=== PATIENT | female | born 1955 | race Caucasian/White ===

== ENCOUNTER 2016-08-08 16:03 | Emergency (ER) | payer MEDICARE, OTHER ==
[~2016-08-08] VITALS: Ht 167.6 cm; Wt 60.0 kg
[~2016-08-08 16:03] MED LIST: ASPI81TA11 PO; ATOR40TA16 PO; CANA100T PO; CYCL1TAB29 PO; HYDR-3801 PO; LISI30TA4 PO; METH40TA PO; NAPR375T PO; REST15CA PO; VITA10002 PO
--- NOTE | 2016-08-08 16:17 | PD ---
HPI Chief Complaint: methadone withdrawal symptoms, chest pain Time Seen by Provider: 16:09 Travel History International Travel<30 days: No Contact w/Intl Traveler<30days: No Traveled to known affect area: No History of Present Illness HPI 61-year-old female came to the emergency room with history of nausea, vomiting, body ache and chest pain. Patient has history of chronic pain and is on methadone 20 mg 3 times a day. She was not able to get her methadone prescription filled from the pharmacy 2 days ago since her insurance would not pay for it. Her last methadone dose was 2 days ago. Patient received Zofran by the digital marketing associate. A 12-lead EKG was nonspecific. ER nurse called [facility] pharmacy Ziyad Garcia to find out the reason why the prescription was not filled and he was told by the pharmacist that her insurance which is Medicare said that they have stopped pain for ongoing high doses of methadone without a proper reason. Patient has history of hypertension and her blood pressure was slightly elevated. She was however awake and answering questions appropriately. [facility] Past Medical History Narrative Medical List of her past medical history was reviewed from the nursing note. Anemia: Yes Arthritis: No Asthma: No Blood Disorders: No Anxiety: Yes Depression: Yes Cancer: No Cardiac Catheterization: Yes Cardiovascular Problems: Yes High Cholesterol: Yes Chemotherapy: No Chest Pain: Yes COPD: Yes Cerebrovascular Accident: Yes (2014) Coronary Artery Disease: Yes Diabetes: Yes Diminished Hearing: No Endocrine: No Gastrointestinal Disorders: Yes (GI BLEED) GERD: Yes Genitourinary: Yes Headaches: Yes Hepatitis: No Hypertension: Yes Immune Disorder: No Implanted Vascular Access Dvce: Yes Kidney Stones: Yes Musculoskeletal: Yes (SCOLIOSIS,TORTICOLIS) Neurologic: Yes Psychiatric: Yes Reproductive: No Respiratory: Yes Immunizations Current: Yes Migraines: Yes Radiation Therapy: No Renal Failure: Yes Seizures: No Sleep Apnea: Yes Thyroid Disease: No PNEUMOCCOCAL Vaccine (Year): 1 Menopausal: Yes : 2 Para: 1 Miscarriage: 1 Past Surgical History Abdominal Surgery: Yes AICD: No Appendectomy: Yes Body Medical Devices: WIRE CAGE IN NECK - PLATE IN LEFT WRIST & LEFT CLAVICLE, stents Cardiac Surgery: Yes (STENTS cardiac, "stents between my kindey and heart" ) Cholecystectomy: Yes Coronary Stent: Yes (x3) Ear Surgery: No Eye Surgery: No Gynecologic Surgery: Yes (HYST) Hysterectomy: Yes Neurologic Surgery: Yes (C3 C4 ) Oral Surgery: No Pacemaker: No Tonsillectomy: Yes Other Surgery: Yes Social History Alcohol Use: No Tobacco Use: No (QUIT 24 YRS) Substance Use: No Allergies-Medications (Allergen,Severity, Reaction): Coded Allergies: Levaquin (Verified Allergy, Severe, Anaphylaxis, 06/05/16) Morphine (Verified Allergy, Severe, SEVERE VOMITING, 06/05/16) Reglan (Verified Allergy, Severe, Edema, 06/05/16) Norvasc (Verified Adverse Reaction, Severe, Swelling, 06/05/16) "left leg swelling" Comments List of her allergies reviewed from the nursing note. No Reported Meds & Prescriptions Reported Meds & Active Scripts Active Vistaril (Hydroxyzine Pamoate) 50 Mg Cap 50 Mg PO BID Clonidine (Clonidine HCl) 0.1 Mg Tab 0.1 Mg PO BID Invokana (Canagliflozin) 100 Mg Tab 100 Mg PO DAILY Take before 1st meal of day. Hydralazine (Hydralazine HCl) 100 Mg Tab 100 Mg PO BID Take with meals Lisinopril 30 Mg Tab 30 Mg PO DAILY Naproxen 375 Mg Tab 375 Mg PO BID PRN Reported Restoril (Temazepam) 15 Mg Cap 15 Mg PO HS PRN Aspirin EC (Aspirin) 81 Mg Tabdr 81 Mg PO DAILY Vitamin B-12 (Cyanocobalamin) 1,000 Mcg Tab 1,000 Mcg PO DAILY Flexeril (Cyclobenzaprine HCl) 10 Mg Tab 10 Mg PO TID Atorvastatin (Atorvastatin Calcium) 40 Mg Tab 40 Mg PO HS Methadone (Methadone HCl) 40 Mg Tab 40 Mg PO TID Narrative Medication List of her home medications reviewed from the nursing note. Review of Systems Except as stated in HPI: all other systems reviewed are Neg Physical Exam Narrative GENERAL: Awake, alert, anxious, otherwise no obvious distress, disheveled SKIN: Warm and dry. HEAD: Atraumatic. Normocephalic. EYES: Pupils equal and round. No scleral icterus. No injection or drainage. ENT: No nasal bleeding or discharge. Mucous membranes pink and moist. NECK: Trachea midline. No JVD. CARDIOVASCULAR: Regular rate and rhythm. No murmur appreciated. RESPIRATORY: No accessory muscle use. Clear to auscultation. Breath sounds equal bilaterally. GASTROINTESTINAL: Abdomen soft, non-tender, nondistended. Hepatic and splenic margins not palpable. MUSCULOSKELETAL: No obvious deformities. No clubbing. No cyanosis. No edema. NEUROLOGICAL: Awake and alert. No obvious cranial nerve deficits. Motor grossly within normal limits. Normal speech. PSYCHIATRIC: Appropriate mood and affect; insight and judgment normal. Data Data Last Documented VS Vital Signs Date Time Temp Pulse Resp B/P Pulse Ox O2 Delivery O2 Flow Rate FiO2 08/08/16 18:00 86 20 169/111 96 Room Air 08/08/16 16:32 98.6 Orders Electrocardiogram (08/08/16 16:23) Basic Metabolic Panel (Bmp) (08/08/16 16:23) Ckmb (Isoenzyme) Profile (08/08/16 16:23) Complete Blood Count With Diff (08/08/16 16:23) Magnesium (Mg) (08/08/16 16:23) Prothrombin Time / Inr (Pt) (08/08/16 16:23) Act Partial Throm Time (Ptt) (08/08/16 16:23) Troponin I (08/08/16 16:23) Chest, Single Ap (08/08/16 16:23) Ecg Monitoring (08/08/16 16:23) Bilateral Bp Monitoring (08/08/16 16:23) Iv Access Insert/Monitor (08/08/16 16:23) Oximetry (08/08/16 16:23) Oxygen Administration (08/08/16 16:23) Sodium Chloride 0.9% Flush (Ns Flush) (08/08/16 16:30) Sodium Chlorid 0.9% 500 Ml Inj (Ns 500 M (08/08/16 16:30) Clonidine (Catapres) (08/08/16 16:30) Hydroxyzine Hcl (Atarax) (08/08/16 16:30) Ondansetron Odt (Zofran Odt) (08/08/16 17:00) CKMB (08/08/16 16:40) CKMB% (08/08/16 16:40) Labs Laboratory Tests Test 08/08/16 16:40 White Blood Count 6.9 TH/MM3 Red Blood Count 4.23 MIL/MM3 Hemoglobin 11.6 GM/DL Hematocrit 35.2 % Mean Corpuscular Volume 83.2 FL Mean Corpuscular Hemoglobin 27.5 PG Mean Corpuscular Hemoglobin 33.0 % Concent Red Cell Distribution Width 16.8 % Platelet Count 240 TH/MM3 Mean Platelet Volume 8.0 FL Neutrophils (%) (Auto) 72.8 % Lymphocytes (%) (Auto) 17.6 % Monocytes (%) (Auto) 7.8 % Eosinophils (%) (Auto) 1.0 % Basophils (%) (Auto) 0.8 % Neutrophils # (Auto) 5.0 TH/MM3 Lymphocytes # (Auto) 1.2 TH/MM3 Monocytes # (Auto) 0.5 TH/MM3 Eosinophils # (Auto) 0.1 TH/MM3 Basophils # (Auto) 0.1 TH/MM3 CBC Comment DIFF FINAL Differential Comment Prothrombin Time 11.4 SEC Prothromb Time International 1.0 RATIO Ratio Activated Partial 22.1 SEC Thromboplast Time Sodium Level 136 MEQ/L Potassium Level 5.0 MEQ/L Chloride Level 103 MEQ/L Carbon Dioxide Level 23.1 MEQ/L Anion Gap 10 MEQ/L Blood Urea Nitrogen 21 MG/DL Creatinine 1.60 MG/DL Estimat Glomerular Filtration 33 ML/MIN Rate Random Glucose 143 MG/DL Calcium Level 9.3 MG/DL Magnesium Level 1.7 MG/DL Total Creatine Kinase 184 U/L Creatine Kinase MB 3.5 NG/ML Troponin I LESS THAN 0.02 NG/ML MDM Medical Decision Making Medical Screen Exam Complete: Yes Emergency Medical Condition: Yes Interpretation(s) Twelve-lead EKG was reviewed by me. Normal sinus rhythm, normal axis, nonspecific ST-T wave changes. Heart rate of 93 bpm. Differential Diagnosis ACS, opiate withdrawal, left leg abnormality Narrative Course 4:49 PM blood test results are pending. Patient is getting IV fluid bolus, clonidine and Zofran. I will also give her Atarax. 5:35 PM blood test results of back and there is some degree of renal insufficiency which seems to be chronic. And is getting IV fluid bolus. She was given IV Zofran. I'll discharge this patient home. Procedures EKG Prior to Arrival: Yes Diagnosis Primary Impression: Opiate withdrawal Additional Impression: Renal insufficiency Referrals: Primary Care Physician 2 days Additional Instructions: Follow-up with your primary care. Take medication as per the prescription direction. Med/Other Pt SpecificInfo: Prescription(s) given Scripts Hydroxyzine Pamoate (Vistaril)50 Mg Cap50 Mg PO BID #30 CAP Ref 0 Prov:Maryjane Higginbotham MD 08/08/16 Clonidine 0.1 Mg Tab0.1 Mg PO BID #60 TAB Ref 0 Prov:Maryjane Higginbotham MD 08/08/16 Disposition: 01 DISCHARGE HOME Condition: Stable Maryjane Higginbotham MD Aug 08, 2016 16:17 Maryjane Higginbotham MD Aug 08, 2016 16:17 Maryjane Higginbotham MD Aug 08, 2016 16:17
[2016-08-08] MEDS ORDERED: SODIUM CHLORIDE 0.9% FLUSH 5 ML FLUSH IVF PRN (16:30)
[2016-08-08] MEDS ORDERED: cloNIDine HCL 0.1 MG TAB PO ONE (16:30)
[2016-08-08] MEDS ORDERED: SODIUM CHLORID 0.9% 500 ML INJ 500 ML IV ONE (16:30)
[2016-08-08] MEDS ORDERED: hydrOXYzine HCL 50 MG TAB PO ONE (16:30)
[2016-08-08 16:32] VITALS: BP 179/118; PULSE 95; RESP 24; TEMP 98.6; O2SAT 98
[2016-08-08 16:40] VITALS: O2SAT 98
[2016-08-08 16:43] VITALS: BP_SYST 168; BP_SYST 179; BP_DIAS 108; BP_DIAS 118
[2016-08-08 16:51] LABS: BASOPHIL # 0.1 TH/MM3 (0-0.2); BASOPHIL % 0.8 % (0.0-2.0); EOSINOPHIL # 0.1 TH/MM3 (0-0.4); HEMATOCRIT 35.2 % (35.0-46.0); HEMO FLAGS DIFF FINAL; LYMPH % 17.6 % (9.0-44.0); LYMPHOCYTE # 1.2 TH/MM3 (1.0-4.8); MEAN CELL VOLUME 83.2 FL (80.0-100.0); MEAN CORPUSCULAR HEMOGLOBIN 27.5 PG (27.0-34.0); MONO % 7.8 % (0.0-8.0); NEUT % 72.8 % (16.0-70.0); PLATELET COUNT 240 TH/MM3 (150-450); RED BLOOD COUNT 4.23 MIL/MM3 (4.00-5.30); RED CELL DISTRIBUTION WIDTH 16.8 % (11.6-17.2); WHITE BLOOD COUNT 6.9 TH/MM3 (4.0-11.0)
[2016-08-08] MEDS ORDERED: ONDANSETRON ODT 4 MG TAB PO ONE (17:00)
[2016-08-08 17:05] LABS: APTT (PATIENT) 22.1 SEC (24.3-30.1); PROTHROMBIN TIME - PATIENT 11.4 SEC (9.8-11.6)
[2016-08-08 17:11] LABS: CREATINE KINASE 184 U/L (26-192)
--- NOTE | 2016-08-08 17:19 | RADRPT ---
EXAM DATE/TIME: 08/08/2016 17:08 [facility] COMPARISON: CHEST SINGLE AP, February 29, 2016, 9:49. INDICATIONS : Shortness of breath. Withdrawal from medication. MEDICAL HISTORY : Chronic obstructive pulmonary disease. Hypertension. Renal failure, SURGICAL HISTORY : Fusion, cervical. Hysterectomy. Clavicle, Left. ENCOUNTER: Initial ACUITY: 1 day PAIN SCORE: 0/10 LOCATION: Bilateral chest FINDINGS: There is moderate elevation of the left hemidiaphragm. Mediastinum appears widened with some thoraco lumbar scoliosis. This is stable in the interval. The lungs are otherwise clear. Heart and pulmona ry vascularity are normal. CONCLUSION: Stable chest. Yovani Orlando MD FACR on August 08, 2016 at 17:16 Board Certified Radiologist. This report was verified electronically.
[2016-08-08 17:23] LABS: CKMB 3.5 NG/ML (0.5-3.6)
[2016-08-08 17:29] LABS: ANION GAP 10 MEQ/L (5-15); BICARBONATE 23.1 MEQ/L (21.0-32.0); BLOOD UREA NITROGEN 21 MG/DL (7-18); CHLORIDE 103 MEQ/L (98-107); GLOMERULAR FILTRATION RATE 33 ML/MIN (>89); MAGNESIUM 1.7 MG/DL (1.5-2.5); SODIUM (NA) 136 MEQ/L (136-145)
[2016-08-08] MEDS ORDERED: CLON0.1T PO (17:42)
[2016-08-08] MEDS ORDERED: VIST50CA PO (17:42)
[2016-08-08 18:00] VITALS: BP 169/111; PULSE 86; RESP 20; O2SAT 96
--- NOTE | 2016-08-09 14:21 | EKG ---
Date Performed: 08/08/2016 Time Performed: 16:34:11 PTAGE: 61 years EKG: Sinus rhythm POSSIBLE LEFT ATRIAL ENLARGEMENT POSSIBLE LEFT VENTRICULAR HYPERTROPHY NONSPECIFIC T-WAVE ABNORMALIT Y Previously inverted T wave V1 and V2 is now resolved Clinical correlation is recommended ABNORMAL E CG PREVIOUS TRACING : 06/05/2016 14.30 DOCTOR: Thuan Trejo Interpretating Date/Time 08/09/2016 14:19:00
[2016-10-30] MEDS ORDERED: LABE300T PO (08:45)
[2016-10-30] MEDS ORDERED: FURO1TAB60 PO (08:45)
[2016-10-30] MEDS ORDERED: HYDR-3801 PO (08:45)
[2016-10-30] MEDS ORDERED: HYDR50TA15 PO (14:41)
== END 2016-08-08 19:39 | disposition home or self-care (01) ==
LOC: NEPC 16:03
DX: F11.23 Opioid dependence with withdrawal (principal); N28.9 Disorder of kidney and ureter, unspecified; R07.9 Chest pain, unspecified; D64.9 Anemia, unspecified; E78.00 Pure hypercholesterolemia, unspecified; E11.9 Type 2 diabetes mellitus without complications; I10 Essential (primary) hypertension; R94.31 Abnormal electrocardiogram [ECG] [EKG]
CPT/HCPCS: 71010; 80048; 82550; 82552; 83735; 84484; 85025; 85610; 85730; 93005; 99285; J7040

== ENCOUNTER 2016-09-20 18:44 | Emergency (ER) | payer MEDICARE, OTHER ==
[~2016-09-20] VITALS: Ht 167.6 cm; Wt 67.0 kg
[~2016-09-20 18:44] MED LIST changes: +CLON0.1T PO; +VIST50CA PO
[2016-09-20 18:50] VITALS: BP 186/114; PULSE 100; RESP 17; O2SAT 99
[2016-09-20] MEDS ORDERED: PRIL20CA9 PO (18:57)
[2016-09-20] MEDS ORDERED: CLON0.3T PO (18:57)
[2016-09-20] MEDS ORDERED: SODIUM CHLORIDE 0.9% FLUSH 5 ML FLUSH IVF PRN (19:30)
--- NOTE | 2016-09-20 19:30 | PD ---
HPI Chief Complaint: Hypertension Time Seen by Provider: 19:18 Travel History International Travel<30 days: No Contact w/Intl Traveler<30days: No Traveled to known affect area: No History of Present Illness HPI The patient is a 61 year old female who presents to the [facility] emergency department with a history of shortness of breath that became worse while she was at the races prior to arrival. She reports that she was walking up the steps when this occurred. She reports that she does have a history of COPD and is on oxygen by nasal cannula when necessary, usually at night. She reports that she felt diaphoretic although she had no chest pain. She reports that she has had congestive heart failure in the past. She reports that she does have a history of hypertension and forgot to take her blood pressure medication at 2 PM today. She reports that she realizes when she had these symptoms as she has had similar symptoms when she is forgot to take her blood pressure medication. The patient is on clonidine 0.3 mg by mouth 3 times a day. Approximately 40 minutes prior to arrival she did take one of her clonidine when she began to have these symptoms. She reports that she is beginning to feel improved. The patient reports that she has had an occasional cough that is been slightly worse than usual recently. She reports that she's also had some pressure in her ears. She denies having any nasal discharge or fever. The patient denies any new or changed neck pain, chest pain, abdominal pain, vomiting, diarrhea, urinary symptoms, or neurologic symptoms. [facility] Past Medical History Narrative Medical The patient's past medical history is significant for torticollis since 2002, history of congestive heart failure, COPD, chronic bronchitis, reported history of a "paralyzed" lung, history of chronic dyspnea on exertion, history of hypertension, history of GI bleed, history of acid reflux, history of anxiety and depression, history of renal insufficiency. The patient denies any prior history of DVT or PE. Anemia: Yes Arthritis: No Asthma: No Blood Disorders: No Anxiety: Yes Depression: Yes Cancer: No Cardiac Catheterization: Yes Cardiovascular Problems: Yes (CARDIAC STENTS) High Cholesterol: Yes Chemotherapy: No Chest Pain: Yes COPD: Yes Cerebrovascular Accident: Yes (2014) Coronary Artery Disease: Yes Diabetes: Yes Patient Takes Glucophage: No Diminished Hearing: No Endocrine: No Gastrointestinal Disorders: Yes (GI BLEED) GERD: Yes Genitourinary: Yes Headaches: Yes Hepatitis: No Hypertension: Yes Immune Disorder: No Implanted Vascular Access Dvce: Yes Kidney Stones: Yes Musculoskeletal: Yes (SCOLIOSIS,TORTICOLIS) Neurologic: Yes Psychiatric: Yes Reproductive: No Respiratory: Yes (COPD BRONCHITIS ) Immunizations Current: Yes Migraines: Yes Radiation Therapy: No Renal Failure: Yes Seizures: No Sleep Apnea: Yes Thyroid Disease: No PNEUMOCCOCAL Vaccine (Year): 1 Menopausal: Yes : 2 Para: 1 Miscarriage: 1 Past Surgical History Narrative Surgical The patient's past surgical history significant for C3-C4 fusion, appendectomy, hysterectomy, cholecystectomy, left shoulder surgery, left wrist ORIF. Abdominal Surgery: Yes AICD: No Appendectomy: Yes Body Medical Devices: WIRE CAGE IN NECK - PLATE IN LEFT WRIST & LEFT CLAVICLE, stents Cardiac Surgery: Yes (STENTS cardiac, "stents between my kidney and heart" ) Cholecystectomy: Yes Coronary Stent: Yes (x3) Ear Surgery: No Eye Surgery: No Gynecologic Surgery: Yes (HYST) Hysterectomy: Yes Neurologic Surgery: Yes (C3 C4 ) Oral Surgery: No Pacemaker: No Tonsillectomy: Yes Other Surgery: Yes Social History Alcohol Use: No Tobacco Use: No (QUIT 24 YRS) Substance Use: No Allergies-Medications (Allergen,Severity, Reaction): Coded Allergies: Levaquin (Verified Allergy, Severe, Anaphylaxis, 09/20/16) Morphine (Verified Allergy, Severe, SEVERE VOMITING, 09/20/16) Reglan (Verified Allergy, Severe, Edema, 09/20/16) Norvasc (Verified Adverse Reaction, Severe, Swelling, 09/20/16) "left leg swelling" Reported Meds & Prescriptions Reported Meds & Active Scripts Active Hydralazine (Hydralazine HCl) 100 Mg Tab 100 Mg PO BID Take with meals Naproxen 375 Mg Tab 375 Mg PO BID PRN Reported Prilosec (Omeprazole) 20 Mg Cap 40 Mg PO DAILY Clonidine (Clonidine HCl) 0.3 Mg Tab 0.3 Mg PO BID Restoril (Temazepam) 15 Mg Cap 15 Mg PO HS PRN Aspirin EC (Aspirin) 81 Mg Tabdr 81 Mg PO DAILY Vitamin B-12 (Cyanocobalamin) 1,000 Mcg Tab 1,000 Mcg PO DAILY Flexeril (Cyclobenzaprine HCl) 10 Mg Tab 10 Mg PO TID Atorvastatin (Atorvastatin Calcium) 40 Mg Tab 40 Mg PO HS Methadone (Methadone HCl) 40 Mg Tab 40 Mg PO TID Review of Systems Except as stated in HPI: all other systems reviewed are Neg General / Constitutional: No: Fever Eyes: No: Visual changes HENT: No: Headaches Cardiovascular: Positive: Diaphoresis, Dyspnea on exertion, No: Chest Pain or Discomfort Respiratory: Positive: Shortness of Breath Gastrointestinal: No: Nausea, Vomiting, Diarrhea, Abdominal Pain Genitourinary: No: Dysuria Musculoskeletal: No: Pain Skin: No Rash Neurologic: No: Weakness, Focal Abnormalities, Coordination Problem, Change in Mentation, Slurred Speech, Sensory Disturbance Psychiatric: No: Depression Endocrine: No: Polydipsia Hematologic/Lymphatic: No: Easy Bruising Physical Exam Narrative General: The patient is a well-developed well-nourished female in no acute distress. Head and Neck exam: Head is normocephalic atraumatic. Eyes: Pupils are equal round and reactive to light. Nose: Midline septum with pink mucous membranes Mouth: Dentition unremarkable. Moist mucus membranes. Posterior oropharynx is not erythematous. No tonsillar hypertrophy. Uvula midline. Airway patent. Neck: No palpable lymphadenopathy. No nuchal rigidity. No thyromegaly. Cardiovascular: Regular rate and rhythm without murmurs, gallops, or rubs. Lungs: Clear to auscultation bilaterally. No wheezes, rhonchi, or rales. Abdomen: Soft, without tenderness to palpation in all 4 quadrants of the abdomen. No guarding, rebound, or rigidity. Normal bowel sounds are audible. Extremities: No clubbing, cyanosis, or edema. 2+ pulses in all 4 extremities. No calf tenderness on palpation. Back: No spinous process tenderness to palpation. No costovertebral angle tenderness to palpation. Neurologic Exam: Grossly nonfocal. Skin Exam: No rash noted. Intact skin that is warm and dry. Data Data Last Documented VS Vital Signs Date Time Temp Pulse Resp B/P Pulse Ox O2 Delivery O2 Flow Rate FiO2 09/20/16 20:19 97 16 186/117 98 Nasal Cannula 2 Orders Complete Blood Count With Diff (09/20/16 19:18) Basic Metabolic Panel (Bmp) (09/20/16 19:18) B-Type Natriuretic Peptide (09/20/16 19:18) Act Partial Throm Time (Ptt) (09/20/16 19:18) Prothrombin Time / Inr (Pt) (09/20/16 19:18) Magnesium (Mg) (09/20/16 19:18) Ckmb (Isoenzyme) Profile (09/20/16 19:18) Troponin I (09/20/16 19:18) Iv Access Insert/Monitor (09/20/16 19:18) Electrocardiogram (09/20/16 19:18) Ecg Monitoring (09/20/16 19:18) Oximetry (09/20/16 19:18) Oxygen Administration (09/20/16 19:18) Chest, Single Ap (09/20/16 19:18) Sodium Chloride 0.9% Flush (Ns Flush) (09/20/16 19:30) CKMB (09/20/16 18:55) CKMB% (09/20/16 18:55) Labs Laboratory Tests Test 09/20/16 18:55 White Blood Count 9.5 TH/MM3 Red Blood Count 3.83 MIL/MM3 Hemoglobin 9.9 GM/DL Hematocrit 31.7 % Mean Corpuscular Volume 82.6 FL Mean Corpuscular Hemoglobin 25.9 PG Mean Corpuscular Hemoglobin 31.4 % Concent Red Cell Distribution Width 17.2 % Platelet Count 227 TH/MM3 Mean Platelet Volume 8.5 FL Neutrophils (%) (Auto) 73.1 % Lymphocytes (%) (Auto) 18.9 % Monocytes (%) (Auto) 4.9 % Eosinophils (%) (Auto) 2.7 % Basophils (%) (Auto) 0.4 % Neutrophils # (Auto) 6.9 TH/MM3 Lymphocytes # (Auto) 1.8 TH/MM3 Monocytes # (Auto) 0.5 TH/MM3 Eosinophils # (Auto) 0.3 TH/MM3 Basophils # (Auto) 0.0 TH/MM3 CBC Comment DIFF FINAL Differential Comment Prothrombin Time 11.0 SEC Prothromb Time International 1.0 RATIO Ratio Activated Partial 25.9 SEC Thromboplast Time Sodium Level 141 MEQ/L Potassium Level 4.9 MEQ/L Chloride Level 109 MEQ/L Carbon Dioxide Level 23.6 MEQ/L Anion Gap 8 MEQ/L Blood Urea Nitrogen 23 MG/DL Creatinine 1.57 MG/DL Estimat Glomerular Filtration 33 ML/MIN Rate Random Glucose 134 MG/DL Calcium Level 9.0 MG/DL Magnesium Level 1.9 MG/DL Total Creatine Kinase 153 U/L Creatine Kinase MB 5.0 NG/ML Troponin I 0.02 NG/ML B-Type Natriuretic Peptide 149 PG/ML MDM Medical Decision Making Medical Screen Exam Complete: Yes Emergency Medical Condition: Yes Medical Record Reviewed: Yes Interpretation(s) Laboratory Tests Test 09/20/16 18:55 Red Blood Count 3.83 MIL/MM3 (4.00-5.30) Hemoglobin 9.9 GM/DL (11.6-15.3) Hematocrit 31.7 % (35.0-46.0) Mean Corpuscular Hemoglobin 25.9 PG (27.0-34.0) Mean Corpuscular Hemoglobin 31.4 % Concent (32.0-36.0) Neutrophils (%) (Auto) 73.1 % (16.0-70.0) Chloride Level 109 MEQ/L (98-107) Blood Urea Nitrogen 23 MG/DL (7-18) Creatinine 1.57 MG/DL (0.50-1.00) Estimat Glomerular Filtration 33 ML/MIN (>89) Rate Random Glucose 134 MG/DL (74-106) Creatine Kinase MB 5.0 NG/ML (0.5-3.6) B-Type Natriuretic Peptide 149 PG/ML (0-100) Last Impressions Chest X-Ray 09/20/161917 Signed Impressions: Service Date/Time: Tuesday, September 20, 2016 19:33 - CONCLUSION: Stable chest with elevation left hemidiaphragm. Tomas Jean MD Differential Diagnosis Hypertensive urgency, versus hypertensive emergency with pulmonary edema, versus COPD exacerbation, versus anxiety disorder, versus pneumonia, versus pneumothorax, versus acute coronary syndrome Narrative Course During the course of the patients emergency department visit, the patients history, examination, and differential diagnosis were reviewed with the patient. The patient had IV access obtained and blood work sent for analysis. The patient states on a teletypesetter monitor with oximetry and blood pressure monitoring. An EKG was done on arrival. The patient's EKG shows a sinus rhythm heart rate of 97, no acute ST segment elevation or depression is noted. Left ventricular hypertrophy changes are noted. With observation, the patient's blood pressure began to improve after herself administered clonidine. The patient's ride home arrived at her bedside and reports that she will need to take the patient home as soon as possible. The patient's labs were reviewed. The patient was anxious about not being able to leave with her friend which is her only ride home, therefore the patient's blood pressure briefly went up again to 180/100. The patients laboratory studies were reviewed and remarkable for a white count of 9.5, hemoglobin 9.9, and a patient with a history of chronic anemia, this is no worse than usual, platelets 227, neutrophils 73.1, CMP is remarkable for chloride of 109, BUN is 23, creatinine 1.57 which is similar to her previous history of renal insufficiency, glucose 134, CPK 153, troponin I 0.02, BNP is 149, PT PTT unremarkable. Chest x-ray shows a stable chest with elevation of the left hemidiaphragm. As the patient reports feeling improved and has a suspected cause of her symptoms related to elevated blood pressure from not taking her usual blood pressure medication regimen, the patient will be discharged home. She is instructed to take her usual blood pressure medication regimen this evening as previously prescribed and follow-up closely with her primary care physician for reexamination this week. The patient was instructed that if she develops a recurrence of symptoms in the meantime, she should report back immediately to the emergency department for evaluation and treatment. The patient is resting comfortably and feels better, is alert and in no distress. The patients results and examination findings were discussed with the patient. The repeat examination is unremarkable and benign. The history, exam, diagnostic testing, and current condition do not suggest any significant pathology to warrant further testing, continued ED treatment, admission, or surgical evaluation at this point. The vital signs have been stable. The patient does not have uncontrollable pain, intractable vomiting, or other significant symptoms. The patient's condition is stable and appropriate for discharge. The patient will pursue further outpatient evaluation with a primary care physician or other designated or consulting physician as indicated in the discharge instructions. The patient expressed understanding and was agreeable with this plan. Diagnosis Primary Impression: Hypertensive urgency Additional Impression: Noncompliance with medication treatment due to underuse of medication Referrals: Primary Care Physician 2 days Patient Instructions: General Instructions, Hypertension (ED) Med/Other Pt SpecificInfo: No Change to Meds Disposition: 01 DISCHARGE HOME Condition: Stable Margarita Hendricks MD Sep 20, 2016 19:30
[2016-09-20 19:40] VITALS: BP 165/102; PULSE 93; RESP 18; O2SAT 97
[2016-09-20 19:42] LABS: AUTOMATED NEUTROPHIL # 6.9 TH/MM3 (1.8-7.7); BASOPHIL % 0.4 % (0.0-2.0); EOSINOPHIL # 0.3 TH/MM3 (0-0.4); EOSINOPHIL % 2.7 % (0.0-4.0); HEMATOCRIT 31.7 % (35.0-46.0); HEMO FLAGS DIFF FINAL; LYMPH % 18.9 % (9.0-44.0); LYMPHOCYTE # 1.8 TH/MM3 (1.0-4.8); MEAN CELL VOLUME 82.6 FL (80.0-100.0); MEAN CORPUSCULAR HEMOGLOBIN 25.9 PG (27.0-34.0); MEAN CORPUSCULAR HGB CONC 31.4 % (32.0-36.0); MONO % 4.9 % (0.0-8.0); NEUT % 73.1 % (16.0-70.0); PLATELET COUNT 227 TH/MM3 (150-450); RED BLOOD COUNT 3.83 MIL/MM3 (4.00-5.30); RED CELL DISTRIBUTION WIDTH 17.2 % (11.6-17.2); WHITE BLOOD COUNT 9.5 TH/MM3 (4.0-11.0)
--- NOTE | 2016-09-20 19:43 | RADRPT ---
EXAM DATE/TIME: 09/20/2016 19:33 [facility] COMPARISON: CHEST SINGLE AP, August 08, 2016, 17:08. INDICATIONS : Shortness of breath. MEDICAL HISTORY : Chronic obstructive pulmonary disease. Hypertension. Renal failure, SURGICAL HISTORY : None. ENCOUNTER: Initial ACUITY: 1 day PAIN SCORE: 0/10 LOCATION: Bilateral chest FINDINGS: A single view of the chest demonstrates elevation left hemidiaphragm with gaseous distention of the c olon. Mediastinal shift to the right is unchanged. Lungs are clear.. The cardiomediastinal contours are unremarkable. Plate and screws on the left clavicle. CONCLUSION: Stable chest with elevation left hemidiaphragm. Tomas Jean MD on September 20, 2016 at 19:40 Board Certified Radiologist. This report was verified electronically.
[2016-09-20 19:50] LABS: APTT (PATIENT) 25.9 SEC (24.3-30.1)
[2016-09-20 20:05] LABS: ANION GAP 8 MEQ/L (5-15); BICARBONATE 23.6 MEQ/L (21.0-32.0); BLOOD UREA NITROGEN 23 MG/DL (7-18); CHLORIDE 109 MEQ/L (98-107); CREATINE KINASE 153 U/L (26-192); GLOMERULAR FILTRATION RATE 33 ML/MIN (>89); MAGNESIUM 1.9 MG/DL (1.5-2.5); POTASSIUM 4.9 MEQ/L (3.5-5.1); SODIUM (NA) 141 MEQ/L (136-145)
[2016-09-20 20:19] VITALS: BP 186/117; PULSE 97; RESP 16; O2SAT 98
--- NOTE | 2016-09-21 12:41 | EKG ---
Date Performed: 09/20/2016 Time Performed: 19:00:20 PTAGE: 61 years EKG: Sinus rhythm POSSIBLE LEFT ATRIAL ENLARGEMENT LEFT VENTRICULAR HYPERTROPHY AND ST-T CHANGE ABNORMAL ECG Compared to prior tracing no significant change PREVIOUS TRACING : 08/08/2016 16.34 DOCTOR: Jay Qureshi Interpretating Date/Time 09/21/2016 12:36:39
[2016-10-30] MEDS ORDERED: HYDR-3801 PO (08:45)
[2016-10-30] MEDS ORDERED: LABE300T PO (08:45)
[2016-10-30] MEDS ORDERED: FURO1TAB60 PO (08:45)
[2016-10-30] MEDS ORDERED: HYDR50TA15 PO (14:41)
== END 2016-09-20 21:09 | disposition home or self-care (01) ==
LOC: NEPE 18:44
DX: I16.0 Hypertensive urgency (principal); J44.9 Chronic obstructive pulmonary disease, unspecified; K21.9 Gastro-esophageal reflux disease without esophagitis; I50.9 Heart failure, unspecified; E78.00 Pure hypercholesterolemia, unspecified; E11.9 Type 2 diabetes mellitus without complications; I25.10 Atherosclerotic heart disease of native coronary artery without angina pectoris; Z91.14 Patient's other noncompliance with medication regimen; Z95.5 Presence of coronary angioplasty implant and graft; Z86.73 Personal history of transient ischemic attack (TIA), and cerebral infarction without residual deficits
CPT/HCPCS: 71010; 80048; 82550; 82552; 83735; 83880; 84484; 85025; 85610; 85730; 93005

== ENCOUNTER 2016-12-15 20:59 | Inpatient (IN) | payer MEDICARE, OTHER ==
[~2016-12-15] VITALS: Ht 162.6 cm; Wt 65.0 kg
[~2016-12-15 20:59] MED LIST changes: -CANA100T PO; -CLON0.1T PO; +CLON0.3T PO; -CYCL1TAB29 PO; +FURO1TAB60 PO; -HYDR-3801 PO; +HYDR50TA15 PO; +LABE300T PO; -LISI30TA4 PO; -NAPR375T PO; +PRIL20CA9 PO; -VIST50CA PO
[2016-12-15 21:06] VITALS: BP 171/102; PULSE 92; RESP 24; O2SAT 99
[2016-12-15 21:30] VITALS: BP_SYST 171; BP_SYST 178; BP_DIAS 102; BP_DIAS 106; RESP 20; O2SAT 99
[2016-12-15] MEDS ORDERED: SODIUM CHLORIDE 0.9% FLUSH 10 ML FLUSH IVF PRN (21:30)
[2016-12-15] MEDS: NITROGLYCERIN 0.4 MG SL 25 TABS/BTL SL SCH ×3 (21:30→21:36)
[2016-12-15] MEDS ORDERED: NITROGLYCERIN 2% OINT 1 GM PACKET TOP ONE (21:30)
--- NOTE | 2016-12-15 21:30 | PD ---
HPI Chief Complaint: Cardiac Complaint Time Seen by Provider: 21:05 Travel History International Travel<30 days: No Contact w/Intl Traveler<30days: No Traveled to known affect area: No History of Present Illness HPI The patient is a 61 year old female who presents to the [facility] emergency department with a history of chest pain and shortness of breath that she reports began at approximately 7:00 this evening. She was in a movie when it began. She reports that she last took her blood pressure medication, clonidine at approximately 6:45 PM. The patient reports that she does have a history of coronary artery disease and has had 2 stents placed previously. She cannot recall when she last had a stress test. The patient additionally reports that she does have a history of COPD and is on 2 L nasal cannula O2 at night and when necessary throughout the day with activity. The patient reports that the pain is a pressure sensation. The patient was noted to be hypertensive prior to arrival. The patient refused nitroglycerin administration and she reports getting headache with it. She was given aspirin 162 mg by mouth 1, morphine 10 mg IV en route to this facility. The patient reports feeling slightly improved. The patient denies any recent fevers, worsening cough or congestion, neck pain, abdominal pain, vomiting, diarrhea, urinary symptoms, or neurologic symptoms. PFS Past Medical History Narrative Medical The patient's past medical history is significant for coronary artery disease status post 2 prior stents being placed, last cardiac catheterization of record at this facility was in 2009 which did reveal moderate stenosis of the mid left anterior descending coronary artery and patent grafts of the right coronary artery. Cardiology recommended at that time aggressive modification of cardiac risk factors. The patient has a history of hypertension with renal stents placed for renal artery stenosis, history of COPD, history of anxiety disorder, history of chronic pain on methadone, history of cerebrovascular accident that appears to be an intracranial hemorrhage history of hyperlipidemia, history of scoliosis, torticollis, acid reflux. Anemia: Yes Arthritis: No Asthma: No Blood Disorders: No Anxiety: Yes Depression: Yes Cancer: No Cardiac Catheterization: Yes Cardiovascular Problems: Yes (CARDIAC STENTS) High Cholesterol: Yes Chemotherapy: No Chest Pain: Yes COPD: Yes Cerebrovascular Accident: Yes (2014) Coronary Artery Disease: Yes Diabetes: Yes Patient Takes Glucophage: No Diminished Hearing: No Endocrine: No Gastrointestinal Disorders: Yes (GI BLEED) GERD: Yes Genitourinary: Yes Headaches: Yes Hepatitis: No Hypertension: Yes Immune Disorder: No Implanted Vascular Access Dvce: Yes Kidney Stones: Yes Musculoskeletal: Yes (SCOLIOSIS,TORTICOLIS) Neurologic: Yes Psychiatric: Yes Reproductive: No Respiratory: Yes (COPD BRONCHITIS ) Immunizations Current: Yes Migraines: Yes Radiation Therapy: No Renal Failure: Yes Seizures: No Sleep Apnea: Yes Thyroid Disease: No Tetanus Vaccination: > 5 Years Influenza Vaccination: Yes PNEUMOCCOCAL Vaccine (Year): 1 Menopausal: Yes : 2 Para: 1 Miscarriage: 1 Past Surgical History Narrative Surgical The patient's past surgical history is significant for renal artery stent placement, history of cardiac catheterization 2 prior stents placed, history of cholecystectomy, left wrist surgery, cervical spine surgery, left clavicle surgery, hysterectomy, tonsillectomy. Abdominal Surgery: Yes AICD: No Appendectomy: Yes Body Medical Devices: WIRE CAGE IN NECK - PLATE IN LEFT WRIST & LEFT CLAVICLE, stents Cardiac Surgery: Yes (STENTS cardiac, "stents between my kidney and heart" ) Cholecystectomy: Yes Coronary Stent: Yes (x3) Ear Surgery: No Eye Surgery: No Gynecologic Surgery: Yes (HYST) Hysterectomy: Yes Neurologic Surgery: Yes (C3 C4 ) Oral Surgery: No Pacemaker: No Tonsillectomy: Yes Other Surgery: Yes Social History Alcohol Use: No Tobacco Use: No (QUIT 24 YRS) Substance Use: No Allergies-Medications (Allergen,Severity, Reaction): Coded Allergies: Levaquin (Verified Allergy, Severe, Anaphylaxis, 12/15/16) Morphine (Verified Allergy, Severe, SEVERE VOMITING, 12/15/16) Reglan (Verified Allergy, Severe, Edema, 12/15/16) Norvasc (Verified Adverse Reaction, Severe, Swelling, 12/15/16) "left leg swelling" Reported Meds & Prescriptions Reported Meds & Active Scripts Active Reported Hydralazine (Hydralazine HCl) 50 Mg Tab 50 Mg PO BID Take with a meal Labetalol (Labetalol HCl) 300 Mg Tab 150 Mg PO DAILY Lasix (Furosemide) 40 Mg Tab 40 Mg PO DAILY Prilosec (Omeprazole) 20 Mg Cap 40 Mg PO DAILY Clonidine (Clonidine HCl) 0.3 Mg Tab 0.3 Mg PO TID Restoril (Temazepam) 15 Mg Cap 15 Mg PO HS PRN Aspirin EC (Aspirin) 81 Mg Tabdr 81 Mg PO DAILY Vitamin B-12 (Cyanocobalamin) 1,000 Mcg Tab 1,000 Mcg PO DAILY Atorvastatin (Atorvastatin Calcium) 40 Mg Tab 40 Mg PO HS Methadone (Methadone HCl) 40 Mg Tab 20 Mg PO TID Review of Systems Except as stated in HPI: all other systems reviewed are Neg General / Constitutional: No: Fever Eyes: No: Visual changes HENT: No: Headaches Cardiovascular: Positive: Chest Pain or Discomfort, Dyspnea on exertion Respiratory: No: Shortness of Breath Gastrointestinal: Positive: Nausea, No: Vomiting, Diarrhea, Abdominal Pain Genitourinary: No: Dysuria Musculoskeletal: No: Pain Skin: No Rash Neurologic: No: Weakness, Focal Abnormalities, Slurred Speech, Sensory Disturbance Psychiatric: Positive: Anxiety, No: Depression Endocrine: No: Polydipsia Hematologic/Lymphatic: No: Easy Bruising Physical Exam Narrative General: The patient is a well-developed well-nourished female, uncomfortable appearing on arrival, noted to have some accessory muscle use and prolonged expiratory phase of breathing. Head and Neck exam: Head is normocephalic atraumatic. Eyes: EOMI, pupils are equal round and reactive to light. Nose: Midline septum with pink mucous membranes Mouth: Dentition unremarkable. Moist mucus membranes. Posterior oropharynx is not erythematous. No tonsillar hypertrophy. Uvula midline. Airway patent. Neck: No palpable lymphadenopathy. No nuchal rigidity. No thyromegaly. Cardiovascular: Regular rate and rhythm without murmurs, gallops, or rubs. No pulse deficits to the extremities and simultaneous auscultation and palpation of her radial artery Lungs: Soft expiratory wheezes are audible in bilateral lung montoya, equal breath sounds bilaterally, no rhonchi, no crackles. No paroxysmal abdominal breathing , no tripoding, however she does have some accessory muscle use. Abdomen: Soft, without tenderness to palpation in all 4 quadrants of the abdomen. No guarding, rebound, or rigidity. Normal bowel sounds are audible. No tenderness on palpation of McBurney's point. Extremities: No clubbing, cyanosis, or edema. 2+ pulses in all 4 extremities. No calf tenderness on palpation. Back: No costovertebral angle tenderness to palpation. Neurologic Exam: Grossly nonfocal. Skin Exam: No rash noted. Intact skin that is warm and dry. Data Data Last Documented VS Vital Signs Date Time Temp Pulse Resp B/P Pulse Ox O2 Delivery O2 Flow Rate FiO2 5/23/17 22:35 85 20 177/98 98 Nasal Cannula 2 Orders Electrocardiogram (12/15/16 21:21) B-Type Natriuretic Peptide (12/15/16 21:21) Ckmb (Isoenzyme) Profile (12/15/16 21:21) Complete Blood Count With Diff (12/15/16 21:21) Comprehensive Metabolic Panel (12/15/16 21:21) Magnesium (Mg) (12/15/16 21:21) Prothrombin Time / Inr (Pt) (12/15/16 21:21) Act Partial Throm Time (Ptt) (12/15/16 21:21) Troponin I (12/15/16:21) Lipase (12/15/16 21:21) Chest, Single Ap (12/15/16 21:21) Ecg Monitoring (12/15/16 21:21) Bilateral Bp Monitoring (12/15/16:21) Iv Access Insert/Monitor (12/15/16:21) Oximetry (12/15/16:21) Oxygen Administration (12/15/16 21:21) Nitroglycerin 2% Oint (Nitroglycerin 2% (12/15/16 21:30) Sodium Chloride 0.9% Flush (Ns Flush) (12/15/16 21:30) Nitroglycerin Sl (Nitrostat Sl) (12/15/16 21:30) CKMB (12/15/16 21:25) CKMB% (12/15/16 21:25) Labs Laboratory Tests Test 12/15/16 21:25 White Blood Count 7.4 TH/MM3 Red Blood Count 3.70 MIL/MM3 Hemoglobin 9.3 GM/DL Hematocrit 28.9 % Mean Corpuscular Volume 78.2 FL Mean Corpuscular Hemoglobin 25.2 PG Mean Corpuscular Hemoglobin 32.3 % Concent Red Cell Distribution Width 19.4 % Platelet Count 215 TH/MM3 Mean Platelet Volume 8.2 FL Neutrophils (%) (Auto) 62.2 % Lymphocytes (%) (Auto) 25.7 % Monocytes (%) (Auto) 7.1 % Eosinophils (%) (Auto) 4.4 % Basophils (%) (Auto) 0.6 % Neutrophils # (Auto) 4.6 TH/MM3 Lymphocytes # (Auto) 1.9 TH/MM3 Monocytes # (Auto) 0.5 TH/MM3 Eosinophils # (Auto) 0.3 TH/MM3 Basophils # (Auto) 0.0 TH/MM3 CBC Comment DIFF FINAL Differential Comment Prothrombin Time 10.8 SEC Prothromb Time International 1.0 RATIO Ratio Activated Partial 25.4 SEC Thromboplast Time Sodium Level 141 MEQ/L Potassium Level 4.6 MEQ/L Chloride Level 111 MEQ/L Carbon Dioxide Level 24.3 MEQ/L Anion Gap 6 MEQ/L Blood Urea Nitrogen 17 MG/DL Creatinine 1.42 MG/DL Estimat Glomerular Filtration 37 ML/MIN Rate Random Glucose 115 MG/DL Calcium Level 8.5 MG/DL Magnesium Level 1.9 MG/DL Total Bilirubin 0.2 MG/DL Aspartate Amino Transf 19 U/L (AST/SGOT) Alanine Aminotransferase 27 U/L (ALT/SGPT) Alkaline Phosphatase 141 U/L Total Creatine Kinase 130 U/L Creatine Kinase MB 4.7 NG/ML Troponin I LESS THAN 0.02 NG/ML B-Type Natriuretic Peptide 501 PG/ML Total Protein 6.9 GM/DL Albumin 3.4 GM/DL Lipase 95 U/L [facility] Medical Decision Making Medical Screen Exam Complete: Yes Emergency Medical Condition: Yes Medical Record Reviewed: Yes Interpretation(s) Last Impressions Chest X-Ray 12/15/162120 Signed Impressions: Service Date/Time: Thursday, December 15, 2016 21:27 - CONCLUSION: Stable appearance with no acute cardiopulmonary disease. Charles Treviño MD Differential Diagnosis Acute coronary syndrome, versus COPD exacerbation, versus pneumothorax, versus pneumonia, versus congestive heart failure versus anxiety disorder, versus acid reflux Narrative Course During the course of the patients emergency department visit, the patients history, examination, and differential diagnosis were reviewed with the patient. The patient had IV access obtained and blood work sent for analysis. The patient was placed on a awake overnight monitor with oximetry and blood pressure monitoring. The patient had an EKG done on arrival. This was compared to a prior EKG done at this facility in August in no acute changes were noted. The patient has a sinus rhythm heart rate of [address]-T wave abnormalities, downsloping ST segments in leads 1, 2, aVF, V4, V5, V6. The patient was initially provided by ambulance services morphine 10 mg IV, aspirin 162 mg by mouth 1. The patient had refused nitroglycerin in route to this facility due to a concern about a precipitating a headache. Nitroglycerin will be administered in the emergency room at 0.4 sublingual every 5 minutes 3 when necessary chest pain, nitroglycerin 1 inch to the chest wall will be provided if the patient will consent. The patients laboratory studies were reviewed and remarkable for white count of 7.4, hemoglobin 9.3, platelets 215, eosinophils 4.4, CMP is remarkable for chloride of 111, creatinine 1.42, glucose 1:15, alkaline phosphatase 141, CPK 130, troponin I less than 0.02, lipase 95, BNP is 501, however chest x-ray shows no acute cardiopulmonary disease, PT PTT within normal limits. Given the patient's history of coronary artery disease and the fact that no recent stress test has been done, the patient will be admitted to the chest pain center for rule out serial cardiac enzyme protocol and stress testing to follow. The patients results were discussed with the patient, including the plan of care. I explained that further testing and/ or monitoring is indicated based on the patients history, examination, and/ or laboratory findings. Therefore, I recommended admission for additional evaluation. The patient expressed understanding and was agreeable with this plan. The patient was admitted to the hospital in stable condition and sent to a bed under the care of the chest pain center. Diagnosis Primary Impression: Chest pain, rule out acute myocardial infarction Admitting Information Admitting Physician Requests: Margarita Moody MD December 15, 2016 21:30
[2016-12-15 21:37] LABS: AUTOMATED NEUTROPHIL # 4.6 TH/MM3 (1.8-7.7); BASOPHIL % 0.6 % (0.0-2.0); EOSINOPHIL # 0.3 TH/MM3 (0-0.4); EOSINOPHIL % 4.4 % (0.0-4.0); HEMATOCRIT 28.9 % (35.0-46.0); HEMO FLAGS DIFF FINAL; LYMPH % 25.7 % (9.0-44.0); LYMPHOCYTE # 1.9 TH/MM3 (1.0-4.8); MEAN CELL VOLUME 78.2 FL (80.0-100.0); MEAN CORPUSCULAR HEMOGLOBIN 25.2 PG (27.0-34.0); MEAN CORPUSCULAR HGB CONC 32.3 % (32.0-36.0); MONO % 7.1 % (0.0-8.0); NEUT % 62.2 % (16.0-70.0); PLATELET COUNT 215 TH/MM3 (150-450); RED CELL DISTRIBUTION WIDTH 19.4 % (11.6-17.2); WHITE BLOOD COUNT 7.4 TH/MM3 (4.0-11.0)
[2016-12-15 21:46] LABS: APTT (PATIENT) 25.4 SEC (24.3-30.1); PROTHROMBIN TIME - PATIENT 10.8 SEC (9.8-11.6)
--- NOTE | 2016-12-15 21:50 | RADRPT ---
EXAM DATE/TIME: 12/15/2016 21:27 [facility] COMPARISON: CHEST SINGLE AP, September 20, 2016, 19:33. INDICATIONS : Short of breath, chest pain. MEDICAL HISTORY : Chronic obstructive pulmonary disease. Hypertension SURGICAL HISTORY : cardiac stents ENCOUNTER: Initial ACUITY: 1 day PAIN SCORE: 2/10 LOCATION: Bilateral chest FINDINGS: A single view of the chest demonstrates the lungs to be symmetrically aerated without evidence of mas s, infiltrate or effusion. There is moderate elevation of left hemidiaphragm again noted. Osseous st ructures are stable and intact with a screw plate fixation device along the left clavicle. The patien t is status post lower cervical fusion. The heart size appears mildly prominent with no perihilar curtis ma. CONCLUSION: Stable appearance with no acute cardiopulmonary disease. Charles Treviño MD on December 15, 2016 at 21:48 Board Certified Radiologist. This report was verified electronically.
[2016-12-15 22:02] LABS: ANION GAP 6 MEQ/L (5-15); AST (GOT) 19 U/L (15-37); BICARBONATE 24.3 MEQ/L (21.0-32.0); BLOOD UREA NITROGEN 17 MG/DL (7-18); CHLORIDE 111 MEQ/L (98-107); GLOMERULAR FILTRATION RATE 37 ML/MIN (>89); MAGNESIUM 1.9 MG/DL (1.5-2.5); POTASSIUM 4.6 MEQ/L (3.5-5.1); SODIUM (NA) 141 MEQ/L (136-145)
[2016-12-15 22:08] LABS: ALKALINE PHOSPHATASE 141 U/L (45-117); ALT (GPT) 27 U/L (10-53); CREATINE KINASE 130 U/L (26-192); TOTAL BILIRUBIN ADULT 0.2 MG/DL (0.2-1.0)
[2016-12-15 22:20] LABS: CKMB 4.7 NG/ML (0.5-3.6)
[2016-12-15 22:35] VITALS: BP 177/98; PULSE 85; RESP 20; O2SAT 98
[2016-12-15] MEDS ORDERED: SODIUM CHLORIDE 0.9% FLUSH 10 ML FLUSH IV FLUSH PRN (23:00)
[2016-12-15] MEDS ORDERED: RESP: ALBUTEROL 2.5 MG/IPRATROPIUM 0.5 MG NEB (SCH) NEB ONE (23:00)
[2016-12-15] MEDS ORDERED: ACETAMINOPHEN 500 MG CPLT PO PRN (23:00)
[2016-12-15] MEDS ORDERED: ONDANSETRON HCL 4 MG/2 ML VIAL IV PRN (23:00)
[2016-12-15] MEDS ORDERED: LABETALOL HCL 100 MG/20 ML VIAL IV PUSH ONE (23:00)
[2016-12-15] MEDS ORDERED: NITROGLYCERIN 0.4 MG SL 25 TABS/BTL SL PRN (23:00)
[2016-12-15 23:10] VITALS: O2SAT 99
[2016-12-15] MEDS: NITROGLYCERIN 2% OINT 1 GM PACKET TOP SCH (23:55)
[2016-12-16] VITALS (16 sets, daily range): BP systolic 84–170; BP diastolic 64–117; PULSE 56–85; RESP 16–22; TEMP 96.5–98; O2SAT 93–99
[2016-12-16] MEDS: ALPRAZolam 0.25 MG TAB PO PRN ×2 (00:03→13:13)
[2016-12-16 01:12] LABS: CREATINE KINASE 121 U/L (26-192)
[2016-12-16 01:24] LABS: CKMB 5.4 NG/ML (0.5-3.6)
[2016-12-16] MEDS: NITROGLYCERIN 2% OINT 1 GM PACKET TOP SCH ×4 (05:13→23:40)
[2016-12-16] MEDS ORDERED: IOHEXOL 350 MG/ML 50 ML BTL (for Cath Lab) OTHER ONE (07:42)
[2016-12-16] MEDS ORDERED: RESP: ALBUTEROL 2.5 MG/3 ML NEB (PRN) NEB (08:15)
[2016-12-16] MEDS: SODIUM CHLORIDE 0.9% FLUSH 10 ML FLUSH IV FLUSH SCH ×2 (08:45→20:44)
[2016-12-16] MEDS ORDERED: PANTOPRAZOLE SOD 40 MG DELAYED RELEASE TAB PO SCH ×2 (09:00→11:45)
--- NOTE | 2016-12-16 09:41 | HHI.HP ---
[facility] Primary Care Physician Willie Ybarra MD Chief Complaint Chest pain History of Present Illness 61-year-old female with a pertinent history of hypertension, hyperlipidemia, COPD, coronary artery disease with 2 cardiac stents presents to emergency room for further evaluation of chest pain. Onset last evening. States after walking in the parking lot and into the movie theater she became short of breath. Endorses she normally becomes short of breath quickly and developed chest pain however last evening chest pressure became severe and did not improve with rest. Chest pain described as "someone sitting on my chest." Associated symptoms included shortness of breath and diaphoresis. Denied any nausea or vomiting. No radiation of pain. Duration approximately 1 hour. Precipitating factors walking. No known relieving factors. Endorses chest pain and shortness of breath gradually eased off with oxygen. States morphine did not help with pain, she denied administration of nitroglycerin. O2/2 L nasal cannula dependent on "most days" with activity and at bedtime. Review of Systems General: No fatigue,weakness, fever, chills, recent illness, or change in appetite. States she's been in her general state of health which includes shortness of breath and chest pain after ambulating short distances, generally resolves with rest quickly. States she has had above symptoms "at least one year." HEENT: No GE, no vision changes, no nasal congestion or drainage CV: As stated above. Currently denies any chest pain or pressure. RESP: 02/2 L dependent with activity and daily at bedtime. History of COPD. No recent URI. No current SOB. Denies cough, wheeze, or hemoptysis. GI: No nausea, vomiting, bowel changes, diarrhea, constipation, pain, distention , melena, blood in the stool. : No dysuria, urgency, frequency EXT: No lower leg edema, no paraesthesias MS: No discomfort or change in ROM NEURO: No change in memory, dizziness, difficulty with balance, LOC, motor/ sensory deficits PSYCH: No anxiety, depression SKIN: No rashes, no concerning lesions Past Family Social History Allergies: Coded Allergies: Levaquin (Verified Allergy, Severe, Anaphylaxis, 12/15/16) Morphine (Verified Allergy, Severe, SEVERE VOMITING, 12/15/16) Reglan (Verified Allergy, Severe, Edema, 12/15/16) Norvasc (Verified Adverse Reaction, Severe, Swelling, 12/15/16) "left leg swelling" Past Medical History Hypertension, anemia, hyperlipidemia, COPD, O2/2 L dependent, coronary artery disease, 2 cardiac stents, 2 renal stents, chronic pain, anxiety disorder Past Surgical History Hysterectomy, cholecystectomy, left forearm/wrist surgery, cervical spine surgery Reported Medications Active Reported Hydralazine (Hydralazine HCl) 50 Mg Tab 50 Mg PO BID Take with a meal Labetalol (Labetalol HCl) 300 Mg Tab 150 Mg PO DAILY Lasix (Furosemide) 40 Mg Tab 40 Mg PO DAILY Prilosec (Omeprazole) 20 Mg Cap 40 Mg PO DAILY Clonidine (Clonidine HCl) 0.3 Mg Tab 0.3 Mg PO TID Restoril (Temazepam) 15 Mg Cap 15 Mg PO HS PRN Aspirin EC (Aspirin) 81 Mg Tabdr 81 Mg PO DAILY Vitamin B-12 (Cyanocobalamin) 1,000 Mcg Tab 1,000 Mcg PO DAILY Atorvastatin (Atorvastatin Calcium) 40 Mg Tab 40 Mg PO HS Methadone (Methadone HCl) 40 Mg Tab 20 Mg PO TID Active Ordered Medications Current Medications Medications (Trade) Dose Ordered Sig/Ann Route Start Time Stop Time Status Last Admin (Tylenol) 500 mg Q4H PRN PO 12/15/16 23:00 (Zofran Inj) 4 mg Q6H PRN IV 12/15/16 23:00 (Protonix) 40 mg DAILY PO 12/16/16 09:00 12/16/16 08:45 (Nitroglycerin 2% Oint) 1 inch Q6HR TOP 12/16/16 00:00 (Nitrostat Sl) 0.4 mg Q5M PRN SL 12/15/16 23:00 (Xanax) 0.25 mg Q8H PRN PO 12/15/16 23:00 12/16/16 00:03 Family History Noncontributory for early onset cardiovascular disease. Mother CABG 5 in her mid 60s. Brother CABG at age 68. Social History Known hypertension and hyperlipidemia. Denies any diabetes. Quit smoking 20 years ago. Prior to quitting smoking 1 pack daily. Denies any alcohol or illegal drug use. Endorses a sedentary lifestyle due to COPD. Past cardiac testing No recent cardiac testing. Patient's pattern filer is Dr. Thomas. Endorses 2 cardiac stents. Last cardiac catheterization in 2009 (Dr. Quadrat)-Conclusion 1. Coronary artery disease with moderate stenosis of the midleft anterior descending coronary artery and patent stents in the right coronary artery. 2. Well-preserved left ventricular systolic function. Physical Exam Vital Signs Vital Signs Date Time Temp Pulse Resp B/P Pulse Ox O2 Delivery O2 Flow Rate FiO2 12/16/16 07:30 97.7 64 16 139/89 98 12/16/16 05:07 56 12/16/16 04:41 98.0 62 20 142/95 95 12/16/16 00:09 98.0 77 22 139/83 95 12/16/16 00:03 66 16 147/100 98 Nasal Cannula 2 12/15/16 23:10 99 Nasal Cannula 4.00 12/15/16 22:35 85 20 177/98 98 Nasal Cannula 2 12/15/16 21:30 20 99 Nasal Cannula 2 12/15/16 21:30 99 Nasal Cannula 2 12/15/16 21:30 171/102 178/106 12/15/16 21:11 89 90 99 Nasal Cannula 3 12/15/16 21:06 92 24 171/102 99 Physical Exam GENERAL: Alert WN, WD, NAD, pleasant, female who appears older than stated age HEAD: NC, AT EYES: Sclera clear, conjunctiva without injection, pupils equal and round NECK: Supple, no masses, trachea midline CV: RRR, without murmur, rub, gallop, no JVD, S1-S2 no S3-S4. RESP: 02/2 L [address] cannula in place. Diminished lung sounds bilateral bases. Clear lungs upper lobes bilateral. No crackles, wheeze, rhonchi, symmetrical chest rise, prolonged expiratory phase, nonlabored, able to speak in full sentences. ABD: Soft, NT, ND, no masses, positive bowel tones EXT: Pulses +24, no dependent edema MS: Normal tone 4 extremities, nontender, no obvious deformities, full range of motion NEURO: CN II through CN XII grossly intact, motor strength 5/5, gait WNL PSYCH: A+O 3, pleasant affect, appropriate speech, appropriate mood and affect , insight and judgment SKIN: Normal turgor, normal texture Laboratory Laboratory Tests Test 12/15/16 12/16/16 12/16/16 21:25 00:30 03:35 White Blood Count 7.4 Red Blood Count 3.70 Hemoglobin 9.3 Hematocrit 28.9 Mean Corpuscular Volume 78.2 Mean Corpuscular Hemoglobin 25.2 Mean Corpuscular Hemoglobin 32.3 Concent Red Cell Distribution Width 19.4 Platelet Count 215 Mean Platelet Volume 8.2 Neutrophils (%) (Auto) 62.2 Lymphocytes (%) (Auto) 25.7 Monocytes (%) (Auto) 7.1 Eosinophils (%) (Auto) 4.4 Basophils (%) (Auto) 0.6 Neutrophils # (Auto) 4.6 Lymphocytes # (Auto) 1.9 Monocytes # (Auto) 0.5 Eosinophils # (Auto) 0.3 Basophils # (Auto) 0.0 CBC Comment DIFF FINAL Differential Comment Prothrombin Time 10.8 Prothromb Time International 1.0 Ratio Activated Partial 25.4 Thromboplast Time Sodium Level 141 Potassium Level 4.6 Chloride Level 111 Carbon Dioxide Level 24.3 Anion Gap 6 Blood Urea Nitrogen 17 Creatinine 1.42 Estimat Glomerular Filtration 37 Rate Random Glucose 115 Calcium Level 8.5 Magnesium Level 1.9 Total Bilirubin 0.2 Aspartate Amino Transf 19 (AST/SGOT) Alanine Aminotransferase 27 (ALT/SGPT) Alkaline Phosphatase 141 Total Creatine Kinase 130 121 94 Creatine Kinase MB 4.7 5.4 Troponin I LESS THAN 0.02 0.02 0.03 B-Type Natriuretic Peptide 501 Total Protein 6.9 Albumin 3.4 Lipase 95 Result Diagram: 12/15/16212412/15/162124 Imaging Last Impressions Chest X-Ray 12/15/162120 Signed Impressions: Service Date/Time: Thursday, December 15, 2016 21:27 - CONCLUSION: Stable appearance with no acute cardiopulmonary disease. Charles Treviño MD Course EKGs First EKG normal sinus rhythm with nonspecific ST T-wave changes Second EKG normal sinus rhythm nonspecific ST changes with T-wave inversions V2 through V6 Third EKG normal sinus rhythm T-wave inversions V2 through V6, more pronounced in leads V2-V3 compared to second EKG Assessment and Plan Assessment and Plan #1 Chest painadmitted to chest pain center. Ruled out with 3 cardiac enzymes. EKG changes noted on serial EKGs. Patient seen and evaluated by Dr. Jay Qureshi. Dr. Qureshi spoke with patient's pattern filer, Dr. Thomas, to discuss changes noted on serial EKGs. Dr. Thomas will assess patient later this afternoon. Keep patient NPO at this time until patient seen by Dr. Thomas. Continue labetalol and aspirin. #2 Hypertensioncontinue hydralazine and furosemide #3 Hyperlipidemiacontinue atorvastatin #4 GERDcontinue omeprazole #5 COPD-continue O2/2 L, albuterol every 2 when necessary Consult hospitalist for medical management. Grace Quinones December 16, 2016 09:41
[2016-12-16] MEDS: FUROSEMIDE 40 MG TAB PO SCH (11:45)
[2016-12-16] MEDS: LABETALOL HCL 300 MG TAB PO SCH (13:08)
[2016-12-16] MEDS: CYANOCOBALAMIN 1,000 MCG TAB PO SCH (13:09)
[2016-12-16] MEDS: hydrALAZINE HCL 50 MG TAB PO SCH ×2 (13:09→20:43)
[2016-12-16] MEDS: METHADONE HCL 10 MG TAB PO SCH ×2 (13:09→18:00)
[2016-12-16] MEDS: ASPIRIN 325 MG TAB PO SCH (13:09)
--- NOTE | 2016-12-16 13:41 | EKG ---
Date Performed: 12/16/2016 Time Performed: 03:23:22 PTAGE: 61 years EKG: Sinus rhythm ST DEVIATION AND MODERATE T-WAVE ABNORMALITY, CONSIDER ANTERIOR ISCHEMIA ABNORMAL ECG PREVIOUS TRACING : 12/16/2016 00.19 Since previous tracing, T wave inversion is more prominent DOCTOR: Jay Qureshi Interpretating Date/Time 12/16/2016 13:40:39
--- NOTE | 2016-12-16 13:43 | EKG ---
Date Performed: 12/16/2016 Time Performed: 00:19:43 PTAGE: 61 years EKG: Sinus rhythm MODERATE INTRAVENTRICULAR CONDUCTION DELAY ST DEVIATION AND MODERATE T-WAVE ABNORMALITY, CONSIDER AN TEROLATERAL ISCHEMIA ABNORMAL ECG PREVIOUS TRACING : 12/15/2016 21.10 Since previous tracing, T wave inversion now present in V1- V3. Consider anterior ischemia. DOCTOR: Jay Qureshi Interpretating Date/Time 12/16/2016 13:41:50
--- NOTE | 2016-12-16 13:44 | EKG ---
Date Performed: 12/15/2016 Time Performed: 21:10:56 PTAGE: 61 years EKG: Sinus rhythm NONSPECIFIC ST & T-WAVE ABNORMALITY ABNORMAL ECG PREVIOUS TRACING : 09/20/2016 19.00 Since previous tracing, no significant change noted DOCTOR: Jay Qureshi Interpretating Date/Time 12/16/2016 13:43:21
[2016-12-16] MEDS ORDERED: HEPARIN-NS/PF INJ 500 ML ONE (16:26)
[2016-12-16] MEDS ORDERED: MIDAZOLAM HCL 5 MG/5 ML VIAL ONE ×2 (16:27→16:54)
[2016-12-16] MEDS ORDERED: NALOXONE HCL 0.4 MG/ML AMP ONE (17:05)
--- NOTE | 2016-12-16 17:07 | MB ---
cc: LEON MCNEAL DATE OF CONSULTATION 12/16/2016 \ HISTORY Ms. Hawkins is a 61-year-old white female with a history of hypertension, dyslipidemia, COPD and coronary artery disease. She developed substernal chest discomfort yesterday evening while she was walking in the parking lot and later in the movie theater. She also has had increased dyspnea on exertion recently. The pain was described as substernal chest pressure lasting about one hour. She has a history of COPD and is on oxygen most of the time. PAST MEDICAL HISTORY Positive for: 1. Hypertension. 2. Dyslipidemia. 3. Anemia. 4. Chronic obstructive pulmonary disease. 5. Oxygen dependent. 6. Coronary artery disease. 7. Coronary stenting. 8. Renal stenting. 9. Chronic pain and anxiety disorder. 10. History of hysterectomy. 11. Cholecystectomy. 12. Left forearm and wrist surgery. 13. Cervical spine surgery. MEDICATIONS Include: 1. Hydralazine. 2. Labetalol. 3. Lasix. 4. Prilosec. 5. Clonidine. 6. Restoril. 7. Aspirin. 8. Vitamin B12. 9. Atorvastatin. 10. Methadone. ALLERGIES LEVAQUIN, MORPHINE, REGLAN, NORVASC. SOCIAL HISTORY The patient quit smoking 20 years ago. She does not drink alcohol. FAMILY HISTORY Positive for heart disease. REVIEW OF SYSTEMS Otherwise negative. PHYSICAL EXAMINATION VITAL SIGNS: Blood pressure 156/98, pulse is 68 and regular. HEENT: Negative. 2+ carotid upstroke. No bruits. LUNGS: Clear. HEART: Regular with no murmur, gallop or rub. ABDOMEN: Soft. No bruits. EXTREMITIES: Without edema. 1-2+ distal pulses. NEUROLOGICAL: Grossly nonfocal. EKG was reviewed and showed normal sinus rhythm, normal axis and diffuse ST-T changes. LABORATORY DATA Hemoglobin 9.3. Potassium 12.6. Creatinine 1.4. CK and troponin normal times three. BNP 501. DIAGNOSES 1. Unstable angina. 2. Coronary artery disease. 3. Hypertension. 4. Dyslipidemia. 5. Chronic obstructive pulmonary disease, on home oxygen. DISPOSITION Ms. Hawkins will undergo cardiac catheterization and coronary intervention if necessary. The patient understands the risks and benefits, and wishes to proceed. We will continue therapy for coronary artery disease including aggressive modification of her cardiac risk factors. MD KEANU Milan /3:20 PM /4:34 PM KYLER
[2016-12-16] MEDS ORDERED: FLUMAZENIL 0.5 MG/5 ML VIAL ONE (17:15)
[2016-12-16] MEDS ORDERED: FUROSEMIDE 40 MG/4 ML VIAL ONE (17:16)
[2016-12-16] MEDS ORDERED: MIDAZOLAM HCL 2 MG/2 ML VIAL ONE (17:34)
[2016-12-16] MEDS ORDERED: PROPOFOL 500 MG/50 ML INJ 50 ML ONE (17:46)
--- NOTE | 2016-12-16 17:46 | PD.CONS ---
[facility] Service Critical Care Medicine Consult Requested By Dr. Thomas Reason for Consult Respiratory failure post cardiac catheterization Primary Care Physician Willie Ybarra MD History of Present Illness 61-year-old female. Date of admission 12/16/2016. Date of consultation 12/16/2016. Past medical history includes CVA 2015 w/o residual, scoliosis, chronic pain syndrome on methadone, insomnia, COPD 2 L oxygen dependent, microcytic anemia, chronic kidney disease stage III, dyslipidemia, hypertension anxiety, coronary disease with 2 stents in the RCA and renal stents. She presented to [facility] today with history of chest pain and shortness of breath. She was walking in the parking lot into move daily she became short of breath. Please note she is on 2 L nasal cannula chronically for COPD.. This was described per previous notes as "someone sitting on my chest." Associated symptoms included shortness of breath and diaphoresis. Today, patient underwent cardiac catheterization with Dr. Thomas due to unstable angina. Left main 0%. Proximal LAD 70%. Mid LAD 100%. Circumflex 30 %. OM 100%. RCA with 2 patent stents. Distal LAD with [id number] collateral flow. The procedure, patient received 6 mg of Versed in the 100 micros of fentanyl. She was difficult to arouse and required 0.4 mg a cancer 0.5 mg of flumazenil. She is also given 40 of Lasix IV for possible CHF exacerbation. She also received 1 mg of atropine. Due to using accessory muscles to breathe and hypoxia patient was intubated by anesthesia with an 8.0 ET tube at receiving succinylcholine and etomidate. We are asked by cardiology keep the patient intubated overnight with possible extubation a.m. Patient is hemodynamically stable. Review of Systems ROS Limitations: Intubated Past Family Social History Allergies: Coded Allergies: Levaquin (Verified Allergy, Severe, Anaphylaxis, 12/15/16) Morphine (Verified Allergy, Severe, SEVERE VOMITING, 12/15/16) Reglan (Verified Allergy, Severe, Edema, 12/15/16) Norvasc (Verified Adverse Reaction, Severe, Swelling, 12/15/16) "left leg swelling" Past Medical History CVA 2014 w/o residual Insomnia Anxiety Torticollis - chronic pain syndrome with methadone Scoliosis Microcytic anemia COPD - 2 L oxygen dependent Asthma JAISON Hypertension Dyslipidemia Coronary artery disease with 2 stents in RCA Chronic kidney disease stage III Gastroesophageal reflux disease History of GI bleed Past Surgical History Hysterectomy Appendectomy Anterior cervical corpectomy with fusion C3/4 Hysterectomy Left clavicle/left wrist plating Reported Medications Hydralazine (Hydralazine HCl) 50 Mg Tab 50 Mg PO BID Take with a meal Labetalol (Labetalol HCl) 300 Mg Tab 150 Mg PO DAILY Lasix (Furosemide) 40 Mg Tab 40 Mg PO DAILY Prilosec (Omeprazole) 20 Mg Cap 40 Mg PO DAILY Clonidine (Clonidine HCl) 0.3 Mg Tab 0.3 Mg PO TID Restoril (Temazepam) 15 Mg Cap 15 Mg PO HS PRN Aspirin EC (Aspirin) 81 Mg Tabdr 81 Mg PO DAILY Vitamin B-12 (Cyanocobalamin) 1,000 Mcg Tab 1,000 Mcg PO DAILY Atorvastatin (Atorvastatin Calcium) 40 Mg Tab 40 Mg PO HS Methadone (Methadone HCl) 40 Mg Tab 20 Mg PO TID Active Ordered Medications Reviewed in EMR Family History Mother in her 80s. History of CABG/pacemaker One brother with CABG age 68 Father in good health Social History Quit tobacco 25 years ago. One pack per day 20 years. No prior documentation of alcohol abuse. Chronic methadone use Physical Exam Vital Signs Vital Signs Date Time Temp Pulse Resp B/P Pulse Ox O2 Delivery O2 Flow Rate FiO2 12/16/16 15:20 97.8 61 16 112/76 97 12/16/16 15:05 68 12/16/16 11:36 98.0 68 16 166/98 98 12/16/16 09:41 98 Nasal Cannula 2.00 12/16/16 08:20 70 12/16/16 07:30 97.7 64 16 139/89 98 12/16/16 05:07 56 12/16/16 04:41 98.0 62 20 142/95 95 12/16/16 00:09 98.0 77 22 139/83 95 12/16/16 00:03 66 16 147/100 98 Nasal Cannula 2 12/15/16 23:10 99 Nasal Cannula 4.00 12/15/16 22:35 85 20 177/98 98 Nasal Cannula 2 12/15/16 21:30 20 99 Nasal Cannula 2 12/15/16 21:30 99 Nasal Cannula 2 12/15/16 21:30 171/102 178/106 12/15/16 21:11 89 90 99 Nasal Cannula 3 12/15/16 21:06 92 24 171/102 99 Physical Exam GENERAL: 61-year-old female, critically ill currently orotracheally intubated SKIN: Warm and dry. Pressure assist device in right femoral region without bleeding HEAD: Atraumatic. Normocephalic. EYES: Pupils equal and round about 5-6 mm bilaterally and slightly reactive. No scleral icterus. No injection or drainage. ENT: No nasal bleeding or discharge. Mucous membranes pink and moist. Oral pharynx without erythema or exudates NECK: Trachea midline. No JVD. Supple CARDIOVASCULAR: Regular rate and rhythm. S1, S2. No S4. Without murmur RESPIRATORY: Prior to intubation with accessory muscle use. Currently with diminished breath sounds throughout. Positive end extremity wheezes. GASTROINTESTINAL: Abdomen soft, non-tender, nondistended. Hypoactive bowel sounds MUSCULOSKELETAL: Extremities without significant peripheral edema. No obvious deformities. NEUROLOGICAL: Currently sedated on propofol and Versed drips. Prior to intubation was moving all 4 extremities spontaneously. Briefly follow commands once reversal agents given. Laboratory Laboratory Tests Test 12/15/16 12/16/16 12/16/16 21:25 00:30 03:35 White Blood Count 7.4 Red Blood Count 3.70 Hemoglobin 9.3 Hematocrit 28.9 Mean Corpuscular Volume 78.2 Mean Corpuscular Hemoglobin 25.2 Mean Corpuscular Hemoglobin 32.3 Concent Red Cell Distribution Width 19.4 Platelet Count 215 Mean Platelet Volume 8.2 Neutrophils (%) (Auto) 62.2 Lymphocytes (%) (Auto) 25.7 Monocytes (%) (Auto) 7.1 Eosinophils (%) (Auto) 4.4 Basophils (%) (Auto) 0.6 Neutrophils # (Auto) 4.6 Lymphocytes # (Auto) 1.9 Monocytes # (Auto) 0.5 Eosinophils # (Auto) 0.3 Basophils # (Auto) 0.0 CBC Comment DIFF FINAL Differential Comment Prothrombin Time 10.8 Prothromb Time International 1.0 Ratio Activated Partial 25.4 Thromboplast Time Sodium Level 141 Potassium Level 4.6 Chloride Level 111 Carbon Dioxide Level 24.3 Anion Gap 6 Blood Urea Nitrogen 17 Creatinine 1.42 Estimat Glomerular Filtration 37 Rate Random Glucose 115 Calcium Level 8.5 Magnesium Level 1.9 Total Bilirubin 0.2 Aspartate Amino Transf 19 (AST/SGOT) Alanine Aminotransferase 27 (ALT/SGPT) Alkaline Phosphatase 141 Total Creatine Kinase 130 121 94 Creatine Kinase MB 4.7 5.4 Troponin I LESS THAN 0.02 0.02 0.03 B-Type Natriuretic Peptide 501 Total Protein 6.9 Albumin 3.4 Lipase 95 Result Diagram: 12/15/16212412/15/162124 Imaging Last Impressions Chest X-Ray 12/15/162120 Signed Impressions: Service Date/Time: Thursday, December 15, 2016 21:27 - CONCLUSION: Stable appearance with no acute cardiopulmonary disease. Charles Treviño MD Assessment and Plan Assessment and Plan Neuro/Psych: Hx CVA 2014 without residual Torticollis Chronic pain syndrome - methadone Insomnia Propofol/Versed drips for sedation/analgesia while intubated Goal of RASS -2 Daily sedation vacation Continue methadone 20 mg 3 times a day Holding Restoril 15 milligrams by mouth at night for insomnia CV: Coronary disease status post stent 2 RCA Hypertension Dyslipidemia Unstable angina Cardiac catheterization note - ejection fraction 45%. Left main 0%. Proximal LAD 70%. Mid to distal LAD 100%. Circumflex 30%. OM 100% Currently on aspirin 81 mg daily. On atorvastatin 40 mg daily at bedtime for dyslipidemia Home medications for blood pressure include labetalol 150 daily, clonidine 0.3 mg 3 times a day hydralazine 50 mg twice a day. Single dose Lasix 40 mg IV daily/home by mouth at home Resp: Acute on chronic respiratory failure COPD - 2 L chronic dependence [facility] Ventilator bundle Due nebs every 6 hours with albuterol every 2 hours when necessary breakthrough Spontaneous breathing trials daily Follow-up chest x-ray post intubation ABG at 1900 hrs. Adjust ventilator accordingly GI: History of GI bleed Gastroesophageal reflux disease Patient is currently nothing by mouth OG tube to liws Protonix for GI prophylaxis Karen-Colace twice a day for bowel regimen : De Luna will be placed for accurate I's and O's in a critically ill patient Endo: Hyperglycermia CI Sliding-scale insulin with Accu-Cheks every 6 hours to maintain euglycemia is low regimen Renal: Chronic kidney disease stage III Renal stent x 2 Currently on normal saline at 84 cc an hour Accurate I's and O's Monitor urine output Heme: Microcytic anemia Daily CBC. Monitor trends No signs of active bleeding. No indication for transfusion of blood proximal at this time ID: Monitor for infection MSK: Scoliosis History of C3/C4 anterior cervical corpectomy with fusion PT evaluate and treat FEN: Replace electrolytes as clinically indicated per ICU electrolyte protocol Access - Utilize peripheral IV. Central line if indicated Prophylaxis - GI - Protonix - DVT - SCD/pharmacological prophylaxis when okay with cardiology. Status post sheath removal Critical Care: The total critical care time was 45 minutes. Time to perform other separately billable procedures was not included in the critical care time. Code Status Full code Discussed Condition With Dr. Lane Patient has no family members available or friends available. Care plan discussed and all questions answered. Ricardo Hernandez MD December 16, 2016 17:46
[2016-12-16] MEDS ORDERED: METHADONE HCL 10 MG TAB PO SCH (18:00)
[2016-12-16] MEDS ORDERED: PROPOFOL 1000 MG/100 ML INJ 100 ML IV SCH (18:00)
[2016-12-16] MEDS ORDERED: MIDAZOLAM 100 MG/ML INJ 100 ML IV SCH (18:15)
[2016-12-16] MEDS: SODIUM CHLOR 0.9% 1000 ML INJ 1,000 ML IV SCH (18:18)
[2016-12-16] MEDS ORDERED: MAGNESIUM HYDROXIDE SUSP 30 ML CUP PO PRN (18:30)
[2016-12-16] MEDS ORDERED: SODIUM CHLORIDE 0.9% FLUSH 10 ML FLUSH IV FLUSH PRN (18:30)
[2016-12-16] MEDS ORDERED: CHLORHEXIDINE GLUCONATE 2 % 1 PACK (2 CLOTHS) TOP PRN (18:30)
[2016-12-16] MEDS ORDERED: BISACODYL 10 MG SUPP RECTAL PRN (18:30)
[2016-12-16] MEDS ORDERED: ACETAMINOPHEN 325 MG TAB PO PRN (18:30)
[2016-12-16] MEDS ORDERED: RESP: ALBUTEROL 2.5 MG/3 ML NEB (PRN) INH (18:30)
[2016-12-16] MEDS ORDERED: MISCELLANEOUS NURSING INFORMATION XX SCH (18:30)
[2016-12-16] MEDS ORDERED: SENNOSIDES 8.6 MG TAB PO PRN (18:30)
[2016-12-16] MEDS ORDERED: LACTULOSE SYRUP 20 GM/30 ML CUP PO PRN (18:30)
[2016-12-16 18:42] LABS: BLOOD GAS BASE EXCESS -5.2 mmol/L (-2-2); BLOOD GAS CARBOXYHEMOGLOBIN 1.5 % (0-4); BLOOD GAS HCO3 20 mmol/L (22-26); BLOOD GAS METHEMOGLOBIN 1.1 % (0-2); BLOOD GAS O2 HGB SATURATION 96 % (90-100); BLOOD GAS OXYGEN CONTENT 12.7 Vol % (12.0-20.0); BLOOD GAS PCO2 38 mmHg (38-42); BLOOD GAS PO2 110 mmHg (61-120); BLOOD GAS TOTAL HGB 9.3 G/DL (12.0-16.0); CRITICAL VALUE NO; OXYGEN DEVICE VENTILATOR; TEMP CORR TO 98.6
[2016-12-16 18:43] LABS: DRAW SITE RT RADIAL; FIO2 60 %; NUMBER OF ARTERIAL PUNCTURES 1; STAT NO; VENT SETTINGS PRVC/AC/16/
--- NOTE | 2016-12-16 18:53 | RADRPT ---
EXAM DATE/TIME: 12/16/2016 18:28 [place] COMPARISON: CHEST SINGLE AP, December 15, 2016, 21:27. INDICATIONS : ET tube placement. MEDICAL HISTORY : Chronic obstructive pulmonary disease. Hypertension. SURGICAL HISTORY : Cardiac stents. ENCOUNTER: Initial ACUITY: 1 day PAIN SCORE: Non-responsive. LOCATION: chest FINDINGS: Endotracheal tube tip terminates 2.3 cm above the merrill. Plate and screw fixation of the left clavic le identified. Cardiomegaly. Atelectatic changes at the right lung base. [facility] CONCLUSION: Endotracheal tube as above. Diogo Palmer MD on December 16, 2016 at 18:51 Board Certified Radiologist. This report was verified electronically.
[2016-12-16] MEDS: CHLORHEXIDINE 0.12% (ORAL KIT) 15 ML CUP MT SCH (20:00)
[2016-12-16] MEDS: DOCUSATE SODIUM 50 MG/SENNA 8.6 MG TAB PO SCH (20:43)
[2016-12-16] MEDS ORDERED: ATORVASTATIN 40 MG TAB PO SCH (21:00)
[2016-12-16] MEDS ORDERED: SODIUM CHLORIDE 0.9% FLUSH 10 ML FLUSH IV FLUSH SCH (21:00)
[2016-12-16] MEDS: methylPREDNISolone SOD SUCC 40 MG/1 ML VIAL IV PUSH SCH (21:05)
[2016-12-16] MEDS: RESP: ALBUTEROL 2.5 MG/IPRATROPIUM 0.5 MG NEB (SCH) INH (23:39)
[2016-12-17] VITALS (11 sets, daily range): BP systolic 81–125; BP diastolic 55–84; PULSE 78–97; RESP 16–20; TEMP 97.5–99.4; O2SAT 92–99
[2016-12-17] MEDS: RESP: ALBUTEROL 2.5 MG/IPRATROPIUM 0.5 MG NEB (SCH) INH ×6 (00:22→21:30)
[2016-12-17] MEDS: CHLORHEXIDINE GLUCONATE 2 % 1 PACK (2 CLOTHS) TOP SCH ×2 (00:34→22:02)
[2016-12-17] MEDS: methylPREDNISolone SOD SUCC 40 MG/1 ML VIAL IV PUSH SCH ×3 (05:10→21:35)
[2016-12-17] MEDS: NITROGLYCERIN 2% OINT 1 GM PACKET TOP SCH ×4 (05:10→23:23)
[2016-12-17] MEDS: SODIUM CHLOR 0.9% 1000 ML INJ 1,000 ML IV SCH ×2 (05:10→18:01)
[2016-12-17 05:40] LABS: AUTOMATED NEUTROPHIL # 10.8 TH/MM3 (1.8-7.7); BASOPHIL % 0.1 % (0.0-2.0); EOSINOPHIL % 0.1 % (0.0-4.0); HEMATOCRIT 34.5 % (35.0-46.0); LYMPH % 11.2 % (9.0-44.0); LYMPHOCYTE # 1.4 TH/MM3 (1.0-4.8); MEAN CELL VOLUME 77.7 FL (80.0-100.0); MEAN CORPUSCULAR HEMOGLOBIN 24.5 PG (27.0-34.0); MEAN CORPUSCULAR HGB CONC 31.5 % (32.0-36.0); NEUT % 86.6 % (16.0-70.0); PLATELET COUNT 227 TH/MM3 (150-450); RED BLOOD COUNT 4.44 MIL/MM3 (4.00-5.30); RED CELL DISTRIBUTION WIDTH 18.9 % (11.6-17.2); WHITE BLOOD COUNT 12.5 TH/MM3 (4.0-11.0)
[2016-12-17 05:43] LABS: HEMO FLAGS AUTO DIFF
[2016-12-17 05:52] LABS: ALKALINE PHOSPHATASE 149 U/L (45-117); ALT (GPT) 40 U/L (10-53); ANION GAP 16 MEQ/L (5-15); AST (GOT) 35 U/L (15-37); BICARBONATE 19.8 MEQ/L (21.0-32.0); BLOOD UREA NITROGEN 19 MG/DL (7-18); CHLORIDE 103 MEQ/L (98-107); GLOMERULAR FILTRATION RATE 34 ML/MIN (>89); MAGNESIUM 1.7 MG/DL (1.5-2.5); POTASSIUM 4.1 MEQ/L (3.5-5.1); SODIUM (NA) 139 MEQ/L (136-145); TOTAL BILIRUBIN ADULT 0.4 MG/DL (0.2-1.0)
--- NOTE | 2016-12-17 06:29 | HHI.CCPN ---
Subjective Remarks/Hospital Course 61-year-old female. Date of admission 12/16/2016. Date of consultation 12/16/2016. Past medical history includes CVA 2015 w/o residual, scoliosis, chronic pain syndrome on methadone, insomnia, COPD 2 L oxygen dependent, microcytic anemia, chronic kidney disease stage III, dyslipidemia, hypertension anxiety, coronary disease with 2 stents in the RCA and renal stents. She presented to [facility] today with history of chest pain and shortness of breath. She was walking in the parking lot into move daily she became short of breath. Please note she is on 2 L nasal cannula chronically for COPD.. This was described per previous notes as "someone sitting on my chest." Associated symptoms included shortness of breath and diaphoresis. Today, patient underwent cardiac catheterization with Dr. Thomas due to unstable angina. Left main 0%. Proximal LAD 70%. Mid LAD 100%. Circumflex 30 %. OM 100%. RCA with 2 patent stents. Distal LAD with [id number] collateral flow. The procedure, patient received 6 mg of Versed in the 100 micros of fentanyl. She was difficult to arouse and required 0.4 mg a cancer 0.5 mg of flumazenil. She is also given 40 of Lasix IV for possible CHF exacerbation. She also received 1 mg of atropine. Due to using accessory muscles to breathe and hypoxia patient was intubated by anesthesia with an 8.0 ET tube at receiving succinylcholine and etomidate. We are asked by cardiology keep the patient intubated overnight with possible extubation a.m. Patient is hemodynamically stable. Subjective 12/17: Currently on propofol and Versed for sedation. Becomes quite agitated with propofol less than 25 mcg/kg/m. FiO2 down to 45%. Relative spontaneous breathing trial today and extubate as soon as possible due to underlying chronic respiratory failure Objective Vital Signs Date Time Temp Pulse Resp B/P Pulse Ox O2 Delivery O2 Flow Rate FiO2 12/17/16 03:07 97 45 12/17/16 03:00 92 12/17/16 03:00 97.5 16 111/80 12/16/16 09:41 Nasal Cannula 2.00 Result Diagram: 12/17/16 0441 12/17/16 0441 Imaging Last Impressions Chest X-Ray 12/16/16 0000 Signed Impressions: Service Date/Time: Friday, December 16, 2016 18:28 - CONCLUSION: Endotracheal tube as above. Diogo Palmer MD Objective Remarks GENERAL: 61-year-old female, critically ill currently orotracheally intubated SKIN: Warm and dry. Pressure assist device in right femoral region without bleeding HEAD: Atraumatic. Normocephalic. EYES: Pupils equal and round about 3-4 mm bilaterally and slightly reactive. No scleral icterus. No injection or drainage. ENT: No nasal bleeding or discharge. Mucous membranes pink and moist. Oral pharynx without erythema or exudates NECK: Trachea midline. No JVD. Supple CARDIOVASCULAR: Regular rate and rhythm. S1, S2. No S4. Without murmur RESPIRATORY: Prior to intubation with accessory muscle use. Currently with diminished breath sounds throughout. Positive end extremity wheezes. GASTROINTESTINAL: Abdomen soft, non-tender, nondistended. Hypoactive bowel sounds MUSCULOSKELETAL: Extremities without significant peripheral edema. No obvious deformities. NEUROLOGICAL: Currently adequately sedated on propofol and Versed drips and RASS -2. Moves all 4 extremity spontaneously. Follows commands. A/P Assessment and Plan Neuro/Psych: Hx CVA 2014 without residual Torticollis Chronic pain syndrome - methadone Insomnia Propofol at 30 mcg/kg/m/Versed drips at 4 mg an hour for sedation/analgesia while intubated Goal of RASS -2 Daily sedation vacation Continue methadone 20 mg 3 times a day Holding Restoril 15 milligrams by mouth at night for insomnia CV: Coronary disease status post stent 2 RCA Hypertension Dyslipidemia Unstable angina Cardiac catheterization note - ejection fraction 45%. Left main 0%. Proximal LAD 70%. Mid to distal LAD 100%. Circumflex 30%. OM 100% Currently on aspirin 81 mg daily. On atorvastatin 40 mg daily at bedtime for dyslipidemia Home medications for blood pressure include labetalol 150 daily, clonidine 0.3 mg 3 times a day hydralazine 50 mg twice a day. Single dose Lasix 40 mg IV daily/home by mouth at home Resp: Acute on chronic respiratory failure COPD - 2 L chronic dependence JAISON? [facility] /07/30/44 Ventilator bundle Due nebs every 6 hours with albuterol every 2 hours when necessary breakthrough Spontaneous breathing trials daily Follow-up a.m. chest x-ray GI: History of GI bleed Gastroesophageal reflux disease Patient is currently nothing by mouth. Start tube feedings if unable to extubate today OG tube to liws Protonix for GI prophylaxis Karen-Colace twice a day for bowel regimen : De Luna will be placed for accurate I's and O's in a critically ill patient Endo: Hyperglycermia CI Sliding-scale insulin with Accu-Cheks every 6 hours to maintain euglycemia is low regimen Renal: Chronic kidney disease stage III Renal stent x 2 Currently on normal saline at 84 cc an hour Accurate I's and O's Monitor urine output Heme: Microcytic anemia Daily CBC. Monitor trends No signs of active bleeding. No indication for transfusion of blood proximal at this time ID: Monitor for infection MSK: Scoliosis History of C3/C4 anterior cervical corpectomy with fusion PT evaluate and treat FEN: Replace electrolytes as clinically indicated per ICU electrolyte protocol Access - Utilize peripheral IV. Central line if indicated Prophylaxis - GI - Protonix - DVT - SCD/pharmacological prophylaxis when okay with cardiology. Status post sheath removal Critical Care: The total care time was 35 minutes. Time to perform other separately billable procedures was not included in the critical care time. Ricardo Hernandez MD December 17, 2016 06:29
[2016-12-17 07:46] LABS: SCAN/DIFF AUTO DIFF CONFIRMED
[2016-12-17 07:47] LABS: ACANTHOCYTES OCC (NORMAL); OVALOCYTES 1+ (NORMAL)
[2016-12-17] MEDS: hydrALAZINE HCL 50 MG TAB PO SCH ×2 (09:00→21:16)
[2016-12-17] MEDS: DOCUSATE SODIUM 50 MG/SENNA 8.6 MG TAB PO SCH ×2 (09:00→21:00)
[2016-12-17] MEDS: METHADONE HCL 10 MG TAB PO SCH ×3 (09:00→18:01)
[2016-12-17] MEDS: ASPIRIN 325 MG TAB PO SCH (09:00)
[2016-12-17] MEDS: CYANOCOBALAMIN 1,000 MCG TAB PO SCH (09:00)
[2016-12-17] MEDS: SODIUM CHLORIDE 0.9% FLUSH 10 ML FLUSH IV FLUSH SCH ×2 (09:00→21:00)
[2016-12-17] MEDS: FUROSEMIDE 40 MG TAB PO SCH (09:00)
[2016-12-17] MEDS ORDERED: DEXMEDETOMIDINE HCL 200 MCG/2 ML VIAL ONE (09:33)
[2016-12-17] MEDS: CHLORHEXIDINE 0.12% (ORAL KIT) 15 ML CUP MT SCH ×2 (09:49→20:00)
[2016-12-17] MEDS: ARTIFICIAL TEARS OPTH SOLN 15 ML BTL EACH EYE SCH ×3 (09:49→18:00)
[2016-12-17] MEDS: PANTOPRAZOLE SODIUM 40 MG VIAL IV SCH (09:50)
[2016-12-17] MEDS: LABETALOL HCL 300 MG TAB PO SCH (09:51)
[2016-12-17] MEDS: DEXMEDETOMIDINE INJ 200 MCG in SODIUM CHLORIDE 0.9% INJ 50 ML IV SCH ×2 (09:52→12:54)
--- NOTE | 2016-12-17 11:45 | MA ---
cc: LEON MCNEAL DATE 12/16/2016 INDICATIONS Unstable angina, coronary artery disease. PROCEDURE PERFORMED 1. Retrograde left heart catheterization with left ventriculography and selective coronary angiography. 2. Moderate sedation. ACCESS SITE Right femoral artery EQUIPMENT USED 5 Cypriot pigtail catheter, 5 Cypriot JL4 and AR modified coronary artery catheters. MEDICATIONS Versed IV, Fentanyl IV, Narcan IV, Romazicon IV, Lasix IV, Atropine IV. IV CONTRAST Omnipaque 70 cc COMPLICATIONS None PROCEDURE After the patient was prepped and draped in the usual sterile manner, the right femoral artery was accessed using the Seldinger technique. Cardiac catheterization was performed. At the end of the procedure, the patient developed severe respiratory distress and hypoxemia. Respiratory was called and subsequently sedation was reversed. The patient continued to have respiratory distress and eventually was intubated by anesthesia and transferred to the Intensive Care Unit. METHOD OF HEMOSTASIS Manual compression RESULTS HEMODYNAMICS Heart rate 90 beats per minute Left ventricular end-diastolic pressure 23 mmHg Left ventricle 135/20 Aorta 135/93/116 LEFT VENTRICULOGRAPHY Ejection fraction 45%. Wall motion: anterior hypokinesis. No mitral regurgitation. CORONARY ANGIOGRAPHY Left main coronary artery patent. Left anterior descending coronary artery has 70% diffuse stenosis in the proximal portion. It is totally occluded in the mid portion. LAD fills by right to left collaterals. The left circumflex artery has 30% stenosis in the proximal portion. OM-1 is totally occluded. The right coronary artery is patent. PLV has 60% stenosis in the mid portion. PDA is patent. DIAGNOSIS 1. Coronary artery disease with total occlusion of the left anterior descending artery and obtuse marginal artery. 2. Mild left ventricular dysfunction consistent with ischemic cardiomyopathy. 3. Respiratory failure DISPOSITION Ms. Hawkins will be admitted to the ICU under the care of crane ladle person Dr. Hernandez. I recommend to continue conservative management of her coronary artery disease including modification of her cardiac risk factors and therapy for angina. MD TEN Milan/TOR /5:41 PM /11:24 AM KYLER
[2016-12-17] MEDS ORDERED: GLUCAGON 1 MG/ML VIAL OTHER PRN (12:30)
[2016-12-17] MEDS ORDERED: DEXTROSE 50% IN WATER 50 ML VIAL(D50) IV PRN (12:30)
--- NOTE | 2016-12-17 15:38 | CATHPROC ---
[facility] HIS Report Study Information Study Number Admission Scheduled Start Study Start 1001-17 12/15/2016 12/16/2016 Dec 16 2016 4:29PM Study Type [facility] Service Left Heart Cath Cardiac Catheterization Referring Institution Admit Source Facility Department 1 Emergency department [facility] Physician and Clinical Staff Initial Josh Lizarraga Interior Design Project Manager Shanna Ernandez,RN Recorder Kate Ronquillo,RT(R) Scrub Partha EmersonRT(R) TECH2 Procedures Performed Procedure Location (Site) Vessel Name Angiogram LV LV Ventricle Coronary Angiograms LCA Left Coronary Coronary Angiograms RCA Right Coronary L Heart Cath Wire insertion Fem Art (right) Femoral Art Equipment Time Lens Molder Description Size Mfg Part Number Used/Scraped TRANSDUCER, TRUWAVE 16:51 [employer] * [id number] Used W/STOCKCOCK [id number] *[id number] *[id number] *[id number] 16:51 [employer] PACK, CCL CUSTOM * Used *[id number] 16:51 [employer] PACER PEN, SKIN DUAL W/ RULER * [id number] Used [id number] 16:51 [employer]-bites WIRE, 3MMJ .035 180CM 180CM Used *[id number] PROBE COVER, STERILE 16:51 [employer] * [id number] Used ULTRASOUND W/ GEL [id number] 16:51 NAMIC MANIFOLD, 4 PORT * Used *[id number] 16:51 NAMIC TUBING, HIGH PRESSURE 48" 48" Used *[id number] 16:51 NYCOMED OMNIPAQUE, 350 MG, 150ML 150ML [id number] Used [id number] 16:51 MARIN [employer] BLANKET,WARM AIR CCL * Used *[id number] 16:51 TERUMO MEDICAL SHEATH, FR5 TERUMO (10CM) FR 5 [id number] Used History: Current Medications Medication Dosage/Unit Route Frequency Last Date/Time Taken Statins (any) ASA CLONIDINE History: Allergies Allergy Reaction Levaquin Anaphylaxis Morphine SEVERE VOMITING Norvasc Swelling Reglan Edema History: Risk Factors Family History of Hypertension Dyslipidemia Previous CT Previous Heart Failure Premature CAD Yes Yes Yes No No Prior Valve Prior PCI Prior PCIDate Prior CABG Surgery No Yes 07/26/2009 No Cerebrovascular Peripheral Artery Chronic Lung On Dialysis Diabetes Disease Disease Disease No Yes No Yes No History: Symptoms/Diagnosis Selection Items SOB History: CV Disease Selection Items Known CAD History: Stress Tests Stress or Imaging Studies Performed No History: Other Disease Selection Items CAD COPD HTN History: Other Current Smoker Method Quit Packs a Day Years Used Pack Years No Cigarettes 24 Years Ago 1 15 15 Labs Hgb (g/dl) Hct (%) WBC (l/cumm) Platelets (thousands) 12.00-18.00 37.00-55.00 4.80-10.80 140.00-450.00 9.3 28.9 7.4 215 Glucose (mg/dl) BUN (mg/dl) Creatinine (mg/dl) BUN:Creatinine (1:x) 60.00-110.00 8.00-20.00 0.10-9.00 10.00-20.00 115 17 1.4 12.1 Na (meq/l) K (meq/l) 138.00-146.00 3.80-5.10 141 4.6 INR (PTT:PT) 0.50-2.00 1 Troponin I (ng/ml) CPK (u/l) CPK-MB (ng/ML) 0.40-2.30 37.00-289.00 0.00-7.00 0.03 94 5.4 Medication Medication Total Dose (Bolus/Oral) Medication Total Dosage/Unit 1% XYLOCAINE 20 mL ATROPINE 1 mg FENTANYL 100 mcg LASIX 40 mg NARCAN 0.4 mg ROMAZICON IV 0.9 mg VERSED 6 mg Medications (Bolus/Oral) Medication Time Given Dosage/Unit Administered By Reason VERSED 12/16/2016 4:43:50 PM 2 mg Brandie Ernandezfer 2 mg VERSED given in lab by Shanna Ernandez RN in Left Antecubital via Peripheral IV. FENTANYL 12/16/2016 4:44:03 PM 50 mcg Oma, Shanna 50 mcg FENTANYL given in lab by Shanna Ernandez, RAUL via Peripheral IV. VERSED 12/16/2016 4:47:47 PM 2 mg Soraya Ernandeznifer 2 mg VERSED given in lab by Shanna Ernandez, RN via Peripheral IV. 1% XYLOCAINE 12/16/2016 4:48:34 PM 20 mL Josh Thomas 20 mL 1% XYLOCAINE given in lab by Josh Thomas in Right Groin via Subcutaneous. FENTANYL 12/16/2016 4:48:59 PM 50 mcg Shanna Ernandez 50 mcg FENTANYL given in lab by Shanna Ernandez RN via Peripheral IV. VERSED 12/16/2016 4:56:07 PM 2 mg Shanna Ernandez 2 mg VERSED given by Shanna Ernandez RN via Peripheral IV. NARCAN 12/16/2016 5:06:46 PM 0.4 mg Shanna Ernandez 0.4 mg NARCAN given by Shanna Ernandez RN via Peripheral IV. ROMAZICON IV 12/16/2016 5:16:21 PM 0.5 mg Shanna Ernandez 0.5 mg ROMAZICON IV given by Shanna Ernandez RN via Peripheral IV. LASIX 12/16/2016 5:17:48 PM 40 mg Shanna Ernandez 40 mg LASIX given by Shanna Ernandez RN via Peripheral IV. ATROPINE 12/16/2016 5:18:02 PM 1 mg Shanna Ernandez 1 mg ATROPINE given by Shanna Ernandez RN via Peripheral IV. ROMAZICON IV 12/16/2016 5:22:49 PM 0.4 mg Shanna Ernandez 0.4 mg ROMAZICON IV given by Shanna Ernandez RN via Peripheral IV. Medication (Drip) Medication Time Given Dosage/Unit Concentration/Unit Diluent (ml) Solution IV Solutions 12/16/2016 4:38:35 PM 0 mL (IV) NaCl .9 Patient arrived on IV Solutions in Left Antecubital via Peripheral IV. Pump/Drip Flow = 20 ml/hr usin g NaCl .9. Initial Case Assessment Cardiovascular HR Rhythm NIBP Chest Pain 61 REG 133/93 0 Edema Present Skin color Skin None Normal Warm Circulatory - Right Pulses Dorsalis Pedis Femoral 2 2 Scale (0,1,2,3,4,d) Circulatory - Left Pulses Dorsalis Pedis Femoral 2 2 Scale (0,1,2,3,4,d) Circulatory - Lower Extremities Color Lower Right Color Lower Left Normal Normal Neurological State Oriented to time-place- Alert Moves all extremities person Respiration - General Respiration Rate SpO2 (%) O2 (lpm) (B/min) 15 97 2 Final Case Assessment Cardiovascular HR Rhythm NIBP Chest Pain 98 REG 161/114 0 Edema Present Skin color Skin None Normal Warm Circulatory - Right Pulses Dorsalis Pedis Femoral 2 2 Scale (0,1,2,3,4,d) Circulatory - Left Pulses Dorsalis Pedis Femoral 2 2 Scale (0,1,2,3,4,d) Circulatory - Lower Extremities Color Lower Right Color Lower Left Normal Normal Neurological State Oriented to time-place- Alert Moves all extremities person Respiration - General Respiration Rate SpO2 (%) O2 (lpm) (B/min) 15 100 2 Chronological Log Time Study Chronological Log 16:20:33 Patient arrived via Bed. 16:20:40 Patient Name, D.O.B, / Armband Verified By R.N. 16:21:48 Pre-op and post- op instructions given; patient acknowledges understanding of instructions. 16:22:53 Verbal Stimulation=2 Physical Stimulation=2 Airway=2 Respiration=2 TOTAL=8. (0=absent, 1=li mited, 2=present) Vitals capture started with the following parameters, Patient=Adult, Interval=5 min, Initial Pr avxrcw=973 mmHg, 16:29:29 Deflation Rate=5 mmHg 16:29:44 Consent signed by the physician and the patient and verified by the [facility] staff. 16:30:31 HR=61 bpm, PIXO=393/91 mmhg, SpO2=99.0 %, Resp=11 B/min, Pain=0, Pablo=10, Aguilar=2 16:30:56 Reference ECG taken 16:31:02 Patient has been NPO for More than 6Hrs. 16:31:06 Skin Breakdown-NONE 16:35:01 HR=61 bpm, EVKW=229/93 mmhg, SpO2=99.0 %, Resp=12 B/min, Pain=0, Pablo=10, Aguilar=2 16:37:59 Patient Warmer Placed on the Table. 16:38:04 A # 20 IV was noted in the Antecubital (left). Grade = 0 16:38:35 Patient arrived on IV Solutions in Left Antecubital via Peripheral IV. Pump/Drip Flow = 20 ml/hr using NaCl .9. 16:39:03 History and physical on the chart or being dictated. Assessment: Initial Case, HR=61 BPM, Rhythm=REG, VSPS=789/93 mmhg, Chest Pain=0, Edema=None, Color=Normal, Skin = Warm Right Pulses: Epifanio Ped=2, Femoral=2 Left Pulses: Epifanio Ped=2, Femoral=2 16:39:04 Lower Right Extremities: Color=Normal Lower Left Extremities: Color=Normal Neurological: State=Alert, Ox3, PURDY Respiration: Resp=15 B/min, SpO2=97 %, O2=2 lpm 16:40:00 HR=60 bpm, LYZH=062/89 mmhg, SpO2=99.0 %, Resp=10 B/min, Pain=0, Pablo=10, Aguilar=2 16:40:53 Bilateral groins prepped with 2% chlorhexidine, and with a 3 min. waiting time. 16:41:02 MD paged 16:43:48 MD arrived. 16:43:50 2 mg VERSED given in lab by Shanna Ernandez, RAUL in Left Antecubital via Peripheral IV. 16:44:03 50 mcg FENTANYL given in lab by Shanna Ernandez RN via Peripheral IV. 16:45:03 HR=64 bpm, HTZC=700/80 mmhg, SpO2=95.0 %, Resp=15 B/min, Pain=0, Pablo=10, Aguilar=2 16:47:47 2 mg VERSED given in lab by Shanna Ernandez, RAUL via Peripheral IV. Time Out. Correct patient, correct procedure,correct physician, ,power injector loaded or not l oaded with contrast with 16:48:25 surgical team present. Time Out Concurred by MD, individual staff and LODE MINER in procedure 16:48:26 Case Start 16:48:27 Verbal Stimulation=2 Physical Stimulation=2 Airway=2 Respiration=2 TOTAL=8. (0=absent, 1=li mited, 2=present) 16:48:34 20 mL 1% XYLOCAINE given in lab by Josh Thomas in Right Groin via Subcutaneous. 16:48:59 50 mcg FENTANYL given in lab by Shanna Ernandez, RAUL via Peripheral IV. 16:50:00 HR=69 bpm, WPNQ=147/100 mmhg, SpO2=98.0 %, Resp=13 B/min, Pain=0, Pablo=10, Aguilar=2 16:50:33 Access site was Right Femoral Artery. WITH ULTRASOUND DEVICE 16:50:48 A wire was inserted via Fem Art (right). 16:50:56 A SHEATH, FR5 TERUMO (10CM) FR 5 was advanced into the Fem Art (right) using the Percutaneo us technique. A PIGTAIL ANG. INFINITI CATHETER FR 5 was advanced over a wire. OMNIPAQUE, 350 MG, 150ML 150ML was used 16:51:34 for injections. 16:52:57 Pressure channel 1 zeroed. Recorded Pressure: LV, HR=68, Condition=Condition 1 16:54:35 (Left Ventricle) LV 127/47/47 16:55:02 The LV was injected at 10 cc/sec for a total of 30. OMNIPAQUE, 350 MG, 150ML 150ML used. 16:55:07 HR=70 bpm, CKFG=292/80 mmhg, Resp=14 B/min, Pain=0, Pablo=10, Aguilar=2 16:56:07 2 mg VERSED given by Shanna Ernandez RN via Peripheral IV. Recorded Pressure: LV, Ao, HR=70, Condition=Condition 1 16:56:30 (Left Ventricle) LV 136/25/41, (Aorta) Ao 140/93/116 16:56:58 Catheter was removed A JL 4.0 INFINITI CATHETER FR 5 was advanced over a wire. OMNIPAQUE, 350 MG, 150ML 150ML was us ed for 16:57:14 injections. 16:59:50 The LCA was injected and visualized at various angles. OMNIPAQUE, 350 MG, 150ML 150ML used . 16:59:56 HR=73 bpm, CGPL=370/91 mmhg, SpO2=84.0 %, Resp=10 B/min, Pain=0, Pablo=10, Aguilar=2 17:02:18 Catheter was removed A AR MOD INFINITI CATHETER FR 5 was advanced over a wire. OMNIPAQUE, 350 MG, 150ML 150ML was us ed for 17:02:20 injections. 17:03:08 The RCA was injected and visualized at various angles. OMNIPAQUE, 350 MG, 150ML 150ML used . 17:03:46 Catheter was removed 17:05:28 HR=77 bpm, AJQK=712/114 mmhg, SpO2=92.0 %, Resp=10 B/min, Pain=0, Pablo=10, Aguilar=2 17:06:46 0.4 mg NARCAN given by Shanna Ernandez, RAUL via Peripheral IV. 17:07:35 Sheath removed; pressure applied to access site. 17:07:42 Catheter(s) removed without difficulty Assessment: Final Case, HR=98 BPM, Rhythm=REG, ADCR=999/114 mmhg, Chest Pain=0, Edema=None, Color=Normal, Skin = Warm Right Pulses: Epifanio Ped=2, Femoral=2 Left Pulses: Epifanio Ped=2, Femoral=2 17:07:45 Lower Right Extremities: Color=Normal Lower Left Extremities: Color=Normal Neurological: State=Alert, Ox3, PURDY Respiration: Resp=15 B/min, QwP9=418 %, O2=2 lpm 17:08:31 Case End 17:08:34 Sterile dressing applied to site 17:08:39 Cine recording checked. 17:08:40 Bedside Report will be given. 17:09:39 Contrast Scanned 17:09:47 Verbal Stimulation=2 Physical Stimulation=2 Airway=2 Respiration=2 TOTAL=8. (0=absent, 1=li mited, 2=present) 17:09:57 A Left Heart Cath was performed. 17:10:03 Clinical correlaton risk stratification. 17:10:52 HR=79 bpm, ODMU=850/148 mmhg, SpO2=87.0 %, Resp=31 B/min, Pain=0, Pablo=10, Aguilar=2 17:14:22 NIBP STAT measurement started. 17:15:10 HR=81 bpm, ZGQF=026/120 mmhg, SpO2=88.0 %, Resp=25 B/min, Pain=0, Pablo=10, Aguilar=2 17:16:21 0.5 mg ROMAZICON IV given by Shanna Ernandez, RN via Peripheral IV. 17:17:48 40 mg LASIX given by Shanna Ernandez, RN via Peripheral IV. 17:18:02 1 mg ATROPINE given by Shanna Ernandez, RN via Peripheral IV. 17:18:20 NIBP STAT measurement started. 17:19:03 HR=51 bpm, DKPP=303/73 mmhg, SpO2=79.0 %, Resp=27 B/min, Pain=0, Pablo=10, Aguilar=2 17:20:35 UR=525 bpm, SYNO=414/97 mmhg, SpO2=93.0 %, Resp=30 B/min, Pain=0, Pablo=10, Augilar=2 17:21:36 PT SATS DROPPED 17:22:25 AMBU BAG PLACED ON PATIENT 17:22:49 0.4 mg ROMAZICON IV given by Shanna Ernandez, RN via Peripheral IV. 17:23:16 RESPIRTORY CALLED STAT 17:24:06 ANESTHESIA CALLED STAT 17:25:40 RESPIRATORY ARRIVED 17:25:51 VM=510 bpm, UACI=045/125 mmhg, AbF1=233.0 %, Resp=31 B/min, Pain=0, Pablo=10, Aguilar=2 17:27:56 ANESTHESIA ARRIVED- DR SANON, ROCHELLE RICE,DR SHARMA 17:30:56 OI=152 bpm, MSEB=095/128 mmhg, Resp=27 B/min, Pain=0, Pablo=10, Aguilar=2 17:31:24 NON REBREATHER MASK PLACED ON PT 17:32:23 PT INTUBATED 17:34:13 SAFEGUARD PLACED ON PATIENTS RIGHT GROIN BY Red EMERSON 17:35:16 ZP=668 bpm, VBTA=650/113 mmhg, SpI9=653.0 %, Resp=32 B/min, Pain=0, Pablo=5, Aguilar=2 17:40:13 HR=91 bpm, FYNK=437/106 mmhg, LhM2=021.0 %, Resp=20 B/min, Pablo=5 17:46:07 Vitals capture stopped. End Study - Contrast Media Used In Study Contrast Total Opened (mL) Total Used (mL) Total Wasted (mL) Omnipaque 70 70 0 End Study - Maximum Contrast Load Max Contrast Load (mL) 250.0 End Study - Radiation Exposure Fluoro Time (minutes) 2.0 End Study - Sheaths Sheaths Pulled By Sheath Hold Time (min) Partha Emerson 20 End Study - Patient Disposition Complications Transferred To Interventional Outcome No Regular Bed No attempt made
--- NOTE | 2016-12-17 15:39 | MH ---
cc: JIN ESTRADA DATE OF ADMISSION: 12/15/2016 CHIEF COMPLAINT Medical consultation. HISTORY OF PRESENT ILLNESS Jeanna Hawkins is a 61-year-old female who I see my office. She has been in denial and noncompliant with her diabetes and congestive heart failure. She sees Dr. Thomas on the outside. She was admitted initially to the chest pain center and subsequently had some EKG changes. She is admitted for acute coronary syndrome. She was then seen by Dr. Thomas and underwent cardiac catheterization. She was then moved to critical care. She has subsequently been extubated today. She is lethargic but arouses and has no new complaints. PAST MEDICAL HISTORY 1. Congestive heart failure. 2. Diabetes. 3. Cerebrovascular accident. 4. Chronic pain syndrome on methadone. 5. Hypertension 6. Hyperlipidemia 7. Unstable angina. 8. Respiratory failure. 9. Chronic obstructive pulmonary disease. 10. Gastrointestinal bleed. 11. Chronic kidney disease, stage 3. SOCIAL HISTORY: She quit smoking many years ago. No illicit drug usage or alcohol usage. ALLERGIES LEVAQUIN MORPHINE NORVASC REGLAN MEDICATIONS 1. Hydralazine. 2. Labetalol. 3. Lasix. 4. Prilosec. 5. Clonidine 6. Restoril 7. Aspirin 8. B12 9. Atorvastatin 10. Methadone PAST SURGICAL HISTORY 1. Coronary stenting. 2. Renal stenting. 3. Hysterectomy 4. Cholecystectomy. 5. Cervical spine surgery. 6. Left upper extremity surgery. 7. Cardiac catheterization on 12/16/2016 FAMILY HISTORY Noncontributory. LABORATORY DATA WBCs 12.5, hemoglobin 10.9, creatinine 1.55. Alk phos 149, otherwise liver function tests normal. IMAGING STUDIES Chest x-ray yesterday shows ET tube and O N PHYSICAL EXAMINATION VITAL SIGNS: Temperature 99.4, pulse 81, respirations 17, blood pressure 81/55, pulse 92 on 4 liters for a pulse ox is 92 and 4 liters. GENERAL: She is an alert female looking much older than her stated age. She is status post extubation that hour ago so she is somewhat lethargic in a poor historian to vomit. The patient was seen with the nurse. Nurse to she has been up and alert. HEAD, EYES, EARS, NOSE, AND THROAT: Oropharynx is clear. Carotids are clear. No JVD. CHEST: Clear. No wheezes from crest crackles or coughing. Dash rate and rhythm. No murmurs, rubs, clicks or gallops. ABDOMEN: Soft, nontender. No rebound or guarding. is clear. De Luna is draining clear urine. EXTREMITIES: No edema. NEUROLOGIC: No focal deficits. Strength is 3/5 in all of her extremities ASSESSMENT: Acute coronary syndrome Unstable angina Hypertension Hyperlipidemia. History of cerebrovascular accident. Chronic pain syndrome. Insomnia. History of gastrointestinal bleed. Gastroesophageal reflux disease. Hyperglycemia. Chronic kidney disease, stage 3. Microcytic anemia Scoliosis. Cervical fusion. PLAN: Continue Intensive care unit care for now and monitor status post extubation. Methadone 20 mg t.i.d. Holding Restoril Protonix for GI prophylaxis Karen-Colace A De Luna for now and will hopefully remove this soon. Sliding scale insulin Accurate intake and output. IV saline gently. Check a.m. CBC and BMP Peripheral IV. Sequential compression devices Clear liquid diet and we will advance as tolerated. Xanax p.r.n. Chest x-ray in the morning. Physical therapy. Speech therapy. The patient's full code. DISPOSITION Appears the patient may need halfway placement. Thank you for calling me to see my outpatient. We will continue to see her daily. Jin Estrada MD RP/donna /1:33 PM /2:23 PM
[2016-12-17] MEDS: INSULIN NovoLIN REGULAR SUPPLEMENTAL SCALE SQ SCH ×2 (16:00→21:00)
--- NOTE | 2016-12-17 17:18 | PD.CARD.PN ---
Subjective Subjective Remarks Extubated, no CP or SOB Objective Medications Current Medications Medications (Trade) Dose Ordered Sig/Ann Route Start Time Stop Time Status Last Admin (NS Flush) 2 ml UNSCH PRN IV FLUSH 12/15/16 23:00 (NS Flush) 2 ml BID IV FLUSH 12/16/16 09:00 12/16/16 20:44 (Tylenol) 500 mg Q4H PRN PO 12/15/16 23:00 (Nitroglycerin 2% Oint) 1 inch Q6HR TOP 12/16/16 00:00 12/17/16 12:25 (Nitrostat Sl) 0.4 mg Q5M PRN SL 12/15/16 23:00 (Xanax) 0.25 mg Q8H PRN PO 12/15/16 23:00 12/16/16 13:13 (Lipitor) 40 mg HS PO 12/16/16 21:00 12/16/16 20:44 (Vitamin B12) 1,000 mcg DAILY PO 12/16/16 11:45 12/17/16 09:00 (Lasix) 40 mg DAILY PO 12/16/16 11:45 12/17/16 09:00 (Apresoline) 50 mg BID PO 12/16/16 11:45 12/17/16 09:00 (Trandate) 150 mg DAILY PO 12/16/16 11:45 12/17/16 09:51 (Aspirin) 325 mg DAILY PO 12/16/16 12:00 12/17/16 09:00 (Dolophine) 20 mg TID PO 12/16/16 13:00 12/17/16 13:11 Chlorhexidine Gluconate 15 ml 15 ml BID@08,20 MT 12/16/16 20:00 12/17/16 09:49 Propofol 100 ml @ 0 mls/hr TITRATE IV 12/16/16 18:00 12/17/16 05:10 Midazolam HCl 100 ml @ 0 mls/hr TITRATE IV 12/16/16 18:15 12/16/16 20:47 (NS 1000 ml Inj) 1,000 ml @ 84 mls/hr [id number] IV 12/16/16 18:18 12/17/16 05:10 (Tylenol) 650 mg Q6H PRN PO 12/16/16 18:30 (Protonix Inj) 40 mg DAILY IV 12/17/16 09:00 12/17/16 09:50 (Tears Naturale Opth Soln) 1 drop TID EACH EYE 12/17/16 09:00 12/17/16 13:00 (Zofran Inj) 4 mg Q6H PRN IV 12/16/16 18:30 Miscellaneous Information 1 Q361D XX 12/16/16 18:30 (Chlorhexidine 2% Cloth) 3 pack Taper DAILY@04 TOP 12/17/16 04:00 12/13/17 03:59 12/17/16 00:34 (Chlorhexidine 2% Cloth) 3 pack UNSCH PRN TOP 12/16/16 18:30 (Karen-Colace) 1 tab BID PO 12/16/16 21:00 12/17/16 09:00 (Milk Of Magnesia Liq) 30 ml Q12H PRN PO 12/16/16 18:30 (Senokot) 17.2 mg Q12H PRN PO 12/16/16 18:30 (Dulcolax Supp) 10 mg DAILY PRN RECTAL 12/16/16 18:30 (Lactulose Liq) 30 ml DAILY PRN PO 12/16/16 18:30 Methylprednisolone Sodium Succinate 40 mg 40 mg Q8HR IV PUSH 12/16/16 22:00 12/17/16 14:04 (Precedex Inj/NS Inj) 52 ml @ 0 mls/hr TITRATE IV 12/17/16 10:00 12/17/16 12:54 (D50w (Vial) Inj) 50 ml UNSCH PRN IV 12/17/16 12:30 (Glucagon Inj) 1 mg UNSCH PRN OTHER 12/17/16 12:30 Vital Signs / I&O Vital Signs Date Time Temp Pulse Resp B/P Pulse Ox O2 Delivery O2 Flow Rate FiO2 12/17/16 15:00 98.7 80 16 107/67 94 12/17/16 15:00 80 12/17/16 12:00 92 Nasal Cannula 4 12/17/16 11:41 93 45 12/17/16 11:00 45 12/17/16 11:00 99.4 81 17 81/55 92 12/17/16 11:00 81 12/17/16 07:35 94 45 12/17/16 07:30 97 12/17/16 07:30 45 12/17/16 07:30 99.1 97 18 118/79 95 12/17/16 03:07 97 45 12/17/16 03:00 92 12/17/16 03:00 97.5 92 16 111/80 99 12/17/16 03:00 45 12/17/16 00:04 98 45 12/16/16 23:00 45 12/16/16 23:00 97.3 77 16 170/110 98 12/16/16 23:00 77 12/16/16 20:35 99 45 12/16/16 19:00 70 12/16/16 19:00 96.5 70 16 84/64 97 12/16/16 18:45 76 12/16/16 18:15 99 60 12/16/16 18:00 60 12/16/16 18:00 97.3 85 16 170/117 93 I/O 12/16/16 12/16/16 12/16/16 12/17/16 12/17/16 12/17/16 07:00 15:00 23:00 07:00 15:00 23:00 Intake Total 1143 ml Output Total 2860 ml Balance -1717 ml Intake Oral 0 ml IV Total 1043 ml Tube Irrigant 100 ml Output Urine Total 2860 ml Stool Total 0 ml # Voids 1 2 Physical Exam GENERAL: In NAD SKIN: Warm and dry. HEAD: Normocephalic. EYES: No scleral icterus. No injection or drainage. NECK: Supple, trachea midline. No JVD or lymphadenopathy. CARDIOVASCULAR: Regular rate and rhythm without murmurs, gallops, or rubs. RESPIRATORY: Breath sounds equal bilaterally. No accessory muscle use. GASTROINTESTINAL: Abdomen soft, non-tender, nondistended. MUSCULOSKELETAL: No cyanosis, or edema. Laboratory Laboratory Tests Test 12/16/16 12/17/16 18:30 04:41 Blood Gas Puncture Site RT RADIAL Blood Gas Patient Temperature 98.6 Blood Gas HCO3 20 mmol/L Blood Gas Base Excess -5.2 mmol/L Blood Gas Oxygen Saturation 96 % Arterial Blood pH 7.33 Arterial Blood Partial 38 mmHg Pressure CO2 Arterial Blood Partial 110 mmHg Pressure O2 Arterial Blood Oxygen Content 12.7 Vol % Arterial Blood 1.5 % Carboxyhemoglobin Arterial Blood Methemoglobin 1.1 % Blood Gas Hemoglobin 9.3 G/DL Oxygen Delivery Device VENTILATOR Blood Gas Ventilator Setting PRVC/AC/16/ Blood Gas Inspired Oxygen 60 % White Blood Count 12.5 TH/MM3 Red Blood Count 4.44 MIL/MM3 Hemoglobin 10.9 GM/DL Hematocrit 34.5 % Mean Corpuscular Volume 77.7 FL Mean Corpuscular Hemoglobin 24.5 PG Mean Corpuscular Hemoglobin 31.5 % Concent Red Cell Distribution Width 18.9 % Platelet Count 227 TH/MM3 Mean Platelet Volume 9.1 FL Neutrophils (%) (Auto) 86.6 % Lymphocytes (%) (Auto) 11.2 % Monocytes (%) (Auto) 2.0 % Eosinophils (%) (Auto) 0.1 % Basophils (%) (Auto) 0.1 % Neutrophils # (Auto) 10.8 TH/MM3 Lymphocytes # (Auto) 1.4 TH/MM3 Monocytes # (Auto) 0.3 TH/MM3 Eosinophils # (Auto) 0.0 TH/MM3 Basophils # (Auto) 0.0 TH/MM3 CBC Comment AUTO DIFF Differential Comment AUTO DIFF CONFIRMED Ovalocytes 1+ Acanthocytes OCC Sodium Level 139 MEQ/L Potassium Level 4.1 MEQ/L Chloride Level 103 MEQ/L Carbon Dioxide Level 19.8 MEQ/L Anion Gap 16 MEQ/L Blood Urea Nitrogen 19 MG/DL Creatinine 1.55 MG/DL Estimat Glomerular Filtration 34 ML/MIN Rate Random Glucose 191 MG/DL Calcium Level 9.3 MG/DL Phosphorus Level 2.5 MG/DL Magnesium Level 1.7 MG/DL Total Bilirubin 0.4 MG/DL Aspartate Amino Transf 35 U/L (AST/SGOT) Alanine Aminotransferase 40 U/L (ALT/SGPT) Alkaline Phosphatase 149 U/L Total Protein 7.3 GM/DL Albumin 3.7 GM/DL Imaging Last Impressions Chest X-Ray 12/16/16 0000 Signed Impressions: Service Date/Time: Friday, December 16, 2016 18:28 - CONCLUSION: Endotracheal tube as above. Diogo Palmer MD Assessment and Plan Problem List: (1) Coronary artery disease (2) H/O heart artery stent (3) Hypertension (4) Renal insufficiency (5) Respiratory failure Assessment and Plan Extubated, BP improved. No angina or CHF. Cath w total LAD occlusion with distal vessel filling by collaterals and mild LV systolic dysfunction. Continue medical management with tx for angina and aggressive risk factor modification. Increase activity as tolerated. Josh Thomas MD December 17, 2016 17:18
[2016-12-17] MEDS: ATORVASTATIN 40 MG TAB PO SCH (21:16)
[2016-12-17] MEDS: ALPRAZolam 0.25 MG TAB PO PRN (23:23)
[2016-12-18] VITALS (12 sets, daily range): BP systolic 123–178; BP diastolic 85–115; PULSE 76–88; RESP 18–24; TEMP 97.9–98.7; O2SAT 95–98
[2016-12-18] MEDS: RESP: ALBUTEROL 2.5 MG/IPRATROPIUM 0.5 MG NEB (SCH) INH ×6 (00:02→19:51)
[2016-12-18] MEDS: SODIUM CHLOR 0.9% 1000 ML INJ 1,000 ML IV SCH ×2 (05:12→16:26)
[2016-12-18] MEDS: NITROGLYCERIN 2% OINT 1 GM PACKET TOP SCH ×4 (05:12→23:50)
[2016-12-18] MEDS: methylPREDNISolone SOD SUCC 40 MG/1 ML VIAL IV PUSH SCH (05:12)
[2016-12-18 05:56] LABS: BASOPHIL % 0.2 % (0.0-2.0); HEMO FLAGS DIFF FINAL; LYMPH % 5.1 % (9.0-44.0); LYMPHOCYTE # 0.5 TH/MM3 (1.0-4.8); MEAN CELL VOLUME 77.8 FL (80.0-100.0); MEAN CORPUSCULAR HEMOGLOBIN 24.9 PG (27.0-34.0); MEAN CORPUSCULAR HGB CONC 31.9 % (32.0-36.0); MONO % 1.9 % (0.0-8.0); NEUT % 92.8 % (16.0-70.0); PLATELET COUNT 190 TH/MM3 (150-450); RED CELL DISTRIBUTION WIDTH 20.4 % (11.6-17.2); WHITE BLOOD COUNT 10.8 TH/MM3 (4.0-11.0)
[2016-12-18 06:29] LABS: ALKALINE PHOSPHATASE 123 U/L (45-117); ALT (GPT) 28 U/L (10-53); ANION GAP 11 MEQ/L (5-15); AST (GOT) 17 U/L (15-37); BICARBONATE 24.5 MEQ/L (21.0-32.0); BLOOD UREA NITROGEN 34 MG/DL (7-18); CHLORIDE 105 MEQ/L (98-107); GLOMERULAR FILTRATION RATE 25 ML/MIN (>89); MAGNESIUM 1.6 MG/DL (1.5-2.5); SODIUM (NA) 140 MEQ/L (136-145); TOTAL BILIRUBIN ADULT 0.3 MG/DL (0.2-1.0)
[2016-12-18] MEDS: INSULIN NovoLIN REGULAR SUPPLEMENTAL SCALE SQ SCH ×4 (06:32→21:00)
--- NOTE | 2016-12-18 06:53 | RADRPT ---
EXAM DATE/TIME: 12/18/2016 05:13 [place] COMPARISON: CHEST SINGLE AP, December 16, 2016, 18:28. INDICATIONS : [employer]ute for respiratory disease. MEDICAL HISTORY : Chronic obstructive pulmonary disease. Hypertension. SURGICAL HISTORY : Cardiac stents. ENCOUNTER: Subsequent ACUITY: 4 - 6 days PAIN SCORE: Non-responsive. LOCATION: chest FINDINGS: A single view of the chest demonstrates the lungs to be symmetrically aerated without evidence of mas s, infiltrate or effusion. Left hemidiaphragm remains markedly elevated. The endotracheal tube has be en removed. The cardiomediastinal contours are unremarkable. Osseous structures are intact. Left cl avicle fixation plate is unchanged CONCLUSION: Removal of the endotracheal tube with good preservation of lung volumes. Left hemidiaphragm remains m arkedly elevated. For the most part the lungs are clear. Jonathon Mejia MD on December 18, 2016 at 6:51 Board Certified Radiologist. This report was verified electronically.
[2016-12-18] MEDS: ASPIRIN 325 MG TAB PO SCH (07:50)
[2016-12-18] MEDS: hydrALAZINE HCL 50 MG TAB PO SCH ×2 (07:50→21:23)
[2016-12-18] MEDS: CYANOCOBALAMIN 1,000 MCG TAB PO SCH (07:50)
[2016-12-18] MEDS: DOCUSATE SODIUM 50 MG/SENNA 8.6 MG TAB PO SCH ×2 (07:51→21:23)
[2016-12-18] MEDS: FUROSEMIDE 40 MG TAB PO SCH (07:51)
[2016-12-18] MEDS: CHLORHEXIDINE 0.12% (ORAL KIT) 15 ML CUP MT SCH ×2 (07:52→16:33)
[2016-12-18] MEDS: PANTOPRAZOLE SODIUM 40 MG VIAL IV SCH (07:52)
[2016-12-18] MEDS: METHADONE HCL 10 MG TAB PO SCH ×3 (07:52→16:32)
[2016-12-18] MEDS: SODIUM CHLORIDE 0.9% FLUSH 10 ML FLUSH IV FLUSH SCH ×2 (07:53→21:24)
[2016-12-18] MEDS: ARTIFICIAL TEARS OPTH SOLN 15 ML BTL EACH EYE SCH ×3 (07:53→16:27)
[2016-12-18] MEDS: LABETALOL HCL 300 MG TAB PO SCH (07:54)
[2016-12-18] MEDS: ALPRAZolam 0.25 MG TAB PO PRN (09:23)
[2016-12-18] MEDS: ONDANSETRON HCL 4 MG/2 ML VIAL IV PRN ×2 (09:23→16:44)
--- NOTE | 2016-12-18 09:29 | HHI.CCPN ---
Subjective Remarks/Hospital Course 61-year-old female. Date of admission 12/16/2016. Date of consultation 12/16/2016. Past medical history includes CVA 2015 w/o residual, scoliosis, chronic pain syndrome on methadone, insomnia, COPD 2 L oxygen dependent, microcytic anemia, chronic kidney disease stage III, dyslipidemia, hypertension anxiety, coronary disease with 2 stents in the RCA and renal stents. She presented to [facility] today with history of chest pain and shortness of breath. She was walking in the parking lot into move daily she became short of breath. Please note she is on 2 L nasal cannula chronically for COPD.. This was described per previous notes as "someone sitting on my chest." Associated symptoms included shortness of breath and diaphoresis. Today, patient underwent cardiac catheterization with Dr. Thomas due to unstable angina. Left main 0%. Proximal LAD 70%. Mid LAD 100%. Circumflex 30 %. OM 100%. RCA with 2 patent stents. Distal LAD with [id number] collateral flow. The procedure, patient received 6 mg of Versed in the 100 micros of fentanyl. She was difficult to arouse and required 0.4 mg a cancer 0.5 mg of flumazenil. She is also given 40 of Lasix IV for possible CHF exacerbation. She also received 1 mg of atropine. Due to using accessory muscles to breathe and hypoxia patient was intubated by anesthesia with an 8.0 ET tube at receiving succinylcholine and etomidate. We are asked by cardiology keep the patient intubated overnight with possible extubation a.m. Patient is hemodynamically stable. 12/17: Currently on propofol and Versed for sedation. Becomes quite agitated with propofol less than 25 mcg/kg/m. FiO2 down to 45%. Relative spontaneous breathing trial today and extubate as soon as possible due to underlying chronic respiratory failure Subjective 12/18: Currently on nasal cannula 3 L. Extubated yesterday without . Requesting Restoril for sleep. Denies chest pain currently. Complaining of heartburn overnight. Requesting Prilosec. She is currently in Protonix. Objective Vital Signs Date Time Temp Pulse Resp B/P Pulse Ox O2 Delivery O2 Flow Rate FiO2 12/18/16 07:11 97 Nasal Cannula 4.00 12/18/16 07:00 97.9 85 20 174/110 12/17/16 11:41 45 Intake and Output 12/17/16 12/17/16 12/18/16 08:00 16:00 00:00 Intake Total 1143 ml 2125 ml Output Total 2860 ml 1025 ml Balance -1717 ml 1100 ml Result Diagram: 12/18/1618 12/18/16 0518 Imaging Last Impressions Chest X-Ray 12/18/16 0600 Signed Impressions: Service Date/Time: Sunday, December 18, 2016 05:13 - CONCLUSION: Removal of the endotracheal tube with good preservation of lung volumes. Left hemidiaphragm remains markedly elevated. For the most part the lungs are clear. Jonathon Mejia MD Objective Remarks GENERAL: 61-year-old female, currently on nasal cannula in no acute distress SKIN: Warm and dry. Pressure assist device in right femoral region removed without hematoma HEAD: Atraumatic. Normocephalic. EYES: Pupils equal and round about 3-4 mm bilaterally and slightly reactive. No scleral icterus. No injection or drainage. ENT: No nasal bleeding or discharge. Mucous membranes pink and moist. Oral pharynx without erythema or exudates NECK: Trachea midline. No JVD. Supple CARDIOVASCULAR: Regular rate and rhythm. S1, S2. No S4. Without murmur RESPIRATORY: Currently with diminished breath sounds throughout. Positive end expiratory wheezes. GASTROINTESTINAL: Abdomen soft, non-tender, nondistended. Hypoactive bowel sounds MUSCULOSKELETAL: Extremities without significant peripheral edema. No obvious deformities. NEUROLOGICAL: Cranial nerves II through XII grossly intact. Strength is equal and symmetric. Normal sensation. A/P Assessment and Plan Neuro/Psych: Hx CVA 2014 without residual Torticollis Chronic pain syndrome - methadone Insomnia Acetaminophen for fever Continue methadone 20 mg 3 times a day Resuming Restoril 15 milligrams by mouth at night for insomnia CV: Coronary disease status post stent 2 RCA Hypertension Dyslipidemia Unstable angina Cardiac catheterization note - ejection fraction 45%. Left main 0%. Proximal LAD 70%. Mid to distal LAD 100%. Circumflex 30%. OM 100% Currently on aspirin 325 mg daily. On 81 mg daily at home On atorvastatin 40 mg daily at bedtime for dyslipidemia currently on atorvastatin 80 mg daily Home medications for blood pressure include labetalol 150 daily, hydralazine 50 mg twice a day have been resumed clonidine 0.3 mg 3 times a day at home adjusted to 0.1 mg twice a day Holding Lasix in light of acute kidney injury. On 40 mg daily at home Resp: Acute on chronic respiratory failure COPD - 2 L chronic dependence JAISON? Nasal cannula to maintain saturations greater than equal to 92% Incentive spirometry while awake Duonebs every 6 hours with albuterol every 2 hours when necessary breakthrough GI: History of GI bleed Gastroesophageal reflux disease Heart healthy diet Protonix for GI prophylaxis Karen-Colace twice a day for bowel regimen : De Luna will be placed for accurate I's and O's in a critically ill patient Endo: Hyperglycermia likely steroid-induced Sliding-scale insulin with Accu-Cheks every AC/at bedtime to maintain euglycemia is low regimen Renal: Chronic kidney disease stage III Renal stent x 2 Currently on normal saline at 84 cc an hour Accurate I's and O's Monitor urine output Creatinine slightly increased 1.8. Recheck in a.m. Avoid nephrotoxic drugs. Holding Lasix Heme: Microcytic anemia Daily CBC. Monitor trends No signs of active bleeding. No indication for transfusion of blood proximal at this time ID: Monitor for infection MSK: Scoliosis History of C3/C4 anterior cervical corpectomy with fusion PT evaluate and treat FEN: Replace electrolytes as clinically indicated per ICU electrolyte protocol Access - Utilize peripheral IV. Central line if indicated Prophylaxis - GI - Protonix - DVT - SCD/pharmacological prophylaxis when okay with cardiology. Status post sheath removal Critical Care: The total care time was 30 minutes. Time to perform other separately billable procedures was not included in the critical care time. Patient is stable from a critical care medicine standpoint. We'll assign care to Ricardo Sumner MD December 18, 2016 09:29
[2016-12-18] MEDS: cloNIDine HCL 0.1 MG TAB PO SCH ×2 (10:49→10:56)
[2016-12-18] MEDS: MAGNESIUM SULFATE 1 GM PREMIX 100 ML IV SCH ×2 (10:50→10:56)
--- NOTE | 2016-12-18 11:04 | HHI.FPPN ---
Subjective Remarks c/o severe torticollis c/o GE reqs norco seen in iCU d/w RN's Pt has been up OOB some Objective Vitals Vital Signs Date Time Temp Pulse Resp B/P Pulse Ox O2 Delivery O2 Flow Rate FiO2 12/18/16 07:11 97 Nasal Cannula 4.00 12/18/16 07:00 97.9 85 20 174/110 95 12/18/16 07:00 85 12/18/16 04:30 16 12/18/16 03:00 85 12/18/16 03:00 98.3 85 20 157/115 95 12/17/16 23:00 79 12/17/16 23:00 98.3 79 20 125/84 96 12/17/16 19:01 18 12/17/16 19:00 98.5 78 18 97/68 96 12/17/16 19:00 78 12/17/16 15:00 98.7 80 16 107/67 94 12/17/16 15:00 80 12/17/16 12:00 92 Nasal Cannula 4 12/17/16 11:41 93 45 I/O 12/17/16 12/17/16 12/17/16 12/18/16 12/18/16 12/18/16 07:00 15:00 23:00 07:00 15:00 23:00 Intake Total 1143 ml 2125 ml 1296 ml Output Total 2860 ml 1025 ml 850 ml Balance -1717 ml 1100 ml 446 ml Intake Oral 0 ml 820 ml 400 ml IV Total 1043 ml 1245 ml 896 ml Tube Irrigant 100 ml 60 ml Output Urine Total 2860 ml 775 ml 850 ml Stool Total 0 ml 0 ml Gastric Drainage Total 250 ml # Bowel Movements 1 Result Diagram: 12/18/16 0518 12/18/16 0518 Imaging Last 72 hours Impressions Chest X-Ray 12/18/16 0600 Signed Impressions: Service Date/Time: Sunday, December 18, 2016 05:13 - CONCLUSION: Removal of the endotracheal tube with good preservation of lung volumes. Left hemidiaphragm remains markedly elevated. For the most part the lungs are clear. Jonathon Mejia MD Chest X-Ray 12/16/16 0000 Signed Impressions: Service Date/Time: Friday, December 16, 2016 18:28 - CONCLUSION: Endotracheal tube as above. Diogo Palmer MD Chest X-Ray 12/15/162120 Signed Impressions: Service Date/Time: Thursday, December 15, 2016 21:27 - CONCLUSION: Stable appearance with no acute cardiopulmonary disease. Charles Treviño MD Objective Remarks GENERAL: SKIN: Warm and dry. HEAD: Atraumatic. Normocephalic. EYES: Pupils equal and round. No scleral icterus. No injection or drainage. ENT: No nasal bleeding or discharge. Mucous membranes pink and moist. NECK: Trachea midline. No JVD. CARDIOVASCULAR: Regular rate and rhythm. RESPIRATORY: No accessory muscle use. Clear to auscultation. Breath sounds equal bilaterally. GASTROINTESTINAL: Abdomen soft, non-tender, nondistended. Hepatic and splenic margins not palpable. MUSCULOSKELETAL: Extremities without clubbing, cyanosis, or edema. +torticollis NEUROLOGICAL: Awake and alert. No obvious cranial nerve deficits. Motor grossly within normal limits. 3 out of 5 muscle strength in the arms and legs. Normal speech. PSYCHIATRIC: Appropriate mood and affect; insight and judgment normal. Medications and IVs Current Medications Medications (Trade) Dose Ordered Sig/Ann Route Start Time Stop Time Status Last Admin (NS Flush) 2 ml UNSCH PRN IV FLUSH 12/15/16 23:00 (NS Flush) 2 ml BID IV FLUSH 12/16/16 09:00 12/18/16 07:53 (Tylenol) 500 mg Q4H PRN PO 12/15/16 23:00 12/18/16 09:23 (Nitroglycerin 2% Oint) 1 inch Q6HR TOP 12/16/16 00:00 12/18/16 05:12 (Nitrostat Sl) 0.4 mg Q5M PRN SL 12/15/16 23:00 (Xanax) 0.25 mg Q8H PRN PO 12/15/16 23:00 12/18/16 09:23 (Vitamin B12) 1,000 mcg DAILY PO 12/16/16 11:45 12/18/16 07:50 (Apresoline) 50 mg BID PO 12/16/16 11:45 12/18/16 07:50 (Trandate) 150 mg DAILY PO 12/16/16 11:45 12/18/16 07:54 (Aspirin) 325 mg DAILY PO 12/16/16 12:00 12/18/16 07:50 (Dolophine) 20 mg TID PO 12/16/16 13:00 12/18/16 07:52 Chlorhexidine Gluconate 15 ml 15 ml BID@08,20 MT 12/16/16 20:00 12/17/16 09:49 (NS 1000 ml Inj) 1,000 ml @ 84 mls/hr [id number] IV 12/16/16 18:18 12/19/16 06:00 12/18/16 05:12 (Tears Naturale Opth Soln) 1 drop TID EACH EYE 12/17/16 09:00 12/18/16 07:53 (Zofran Inj) 4 mg Q6H PRN IV 12/16/16 18:30 12/18/16 09:23 Miscellaneous Information 1 Q361D XX 12/16/16 18:30 (Chlorhexidine 2% Cloth) 3 pack Taper DAILY@04 TOP 12/17/16 04:00 12/13/17 03:59 12/17/16 22:02 (Chlorhexidine 2% Cloth) 3 pack UNSCH PRN TOP 12/16/16 18:30 (Karen-Colace) 1 tab BID PO 12/16/16 21:00 12/18/16 07:51 (Milk Of Magnesia Liq) 30 ml Q12H PRN PO 12/16/16 18:30 (Senokot) 17.2 mg Q12H PRN PO 12/16/16 18:30 (Dulcolax Supp) 10 mg DAILY PRN RECTAL 12/16/16 18:30 (Lactulose Liq) 30 ml DAILY PRN PO 12/16/16 18:30 (D50w (Vial) Inj) 50 ml UNSCH PRN IV 12/17/16 12:30 (Glucagon Inj) 1 mg UNSCH PRN OTHER 12/17/16 12:30 (Lipitor) 80 mg HS PO 12/17/16 21:00 12/17/16 21:16 (Restoril) 15 mg HS PRN PO 12/18/16 09:15 Prednisone 20 mg 20 mg DAILY PO 12/19/16 09:00 (Magnesium Sulfate 1 Gm Premix) 100 ml @ 100 mls/hr Q1H IV 12/18/16 10:00 12/18/16 11:59 12/18/16 10:56 (Protonix) 40 mg DAILY PO 12/19/16 09:00 (Catapres) 0.1 mg Q12HR PO 12/18/16 10:00 12/18/16 10:56 A/P Assessment and Plan ASSESSMENT: Acute coronary syndrome Unstable angina Hypertension Hyperlipidemia. History of cerebrovascular accident. Chronic pain syndrome. Insomnia. History of gastrointestinal bleed. Gastroesophageal reflux disease. Hyperglycemia. Chronic kidney disease, stage 3. Microcytic anemia Scoliosis. Cervical fusion. PLAN: Methadone 20 mg t.i.d. Holding Restoril Protonix for GI prophylaxis Karen-Colace De Luna for now and will hopefully remove this soon. Sliding scale insulin Accurate intake and output. IV saline gently. Check a.m. CBC and BMP Peripheral IV AND NS IVF Sequential compression devices Clear liquid diet and we will advance as tolerated. Xanax p.r.n. Chest x-ray REVD Physical therapy. Speech therapy. full code. TRANSFER OUT OF ICU ADD NORCO FOR NTG GE, TORTICOLLIS, CHRONIC PAIN AM LABS PT OT SEE ORDERS PLEASE I WILL ASSUME CARE ON WEDNESDAY Problem List: (1) Pulmonary embolism Status: Acute (2) CVA (cerebral vascular accident) Status: Acute (3) Drug-induced mood disorder Status: Acute (4) History of pneumonia Status: Acute (5) Migraine Status: Acute (6) Acute kidney injury Status: Acute (7) Neck pain Status: Acute (8) Chronic kidney disease (CKD) Status: Acute (9) Hyperglycemia Status: Acute (10) Dehydration Status: Acute (11) Rib fracture Status: Acute (12) Acute kidney injury superimposed on chronic kidney disease Status: Acute (13) Opiate withdrawal Status: Acute (14) Hypertensive urgency Status: Acute (15) Noncompliance with medication treatment due to underuse of medication Status: Acute (16) Spasmodic torticollis Status: Acute (17) Chest pain, rule out acute myocardial infarction Status: Acute (18) Coronary artery disease Status: Acute (19) Respiratory failure Status: Acute (20) Hypertension Status: Acute (21) H/O heart artery stent Status: Acute (22) S/P cholecystectomy Status: Acute Willie Ybarra MD December 18, 2016 11:04
[2016-12-18] MEDS ORDERED: cloNIDine HCL 0.2 MG TAB PO ONE ×2 (11:38→16:45)
[2016-12-18] MEDS ORDERED: LABETALOL HCL 100 MG/20 ML VIAL ONE (12:38)
[2016-12-18] MEDS ORDERED: LABETALOL HCL 100 MG/20 ML VIAL IV PUSH ONE ×2 (12:45→14:00)
--- NOTE | 2016-12-18 13:21 | PD.CARD.PN ---
Subjective Subjective Remarks No CP, mild SOB, c/o GE related to NTG Objective Medications Current Medications Medications (Trade) Dose Ordered Sig/Ann Route Start Time Stop Time Status Last Admin (NS Flush) 2 ml UNSCH PRN IV FLUSH 12/15/16 23:00 (NS Flush) 2 ml BID IV FLUSH 12/16/16 09:00 12/18/16 07:53 (Tylenol) 500 mg Q4H PRN PO 12/15/16 23:00 12/18/16 09:23 (Nitroglycerin 2% Oint) 1 inch Q6HR TOP 12/16/16 00:00 12/18/16 05:12 (Nitrostat Sl) 0.4 mg Q5M PRN SL 12/15/16 23:00 (Xanax) 0.25 mg Q8H PRN PO 12/15/16 23:00 12/18/16 09:23 (Vitamin B12) 1,000 mcg DAILY PO 12/16/16 11:45 12/18/16 07:50 (Apresoline) 50 mg BID PO 12/16/16 11:45 12/18/16 07:50 (Aspirin) 325 mg DAILY PO 12/16/16 12:00 12/18/16 07:50 (Dolophine) 20 mg TID PO 12/16/16 13:00 12/18/16 12:04 Chlorhexidine Gluconate 15 ml 15 ml BID@08,20 MT 12/16/16 20:00 12/17/16 09:49 (NS 1000 ml Inj) 1,000 ml @ 84 mls/hr [id number] IV 12/16/16 18:18 12/19/16 06:00 12/18/16 05:12 (Tears Naturale Opth Soln) 1 drop TID EACH EYE 12/17/16 09:00 12/18/16 07:53 (Zofran Inj) 4 mg Q6H PRN IV 12/16/16 18:30 12/18/16 09:23 Miscellaneous Information 1 Q361D XX 12/16/16 18:30 (Chlorhexidine 2% Cloth) 3 pack Taper DAILY@04 TOP 12/17/16 04:00 12/13/17 03:59 12/17/16 22:02 (Chlorhexidine 2% Cloth) 3 pack UNSCH PRN TOP 12/16/16 18:30 (Karen-Colace) 1 tab BID PO 12/16/16 21:00 12/18/16 07:51 (Milk Of Magnesia Liq) 30 ml Q12H PRN PO 12/16/16 18:30 (Senokot) 17.2 mg Q12H PRN PO 12/16/16 18:30 (Dulcolax Supp) 10 mg DAILY PRN RECTAL 12/16/16 18:30 (Lactulose Liq) 30 ml DAILY PRN PO 12/16/16 18:30 (D50w (Vial) Inj) 50 ml UNSCH PRN IV 12/17/16 12:30 (Glucagon Inj) 1 mg UNSCH PRN OTHER 12/17/16 12:30 (Lipitor) 80 mg HS PO 12/17/16 21:00 12/17/16 21:16 (Restoril) 15 mg HS PRN PO 12/18/16 09:15 (Deltasone) 20 mg DAILY PO 12/19/16 09:00 (Protonix) 40 mg DAILY PO 12/19/16 09:00 (Catapres) 0.3 mg Q8H PO 12/18/16 16:00 (Lopressor) 25 mg Q12HR PO 12/18/16 21:00 Vital Signs / I&O Vital Signs Date Time Temp Pulse Resp B/P Pulse Ox O2 Delivery O2 Flow Rate FiO2 12/18/16 11:00 88 12/18/16 11:00 98.7 88 24 178/115 97 12/18/16 07:11 97 Nasal Cannula 4.00 12/18/16 07:00 97.9 85 20 174/110 95 12/18/16 07:00 85 12/18/16 04:30 16 12/18/16 03:00 85 12/18/16 03:00 98.3 85 20 157/115 95 12/17/16 23:00 79 12/17/16 23:00 98.3 79 20 125/84 96 12/17/16 19:01 18 12/17/16 19:00 98.5 78 18 97/68 96 12/17/16 19:00 78 12/17/16 15:00 98.7 80 16 107/67 94 12/17/16 15:00 80 I/O 12/17/16 12/17/16 12/17/16 12/18/16 12/18/16 12/18/16 07:00 15:00 23:00 07:00 15:00 23:00 Intake Total 1143 ml 2125 ml 1296 ml Output Total 2860 ml 1025 ml 850 ml Balance -1717 ml 1100 ml 446 ml Intake Oral 0 ml 820 ml 400 ml IV Total 1043 ml 1245 ml 896 ml Tube Irrigant 100 ml 60 ml Output Urine Total 2860 ml 775 ml 850 ml Stool Total 0 ml 0 ml Gastric Drainage Total 250 ml # Bowel Movements 1 Physical Exam GENERAL: In NAD SKIN: Warm and dry. HEAD: Normocephalic. EYES: No scleral icterus. No injection or drainage. NECK: Supple, trachea midline. No JVD or lymphadenopathy. CARDIOVASCULAR: Regular rate and rhythm without murmurs, gallops, or rubs. RESPIRATORY: Breath sounds equal bilaterally. No accessory muscle use. GASTROINTESTINAL: Abdomen soft, non-tender, nondistended. MUSCULOSKELETAL: No cyanosis, or edema. Laboratory Laboratory Tests Test 12/18/16 05:18 White Blood Count 10.8 TH/MM3 Red Blood Count 3.60 MIL/MM3 Hemoglobin 8.9 GM/DL Hematocrit 28.0 % Mean Corpuscular Volume 77.8 FL Mean Corpuscular Hemoglobin 24.9 PG Mean Corpuscular Hemoglobin 31.9 % Concent Red Cell Distribution Width 20.4 % Platelet Count 190 TH/MM3 Mean Platelet Volume 8.6 FL Neutrophils (%) (Auto) 92.8 % Lymphocytes (%) (Auto) 5.1 % Monocytes (%) (Auto) 1.9 % Eosinophils (%) (Auto) 0.0 % Basophils (%) (Auto) 0.2 % Neutrophils # (Auto) 10.0 TH/MM3 Lymphocytes # (Auto) 0.5 TH/MM3 Monocytes # (Auto) 0.2 TH/MM3 Eosinophils # (Auto) 0.0 TH/MM3 Basophils # (Auto) 0.0 TH/MM3 CBC Comment DIFF FINAL Differential Comment Sodium Level 140 MEQ/L Potassium Level 4.0 MEQ/L Chloride Level 105 MEQ/L Carbon Dioxide Level 24.5 MEQ/L Anion Gap 11 MEQ/L Blood Urea Nitrogen 34 MG/DL Creatinine 1.98 MG/DL Estimat Glomerular Filtration 25 ML/MIN Rate Random Glucose 303 MG/DL Calcium Level 8.5 MG/DL Phosphorus Level 3.0 MG/DL Magnesium Level 1.6 MG/DL Total Bilirubin 0.3 MG/DL Aspartate Amino Transf 17 U/L (AST/SGOT) Alanine Aminotransferase 28 U/L (ALT/SGPT) Alkaline Phosphatase 123 U/L Total Protein 6.4 GM/DL Albumin 3.2 GM/DL Imaging Last Impressions Chest X-Ray 12/18/16 0600 Signed Impressions: Service Date/Time: Sunday, December 18, 2016 05:13 - CONCLUSION: Removal of the endotracheal tube with good preservation of lung volumes. Left hemidiaphragm remains markedly elevated. For the most part the lungs are clear. Jonathon Mejia MD Assessment and Plan Problem List: (1) Coronary artery disease (2) H/O heart artery stent (3) Hypertension (4) Renal insufficiency (5) Respiratory failure Assessment and Plan Still hypertensive, titrate BP control. Ge GE w NTG, start metoprolol and titrate. No angina or CHF. Cath w total LAD occlusion with distal vessel filling by collaterals and mild LV systolic dysfunction. Continue medical management with tx for angina and aggressive risk factor modification. Increase activity as tolerated. Josh Thomas MD December 18, 2016 13:21
[2016-12-18] MEDS ORDERED: ALPRAZolam 0.5 MG TAB PO ONE (14:00)
[2016-12-18] MEDS ORDERED: hydrALAZINE HCL 20 MG/ML VIAL IV PUSH ONE (14:15)
[2016-12-18] MEDS ORDERED: hydrALAZINE HCL 50 MG TAB PO ONE (14:15)
[2016-12-18] MEDS: cloNIDine HCL 0.3 MG TAB PO SCH ×2 (16:00→23:53)
[2016-12-18] MEDS: ACETAMINOPHEN/HYDROcodone 325 MG/5 MG TAB PO PRN (16:45)
[2016-12-18] MEDS: CALCIUM CARBONATE 500 MG CHEWABLE TAB CHEW PRN ×3 (19:39→23:56)
[2016-12-18] MEDS: TEMAZEPAM 15 MG CAP PO PRN (21:23)
[2016-12-18] MEDS: METOPROLOL TARTRATE 25 MG TAB PO SCH (21:23)
[2016-12-18] MEDS: ATORVASTATIN 40 MG TAB PO SCH (21:23)
[2016-12-18] MEDS: CHLORHEXIDINE GLUCONATE 2 % 1 PACK (2 CLOTHS) TOP SCH (23:50)
[2016-12-19] VITALS (29 sets, daily range): BP systolic 96–147; BP diastolic 46–97; PULSE 60–84; RESP 18; TEMP 97.5–98.3; O2SAT 94–98
[2016-12-19] MEDS: CALCIUM CARBONATE 500 MG CHEWABLE TAB CHEW PRN ×4 (01:43→21:15)
[2016-12-19] MEDS: RESP: ALBUTEROL 2.5 MG/IPRATROPIUM 0.5 MG NEB (SCH) INH ×6 (04:00→18:58)
[2016-12-19 05:57] LABS: HEMATOCRIT 28.3 % (35.0-46.0); MEAN CELL VOLUME 79.3 FL (80.0-100.0); MEAN CORPUSCULAR HEMOGLOBIN 24.8 PG (27.0-34.0); MEAN CORPUSCULAR HGB CONC 31.3 % (32.0-36.0); PLATELET COUNT 203 TH/MM3 (150-450); RED BLOOD COUNT 3.57 MIL/MM3 (4.00-5.30); RED CELL DISTRIBUTION WIDTH 19.9 % (11.6-17.2); REVIEW FLAG FINAL; WHITE BLOOD COUNT 11.5 TH/MM3 (4.0-11.0)
[2016-12-19] MEDS: NITROGLYCERIN 2% OINT 1 GM PACKET TOP SCH ×3 (06:00→17:34)
[2016-12-19] MEDS: hydrALAZINE HCL 50 MG TAB PO SCH ×3 (06:11→22:00)
[2016-12-19] MEDS: SODIUM CHLOR 0.9% 1000 ML INJ 1,000 ML IV SCH (06:12)
[2016-12-19] MEDS: INSULIN NovoLIN REGULAR SUPPLEMENTAL SCALE SQ SCH ×4 (06:23→21:35)
[2016-12-19 06:33] LABS: BICARBONATE 29.2 MEQ/L (21.0-32.0); POTASSIUM 3.7 MEQ/L (3.5-5.1)
[2016-12-19] MEDS: CHLORHEXIDINE 0.12% (ORAL KIT) 15 ML CUP MT SCH ×2 (08:00→20:00)
[2016-12-19] MEDS: cloNIDine HCL 0.3 MG TAB PO SCH (08:00)
[2016-12-19] MEDS: METHADONE HCL 10 MG TAB PO SCH ×4 (08:42→18:00)
[2016-12-19] MEDS: predniSONE 20 MG TAB PO SCH (08:42)
[2016-12-19] MEDS: PANTOPRAZOLE SOD 40 MG DELAYED RELEASE TAB PO SCH (08:43)
[2016-12-19] MEDS: ASPIRIN 325 MG TAB PO SCH (08:43)
[2016-12-19] MEDS: SODIUM CHLORIDE 0.9% FLUSH 10 ML FLUSH IV FLUSH SCH ×2 (08:43→21:07)
[2016-12-19] MEDS: CYANOCOBALAMIN 1,000 MCG TAB PO SCH (08:44)
[2016-12-19] MEDS: METOPROLOL TARTRATE 25 MG TAB PO SCH ×3 (08:45→21:08)
[2016-12-19] MEDS: ARTIFICIAL TEARS OPTH SOLN 15 ML BTL EACH EYE SCH ×3 (08:45→17:34)
[2016-12-19] MEDS: DOCUSATE SODIUM 50 MG/SENNA 8.6 MG TAB PO SCH ×2 (08:45→21:06)
--- NOTE | 2016-12-19 13:29 | HHI.PR ---
Subjective Remarks f/u for chest pain and chronic pain. patient has no complaints. She denied any CP, SOB, palpitations, lightheadedness /dizziness. patient very anxious to go home. d/w nurse SBP in 70s but asymptomatic. Objective Vitals Vital Signs Date Time Temp Pulse Resp B/P Pulse Ox O2 Delivery O2 Flow Rate FiO2 12/19/16 13:09 69 12/19/16 12:39 66 12/19/16 11:44 66 12/19/16 11:00 97.8 62 18 96/46 98 12/19/16 11:00 97 Nasal Cannula 3.00 12/19/16 10:00 65 12/19/16 09:38 96 Nasal Cannula 4.00 12/19/16 09:00 66 12/19/16 08:00 66 12/19/16 07:15 83 12/19/16 07:00 97.6 78 18 113/64 97 12/19/16 07:00 97 Nasal Cannula 3.00 12/19/16 06:00 77 12/19/16 05:00 73 12/19/16 04:00 97 Nasal Cannula 3.00 12/19/16 04:00 78 12/19/16 03:20 98.3 76 18 129/89 97 12/19/16 03:20 97 Nasal Cannula 3.00 12/19/16 03:00 76 12/19/16 02:00 76 12/19/16 01:00 79 12/19/16 00:00 79 12/18/16 23:45 97.9 76 18 154/99 97 12/18/16 23:45 97 Nasal Cannula 3.00 12/18/16 23:00 82 12/18/16 22:00 88 12/18/16 21:00 80 12/18/16 20:00 78 12/18/16 19:15 97 Nasal Cannula 3.00 12/18/16 19:10 98 Nasal Cannula 4.00 12/18/16 19:10 98.1 85 18 147/99 98 12/18/16 19:00 83 12/18/16 15:00 80 12/18/16 15:00 98.7 88 19 123/85 97 I/O 12/18/16 12/18/16 12/18/16 12/19/16 12/19/16 12/19/16 07:00 15:00 23:00 07:00 15:00 23:00 Intake Total 1296 ml 2088 ml 1136 ml Output Total 850 ml 1550 ml 650 ml Balance 446 ml 538 ml 486 ml Intake Oral 400 ml 850 ml 240 ml IV Total 896 ml 1238 ml 896 ml Output Urine Total 850 ml 1550 ml 650 ml # Bowel Movements 1 0 0 Result Diagram: 12/19/1652412/19/16524 Objective Remarks GENERAL: in NAD CARDIOVASCULAR: Regular rate and rhythm without murmurs, gallops, or rubs. RESPIRATORY: Breath sounds equal bilaterally. No accessory muscle use. GASTROINTESTINAL: Abdomen soft, non-tender, nondistended. Medications and IVs Current Medications Nitroglycerin (Nitroglycerin 2% Oint) 1 inch ONCE ONCE TOP ; Start 12/15/16 at 21:30; Stop 12/15/16 at 21:31; Status DC Sodium Chloride (NS Flush) 2 ml UNSCH PRN IVF FLUSH AFTER USING IV ACCESS; Start 12/15/16 at 21:30; Stop 12/17/16 at 12:25; Status DC Nitroglycerin (Nitrostat Sl) 0.4 mg Q5M SL ; Start 12/15/16 at 21:30; Stop 12/15 at 21:41; Status DC Albuterol/ Ipratropium (Duoneb Neb) 1 ampule ONCE ONCE NEB Last administered on 12/15/16 23:18; Start 12/15/16 at 23:00; Stop 12/15/16 at 23:01; Status DC Labetalol HCl (Trandate Inj) 5 mg ONCE ONCE IV PUSH Last administered on 00:02; Start 12/15/16 at 23:00; Stop 12/15/16 at 23:01; Status DC Sodium Chloride (NS Flush) 2 ml UNSCH PRN IV FLUSH FLUSH AFTER USING IV ACCESS ; Start 12/15/16 at 23:00 Sodium Chloride (NS Flush) 2 ml BID IV FLUSH Last administered on 12/19/16 08: 43; Start 12/16/16 at 09:00 Acetaminophen (Tylenol) 500 mg Q4H PRN PO HEADACHE Last administered on 09:23; Start 12/15/16 at 23:00 Ondansetron HCl (Zofran Inj) 4 mg Q6H PRN IV NAUSEA; Start 12/15/16 at 23:00; Stop 12/16/16 at 19:07; Status DC Pantoprazole Sodium (Protonix) 40 mg DAILY PO Last administered on 12/16/16 08 :45; Start 12/16/16 at 09:00; Stop 12/16/16 at 19:08; Status DC Nitroglycerin (Nitroglycerin 2% Oint) 1 inch Q6HR TOP Last administered on 12/18 05:12; Start 12/16/16 at 00:00 Nitroglycerin (Nitrostat Sl) 0.4 mg Q5M PRN SL CHEST PAIN; Start 12/15/16 at 23 :00 Alprazolam (Xanax) 0.25 mg Q8H PRN PO ANXIETY Last administered on 12/18/16 09 :23; Start 12/15/16 at 23:00 Albuterol Sulfate (Albuterol Neb) 2.5 mg Q2HR NEB PRN NEB SOB/WHEEZING; Start 12/16/16 at 08:15; Stop 12/16/16 at 19:03; Status DC Atorvastatin Calcium (Lipitor) 40 mg HS PO Last administered on 12/16/16 20:44 ; Start 12/16/16 at 21:00; Stop 12/17/16 at 17:23; Status DC Cyanocobalamin (Vitamin B12) 1,000 mcg DAILY PO Last administered on 12/19/16 08:44; Start 12/16/16 at 11:45 Furosemide (Lasix) 40 mg DAILY PO Last administered on 12/18/16 07:51; Start 12/16/16 at 11:45; Stop 12/18/16 at 09:18; Status DC Hydralazine HCl (Apresoline) 50 mg BID PO Last administered on 12/18/16 07:50 ; Start 12/16/16 at 11:45; Stop 12/18/16 at 14:03; Status DC Labetalol HCl (Trandate) 150 mg DAILY PO Last administered on 12/18/16 07:54; Start 12/16/16 at 11:45; Stop 12/18/16 at 12:45; Status DC Pantoprazole Sodium (Protonix) 40 mg DAILY PO Last administered on 12/16/16 13 :09; Start 12/16/16 at 11:45; Stop 12/16/16 at 19:08; Status DC Aspirin (Aspirin) 325 mg DAILY PO Last administered on 12/19/16 08:43; Start 12/16/16 at 12:00 Methadone HCl 20 mg 20 mg TID PO Last administered on 12/19/16 08:42; Start at 13:00 Heparin Sodium/ Sodium Chloride (Heparin-NS/Pf Inj) 500 ml @ As Directed STK- MED ONCE .ROUTE Last administered on 12/16/16 16:26; Start 12/16/16 at 16:26; Stop 12/16/16 at 16:27; Status DC Fentanyl Citrate (fentaNYL INJ) 100 mcg STK-MED ONCE .ROUTE Last administered on 12/16/16 16:44; Start 12/16/16 at 16:26; Stop 12/16/16 at 16:27; Status DC Midazolam HCl (Versed Inj) 5 mg STK-MED ONCE .ROUTE Last administered on 16:43; Start 12/16/16 at 16:27; Stop 12/16/16 at 16:28; Status DC Fentanyl Citrate (fentaNYL INJ) 100 mcg STK-MED ONCE .ROUTE ; Start 12/16/16 at 16:54; Stop 12/16/16 at 16:55; Status DC Midazolam HCl (Versed Inj) 5 mg STK-MED ONCE .ROUTE Last administered on 16:56; Start 12/16/16 at 16:54; Stop 12/16/16 at 16:55; Status DC Naloxone HCl (Narcan Inj) 0.4 mg STK-MED ONCE .ROUTE Last administered on 17:06; Start 12/16/16 at 17:05; Stop 12/16/16 at 17:06; Status DC Flumazenil (Romazicon Inj) 0.5 mg STK-MED ONCE .ROUTE Last administered on 12/16 17:16; Start 12/16/16 at 17:15; Stop 12/16/16 at 17:16; Status DC Furosemide (Lasix Inj) 40 mg STK-MED ONCE .ROUTE Last administered on 17:17; Start 12/16/16 at 17:16; Stop 12/16/16 at 17:17; Status DC Midazolam HCl 2 mg 2 mg STK-MED ONCE .ROUTE Last administered on 12/16/16 17: 44; Start 12/16/16 at 17:34; Stop 12/16/16 at 17:35; Status DC Propofol (Diprivan 500 Mg/ 50 ml Inj) 50 ml @ As Directed STK-MED ONCE .ROUTE ; Start 12/16/16 at 17:46; Stop 12/16/16 at 17:47; Status DC Chlorhexidine Gluconate 15 ml 15 ml BID@08,20 MT Last administered on 09:49; Start 12/16/16 at 20:00 Propofol (Diprivan 1000 Mg/100ml Inj) 100 ml @ 0 mls/hr TITRATE IV Last administered on 12/17/16 05:10; Start 12/16/16 at 18:00; Stop 12/18/16 at 09:18 ; Status DC Methadone HCl 20 mg 20 mg TID PO ; Start 12/16/16 at 18:00; Stop 12/16/16 at 18: 59; Status DC Midazolam HCl 100 ml @ 0 mls/hr TITRATE IV Last administered on 12/16/16 20:47 ; Start 12/16/16 at 18:15; Stop 12/18/16 at 09:18; Status DC Sodium Chloride (NS 1000 ml Inj) 1,000 ml @ 84 mls/hr [id number] IV Last administered on 12/19/16 06:12; Start 12/16/16 at 18:18; Stop 12/19/16 at 06:00 ; Status DC Sodium Chloride (NS Flush) 2 ml UNSCH PRN IV FLUSH FLUSH AFTER USING IV ACCESS ; Start 12/16/16 at 18:30; Stop 12/16/16 at 19:03; Status DC Sodium Chloride (NS Flush) 2 ml BID IV FLUSH ; Start 12/16/16 at 21:00; Stop at 21:00; Status DC Acetaminophen (Tylenol) 650 mg Q6H PRN PO PAIN 1-10 AND/OR FEVER >101F Last administered on 12/18/16 03:30; Start 12/16/16 at 18:30; Stop 12/18/16 at 09:21 ; Status DC Pantoprazole Sodium (Protonix Inj) 40 mg DAILY IV Last administered on 07:52; Start 12/17/16 at 09:00; Stop 12/18/16 at 09:22; Status DC Artificial Tears (Tears Naturale Opth Soln) 1 drop TID EACH EYE Last administered on 12/18/16 07:53; Start 12/17/16 at 09:00 Ondansetron HCl (Zofran Inj) 4 mg Q6H PRN IV NAUSEA OR VOMITING Last administered on 12/18/16 16:44; Start 12/16/16 at 18:30 Albuterol/ Ipratropium (Duoneb Neb) 1 ampule Q4HR NEB INH Last administered on 12/19/16 12:28; Start 12/16/16 at 20:00 Albuterol Sulfate (Albuterol Neb) 2.5 mg Q2HR NEB PRN INH SOB/WHEEZING; Start 12/16/16 at 18:30 Miscellaneous Information 1 [id number] XX ; Start 12/16/16 at 18:30 Chlorhexidine Gluconate (Chlorhexidine 2% Cloth) 3 pack Taper DAILY@04 TOP Last administered on 12/17/16 22:02; Start 12/17/16 at 04:00; Stop 12/13/17 at 03:59 Chlorhexidine Gluconate (Chlorhexidine 2% Cloth) 3 pack UNSCH PRN TOP HYGIENIC CARE; Start 12/16/16 at 18:30 Senna/Docusate Sodium (Karen-Colace) 1 tab BID PO Last administered on 21:23; Start 12/16/16 at 21:00 Magnesium Hydroxide (Milk Of Magnesia Liq) 30 ml Q12H PRN PO MILD - MODERATE CONSTIPATION; Start 12/16/16 at 18:30 Sennosides (Senokot) 17.2 mg Q12H PRN PO MODERATE - SEVERE CONSTIPATION; Start 12/16/16 at 18:30 Bisacodyl (Dulcolax Supp) 10 mg DAILY PRN RECTAL SEVERE CONSITIPATION; Start at 18:30 Lactulose (Lactulose Liq) 30 ml DAILY PRN PO SEVERE CONSITIPATION; Start at 18:30 Methylprednisolone Sodium Succinate (SoluMEDROL INJ) 40 mg Q8HR IV PUSH Last administered on 12/18/16 05:12; Start 12/16/16 at 22:00; Stop 12/18/16 at 09:21 ; Status DC Iohexol 50 ml 50 ml STK-MED ONCE OTHER ; Start 12/16/16 at 07:42; Stop 12/17/16 at 07:42; Status DC Dexmedetomidine HCl/Sodium Chloride (Precedex Inj/NS Inj) 52 ml @ 0 mls/hr TITRATE IV Last administered on 12/17/16 12:54; Start 12/17/16 at 10:00; Stop 12/18/16 at 09:19; Status DC Dexmedetomidine HCl (Precedex Inj) 200 mcg STK-MED ONCE .ROUTE ; Start 12/17/16 at 09:33; Stop 12/17/16 at 09:34; Status DC Dextrose (D50w (Vial) Inj) 50 ml UNSCH PRN IV HYPOGLYCEMIA-SEE COMMENTS; Start 12/17/16 at 12:30 Glucagon (Glucagon Inj) 1 mg UNSCH PRN OTHER HYPOGLYCEMIA-SEE COMMENTS; Start 12/17/16 at 12:30 Insulin Human Regular (NovoLIN R SUPPLEMENTAL SCALE) 1 ACHS SLIDING SCALE SQ Last administered on 12/19/16 11:18; Start 12/17/16 at 16:00 Atorvastatin Calcium (Lipitor) 80 mg HS PO Last administered on 12/18/16 21:23 ; Start 12/17/16 at 21:00 Temazepam (Restoril) 15 mg HS PRN PO INSOMNIA Last administered on 12/18/16 21 :23; Start 12/18/16 at 09:15 Prednisone 20 mg 20 mg DAILY PO Last administered on 12/19/16 08:42; Start at 09:00 Magnesium Sulfate/ Dextrose (Magnesium Sulfate 1 Gm Premix) 100 ml @ 100 mls/ hr Q1H IV Last administered on 12/18/16 10:56; Start 12/18/16 at 10:00; Stop 12/18/16 at 11:59; Status DC Pantoprazole Sodium (Protonix) 40 mg DAILY PO Last administered on 12/19/16 08 :43; Start 12/19/16 at 09:00 Clonidine (Catapres) 0.1 mg Q12HR PO Last administered on 12/18/16 10:56; Start 12/18/16 at 10:00; Stop 12/18/16 at 11:32; Status DC Clonidine (Catapres) 0.3 mg Q8H PO Last administered on 12/18/16 23:53; Start 12/18/16 at 16:00 Clonidine (Catapres) 0.2 mg ONCE ONCE PO Last administered on 12/18/16 12:03 ; Start 12/18/16 at 11:38; Stop 12/18/16 at 11:39; Status DC Labetalol HCl (Trandate Inj) 100 mg STK-MED ONCE .ROUTE Last administered on 12:45; Start 12/18/16 at 12:38; Stop 12/18/16 at 12:39; Status DC Metoprolol Tartrate (Lopressor) 25 mg Q12HR PO Last administered on 12/18/16 21:23; Start 12/18/16 at 21:00 Labetalol HCl (Trandate Inj) 20 mg ONCE ONCE IV PUSH ; Start 12/18/16 at 12:45 ; Stop 12/18/16 at 12:46; Status DC Alprazolam (Xanax) 0.5 mg ONCE ONCE PO Last administered on 12/18/16 14:25; Start 12/18/16 at 14:00; Stop 12/18/16 at 14:06; Status DC Labetalol HCl (Trandate Inj) 20 mg ONCE ONCE IV PUSH Last administered on 12/18 14:27; Start 12/18/16 at 14:00; Stop 12/18/16 at 14:06; Status DC Hydralazine HCl (Apresoline) 50 mg Q8HR PO Last administered on 12/19/16 06:11 ; Start 12/18/16 at 22:00 Hydralazine HCl (Apresoline) 50 mg ONCE ONCE PO ; Start 12/18/16 at 14:15; Stop 12/18/16 at 14:16; Status DC Hydralazine HCl (Apresoline Inj) 20 mg ONCE ONCE IV PUSH Last administered on 12/18/16 14:25; Start 12/18/16 at 14:15; Stop 12/18/16 at 14:16; Status DC Acetaminophen/ Hydrocodone Bitart ([place] 5-325 Mg) 1 tab Q4H PRN PO PAIN SCALE 6 TO 10 Last administered on 12/18/16 16:45; Start 12/18/16 at 16:45 Clonidine (Catapres) 0.2 mg NOW ONCE PO ; Start 12/18/16 at 16:45; Stop at 16:46; Status Cancel Calcium Carbonate (Tums Chew) 500 mg Q2H PRN CHEW INDIGESTION Last administered on 12/19/16 08:51; Start 12/18/16 at 19:15 A/P Assessment and Plan Acute coronary syndrome -Status post cardiac catheterization on 12/17/16 showing total occlusion of the left anterior descending artery and obtuse marginal artery and Mild left ventricular dysfunction consistent with ischemic cardiomyopathy. -Per power nut runner operator continue medical management. Patient is on a statin, aspirin and metoprolol. Hypotension -Most likely secondary to antihypertensive medication. There are no signs of infection and clinically patient is doing well. Will hold medication but need to discontinue clonidine. -We'll also need to hold methadone if her blood pressure continues to be low. -We'll continue to monitor closely. Dealt with patient's nurse. Hypertension -Now hypotensive please see treatment as above. Hyperlipidemia/History of cerebrovascular accident/Chronic kidney disease, stage 3. -Home medication resumed. -Avoid nephrotoxins. Chronic pain syndrome. -Due to low blood pressure will need to hold methadone. -That with patient regards to this. Discharge Planning If blood pressure improves and no signs of infection, patient can be discharged tomorrow. Beulah Acosta MD December 19, 2016 13:29 Chest x-ray REVD Physical therapy. Speech therapy. full code. Beulah Acosta MD December 19, 2016 13:29
[2016-12-19] MEDS: ALPRAZolam 0.25 MG TAB PO PRN (17:41)
[2016-12-19] MEDS: ATORVASTATIN 40 MG TAB PO SCH (21:07)
[2016-12-19] MEDS: TEMAZEPAM 15 MG CAP PO PRN (21:15)
[2016-12-20] VITALS (13 sets, daily range): BP systolic 125–137; BP diastolic 80–88; PULSE 60–97; RESP 18; TEMP 98; O2SAT 95–96
[2016-12-20] MEDS: ACETAMINOPHEN/HYDROcodone 325 MG/5 MG TAB PO PRN ×2 (02:06→08:35)
[2016-12-20] MEDS: RESP: ALBUTEROL 2.5 MG/IPRATROPIUM 0.5 MG NEB (SCH) INH ×3 (02:55→07:14)
[2016-12-20] MEDS: CHLORHEXIDINE GLUCONATE 2 % 1 PACK (2 CLOTHS) TOP SCH (04:00)
[2016-12-20 04:24] LABS: HEMATOCRIT 25.7 % (35.0-46.0); MEAN CELL VOLUME 79.3 FL (80.0-100.0); MEAN CORPUSCULAR HEMOGLOBIN 25.5 PG (27.0-34.0); MEAN CORPUSCULAR HGB CONC 32.1 % (32.0-36.0); PLATELET COUNT 175 TH/MM3 (150-450); RED BLOOD COUNT 3.24 MIL/MM3 (4.00-5.30); RED CELL DISTRIBUTION WIDTH 19.9 % (11.6-17.2); REVIEW FLAG FINAL; WHITE BLOOD COUNT 8.2 TH/MM3 (4.0-11.0)
[2016-12-20 05:02] LABS: BICARBONATE 26.3 MEQ/L (21.0-32.0); POTASSIUM 4.6 MEQ/L (3.5-5.1)
[2016-12-20] MEDS: CALCIUM CARBONATE 500 MG CHEWABLE TAB CHEW PRN (05:40)
[2016-12-20] MEDS: NITROGLYCERIN 2% OINT 1 GM PACKET TOP SCH ×2 (05:40)
[2016-12-20] MEDS: hydrALAZINE HCL 50 MG TAB PO SCH (05:40)
[2016-12-20] MEDS: INSULIN NovoLIN REGULAR SUPPLEMENTAL SCALE SQ SCH (06:49)
[2016-12-20] MEDS: CHLORHEXIDINE 0.12% (ORAL KIT) 15 ML CUP MT SCH (08:00)
[2016-12-20] MEDS: DOCUSATE SODIUM 50 MG/SENNA 8.6 MG TAB PO SCH (08:33)
[2016-12-20] MEDS: SODIUM CHLORIDE 0.9% FLUSH 10 ML FLUSH IV FLUSH SCH (08:33)
[2016-12-20] MEDS: predniSONE 20 MG TAB PO SCH (08:33)
[2016-12-20] MEDS: METOPROLOL TARTRATE 25 MG TAB PO SCH (08:33)
[2016-12-20] MEDS: PANTOPRAZOLE SOD 40 MG DELAYED RELEASE TAB PO SCH (08:33)
[2016-12-20] MEDS: CYANOCOBALAMIN 1,000 MCG TAB PO SCH (08:33)
[2016-12-20] MEDS: ASPIRIN 325 MG TAB PO SCH (08:33)
[2016-12-20] MEDS: METHADONE HCL 10 MG TAB PO SCH (08:34)
[2016-12-20] MEDS: ARTIFICIAL TEARS OPTH SOLN 15 ML BTL EACH EYE SCH (08:37)
[2016-12-20] MEDS ORDERED: ATOR40TA16 PO (10:43)
[2016-12-20] MEDS ORDERED: HYDR-3800 PO (10:43)
[2016-12-20] MEDS ORDERED: ASPI325T PO (10:43)
[2016-12-20] MEDS ORDERED: METO25TA3 PO (10:43)
--- NOTE | 2016-12-20 10:46 | HHI.DS ---
Discharge Summary Admission Date December 17, 2016 at 09:48 Discharge Date: December 20, 2016 Admitting Diagnosis cp ro mi (1) Chest pain, rule out acute myocardial infarction ICD Code: R07.9 Diagnosis: Principal (2) Hypertensive urgency ICD Code: I16.0 Diagnosis: Principal (3) Acute kidney injury superimposed on chronic kidney disease ICD Code: N17.9 Diagnosis: Principal (4) Noncompliance with medication treatment due to underuse of medication ICD Code: Z91.14 Diagnosis: Principal Procedures See hospital course Brief History - From Admission 61-year-old female. Date of admission 12/16/2016. Date of consultation 12/16/2016. Past medical history includes CVA 2014 w/o residual, scoliosis, chronic pain syndrome on methadone, insomnia, COPD 2 L oxygen dependent, microcytic anemia, chronic kidney disease stage III, dyslipidemia, hypertension anxiety, coronary disease with 2 stents in the RCA and renal stents. She presented to [facility] today with history of chest pain and shortness of breath. She was walking in the parking lot into move daily she became short of breath. Please note she is on 2 L nasal cannula chronically for COPD.. This was described per previous notes as "someone sitting on my chest." Associated symptoms included shortness of breath and diaphoresis. See history of present illness for further information. CBC/BMP: 12/20/16 0356 12/20/16 0356 Significant Findings Laboratory Tests Test 12/18/16 12/19/16 12/20/16 05:18 05:25 03:56 Red Blood Count 3.60 MIL/MM3 3.57 MIL/MM3 3.24 MIL/MM3 (4.00-5.30) (4.00-5.30) (4.00-5.30) Hemoglobin 8.9 GM/DL 8.9 GM/DL 8.3 GM/DL (11.6-15.3) (11.6-15.3) (11.6-15.3) Hematocrit 28.0 % 28.3 % 25.7 % (35.0-46.0) (35.0-46.0) (35.0-46.0) Mean Corpuscular Volume 77.8 FL 79.3 FL 79.3 FL (80.0-100.0) (80.0-100.0) (80.0-100.0) Mean Corpuscular Hemoglobin 24.9 PG 24.8 PG 25.5 PG (27.0-34.0) (27.0-34.0) (27.0-34.0) Mean Corpuscular Hemoglobin 31.9 % 31.3 % Concent (32.0-36.0) (32.0-36.0) Red Cell Distribution Width 20.4 % 19.9 % 19.9 % (11.6-17.2) (11.6-17.2) (11.6-17.2) Neutrophils (%) (Auto) 92.8 % (16.0-70.0) Lymphocytes (%) (Auto) 5.1 % (9.0-44.0) Neutrophils # (Auto) 10.0 TH/MM3 (1.8-7.7) Lymphocytes # (Auto) 0.5 TH/MM3 (1.0-4.8) Blood Urea Nitrogen 34 MG/DL (7-18) 36 MG/DL (7-18) 32 MG/DL (7-18) Creatinine 1.98 MG/DL 1.82 MG/DL 1.60 MG/DL (0.50-1.00) (0.50-1.00) (0.50-1.00) Estimat Glomerular Filtration 25 ML/MIN (>89) 28 ML/MIN (>89) 33 ML/MIN (>89) Rate Random Glucose 303 MG/DL 152 MG/DL 141 MG/DL (74-106) (74-106) (74-106) Alkaline Phosphatase 123 U/L (45-117) Albumin 3.2 GM/DL (3.4-5.0) White Blood Count 11.5 TH/MM3 (4.0-11.0) Chloride Level 108 MEQ/L 109 MEQ/L (98-107) (98-107) Calcium Level 8.4 MG/DL (8.5-10.1) Imaging Last Impressions Chest X-Ray 12/18/16 0600 Signed Impressions: Service Date/Time: Sunday, December 18, 2016 05:13 - CONCLUSION: Removal of the endotracheal tube with good preservation of lung volumes. Left hemidiaphragm remains markedly elevated. For the most part the lungs are clear. Jonathon Mejia MD PE at Discharge GENERAL: in NAD CARDIOVASCULAR: Regular rate and rhythm without murmurs, gallops, or rubs. RESPIRATORY: Breath sounds equal bilaterally. No accessory muscle use. GASTROINTESTINAL: Abdomen soft, non-tender, nondistended. Pt update on day of discharge Follow-up for chest pain and hypotension Since changes her medication were made her blood pressure is within normal limits. She is tolerating her current regimen. Patient denies any chest pain, palpitation, shortness of breathing, lightheadedness or dizziness. Patient is very anxious to go home. Per nurse no issues. Hospital Course Acute coronary syndrome -Status post cardiac catheterization on 12/17/16 showing total occlusion of the left anterior descending artery and obtuse marginal artery and Mild left ventricular dysfunction consistent with ischemic cardiomyopathy. -Per tombstone erector continue medical management. Patient is on a statin, aspirin and metoprolol. Hypotension develop on 12/19/16 -Most likely secondary to antihypertensive medication. There are no signs of infection and clinically patient is doing well. Will hold medication but need to discontinue clonidine. -Patient did well with discontinuation of clonidine and her blood pressures with within normal limits. Hypertension -Initially patient was treated for hypertensive urgency in which she was given multiple medication. But then on 12/19/16 she became hypotensive. Medication was adjusted in which now she was normotensive on the day of discharge. Hyperlipidemia/History of cerebrovascular accident/Chronic kidney disease, stage 3. -Home medication resumed. -Avoid nephrotoxins. Chronic pain syndrome. -Her methadone was restarted once her blood pressure improved. She did have episode which came hypotensive where a dose of methadone had be held. Otherwise afterwards her blood pressure tolerated the methadone. Pt Condition on Discharge: Good Discharge Disposition: Discharge Home Discharge Time: <= 30 minutes Discharge Instructions DIET: Follow Instructions for: Heart Healthy Diet Speech Therapy-Diet Recommends: Soft Activities you can perform: Regular-No Restrictions Follow up Referrals: PCP Follow-up - 1 Week New Medications: Aspirin (Aspirin) 325 Mg Tab 325 MG PO DAILY cad #30 Ref 0 TAB Atorvastatin (Atorvastatin) 40 Mg Tab 80 MG PO HS cad #30 Ref 0 TAB Hydralazine HCl (Hydralazine HCl) 50 Mg Tablet 50 MG PO Q8HR hypertension #90 Ref 0 TAB Metoprolol Tartrate (Metoprolol Tartrate) 25 Mg Tab 25 MG PO Q12HR CAD #60 Ref 0 TAB Continued Medications: Cyanocobalamin (Vitamin B-12) 1,000 Mcg Tab 1000 MCG PO DAILY Nutritional Supplement #1 Ref 0 BOTTLE Methadone (Methadone) 40 Mg Tab 20 MG PO TID Ref 0 TAB Omeprazole (Prilosec) 20 Mg Cap 40 MG PO DAILY #30 Ref 0 CAP Temazepam (Restoril) 15 Mg Cap 15 MG PO HS PRN INSOMNIA #30 Ref 0 CAP Discontinued Medications: Aspirin DR (Aspirin EC) 81 Mg Tabdr 81 MG PO DAILY Ref 0 TAB Atorvastatin (Atorvastatin) 40 Mg Tab 40 MG PO HS Cholesterol Management #30 Ref 0 TAB Clonidine (Clonidine) 0.3 Mg Tab 0.3 MG PO TID Blood Pressure Management #0 Ref 0 TAB Furosemide (Lasix) 40 Mg Tab 40 MG PO DAILY #30 Ref 0 TAB Hydralazine (Hydralazine) 50 Mg Tab 50 MG PO BID Take with a meal Blood Pressure Management Ref 0 TAB Labetalol (Labetalol) 300 Mg Tab 150 MG PO DAILY Blood Pressure Management Ref 0 TAB Beulah Acosta MD December 20, 2016 10:46
--- NOTE | 2016-12-20 10:46 | HHI.DCPOC ---
Discharge Care Plan Diagnosis: (1) Acute kidney injury superimposed on chronic kidney disease (2) Chest pain, rule out acute myocardial infarction (3) Hypertensive urgency Goals to Promote Your Health * To prevent worsening of your condition and complications * To maintain your health at the optimal level Directions to Meet Your Goals Take your medications as prescribed Follow your dietary instruction Follow activity as directed Keep your appointments as scheduled Take your immunizations and boosters as scheduled If your symptoms worsen call your PCP, if no PCP go to Urgent Care Center or Emergency Room Smoking is Dangerous to Your Health. Avoid second hand smoke Call the 24-hour hour crisis hotline for domestic abuse at Beulah Acosta MD December 20, 2016 10:46
== END 2016-12-20 11:43 | disposition home or self-care (01) | DRG 286 ==
LOC: NEPE 20:59 → NEDA 23:00 → NEPGCP 12-16 00:03 → HCIS 12-16 16:30 → HCVR 12-16 17:53 → OBSVTOIN 12-17 09:48 → HCIN 12-18 18:50
PROVIDERS: ADMIT Family Medicine; ATTEND Family Medicine
PROC: B2151ZZ Fluoroscopy of Left Heart using Low Osmolar Contrast (ICD-10-PCS; 2016-12-16)
PROC: B2111ZZ Fluoroscopy of Multiple Coronary Arteries using Low Osmolar Contrast (ICD-10-PCS; 2016-12-16)
PROC: 5A1935Z Respiratory Ventilation, Less than 24 Consecutive Hours (ICD-10-PCS; 2016-12-16)
PROC: 4A023N7 Measurement of Cardiac Sampling and Pressure, Left Heart, Percutaneous Approach (ICD-10-PCS; principal; 2016-12-16 16:00)
DX: I25.110 Atherosclerotic heart disease of native coronary artery with unstable angina pectoris (principal); J95.822 Acute and chronic postprocedural respiratory failure; I50.23 Acute on chronic systolic (congestive) heart failure; N17.9 Acute kidney failure, unspecified; N18.3 Chronic kidney disease, stage 3 (moderate); I13.0 Hypertensive heart and chronic kidney disease with heart failure and stage 1 through stage 4 chronic kidney disease, or unspecified chronic kidney disease; E11.22 Type 2 diabetes mellitus with diabetic chronic kidney disease; I25.82 Chronic total occlusion of coronary artery; E11.65 Type 2 diabetes mellitus with hyperglycemia; J44.9 Chronic obstructive pulmonary disease, unspecified; I25.5 Ischemic cardiomyopathy; E78.5 Hyperlipidemia, unspecified; D50.9 Iron deficiency anemia, unspecified; I70.1 Atherosclerosis of renal artery; K21.9 Gastro-esophageal reflux disease without esophagitis; M41.9 Scoliosis, unspecified; I95.2 Hypotension due to drugs; I16.0 Hypertensive urgency; G89.4 Chronic pain syndrome; G47.00 Insomnia, unspecified; G47.33 Obstructive sleep apnea (adult) (pediatric); F32.9 Major depressive disorder, single episode, unspecified; F41.9 Anxiety disorder, unspecified; T38.0X5A Adverse effect of glucocorticoids and synthetic analogues, initial encounter; T46.5X5A Adverse effect of other antihypertensive drugs, initial encounter; Y92.239 Unspecified place in hospital as the place of occurrence of the external cause; Z82.49 Family history of ischemic heart disease and other diseases of the circulatory system; Z86.73 Personal history of transient ischemic attack (TIA), and cerebral infarction without residual deficits; Z87.891 Personal history of nicotine dependence; Z88.1 Allergy status to other antibiotic agents; Z88.5 Allergy status to narcotic agent; Z91.14 Patient's other noncompliance with medication regimen; Z91.19 Patient's noncompliance with other medical treatment and regimen; Z95.5 Presence of coronary angioplasty implant and graft; Z99.81 Dependence on supplemental oxygen
CPT/HCPCS: 36600; 71010; 76937; 80048; 80053; 82550; 82552; 82805; 82948; 83690; 83735; 83880; 84100; 84484; 85025; 85027; 85610; 85730; 93005; 93458; 94002; 94003; 94150; 94640; 94664; 96374; C1769; C1893; C9113; G0378; G8996-GN; G8997-GN; G8998-GN; J0360; J1644; J1940; J2250; J2310; J2405; J2920; J3010; J3475; J7030; J7512; Q9967

== ENCOUNTER 2016-12-23 15:42 | Inpatient (IN) | payer MEDICARE, OTHER ==
[~2016-12-23] VITALS: Ht 165.1 cm; Wt 61.5 kg
[2016-12-23] VITALS (11 sets, daily range): BP systolic 151–234; BP diastolic 93–131; PULSE 75–101; RESP 16–22; TEMP 98.6; O2SAT 97–99
[~2016-12-23 15:42] MED LIST changes: +ASPI325T PO; -ASPI81TA11 PO; -CLON0.3T PO; -FURO1TAB60 PO; +HYDR-3800 PO; -HYDR50TA15 PO; -LABE300T PO; +METO25TA3 PO
[2016-12-23] MEDS ORDERED: SODIUM CHLORIDE 0.9% FLUSH 10 ML FLUSH IVF PRN (16:00)
[2016-12-23 16:41] LABS: AUTOMATED NEUTROPHIL # 6.4 TH/MM3 (1.8-7.7); BASOPHIL % 0.4 % (0.0-2.0); EOSINOPHIL # 0.3 TH/MM3 (0-0.4); EOSINOPHIL % 3.2 % (0.0-4.0); HEMATOCRIT 27.3 % (35.0-46.0); LYMPH % 17.6 % (9.0-44.0); LYMPHOCYTE # 1.6 TH/MM3 (1.0-4.8); MEAN CELL VOLUME 77.5 FL (80.0-100.0); MEAN CORPUSCULAR HEMOGLOBIN 25.5 PG (27.0-34.0); MEAN CORPUSCULAR HGB CONC 32.9 % (32.0-36.0); MONO % 6.5 % (0.0-8.0); NEUT % 72.3 % (16.0-70.0); PLATELET COUNT 206 TH/MM3 (150-450); RED BLOOD COUNT 3.52 MIL/MM3 (4.00-5.30); RED CELL DISTRIBUTION WIDTH 19.2 % (11.6-17.2); WHITE BLOOD COUNT 8.8 TH/MM3 (4.0-11.0)
[2016-12-23 16:47] LABS: APTT (PATIENT) 24.3 SEC (24.3-30.1); PROTHROMBIN TIME - PATIENT 10.7 SEC (9.8-11.6)
[2016-12-23 16:52] LABS: HEMO FLAGS AUTO DIFF
--- NOTE | 2016-12-23 17:01 | RADRPT ---
EXAM DATE/TIME: 12/23/2016 16:10 [facility] COMPARISON: CHEST SINGLE AP, December 18, 2016, 5:13. INDICATIONS : Chest pain. MEDICAL HISTORY : Chronic obstructive pulmonary disease. Hypertension SURGICAL HISTORY : Cardiac stents. Left clavicle. ENCOUNTER: Initial ACUITY: 1 day PAIN SCORE: 4/10 LOCATION: Bilateral chest FINDINGS: There is mild elevation of the left hemidiaphragm. Minimal consolidative changes are seen in the rig ht base. The heart is enlarged. Pulmonary vascularity is normal. Multiple healing rib fractures are seen on the right. There is a plate over the left clavicle. CONCLUSION: 1. Abnormal chest as described above. Multiple healing rib fractures seen on the right. 2. There is marked elevation of the left hemidiaphragm. Yovani Orlando MD FACR on December 23, 2016 at 16:50 Board Certified Radiologist. This report was verified electronically.
[2016-12-23 17:12] LABS: ALT (GPT) 27 U/L (10-53); ANION GAP 7 MEQ/L (5-15); AST (GOT) 14 U/L (15-37); BICARBONATE 26.9 MEQ/L (21.0-32.0); BLOOD UREA NITROGEN 16 MG/DL (7-18); CHLORIDE 104 MEQ/L (98-107); GLOMERULAR FILTRATION RATE 53 ML/MIN (>89); MAGNESIUM 1.8 MG/DL (1.5-2.5); SODIUM (NA) 138 MEQ/L (136-145)
[2016-12-23] MEDS ORDERED: ACETAMINOPHEN 325 MG TAB PO ONE (17:15)
[2016-12-23 17:49] LABS: OVALOCYTES 1+ (NORMAL); PLATELET ESTIMATE SMEAR NORMAL (NORMAL); PLATELET MORPHOLOGY NORMAL (NORMAL); SCAN/DIFF AUTO DIFF CONFIRMED
[2016-12-23 17:54] LABS: ALKALINE PHOSPHATASE 116 U/L (45-117); TOTAL BILIRUBIN ADULT 0.2 MG/DL (0.2-1.0)
[2016-12-23 17:55] LABS: CREATINE KINASE 76 U/L (26-192)
--- NOTE | 2016-12-23 19:11 | PD ---
HPI Chief Complaint: Chest Pain Time Seen by Provider: 15:52 Travel History International Travel<30 days: No Contact w/Intl Traveler<30days: No Traveled to known affect area: No History of Present Illness HPI Patient is a 61-year-old female with history of coronary disease, hypertension, hyperlipidemia, diabetes, presents to emergency room with complaint of chest pain. Patient reports that she's been having persistent chest pain to her left chest, reports that pain feels similar to when she has had her previous episodes of chest pain. Reports that she recently had a cardiac catheter and has had multiple cardiac stents in the past. Patient reports that her waitstaff captain is Dr. Thomas. Patient was given aspirin 164 mg as well as 3 sublingual nitros by EMS prior to arrival to the emergency room, patient reports a little relief with her symptoms. PFSH Past Medical History Anemia: Yes Arthritis: No Asthma: No Blood Disorders: No Anxiety: Yes Depression: Yes Heart Rhythm Problems: No Cancer: No Cardiac Catheterization: Yes Cardiovascular Problems: Yes (CARDIAC STENTS) High Cholesterol: Yes Chemotherapy: No Chest Pain: Yes Congestive Heart Failure: No COPD: Yes Cerebrovascular Accident: Yes (2014) Coronary Artery Disease: Yes Diabetes: Yes Diminished Hearing: No Endocrine: No Gastrointestinal Disorders: Yes (GI BLEED) GERD: Yes Genitourinary: Yes Headaches: Yes Hepatitis: No Hypertension: Yes Immune Disorder: No Implanted Vascular Access Dvce: Yes Kidney Stones: Yes Musculoskeletal: Yes (SCOLIOSIS,TORTICOLIS) Neurologic: Yes Psychiatric: Yes Reproductive: No Respiratory: Yes (COPD BRONCHITIS ) Immunizations Current: Yes Migraines: Yes Pneumonia: Yes Radiation Therapy: No Renal Failure: Yes Seizures: No Sleep Apnea: Yes Thyroid Disease: No PNEUMOCCOCAL Vaccine (Year): 1 ?: Not Menopausal: Yes : 2 Para: 1 Miscarriage: 1 Past Surgical History Abdominal Surgery: Yes AICD: No Appendectomy: Yes Body Medical Devices: WIRE CAGE IN NECK - PLATE IN LEFT WRIST & LEFT CLAVICLE, stents Cardiac Surgery: Yes (STENTS cardiac, "stents between my kidney and heart" ) Cholecystectomy: Yes Coronary Artery Bypass Graft: No Coronary Stent: Yes (x3) Ear Surgery: No Eye Surgery: No Gynecologic Surgery: Yes (HYST) Hysterectomy: Yes Neurologic Surgery: Yes (C3 C4 ) Oral Surgery: No Pacemaker: No Tonsillectomy: Yes Other Surgery: Yes Social History Alcohol Use: No Tobacco Use: No Substance Use: No Allergies-Medications (Allergen,Severity, Reaction): Coded Allergies: Levaquin (Verified Allergy, Severe, Anaphylaxis, 12/15/16) Morphine (Verified Allergy, Severe, SEVERE VOMITING, 12/15/16) Reglan (Verified Allergy, Severe, Edema, 12/15/16) Norvasc (Verified Adverse Reaction, Severe, Swelling, 12/15/16) "left leg swelling" Reported Meds & Prescriptions Reported Meds & Active Scripts Active Metoprolol Tartrate 25 Mg Tab 25 Mg PO Q12HR Hydralazine HCl 50 Mg Tablet 50 Mg PO Q8HR Atorvastatin (Atorvastatin Calcium) 40 Mg Tab 80 Mg PO HS Aspirin 325 Mg Tab 325 Mg PO DAILY Reported Prilosec (Omeprazole) 20 Mg Cap 40 Mg PO DAILY Restoril (Temazepam) 15 Mg Cap 15 Mg PO HS PRN Vitamin B-12 (Cyanocobalamin) 1,000 Mcg Tab 1,000 Mcg PO DAILY Methadone (Methadone HCl) 40 Mg Tab 20 Mg PO TID Review of Systems General / Constitutional: No: Fever Eyes: No: Visual changes HENT: No: Headaches Cardiovascular: Positive: Chest Pain or Discomfort Respiratory: Positive: Shortness of Breath Gastrointestinal: No: Abdominal Pain Genitourinary: No: Dysuria Musculoskeletal: No: Pain Skin: No Rash Neurologic: No: Weakness Psychiatric: No: Depression Endocrine: No: Polydipsia Hematologic/Lymphatic: No: Easy Bruising Physical Exam Narrative GENERAL: Mild distress SKIN: Focused skin assessment warm/dry. HEAD: Atraumatic. Normocephalic. EYES: Pupils equal and round. No scleral icterus. No injection or drainage. ENT: No nasal bleeding or discharge. Mucous membranes pink and moist. NECK: Trachea midline. No JVD. CARDIOVASCULAR: Regular rate and rhythm. No murmur appreciated. RESPIRATORY: No accessory muscle use. Clear to auscultation. Breath sounds equal bilaterally. GASTROINTESTINAL: Abdomen soft, non-tender, nondistended. Hepatic and splenic margins not palpable. MUSCULOSKELETAL: No obvious deformities. No clubbing. No cyanosis. No edema. NEUROLOGICAL: Awake and alert. No obvious cranial nerve deficits. Motor grossly within normal limits. Normal speech. PSYCHIATRIC: Appropriate mood and affect; insight and judgment normal. Data Data Last Documented VS Vital Signs Date Time Temp Pulse Resp B/P Pulse Ox O2 Delivery O2 Flow Rate FiO2 12/23/16 19:13 90 16 212/116 97 Room Air 12/23/16 17:06 2 12/23/16 15:52 98.6 Orders B-Type Natriuretic Peptide (12/23/16 15:57) Ckmb (Isoenzyme) Profile (12/23/16 15:57) Complete Blood Count With Diff (12/23/16 15:57) Comprehensive Metabolic Panel (12/23/16 15:57) Magnesium (Mg) (12/23/16 15:57) Prothrombin Time / Inr (Pt) (12/23/16 15:57) Act Partial Throm Time (Ptt) (12/23/16 15:57) Troponin I (12/23/16 15:57) Lipase (12/23/16 15:57) Chest, Single Ap (12/23/16 15:57) Ecg Monitoring (12/23/16 15:57) Iv Access Insert/Monitor (12/23/16 15:57) Oximetry (12/23/16 15:57) Sodium Chloride 0.9% Flush (Ns Flush) (12/23/16 16:00) Acetaminophen (Tylenol) (12/23/16 17:15) Electrocardiogram (12/23/16 15:53) Nitroglycerin-Dextrose Inj (Nitroglyceri (12/23/16 19:15) Admit Order (Ed Use Only) (12/23/16 19:30) Labs Laboratory Tests Test 12/23/16 16:15 White Blood Count 8.8 TH/MM3 Red Blood Count 3.52 MIL/MM3 Hemoglobin 9.0 GM/DL Hematocrit 27.3 % Mean Corpuscular Volume 77.5 FL Mean Corpuscular Hemoglobin 25.5 PG Mean Corpuscular Hemoglobin 32.9 % Concent Red Cell Distribution Width 19.2 % Platelet Count 206 TH/MM3 Mean Platelet Volume 8.3 FL Neutrophils (%) (Auto) 72.3 % Lymphocytes (%) (Auto) 17.6 % Monocytes (%) (Auto) 6.5 % Eosinophils (%) (Auto) 3.2 % Basophils (%) (Auto) 0.4 % Neutrophils # (Auto) 6.4 TH/MM3 Lymphocytes # (Auto) 1.6 TH/MM3 Monocytes # (Auto) 0.6 TH/MM3 Eosinophils # (Auto) 0.3 TH/MM3 Basophils # (Auto) 0.0 TH/MM3 CBC Comment AUTO DIFF Differential Comment AUTO DIFF CONFIRMED Platelet Estimate NORMAL Platelet Morphology Comment NORMAL Ovalocytes 1+ Prothrombin Time 10.7 SEC Prothromb Time International 1.0 RATIO Ratio Activated Partial 24.3 SEC Thromboplast Time Sodium Level 138 MEQ/L Potassium Level 4.0 MEQ/L Chloride Level 104 MEQ/L Carbon Dioxide Level 26.9 MEQ/L Anion Gap 7 MEQ/L Blood Urea Nitrogen 16 MG/DL Creatinine 1.05 MG/DL Estimat Glomerular Filtration 53 ML/MIN Rate Random Glucose 126 MG/DL Calcium Level 9.1 MG/DL Magnesium Level 1.8 MG/DL Total Bilirubin 0.2 MG/DL Aspartate Amino Transf 14 U/L (AST/SGOT) Alanine Aminotransferase 27 U/L (ALT/SGPT) Alkaline Phosphatase 116 U/L Total Creatine Kinase 76 U/L Troponin I 0.02 NG/ML B-Type Natriuretic Peptide 790 PG/ML Total Protein 6.5 GM/DL Albumin 3.3 GM/DL Lipase 99 U/L [facility] Medical Decision Making Medical Screen Exam Complete: Yes Emergency Medical Condition: Yes Interpretation(s) ekg at 1814: NSR at 75bpm, qt/qtc: 329/358, nonspecific st and t wave changes Vital Signs Date Time Temp Pulse Resp B/P Pulse Ox O2 Delivery O2 Flow Rate FiO2 12/23/16 17:06 79 18 186/111 98 Nasal Cannula 2 12/23/16 15:57 99 Nasal Cannula 4 12/23/16 15:52 98.6 22 209/110 99 Differential Diagnosis ACS, arrhythmia, electrode abnormality Narrative Course 61-year-old female with history of coronary disease, presents to emergency with complaints of chest pain. On arrival to emergency room, patient was placed on a threat monitoring analyst. EKG was obtained, patient with no acute ST or T-wave changes. Labs including x-ray chest and cardiac enzymes ordered. Patients prior records were reviewed. Patient did have a cardiac catheterization on December 16, 2016, patient was found to have a left anterior descending coronary artery which is a 70% diffuse stenosis in the proximal portion. It is totally included in the midportion. Left distal fills right to left collaterals. The left circumflex artery has 30 % stenosis in the proximal portion. On one is totally clear. As per Dr. Thomas's notes, no stents were placed and it was decided that conservative medical management be initiated. Patient continues to be hypertensive with severe chest pain, a nitroglycerin drip was started. Patient was admitted to medicine service Critical Care Narrative Aggregate critical care time was 30 minutes. Time to perform other separately billable procedures was not included in the critical care time. My time did not include minutes spent treating any other patients simultaneously or on activities that did not directly contribute to the patient's treatment. The services I provided to this patient were to treat and/or prevent clinically significant deterioration that could result in: , decompensation, deterioration I provided critical care services requiring my management, as noted below: Chart data review, documentation time, medication orders and management, vital sign assessments/reviewing monitor data, ordering and reviewing lab tests, ordering and interpreting/reviewing x-rays and diagnostic studies, care of the patient and discussion of the patient with the admitting physicians. Physician Communication Physician Communication case reviewed with dr. alejandra who accepts pt to service Diagnosis Primary Impression: Unstable angina Admitting Information Admitting Physician Requests: Admit Shanna Hoyt DO December 23, 2016 19:11
[2016-12-23] MEDS ORDERED: NITROGLYCERIN-DEXTROSE INJ 250 ML IV SCH (19:15)
[2016-12-23] MEDS ORDERED: cloNIDine HCL 0.1 MG TAB PO PRN (20:00)
[2016-12-23] MEDS ORDERED: ENALAPRILAT 2.5 MG/2 ML VIAL IV PUSH PRN (20:00)
[2016-12-23] MEDS ORDERED: OMEPRAZOLE 40 MG PO SCH (20:00)
[2016-12-23] MEDS ORDERED: GLUCAGON 1 MG/ML VIAL OTHER PRN (20:15)
[2016-12-23] MEDS ORDERED: NALOXONE HCL 0.4 MG/ML AMP IV PRN (20:15)
[2016-12-23] MEDS ORDERED: SENNOSIDES 8.6 MG TAB PO PRN (20:15)
[2016-12-23] MEDS ORDERED: ONDANSETRON HCL 4 MG/2 ML VIAL IVP PRN (20:15)
[2016-12-23] MEDS ORDERED: LACTULOSE SYRUP 20 GM/30 ML CUP PO PRN (20:15)
[2016-12-23] MEDS ORDERED: DEXTROSE 50% IN WATER 50 ML VIAL(D50) IV PRN (20:15)
[2016-12-23] MEDS ORDERED: BISACODYL 10 MG SUPP RECTAL PRN (20:15)
[2016-12-23] MEDS ORDERED: SODIUM CHLORIDE 0.9% FLUSH 10 ML FLUSH IV FLUSH PRN (20:15)
[2016-12-23] MEDS ORDERED: ACETAMINOPHEN 325 MG TAB PO PRN (20:15)
[2016-12-23] MEDS ORDERED: MAGNESIUM HYDROXIDE SUSP 30 ML CUP PO PRN (20:15)
[2016-12-23] MEDS: METOPROLOL SUCCINATE 50 MG EXTENDED RELEASE TAB PO SCH (20:20)
[2016-12-23] MEDS: FUROSEMIDE 40 MG/4 ML VIAL IV PUSH SCH (20:21)
[2016-12-23] MEDS: ACETAMINOPHEN/HYDROcodone 325 MG/5 MG TAB PO PRN (20:21)
[2016-12-23] MEDS: LORazepam 0.5 MG TAB PO PRN (20:40)
[2016-12-23] MEDS: INSULIN ASPART SUPPLEMENTAL SCALE SQ SCH (21:00)
[2016-12-23] MEDS: DOCUSATE SODIUM 50 MG/SENNA 8.6 MG TAB PO SCH (21:00)
[2016-12-23] MEDS: ATORVASTATIN 80 MG TAB PO SCH (21:00)
[2016-12-23] MEDS: HEPARIN SODIUM - SQ 10,000 UNITS/ML VIAL SQ SCH (22:41)
[2016-12-24] VITALS (27 sets, daily range): BP systolic 104–190; BP diastolic 70–121; PULSE 50–92; RESP 16–18; TEMP 97.6–98.6; O2SAT 92–97
[2016-12-24] MEDS: ACETAMINOPHEN/HYDROcodone 325 MG/5 MG TAB PO PRN ×3 (00:11→22:23)
[2016-12-24] MEDS: TEMAZEPAM 15 MG CAP PO PRN ×2 (00:11→22:23)
[2016-12-24] MEDS: hydrALAZINE HCL 50 MG TAB PO SCH ×4 (00:11→20:57)
[2016-12-24] MEDS: SODIUM CHLORIDE 0.9% FLUSH 10 ML FLUSH IV FLUSH SCH ×3 (00:12→20:57)
[2016-12-24 07:05] LABS: BICARBONATE 33.2 MEQ/L (21.0-32.0); POTASSIUM 3.5 MEQ/L (3.5-5.1)
[2016-12-24] MEDS: INSULIN ASPART SUPPLEMENTAL SCALE SQ SCH ×4 (07:42→22:02)
--- NOTE | 2016-12-24 07:45 | EKG ---
Date Performed: 12/23/2016 Time Performed: 18:14:06 PTAGE: 61 years EKG: Sinus rhythm MODERATE INTRAVENTRICULAR CONDUCTION DELAY NONSPECIFIC ST & T-WAVE ABNORMALITY BORDERLINE ECG PREVIOUS TRACING : 12/23/2016 15.53 Compared to prior tracing no significant change DOCTOR: Андрей Mendoza Interpretating Date/Time 12/24/2016 07:44:32
--- NOTE | 2016-12-24 08:22 | CATHPROC ---
[employer] HIS Report Study Information Study Number Admission Scheduled Start Study Start 1001-17 12/15/2016 12/16/2016 Dec 16 2016 4:29PM Study Type [facility] Service Left Heart Cath Cardiac Catheterization Referring Institution Admit Source Facility Department 1 Emergency department [facility] - Speech Pathologist Assistant Physician and Clinical Staff Initial Josh Lizarraga Security Monitor Shanna Ernandez,RN Recorder Kate Ronquillo,RT(R) Scrub Partha EmersonRT(R) TECH2 Procedures Performed Procedure Location (Site) Vessel Name Angiogram LV LV Ventricle Coronary Angiograms LCA Left Coronary Coronary Angiograms RCA Right Coronary L Heart Cath Wire insertion Fem Art (right) Femoral Art Equipment Time Pole Setter Description Size Mfg Part Number Used/Scraped TRANSDUCER, ALEISHASAY MediaBRITTA [id number] 16:51 20x200 * Used W/STOCKCOCK *[id number] [id number] *[id number] [id number] *[id number] [id number] *[id number] 16:51 MEDLINE INDUSTRIES PACK, CCL CUSTOM * Used *[id number] 16:51 [employer]med Mobile PACER PEN, SKIN DUAL W/ RULER * Used *[id number] 16:51 Zapnip WIRE, 3MMJ .035 180CM 180CM Used *[id number] PROBE COVER, STERILE [id number] 16:51 Health Elements MEDICAL * Used ULTRASOUND W/ GEL *[id number] 16:51 NAMIC MANIFOLD, 4 PORT * Used *[id number] 16:51 NAMIC TUBING, HIGH PRESSURE 48" 48" Used *[id number] 16:51 NYCOMED OMNIPAQUE, 350 MG, 150ML 150ML [id number] Used [id number] 16:51 MARIN MEDICAL BLANKET,WARM AIR CCL * Used *[id number] 16:51 TERUMO MEDICAL SHEATH, FR5 TERUMO (10CM) FR 5 [id number] Used History: Current Medications Medication Dosage/Unit Route Frequency Last Date/Time Taken Statins (any) ASA CLONIDINE History: Allergies Allergy Reaction Levaquin Anaphylaxis Morphine SEVERE VOMITING Norvasc Swelling Reglan Edema History: Risk Factors Family History of Hypertension Dyslipidemia Previous WI Previous Heart Failure Premature CAD Yes Yes Yes No No Prior Valve Prior PCI Prior PCIDate Prior CABG Surgery No Yes 07/26/2009 No Cerebrovascular Peripheral Artery Chronic Lung On Dialysis Diabetes Disease Disease Disease No Yes No Yes No History: Symptoms/Diagnosis Selection Items SOB History: CV Disease Selection Items Known CAD History: Stress Tests Stress or Imaging Studies Performed No History: Other Disease Selection Items CAD COPD HTN History: Other Current Smoker Method Quit Packs a Day Years Used Pack Years No Cigarettes 24 Years Ago 1 15 15 Labs Hgb (g/dl) Hct (%) WBC (l/cumm) Platelets (thousands) 12.00-18.00 37.00-55.00 4.80-10.80 140.00-450.00 9.3 28.9 7.4 215 Glucose (mg/dl) BUN (mg/dl) Creatinine (mg/dl) BUN:Creatinine (1:x) 60.00-110.00 8.00-20.00 0.10-9.00 10.00-20.00 115 17 1.4 12.1 Na (meq/l) K (meq/l) 138.00-146.00 3.80-5.10 141 4.6 INR (PTT:PT) 0.50-2.00 1 Troponin I (ng/ml) CPK (u/l) CPK-MB (ng/ML) 0.40-2.30 37.00-289.00 0.00-7.00 0.03 94 5.4 Medication Medication Total Dose (Bolus/Oral) Medication Total Dosage/Unit 1% XYLOCAINE 20 mL ATROPINE 1 mg FENTANYL 100 mcg LASIX 40 mg NARCAN 0.4 mg ROMAZICON IV 0.9 mg VERSED 6 mg Medications (Bolus/Oral) Medication Time Given Dosage/Unit Administered By Reason VERSED 12/16/2016 4:43:50 PM 2 mg Soraya Ernandeznifer 2 mg VERSED given in lab by Shanna Ernandez, RN in Left Antecubital via Peripheral IV. FENTANYL 12/16/2016 4:44:03 PM 50 mcg Oma, Shanna 50 mcg FENTANYL given in lab by Shanna Ernandez, RAUL via Peripheral IV. VERSED 12/16/2016 4:47:47 PM 2 mg Adamy, Shanna 2 mg VERSED given in lab by Shanna Ernandez, RN via Peripheral IV. 1% XYLOCAINE 12/16/2016 4:48:34 PM 20 mL Josh Thomas 20 mL 1% XYLOCAINE given in lab by Josh Thomas in Right Groin via Subcutaneous. FENTANYL 12/16/2016 4:48:59 PM 50 mcg Shanna Ernandez 50 mcg FENTANYL given in lab by Shanna Ernandez RN via Peripheral IV. VERSED 12/16/2016 4:56:07 PM 2 mg Brandie Ernandezfer 2 mg VERSED given by Shanna Ernandez RN via Peripheral IV. NARCAN 12/16/2016 5:06:46 PM 0.4 mg Brandie Ernandezfer 0.4 mg NARCAN given by Shanna Ernandez RN via Peripheral IV. ROMAZICON IV 12/16/2016 5:16:21 PM 0.5 mg Brandie Ernandezfer 0.5 mg ROMAZICON IV given by Shanna Ernandez RN via Peripheral IV. LASIX 12/16/2016 5:17:48 PM 40 mg Shanna Ernandez 40 mg LASIX given by Shanna Ernandez RN via Peripheral IV. ATROPINE 12/16/2016 5:18:02 PM 1 mg Shanna Ernandez 1 mg ATROPINE given by Shanna Ernandez RN via Peripheral IV. ROMAZICON IV 12/16/2016 5:22:49 PM 0.4 mg Shanna Ernandez 0.4 mg ROMAZICON IV given by Shanna Ernandez RN via Peripheral IV. Medication (Drip) Medication Time Given Dosage/Unit Concentration/Unit Diluent (ml) Solution IV Solutions 12/16/2016 4:38:35 PM 0 mL (IV) NaCl .9 Patient arrived on IV Solutions in Left Antecubital via Peripheral IV. Pump/Drip Flow = 20 ml/hr usin g NaCl .9. Initial Case Assessment Cardiovascular HR Rhythm NIBP Chest Pain 61 REG 133/93 0 Edema Present Skin color Skin None Normal Warm Circulatory - Right Pulses Dorsalis Pedis Femoral 2 2 Scale (0,1,2,3,4,d) Circulatory - Left Pulses Dorsalis Pedis Femoral 2 2 Scale (0,1,2,3,4,d) Circulatory - Lower Extremities Color Lower Right Color Lower Left Normal Normal Neurological State Oriented to time-place- Alert Moves all extremities person Respiration - General Respiration Rate SpO2 (%) O2 (lpm) (B/min) 15 97 2 Final Case Assessment Cardiovascular HR Rhythm NIBP Chest Pain 98 REG 161/114 0 Edema Present Skin color Skin None Normal Warm Circulatory - Right Pulses Dorsalis Pedis Femoral 2 2 Scale (0,1,2,3,4,d) Circulatory - Left Pulses Dorsalis Pedis Femoral 2 2 Scale (0,1,2,3,4,d) Circulatory - Lower Extremities Color Lower Right Color Lower Left Normal Normal Neurological State Oriented to time-place- Alert Moves all extremities person Respiration - General Respiration Rate SpO2 (%) O2 (lpm) (B/min) 15 100 2 Chronological Log Time Study Chronological Log 16:20:33 Patient arrived via Bed. 16:20:40 Patient Name, D.O.B, / Armband Verified By R.N. 16:21:48 Pre-op and post- op instructions given; patient acknowledges understanding of instructions. 16:22:53 Verbal Stimulation=2 Physical Stimulation=2 Airway=2 Respiration=2 TOTAL=8. (0=absent, 1=li mited, 2=present) Vitals capture started with the following parameters, Patient=Adult, Interval=5 min, Initial Pr gmulge=366 mmHg, 16:29:29 Deflation Rate=5 mmHg 16:29:44 Consent signed by the physician and the patient and verified by the Speech Pathologist Assistant staff. 16:30:31 HR=61 bpm, BIXA=562/91 mmhg, SpO2=99.0 %, Resp=11 B/min, Pain=0, Pablo=10, Aguilar=2 16:30:56 Reference ECG taken 16:31:02 Patient has been NPO for More than 6Hrs. 16:31:06 Skin Breakdown-NONE 16:35:01 HR=61 bpm, IQVI=101/93 mmhg, SpO2=99.0 %, Resp=12 B/min, Pain=0, Pablo=10, Aguilar=2 16:37:59 Patient Warmer Placed on the Table. 16:38:04 A # 20 IV was noted in the Antecubital (left). Grade = 0 16:38:35 Patient arrived on IV Solutions in Left Antecubital via Peripheral IV. Pump/Drip Flow = 20 ml/hr using NaCl .9. 16:39:03 History and physical on the chart or being dictated. Assessment: Initial Case, HR=61 BPM, Rhythm=REG, WNPP=249/93 mmhg, Chest Pain=0, Edema=None, Color=Normal, Skin = Warm Right Pulses: Epifanio Ped=2, Femoral=2 Left Pulses: Epifanio Ped=2, Femoral=2 16:39:04 Lower Right Extremities: Color=Normal Lower Left Extremities: Color=Normal Neurological: State=Alert, Ox3, PURDY Respiration: Resp=15 B/min, SpO2=97 %, O2=2 lpm 16:40:00 HR=60 bpm, QFMQ=045/89 mmhg, SpO2=99.0 %, Resp=10 B/min, Pain=0, Pablo=10, Aguilar=2 16:40:53 Bilateral groins prepped with 2% chlorhexidine, and with a 3 min. waiting time. 16:41:02 MD paged 16:43:48 MD arrived. 16:43:50 2 mg VERSED given in lab by Shanna Ernandez, RAUL in Left Antecubital via Peripheral IV. 16:44:03 50 mcg FENTANYL given in lab by Shanna Ernandez, RAUL via Peripheral IV. 16:45:03 HR=64 bpm, DDGW=721/80 mmhg, SpO2=95.0 %, Resp=15 B/min, Pain=0, Pablo=10, Aguilar=2 16:47:47 2 mg VERSED given in lab by Shanna Ernandez, RAUL via Peripheral IV. Time Out. Correct patient, correct procedure,correct physician, ,power injector loaded or not l oaded with contrast with 16:48:25 surgical team present. Time Out Concurred by MD, individual staff and TOP DYEING MACHINE LOADER in procedure 16:48:26 Case Start 16:48:27 Verbal Stimulation=2 Physical Stimulation=2 Airway=2 Respiration=2 TOTAL=8. (0=absent, 1=li mited, 2=present) 16:48:34 20 mL 1% XYLOCAINE given in lab by Josh Thomas in Right Groin via Subcutaneous. 16:48:59 50 mcg FENTANYL given in lab by Shanna Ernandez, RAUL via Peripheral IV. 16:50:00 HR=69 bpm, MGXP=929/100 mmhg, SpO2=98.0 %, Resp=13 B/min, Pain=0, Pablo=10, Aguilar=2 16:50:33 Access site was Right Femoral Artery. WITH ULTRASOUND DEVICE 16:50:48 A wire was inserted via Fem Art (right). 16:50:56 A SHEATH, FR5 TERUMO (10CM) FR 5 was advanced into the Fem Art (right) using the Percutaneo us technique. A PIGTAIL ANG. INFINITI CATHETER FR 5 was advanced over a wire. OMNIPAQUE, 350 MG, 150ML 150ML was used 16:51:34 for injections. 16:52:57 Pressure channel 1 zeroed. Recorded Pressure: LV, HR=68, Condition=Condition 1 16:54:35 (Left Ventricle) LV 127/47/47 16:55:02 The LV was injected at 10 cc/sec for a total of 30. OMNIPAQUE, 350 MG, 150ML 150ML used. 16:55:07 HR=70 bpm, XWDE=608/80 mmhg, Resp=14 B/min, Pain=0, Pablo=10, Aguilar=2 16:56:07 2 mg VERSED given by Shanna Ernandez RN via Peripheral IV. Recorded Pressure: LV, Ao, HR=70, Condition=Condition 1 16:56:30 (Left Ventricle) LV 136/25/41, (Aorta) Ao 140/93/116 16:56:58 Catheter was removed A JL 4.0 INFINITI CATHETER FR 5 was advanced over a wire. OMNIPAQUE, 350 MG, 150ML 150ML was us ed for 16:57:14 injections. 16:59:50 The LCA was injected and visualized at various angles. OMNIPAQUE, 350 MG, 150ML 150ML used . 16:59:56 HR=73 bpm, EGGK=652/91 mmhg, SpO2=84.0 %, Resp=10 B/min, Pain=0, Pablo=10, Aguilar=2 17:02:18 Catheter was removed A AR MOD INFINITI CATHETER FR 5 was advanced over a wire. OMNIPAQUE, 350 MG, 150ML 150ML was us ed for 17:02:20 injections. 17:03:08 The RCA was injected and visualized at various angles. OMNIPAQUE, 350 MG, 150ML 150ML used . 17:03:46 Catheter was removed 17:05:28 HR=77 bpm, WEQQ=599/114 mmhg, SpO2=92.0 %, Resp=10 B/min, Pain=0, Pablo=10, Aguilar=2 17:06:46 0.4 mg NARCAN given by Shanna Ernandez, RAUL via Peripheral IV. 17:07:35 Sheath removed; pressure applied to access site. 17:07:42 Catheter(s) removed without difficulty Assessment: Final Case, HR=98 BPM, Rhythm=REG, ZNNS=461/114 mmhg, Chest Pain=0, Edema=None, Color=Normal, Skin = Warm Right Pulses: Epifanio Ped=2, Femoral=2 Left Pulses: Epifanio Ped=2, Femoral=2 17:07:45 Lower Right Extremities: Color=Normal Lower Left Extremities: Color=Normal Neurological: State=Alert, Ox3, PURDY Respiration: Resp=15 B/min, NkH2=500 %, O2=2 lpm 17:08:31 Case End 17:08:34 Sterile dressing applied to site 17:08:39 Cine recording checked. 17:08:40 Bedside Report will be given. 17:09:39 Contrast Scanned 17:09:47 Verbal Stimulation=2 Physical Stimulation=2 Airway=2 Respiration=2 TOTAL=8. (0=absent, 1=li mited, 2=present) 17:09:57 A Left Heart Cath was performed. 17:10:03 Clinical correlaton risk stratification. 17:10:52 HR=79 bpm, RVPD=661/148 mmhg, SpO2=87.0 %, Resp=31 B/min, Pain=0, Pablo=10, Aguilar=2 17:14:22 NIBP STAT measurement started. 17:15:10 HR=81 bpm, JQOK=907/120 mmhg, SpO2=88.0 %, Resp=25 B/min, Pain=0, Pablo=10, Aguilar=2 17:16:21 0.5 mg ROMAZICON IV given by Shanna Ernandez, RN via Peripheral IV. 17:17:48 40 mg LASIX given by Shanna Ernandez, RAUL via Peripheral IV. 17:18:02 1 mg ATROPINE given by Shanna Ernandez, RAUL via Peripheral IV. 17:18:20 NIBP STAT measurement started. 17:19:03 HR=51 bpm, RGOZ=356/73 mmhg, SpO2=79.0 %, Resp=27 B/min, Pain=0, Pablo=10, Aguilar=2 17:20:35 YO=811 bpm, CKJK=333/97 mmhg, SpO2=93.0 %, Resp=30 B/min, Pain=0, Pablo=10, Aguilar=2 17:21:36 PT SATS DROPPED 17:22:25 AMBU BAG PLACED ON PATIENT 17:22:49 0.4 mg ROMAZICON IV given by Shanna Ernandez, RN via Peripheral IV. 17:23:16 RESPIRTORY CALLED STAT 17:24:06 ANESTHESIA CALLED STAT 17:25:40 RESPIRATORY ARRIVED 17:25:51 OY=972 bpm, TIED=908/125 mmhg, ZvJ3=190.0 %, Resp=31 B/min, Pain=0, Pablo=10, Aguilar=2 17:27:56 ANESTHESIA ARRIVED- DR SANON, ROCHELLE RICE,DR SHARMA 17:30:56 NQ=922 bpm, HXRE=857/128 mmhg, Resp=27 B/min, Pain=0, Pablo=10, Aguilar=2 17:31:24 NON REBREATHER MASK PLACED ON PT 17:32:23 PT INTUBATED 17:34:13 SAFEGUARD PLACED ON PATIENTS RIGHT GROIN BY Red EMERSON 17:35:16 JF=359 bpm, JQBT=493/113 mmhg, CiG0=349.0 %, Resp=32 B/min, Pain=0, Pablo=5, Aguilar=2 17:40:13 HR=91 bpm, FCDS=586/106 mmhg, VlP9=459.0 %, Resp=20 B/min, Pablo=5 17:46:07 Vitals capture stopped. End Study - Contrast Media Used In Study Contrast Total Opened (mL) Total Used (mL) Total Wasted (mL) Omnipaque 70 70 0 End Study - Maximum Contrast Load Max Contrast Load (mL) 250.0 End Study - Radiation Exposure Fluoro Time (minutes) 2.0 End Study - Sheaths Sheaths Pulled By Sheath Hold Time (min) Partha Emerson 20 End Study - Patient Disposition Complications Transferred To Interventional Outcome No Regular Bed No attempt made
[2016-12-24] MEDS: METHADONE HCL 10 MG TAB PO SCH ×3 (08:55→17:54)
[2016-12-24] MEDS: HEPARIN SODIUM - SQ 10,000 UNITS/ML VIAL SQ SCH ×2 (08:55→20:57)
[2016-12-24] MEDS: PANTOPRAZOLE SOD 40 MG DELAYED RELEASE TAB PO SCH (08:55)
[2016-12-24] MEDS: LORazepam 0.5 MG TAB PO PRN ×2 (08:55→17:54)
[2016-12-24] MEDS: DOCUSATE SODIUM 50 MG/SENNA 8.6 MG TAB PO SCH ×2 (08:55→20:56)
[2016-12-24] MEDS: ASPIRIN 325 MG TAB PO SCH (08:55)
[2016-12-24] MEDS: FUROSEMIDE 40 MG/4 ML VIAL IV PUSH SCH (08:56)
[2016-12-24] MEDS: METOPROLOL SUCCINATE 50 MG EXTENDED RELEASE TAB PO SCH (08:56)
--- NOTE | 2016-12-24 11:35 | EKG ---
Date Performed: 12/23/2016 Time Performed: 15:53:09 PTAGE: 61 years EKG: Sinus rhythm POSSIBLE LEFT ATRIAL ENLARGEMENT NONSPECIFIC ST & T-WAVE ABNORMALITY BORDERLINE ECG PREVIOUS TRACING : 12/16/2016 03.23 Compared to the previous tracing, previous anterolateral ch anges have changed DOCTOR: Андрей Mendoza Interpretating Date/Time 12/24/2016 11:33:14
--- NOTE | 2016-12-24 14:20 | HHI.HP ---
History of Present Illness Primary Care Physician Willie Ybarra MD Admission Diagnosis Unstable Angina Diagnoses: Past Family Social History Allergies: Coded Allergies: Levaquin (Verified Allergy, Severe, Anaphylaxis, 12/15/16) Morphine (Verified Allergy, Severe, SEVERE VOMITING, 12/15/16) Reglan (Verified Allergy, Severe, Edema, 12/15/16) Norvasc (Verified Adverse Reaction, Severe, Swelling, 12/15/16) "left leg swelling" Physical Exam Vital Signs Vital Signs Date Time Temp Pulse Resp B/P Pulse Ox O2 Delivery O2 Flow Rate FiO2 12/24/16 13:00 50 12/24/16 12:00 52 12/24/16 11:45 98.6 62 17 104/70 93 12/24/16 11:00 63 12/24/16 10:05 95 Nasal Cannula 1.00 12/24/16 10:00 70 12/24/16 09:00 68 12/24/16 08:28 97.6 65 17 149/90 95 12/24/16 08:00 68 12/24/16 06:00 62 12/24/16 05:00 68 12/24/16 04:41 98.4 82 16 137/99 93 12/24/16 04:00 72 12/24/16 03:00 74 12/24/16 02:00 72 12/24/16 01:00 80 12/24/16 00:00 92 12/24/16 00:00 98.0 80 16 190/121 92 12/23/16 23:00 90 157/99 12/23/16 22:30 78 16 158/93 12/23/16 22:29 16 12/23/16 22:00 75 16 151/93 97 Nasal Cannula 2 12/23/16 21:30 78 16 180/106 12/23/16 21:18 99 Nasal Cannula 2.00 12/23/16 21:00 88 16 182/109 98 Nasal Cannula 2 12/23/16 20:30 91 16 234/123 99 Nasal Cannula 2 12/23/16 20:00 101 16 225/131 98 Nasal Cannula 2 12/23/16 19:13 90 16 212/116 97 Room Air 12/23/16 17:06 79 18 186/111 98 Nasal Cannula 2 12/23/16 15:57 99 Nasal Cannula 4 12/23/16 15:52 98.6 22 209/110 99 Physical Exam GENERAL: This is a well-nourished, well-developed patient, in no apparent distress. SKIN: No rashes, ecchymoses or lesions. Cool and dry. HEAD: Atraumatic. Normocephalic. No temporal or scalp tenderness. EYES: Pupils equal round and reactive. Extraocular motions intact. No scleral icterus. No injection or drainage. ENT: Nose without bleeding, purulent drainage or septal hematoma. Throat without erythema, tonsillar hypertrophy or exudate. Uvula midline. Airway patent. NECK: Trachea midline. No JVD or lymphadenopathy. Supple, nontender, no meningeal signs. CARDIOVASCULAR: Regular rate and rhythm without murmurs, gallops, or rubs. RESPIRATORY: Clear to auscultation. Breath sounds equal bilaterally. No wheezes , rales, or rhonchi. GASTROINTESTINAL: Abdomen soft, non-tender, nondistended. No hepato-splenomegaly , or palpable masses. No guarding. MUSCULOSKELETAL: Extremities without clubbing, cyanosis, or edema. No joint tenderness, effusion, or edema noted. No calf tenderness. Negative Homans sign bilaterally. NEUROLOGICAL: Awake and alert. Cranial nerves II through XII intact. Motor and sensory grossly within normal limits. Five out of 5 muscle strength in all muscle groups. Normal speech. Laboratory Laboratory Tests Test 12/23/16 12/24/16 16:15 06:00 White Blood Count 8.8 Red Blood Count 3.52 Hemoglobin 9.0 Hematocrit 27.3 Mean Corpuscular Volume 77.5 Mean Corpuscular Hemoglobin 25.5 Mean Corpuscular Hemoglobin 32.9 Concent Red Cell Distribution Width 19.2 Platelet Count 206 Mean Platelet Volume 8.3 Neutrophils (%) (Auto) 72.3 Lymphocytes (%) (Auto) 17.6 Monocytes (%) (Auto) 6.5 Eosinophils (%) (Auto) 3.2 Basophils (%) (Auto) 0.4 Neutrophils # (Auto) 6.4 Lymphocytes # (Auto) 1.6 Monocytes # (Auto) 0.6 Eosinophils # (Auto) 0.3 Basophils # (Auto) 0.0 CBC Comment AUTO DIFF Differential Comment AUTO DIFF CONFIRMED Platelet Estimate NORMAL Platelet Morphology Comment NORMAL Ovalocytes 1+ Prothrombin Time 10.7 Prothromb Time International 1.0 Ratio Activated Partial 24.3 Thromboplast Time Sodium Level 138 141 Potassium Level 4.0 3.5 Chloride Level 104 102 Carbon Dioxide Level 26.9 33.2 Anion Gap 7 6 Blood Urea Nitrogen 16 16 Creatinine 1.05 1.30 Estimat Glomerular Filtration 53 41 Rate Random Glucose 126 178 Calcium Level 9.1 8.8 Magnesium Level 1.8 Total Bilirubin 0.2 Aspartate Amino Transf 14 (AST/SGOT) Alanine Aminotransferase 27 (ALT/SGPT) Alkaline Phosphatase 116 Total Creatine Kinase 76 Troponin I 0.02 0.05 B-Type Natriuretic Peptide 790 Total Protein 6.5 Albumin 3.3 Lipase 99 Result Diagram: 12/23/16 1615 12/24/16 0600 Assessment and Plan Assessment and Plan INPATIENT ADMIT FOR THE DX AND PLAN MENTIONED IN MY NOTE. EXPECT 2 MORE D INPT STAY, PT WOULD REBOUND TO THE ER OR PASS FROM CVA/HTN IF DC HOME TODAY AND W/O FURTHER INPT CARE. Willie Ybarra MD Dec 24, 2016 14:20
--- NOTE | 2016-12-24 15:04 | MH ---
cc: WILLIE ESTRADA MD DATE OF ADMISSION: 12/24/2016 CHIEF COMPLAINT: Urgent hypertension and chest pain. HISTORY OF PRESENT ILLNESS: Jeanna Hawkins is a 61-year-old female who I see my office. She was recently discharged from [facility] after being admitted with chest pain. She was seen by Dr. Thomas. She underwent cardiac catheterization on December 17. She was discharged to be here on December 20. She had two stents in the right coronary and renal stents. She was subsequently discharged home on metoprolol and hydralazine and taken off of her clonidine, Lasix and labetalol. She got home and states she had been very nervous about being there. She developed panic attacks and checked her blood pressure and it was 240. She called my office and stated she was having chest pain and I instructed her to go to the emergency room. She was brought in here to the emergency room and started on a nitroglycerin drip. She is still having severe chest pain and blood pressures remain emergent. She developed a headache from the nitroglycerin. I was thus called for admission. PAST MEDICAL HISTORY: 1. Congestive heart failure. 2. Diabetes. 3. CVAs. 4. Chronic pain syndrome on methadone. 5. Hypertension. 6. Hyperlipidemia. 7. Unstable angina. 8. Respiratory failure. 9. COPD. 10. GI bleed. 11. Chronic kidney disease stage III. SOCIAL HISTORY: No alcohol, tobacco or illicit drug usage. ALLERGIES: 1. LEVAQUIN. 2. MORPHINE. 3. NORVASC. 4. REGLAN. MEDICATIONS: 1. Hydralazine. 2. Methadone. 3. Atorvastatin. 4. Lopressor twice a day. 5. Prilosec. PAST SURGICAL HISTORY: 1. Coronary stenting. 2. Renal stent. 3. Hysterectomy. 4. Cholecystectomy. 5. Cervical spine surgery. 6. Left upper extremity surgery. 7. Cardiac catheterization on 12/16/2016. FAMILY HISTORY: Noncontributory. IMAGING STUDIES: Chest x-ray shows multiple healed rib fractures on the right, elevation of the left hemidiaphragm. LABORATORY DATA: Creatinine 1.05, now 1.3. Glucose 126, now 178. INR is 1.0. Hemoglobin 9.0, WBCs normal, platelets are 206,000. PHYSICAL EXAMINATION: VITAL SIGNS: Pulse is 62, respirations 18, blood pressure 104/70, 02 is 93% on 2 liters, temperature 98.6. GENERAL: In general, she is an alert female in no apparent distress. She is lying flat. She becomes very nervous when speaking with her. HEAD, EYES, EARS, NOSE, THROAT: Oropharynx is clear. NECK: Carotids are clear. CHEST: Clear. No wheezes, rales, crackles or coughing. CARDIOVASCULAR: Regular rate and rhythm. No murmurs, rubs, clicks or gallops. ABDOMEN: Abdomen soft and nontender. EXTREMITIES: No edema. SKIN: Skin is clear. MUSCULOSKELETAL: She has pain over her costochondral junctions bilaterally. ASSESSMENT: 1. Unstable angina. 2. Coronary artery disease status post stent on 12/16/16. 3. Emergent hypertension. 4. Panic disorder. 5. Anemia. 6. GI bleed history. 7. Chronic pain syndrome. 8. Hyperlipidemia. 9. CVA. 10. Chronic kidney disease stage III. 11. Gastroesophageal reflux disease (GERD). 12. Insomnia. 13. Scoliosis. 14. Cervical fusion. PLAN: 1. Will wean the nitroglycerin drip to off. 2. Aspirin 325 daily. 3. Lipitor 80 at bedtime. 4. Clonidine PRN systolic greater than 180. 5. Vasotec PRN for urgent hypertension. 6. Lasix 40 IV daily. 7. Heparin 5000 q. 12 hours for DVT prophylaxis. 8. Ativan PRN for severe anxiety and the patient will need to stay on this as an outpatient. 9. NovoLog sliding scale insulin. 10. Methadone 20 three times a day. 11. Change her Lopressor to Toprol XL 50 milligrams daily. 12. Protonix 40 daily. 13. Restoril at bedtime for insomnia. 14. Stool occult blood x2. 15. Telemetry. 16. Physical therapy. 17. Dr. Thomas consult. 18. 02 by nasal cannula. 19. Urine drug screen. 20. Observation admission and will possibly be able to discharge her tomorrow. 21. Consult diabetic education. Willie Estrada MD RP/JAZLYN /1:24 PM /2:53 PM
[2016-12-24] MEDS: ATORVASTATIN 80 MG TAB PO SCH (20:56)
[2016-12-25] VITALS (20 sets, daily range): BP systolic 86–139; BP diastolic 58–89; PULSE 60–82; RESP 16–18; TEMP 97.8–98.2; O2SAT 93–97
[2016-12-25] MEDS: LORazepam 0.5 MG TAB PO PRN ×2 (04:34→17:04)
[2016-12-25 05:06] LABS: AMPHETAMINE, URINE NEG (NEG); BARBITURATES, URINE NEG (NEG); COCAINE, URINE NEG (NEG)
[2016-12-25] MEDS: hydrALAZINE HCL 50 MG TAB PO SCH ×3 (06:00→18:31)
[2016-12-25] MEDS: INSULIN ASPART SUPPLEMENTAL SCALE SQ SCH ×2 (06:04→13:42)
[2016-12-25] MEDS: METOPROLOL SUCCINATE 50 MG EXTENDED RELEASE TAB PO SCH (09:00)
[2016-12-25] MEDS: FUROSEMIDE 40 MG/4 ML VIAL IV PUSH SCH (09:00)
[2016-12-25] MEDS: PANTOPRAZOLE SOD 40 MG DELAYED RELEASE TAB PO SCH (09:00)
[2016-12-25] MEDS: DOCUSATE SODIUM 50 MG/SENNA 8.6 MG TAB PO SCH (09:00)
[2016-12-25] MEDS: ASPIRIN 325 MG TAB PO SCH (09:00)
[2016-12-25] MEDS: SODIUM CHLORIDE 0.9% FLUSH 10 ML FLUSH IV FLUSH SCH (09:00)
--- NOTE | 2016-12-25 10:43 | HHI.FPPN ---
Subjective Remarks C/O CP C/O WEAKNESS NERVOUS D/W RN Objective Vitals Vital Signs Date Time Temp Pulse Resp B/P Pulse Ox O2 Delivery O2 Flow Rate FiO2 12/25/16 09:34 93 Nasal Cannula 1.00 12/25/16 06:00 68 12/25/16 05:00 67 12/25/16 04:00 74 12/25/16 04:00 98.2 76 18 139/89 97 12/25/16 03:00 97 2.00 12/25/16 03:00 64 12/25/16 02:00 66 12/25/16 01:00 68 12/25/16 00:00 60 12/25/16 00:00 98.0 63 16 108/75 95 12/24/16 23:34 16 12/24/16 23:00 62 12/24/16 23:00 95 Nasal Cannula 2.00 12/24/16 22:00 64 12/24/16 21:00 70 12/24/16 20:00 98.5 74 18 136/89 97 12/24/16 20:00 70 12/24/16 19:13 18 12/24/16 19:00 68 12/24/16 18:00 72 12/24/16 17:30 93 Nasal Cannula 1.00 12/24/16 17:00 68 12/24/16 16:00 62 12/24/16 16:00 98.6 68 18 123/74 94 12/24/16 15:00 63 12/24/16 13:00 50 12/24/16 12:00 52 12/24/16 11:45 98.6 62 17 104/70 93 12/24/16 11:00 63 I/O 12/24/16 12/24/16 12/24/16 12/25/16 12/25/16 12/25/16 07:00 15:00 23:00 07:00 15:00 23:00 Intake Total 420 ml 480 ml Output Total 650 ml 650 ml Balance -230 ml -170 ml Intake Oral 420 ml 480 ml Output Urine Total 650 ml 650 ml Stool Total 0 ml Result Diagram: 12/23/16 1615 12/24/16 0600 Objective Remarks GENERAL: SKIN: Warm and dry. HEAD: Atraumatic. Normocephalic. EYES: Pupils equal and round. No scleral icterus. No injection or drainage. ENT: No nasal bleeding or discharge. Mucous membranes pink and moist. NECK: Trachea midline. No JVD. CARDIOVASCULAR: Regular rate and rhythm. RESPIRATORY: No accessory muscle use. Clear to auscultation. Breath sounds equal bilaterally. GASTROINTESTINAL: Abdomen soft, non-tender, nondistended. Hepatic and splenic margins not palpable. MUSCULOSKELETAL: Extremities without clubbing, cyanosis, or edema. No obvious deformities. NEUROLOGICAL: Awake and alert. No obvious cranial nerve deficits. Motor grossly within normal limits. 3 out of 5 muscle strength in the arms and legs. Normal speech. PSYCHIATRIC: Appropriate mood and affect; insight and judgment normal. Medications and IVs Current Medications Medications (Trade) Dose Ordered Sig/Ann Route Start Time Stop Time Status Last Admin (Nitroglycerin-Dextrose Inj) 250 ml @ 0 mls/hr TITRATE IV 12/23/16 19:15 12/23/16 19:43 (Aspirin) 325 mg DAILY PO 12/24/16 09:00 12/24/16 08:55 (Lipitor) 80 mg HS PO 12/23/16 21:00 12/24/16 20:56 (Dolophine) 20 mg TID PO 12/24/16 09:00 12/24/16 17:54 (Restoril) 15 mg HS PRN PO 12/23/16 20:00 12/24/16 22:23 (Toprol Xl) 50 mg DAILY PO 12/23/16 20:00 12/24/16 08:56 (Apresoline) 50 mg Q8HR PO 12/23/16 22:00 12/25/16 06:00 ([place] 5-325 Mg) 1 tab Q4H PRN PO 12/23/16 20:00 12/24/16 22:23 (Ativan) 0.5 mg Q8H PRN PO 12/23/16 20:00 12/25/16 04:34 (Catapres) 0.1 mg Q6H PRN PO 12/23/16 20:00 12/23/16 20:40 (Vasotec Inj) 2.5 mg Q6H PRN IV PUSH 12/23/16 20:00 (Lasix Inj) 40 mg DAILY IV PUSH 12/23/16 20:00 12/24/16 08:56 (Heparin Inj) 5,000 units Q12HR SQ 12/23/16 21:00 12/24/16 20:57 (Protonix) 40 mg DAILY PO 12/24/16 09:00 12/24/16 08:55 (NS Flush) 2 ml UNSCH PRN IV FLUSH 12/23/16 20:15 (NS Flush) 2 ml BID IV FLUSH 12/23/16 21:00 12/24/16 20:57 (Tylenol) 650 mg Q4H PRN PO 12/23/16 20:15 (Zofran Inj) 4 mg Q6H PRN IVP 12/23/16 20:15 12/23/16 20:32 (Narcan Inj) 0.4 mg UNSCH PRN IV 12/23/16 20:15 (Karen-Colace) 1 tab BID PO 12/23/16 21:00 12/24/16 20:56 (Milk Of Magnesia Liq) 30 ml Q12H PRN PO 12/23/16 20:15 (Senokot) 17.2 mg Q12H PRN PO 12/23/16 20:15 (Dulcolax Supp) 10 mg DAILY PRN RECTAL 12/23/16 20:15 (Lactulose Liq) 30 ml DAILY PRN PO 12/23/16 20:15 (D50w (Vial) Inj) 50 ml UNSCH PRN IV 12/23/16 20:15 (Glucagon Inj) 1 mg UNSCH PRN OTHER 12/23/16 20:15 A/P Assessment and Plan 1. Unstable angina. 2. Coronary artery disease status post stent on 12/16/16. 3. Emergent hypertension. 4. Panic disorder. 5. Anemia. 6. GI bleed history. 7. Chronic pain syndrome. 8. Hyperlipidemia. 9. CVA. 10. Chronic kidney disease stage III. 11. Gastroesophageal reflux disease (GERD). 12. Insomnia. 13. Scoliosis. 14. Cervical fusion. PLAN: 1. Will wean the nitroglycerin drip to off. 2. Aspirin 325 daily. 3. Lipitor 80 at bedtime. 4. Clonidine PRN systolic greater than 180. 5. Vasotec PRN for urgent hypertension. 6. Lasix 40 IV daily. 7. Heparin 5000 q. 12 hours for DVT prophylaxis. 8. Ativan PRN for severe anxiety and the patient will need to stay on this as an outpatient. 9. NovoLog sliding scale insulin. 10. Methadone 20 three times a day. 11. Change her Lopressor to Toprol XL 50 milligrams daily. 12. Protonix 40 daily. 13. Restoril at bedtime for insomnia. 14. Stool occult blood x2. 15. Telemetry. 16. Physical therapy. 18. 02 by nasal cannula 19. Observation admission and will possibly be able to discharge her tomorrow if cardiology clears her. Dr dominguez reports he is not seeing her, so reconsulted Cardiology communications executive. 20. Consult diabetic education. 21. check am labs. Willie Ybarra MD Dec 25, 2016 10:43
[2016-12-25] MEDS: METHADONE HCL 10 MG TAB PO SCH ×2 (13:44→18:10)
[2016-12-25] MEDS ORDERED: CLON.1 PO (17:07)
--- NOTE | 2016-12-25 17:09 | HHI.DCPOC ---
Discharge Care Plan Diagnosis: (1) Coronary artery disease (2) Renal insufficiency (3) Hypertension Goals to Promote Your Health * To prevent worsening of your condition and complications * To maintain your health at the optimal level Directions to Meet Your Goals Take your medications as prescribed Follow your dietary instruction Follow activity as directed Keep your appointments as scheduled Take your immunizations and boosters as scheduled If your symptoms worsen call your PCP, if no PCP go to Urgent Care Center or Emergency Room Smoking is Dangerous to Your Health. Avoid second hand smoke Call the 24-hour hour crisis hotline for domestic abuse at Willie Ybarra MD Dec 25, 2016 17:09
--- NOTE | 2016-12-25 17:11 | HHI.DS ---
Discharge Summary Admission Date Dec 24, 2016 at 14:19 Discharge Date: Dec 25, 2016 Admitting Diagnosis Unstable Angina (1) CVA (cerebral vascular accident) (2) Acute kidney injury (3) Hypertensive urgency (4) Chest pain, rule out acute myocardial infarction CBC/BMP: 12/23/16 1615 12/24/16 0600 Significant Findings Laboratory Tests Test 12/23/16 12/24/16 16:15 06:00 Red Blood Count 3.52 MIL/MM3 (4.00-5.30) Hemoglobin 9.0 GM/DL (11.6-15.3) Hematocrit 27.3 % (35.0-46.0) Mean Corpuscular Volume 77.5 FL (80.0-100.0) Mean Corpuscular Hemoglobin 25.5 PG (27.0-34.0) Red Cell Distribution Width 19.2 % (11.6-17.2) Neutrophils (%) (Auto) 72.3 % (16.0-70.0) Ovalocytes 1+ (NORMAL) Creatinine 1.05 MG/DL 1.30 MG/DL (0.50-1.00) (0.50-1.00) Estimat Glomerular Filtration 53 ML/MIN (>89) 41 ML/MIN (>89) Rate Random Glucose 126 MG/DL 178 MG/DL (74-106) (74-106) Aspartate Amino Transf 14 U/L (15-37) (AST/SGOT) B-Type Natriuretic Peptide 790 PG/ML (0-100) Albumin 3.3 GM/DL (3.4-5.0) Carbon Dioxide Level 33.2 MEQ/L (21.0-32.0) PE at Discharge GENERAL: SKIN: Warm and dry. HEAD: Atraumatic. Normocephalic. EYES: Pupils equal and round. No scleral icterus. No injection or drainage. ENT: No nasal bleeding or discharge. Mucous membranes pink and moist. NECK: Trachea midline. No JVD. CARDIOVASCULAR: Regular rate and rhythm. RESPIRATORY: No accessory muscle use. Clear to auscultation. Breath sounds equal bilaterally. GASTROINTESTINAL: Abdomen soft, non-tender, nondistended. Hepatic and splenic margins not palpable. MUSCULOSKELETAL: Extremities without clubbing, cyanosis, or edema. No obvious deformities. NEUROLOGICAL: Awake and alert. No obvious cranial nerve deficits. Motor grossly within normal limits. Five out of 5 muscle strength in the arms and legs. Normal speech. PSYCHIATRIC: Appropriate mood and affect; insight and judgment normal. Hospital Course 1. Unstable angina. 2. Coronary artery disease status post stent on 12/16/16. 3. Emergent hypertension. 4. Panic disorder. 5. Anemia. 6. GI bleed history. 7. Chronic pain syndrome. 8. Hyperlipidemia. 9. CVA. 10. Chronic kidney disease stage III. 11. Gastroesophageal reflux disease (GERD). 12. Insomnia. 13. Scoliosis. 14. Cervical fusion. PLAN: 1. Will wean the nitroglycerin drip to off. 2. Aspirin 325 daily. 3. Lipitor 80 at bedtime. 4. Clonidine PRN systolic greater than 180. 5. Vasotec PRN for urgent hypertension. 6. Lasix 40 IV daily. 7. Heparin 5000 q. 12 hours for DVT prophylaxis. 8. Ativan PRN for severe anxiety and the patient will need to stay on this as an outpatient. 9. NovoLog sliding scale insulin. 10. Methadone 20 three times a day. 11. Change her Lopressor to Toprol XL 50 milligrams daily. 12. Protonix 40 daily. 13. Restoril at bedtime for insomnia. 14. Stool occult blood x2. 15. Telemetry. 16. Physical therapy. 18. 02 by nasal cannula 19. Observation admission and will possibly be able to discharge her tomorrow if cardiology clears her. Dr dominguez reports he is not seeing her, so reconsulted Cardiology banking management consulting manager. 20. Consult diabetic education. 21. called by RN, pt seen by Dr london and jalen baptiste dc. pt reqs to ar. no c needed. see orders. Discharge Disposition: Discharge Home Discharge Instructions DIET: Follow Instructions for: Heart Healthy Diet Activities you can perform: Regular-No Restrictions Follow up Referrals: Cardiology - 2-[address] london PCP Follow-up - 2-[address] alejandra New Medications: Clonidine (Catapres) 0.1 Mg Tab 0.1 MG PO Q6H PRN SBP>180, DBP>95 #90 Ref 10 TAB Continued Medications: Aspirin (Aspirin) 325 Mg Tab 325 MG PO DAILY cad #30 Ref 0 TAB Atorvastatin (Atorvastatin) 40 Mg Tab 80 MG PO HS cad #30 Ref 0 TAB Cyanocobalamin (Vitamin B-12) 1,000 Mcg Tab 1000 MCG PO DAILY Nutritional Supplement #1 Ref 0 BOTTLE Hydralazine HCl (Hydralazine HCl) 50 Mg Tablet 50 MG PO Q8HR hypertension #90 Ref 0 TAB Methadone (Methadone) 40 Mg Tab 20 MG PO TID Ref 0 TAB Metoprolol Tartrate (Metoprolol Tartrate) 25 Mg Tab 25 MG PO Q12HR CAD #60 Ref 0 TAB Omeprazole (Prilosec) 20 Mg Cap 40 MG PO DAILY #30 Ref 0 CAP Temazepam (Restoril) 15 Mg Cap 15 MG PO HS PRN INSOMNIA #30 Ref 0 CAP Willie Alejandra MD Dec 25, 2016 17:11
--- NOTE | 2016-12-25 17:43 | MB ---
cc: АНДРЕЙ OTOOLE DO DATE OF CONSULTATION 12/25/16 REASON FOR CONSULTATION Hypertensive urgency with chest pain. HISTORY OF PRESENT ILLNESS Jeanna Hawkins is a pleasant 61-year-old female who presented to [facility] on December 23, 2016 due to chest pain and elevated blood pressure. She was previously here December 15 through and, at that time, had chest pain and an abnormal EKG so she was taken to the industrial laborer by Dr. Thomas. During the catheterization, she was found to have total occlusion of her LAD with collateralization with a plan for medical management and risk factor modification. She ended up being intubated due to shortness of breath and post extubation she was watched and then discharged. Medications were changed somewhat at that time and she started noticing at home that her blood pressure was excessively high, above 200 systolically. She got nervous about it and then noticed her blood pressure was even higher. She started having panic attacks and started having chest pain. Because of this, she called Dr. Ybarra' office and he instructed her to come into the emergency room. On arrival to the emergency room, she was found to have a blood pressure as high as 234/123. After placing the patient on some antianxiety medications as well as changing some antihypertensives, her blood pressure is now stabilized mostly in the 120s-130s systolically. In seeing her today, she states that she is feeling better with no chest pain or shortness of breath. PAST MEDICAL HISTORY 1. Coronary artery disease 2. Congestive heart failure. 3. Diabetes. 4. History of CVAs 5. Chronic pain syndrome on methadone 6. Hypertension 7. Hyperlipidemia 8. Respiratory failure. 9. COPD 10. GI bleed. 11. Chronic kidney disease stage III. PAST SURGICAL HISTORY 1. Cardiac catheterization (December 16, 2016) left main patent. LAD 70% diffuse stenosis in the proximal portion with a mid occlusion. Distal LAD fills with [id number] collaterals. Left circumflex 30% stenosis proximal portion. OM1 is totally occluded. RCA is patent with collateralization to the LAD. Posterolateral branch has a 60% in the mid portion. PDA is patent. For medical management and risk factor modification. 2. History of renal stent. 3. Hysterectomy 4. Cholecystectomy. 5. Cervical spine surgery. 6. Left upper extremity surgery. ALLERGIES LEVAQUIN MORPHINE NORVASC REGLAN MEDICATIONS 1. Restoril 15 mg every night as needed 2. Metoprolol tartrate 25 mg every 12 hours. 3. Hydralazine 50 mg every 8 hours. 4. Lipitor 80 mg every night 5. Aspirin 325 mg daily 6. Methadone 20 mg three times a day. 7. Omeprazole 40 mg daily 8. Vitamin B12 1000 mcg daily. SOCIAL HISTORY Denies tobacco, alcohol or drug abuse. FAMILY HISTORY Denies premature coronary artery disease or sudden cardiac within the family. REVIEW OF SYSTEMS 14-systems were reviewed including osteopathic. Pertinent positives and negatives above otherwise negative. PHYSICAL EXAMINATION VITAL SIGNS: Temperature 97.8, heart rate 70, blood pressure 118/87, respirations 16, pulse ox 97% on 1 liter nasal cannula. GENERAL: The patient appears well in no acute distress, alert awake and oriented x3. HEENT: Extraocular muscles intact. Mucous membranes moist. NECK: Supple. No JVD at 45 degrees. No carotid bruits heard bilaterally. Carotid upstroke is brisk in nature. HEART: Regular rate and rhythm. Positive first and second heart sounds with no murmurs, gallops or rubs. PMI is nondisplaced. LUNGS: Clear to auscultation bilaterally. No wheezes, rales or rhonchi. ABDOMEN: Soft, nontender, nondistended. No organomegaly noted. EXTREMITIES: No clubbing, cyanosis or edema. Femoral and distal pulses are intact bilaterally. NEUROLOGIC: No focal deficits. SKIN: Warm, dry and intact. OSTEOPATHIC: No kyphoscoliosis, lordosis or paraspinal tender points. LABORATORY FINDINGS Hemoglobin 9.0, hematocrit 27.3, platelets 206. Potassium 3.5, BUN 16, creatinine 1.3, troponin negative x2. CARDIOLOGY STUDIES Electrocardiogram (December 23, 2016 at 18:14) sinus rhythm, moderate interventricular conduction delay, nonspecific ST-T wave changes. Compared to previous EKG from December 16, 2016 at 03:23, T-wave inversions anteriorly are no longer noted. IMPRESSION 1. Hypertensive urgency. 2. Accelerated hypertension with a blood pressure of 234/123 on arrival. 3. Chest pain due to accelerated hypertension/hypertensive urgency. 4. Coronary artery disease as above. 5. Anxiety/panic attacks. 6. Hyperlipidemia 7. History of CVA. 8. Chronic kidney disease. IMPRESSION 1. Ms. Hawkins appears to have chest pain due to her extensive hypertension. Since controlling her blood pressures, she has been feeling better. 2. We will continue her on antihypertensive medications and agree with possible antianxiety medicines, as I think this is part of the proponent which further elicits her hypertension and chest pain. 3. She does have coronary artery disease with an occlusion of her LAD with collateralization and this may potentiate further chest pain with extensive hypertension. 4. We will continue with medical management of her coronary artery disease and aggressive risk factor modification. 5. From a cardiovascular standpoint, she is stable for discharge as her blood pressure has been relatively stable. Thank you for allowing me to see Jeanna Hawkins. If there are any questions, please do not hesitate to call. Андрей Otoole DO VGP/SA /3:43 PM /5:28 PM
== END 2016-12-25 19:00 | disposition home or self-care (01) | DRG 305 ==
LOC: NEPE 15:42 → OBSVTOIN 19:31 → NEDA 19:31 → UNDOADMOB 19:32 → INTOOBSV 19:32 → NEDA 19:32 → HCIS 23:23 → NEDA 23:23 → INTOOBSV 12-24 14:19 → OBSVTOIN 12-24 14:19 → UNDODISOB 12-25 19:00
PROVIDERS: ADMIT Family Medicine; ATTEND Family Medicine
DX: I16.0 Hypertensive urgency (principal); E11.22 Type 2 diabetes mellitus with diabetic chronic kidney disease; I50.9 Heart failure, unspecified; I25.110 Atherosclerotic heart disease of native coronary artery with unstable angina pectoris; I12.9 Hypertensive chronic kidney disease with stage 1 through stage 4 chronic kidney disease, or unspecified chronic kidney disease; N18.3 Chronic kidney disease, stage 3 (moderate); Z95.5 Presence of coronary angioplasty implant and graft; F41.0 Panic disorder [episodic paroxysmal anxiety]; D64.9 Anemia, unspecified; G89.4 Chronic pain syndrome; E78.5 Hyperlipidemia, unspecified; K21.9 Gastro-esophageal reflux disease without esophagitis; G47.00 Insomnia, unspecified; M41.9 Scoliosis, unspecified; Z79.82 Long term (current) use of aspirin; Z79.891 Long term (current) use of opiate analgesic; Z86.73 Personal history of transient ischemic attack (TIA), and cerebral infarction without residual deficits; Z98.1 Arthrodesis status
CPT/HCPCS: 71010; 80048; 80053; 80307; 82550; 82948; 83690; 83735; 83880; 84484; 85025; 85610; 85730; 93005; 99291; G8987-GP; G8988-GP; J1644; J1815; J1940; J2405

== ENCOUNTER 2017-05-29 20:49 | Emergency (ER) | payer MEDICARE, OTHER ==
[~2017-05-29] VITALS: Ht 167.6 cm; Wt 65.0 kg
[~2017-05-29 20:49] MED LIST changes: +ASPI-183 PO; -ASPI325T PO; +CLON.1 PO
[2017-05-29 20:56] VITALS: BP 190/110; PULSE 50; RESP 18; O2SAT 91
--- NOTE | 2017-05-29 21:13 | PD ---
HPI Chief Complaint: Hypertension Time Seen by Provider: 21:05 (Flora Cruz) Time Seen by Provider: 21:05 (Iesha Henriquez DO) Travel History International Travel<30 days: No Contact w/Intl Traveler<30days: No Traveled to known affect area: No (Flora Cruz) History of Present Illness HPI Patient is a 61-year-old female presenting to the emergency department for evaluation of chest pain and hypertension. Patient states that her neighbors called 911 to aggravate her. EMS reports that neighbors called 911 because patient was acting abnormally in her front yard. Patient denies this. She does report having an episode of chest pain that was pressure-like and midsternal around 2 PM this afternoon, the pain was minimal, 3 out of 10. She checked her blood pressure at that time and it was elevated with a systolic over 200. She took a dose of clonidine at that time. She currently denies any chest pain, shortness of breath, abdominal pain, headache. She does report taking methadone for her chronic pain, she did not take this today because she was out of her home. Patient reports left shoulder pain secondary to a fall a few days ago. There was no head injury or loss of consciousness, she states her son's dog tripped her. (Flora Cruz) PFSH Past Medical History Anemia: Yes Arthritis: No Asthma: No Blood Disorders: No Anxiety: Yes Depression: Yes Heart Rhythm Problems: No Cancer: No Cardiac Catheterization: Yes Cardiovascular Problems: Yes (CARDIAC STENTS) High Cholesterol: Yes Chemotherapy: No Chest Pain: Yes Congestive Heart Failure: No COPD: Yes Cerebrovascular Accident: Yes (2014) Coronary Artery Disease: Yes Diabetes: Yes Patient Takes Glucophage: No Diminished Hearing: No Endocrine: No Gastrointestinal Disorders: Yes (GI BLEED) GERD: Yes Genitourinary: Yes Headaches: Yes Hepatitis: No Hypertension: Yes Immune Disorder: No Implanted Vascular Access Dvce: Yes Kidney Stones: Yes Musculoskeletal: Yes (SCOLIOSIS,TORTICOLIS) Neurologic: Yes Reproductive: No Immunizations Current: Yes Migraines: Yes Pneumonia: Yes Radiation Therapy: No Renal Failure: Yes Seizures: No Sleep Apnea: Yes Thyroid Disease: No PNEUMOCCOCAL Vaccine (Year): 1 Menopausal: Yes : 2 Para: 1 Miscarriage: 1 (Flora Cruz) Past Surgical History Abdominal Surgery: Yes AICD: No Appendectomy: Yes Body Medical Devices: WIRE CAGE IN NECK - PLATE IN LEFT WRIST & LEFT CLAVICLE, stents Cardiac Surgery: Yes (STENTS cardiac, renal stents) Cholecystectomy: Yes Coronary Artery Bypass Graft: No Coronary Stent: Yes (x4) Ear Surgery: No Eye Surgery: No Hysterectomy: Yes Neurologic Surgery: Yes (C3 C4 ) Oral Surgery: No Pacemaker: No Tonsillectomy: Yes Other Surgery: Yes (Flora Cruz) Family History Family Myocardial Infarction: Yes (Flora Cruz) Social History Alcohol Use: No Tobacco Use: No (former smoker) Substance Use: No (Flora Cruz) Allergies-Medications (Allergen,Severity, Reaction): Coded Allergies: levofloxacin (Unverified Allergy, Severe, Anaphylaxis, 05/29/17) metoclopramide (Unverified Allergy, Severe, Edema, 05/29/17) amlodipine (Unverified Adverse Reaction, Severe, Swelling, 05/29/17) "left leg swelling" Reported Meds & Prescriptions Reported Meds & Active Scripts Active Lortab (Hydrocodone-Acetaminophen) 5-325 Mg Tab 1 Tab PO Q6H PRN Bactrim DS (Sulfamethoxazole-Trimethoprim) 800-160 Mg Tab 1 Tab PO BID Catapres (Clonidine) 0.1 Mg Tab 0.1 Mg PO Q6H PRN Metoprolol Tartrate 25 Mg Tab 25 Mg PO Q12HR Hydralazine HCl 50 Mg Tablet 50 Mg PO Q8HR Atorvastatin (Atorvastatin Calcium) 40 Mg Tab 80 Mg PO HS Aspirin 325 Mg Tab 325 Mg PO DAILY Reported Prilosec (Omeprazole) 20 Mg Cap 40 Mg PO DAILY Restoril (Temazepam) 15 Mg Cap 15 Mg PO HS PRN Vitamin B-12 (Cyanocobalamin) 1,000 Mcg Tab 1,000 Mcg PO DAILY Methadone (Methadone HCl) 40 Mg Tab 20 Mg PO TID (Iesha Henriquez DO) Review of Systems Except as stated in HPI: all other systems reviewed are Neg Cardiovascular: Positive: Chest Pain or Discomfort, No: Palpitations, Tachycardia, Dyspnea on exertion Respiratory: No: Shortness of Breath Gastrointestinal: No: Nausea, Vomiting, Abdominal Pain Musculoskeletal: Positive: Pain (left shoulder) Neurologic: No: Weakness, Dizziness (Flora Cruz) Physical Exam Narrative GENERAL: Well-developed, well-nourished, alert elderly female. Resting comfortably in no acute distress. SKIN: Warm and dry. HEAD: Atraumatic. Normocephalic. EYES: Pupils equal and round. No scleral icterus. No injection or drainage. ENT: No nasal bleeding or discharge. Mucous membranes pink and moist. NECK: Trachea midline. No JVD. CARDIOVASCULAR: Bradycardic RESPIRATORY: No accessory muscle use. Diminished in bases bilaterally. GASTROINTESTINAL: Abdomen soft, non-tender, nondistended. Hepatic and splenic margins not palpable. MUSCULOSKELETAL: Extremities without clubbing, cyanosis, or edema. No obvious deformities. NEUROLOGICAL: Awake and alert. No obvious cranial nerve deficits. Motor grossly within normal limits. Five out of 5 muscle strength in the arms and legs. Normal speech. PSYCHIATRIC: Appropriate mood and affect; insight and judgment normal. (Flora Cruz) Data Data Last Documented VS Vital Signs Date Time Temp Pulse Resp B/P (MAP) Pulse Ox O2 Delivery O2 Flow Rate FiO2 05/30/17 05:44 05/30/17 03:52 97.9 05/30/17 01:31 58 16 95 Nasal Cannula 2.00 (Iesha Henriquez DO) Orders Orders Electrocardiogram (05/29/17 21:05) Ckmb (Isoenzyme) Profile (05/29/17 21:05) Complete Blood Count With Diff (05/29/17 21:05) Comprehensive Metabolic Panel (05/29/17 21:05) Magnesium (Mg) (05/29/17 21:05) Prothrombin Time / Inr (Pt) (05/29/17 21:05) Act Partial Throm Time (Ptt) (05/29/17 21:05) Troponin I (05/29/17 21:05) Chest, Single Ap (05/29/17 21:05) Ecg Monitoring (05/29/17 21:05) Iv Access Insert/Monitor (05/29/17 21:05) Oximetry (05/29/17 21:05) Oxygen Administration (05/29/17 21:05) Sodium Chloride 0.9% Flush (Ns Flush) (05/29/17 21:15) Shoulder, Limited(2vws) (05/29/17 ) Hydralazine Inj (Apresoline Inj) (05/29/17 21:15) Ct Brain W/O Iv Contrast(Rout) (05/29/17 ) Ct Cerv Spine W/O Contrast (05/29/17 ) Ct Thorax/ Chest W Iv Contrast (05/29/17 ) Morphine Inj (Morphine Inj) (05/29/17 22:15) Ondansetron Inj (Zofran Inj) (05/29/17 22:15) Urinalysis - C+S If Indicated (05/29/17 22:28) Urine Culture (05/29/17 21:55) Iodixanol 320 Inj (Rad Ct) (Visipaque 32 (05/30/17 00:16) Aspirin (Aspirin) (05/30/17 01:00) Femur (Ap & Lat/2vws) (05/30/17 ) Lidocaine 5% Patch.12 Hr (Lidoderm 5% Pa (05/30/17 02:00) Ceftriaxone Inj (Rocephin Inj) (05/30/17 02:45) Splint Or Brace Apply/Monitor (05/30/17 04:52) Ed Discharge Order (05/30/17 05:12) Sling Cradle Arm (05/30/17 ) (Iesha Henriquez DO) Labs Laboratory Tests Test 05/29/17 21:50 05/29/17 21:55 White Blood Count 11.8 TH/MM3 Red Blood Count 4.78 MIL/MM3 Hemoglobin 12.2 GM/DL Hematocrit 38.4 % Mean Corpuscular Volume 80.3 FL Mean Corpuscular Hemoglobin 25.6 PG Mean Corpuscular Hemoglobin Concent 31.9 % Red Cell Distribution Width 18.3 % Platelet Count 248 TH/MM3 Mean Platelet Volume 8.5 FL Neutrophils (%) (Auto) 67.8 % Lymphocytes (%) (Auto) 21.6 % Monocytes (%) (Auto) 6.0 % Eosinophils (%) (Auto) 3.8 % Basophils (%) (Auto) 0.8 % Neutrophils # (Auto) 8.0 TH/MM3 Lymphocytes # (Auto) 2.6 TH/MM3 Monocytes # (Auto) 0.7 TH/MM3 Eosinophils # (Auto) 0.4 TH/MM3 Basophils # (Auto) 0.1 TH/MM3 CBC Comment DIFF FINAL Differential Comment Prothrombin Time 11.5 SEC Prothromb Time International Ratio 1.0 RATIO Activated Partial Thromboplast Time 27.3 SEC Blood Urea Nitrogen 14 MG/DL Creatinine 1.61 MG/DL Random Glucose 222 MG/DL Total Protein 7.3 GM/DL Albumin 3.4 GM/DL Calcium Level 9.4 MG/DL Magnesium Level 1.8 MG/DL Alkaline Phosphatase 144 U/L Aspartate Amino Transf (AST/SGOT) 16 U/L Alanine Aminotransferase (ALT/SGPT) 25 U/L Total Bilirubin 0.4 MG/DL Sodium Level 136 MEQ/L Potassium Level 3.6 MEQ/L Chloride Level 100 MEQ/L Carbon Dioxide Level 23.8 MEQ/L Anion Gap 12 MEQ/L Estimat Glomerular Filtration Rate 32 ML/MIN Total Creatine Kinase 81 U/L Troponin I LESS THAN 0.02 NG/ML Urine Color YELLOW Urine Turbidity HAZY Urine pH 6.0 Urine Specific [place] 1.016 Urine Protein 100 mg/dL Urine Glucose (UA) 150 mg/dL Urine Ketones NEG mg/dL Urine Occult Blood SMALL Urine Nitrite NEG Urine Bilirubin NEG Urine Urobilinogen LESS THAN 2.0 MG/DL Urine Leukocyte Esterase LARGE Urine RBC 10 /hpf Urine WBC /hpf Urine WBC Clumps MANY Urine Mucus FEW /lpf Microscopic Urinalysis Comment CULTURE INDICATED (Iesha Henriquez DO) [facility] Medical Decision Making Medical Screen Exam Complete: Yes Emergency Medical Condition: Yes Interpretation(s) Vital Signs Date Time Temp Pulse Resp B/P (MAP) Pulse Ox O2 Delivery O2 Flow Rate FiO2 05/29/17 21:04 16 92 Room Air 05/29/17 20:56 50 18 190/110 (136) 91 Differential Diagnosis ACS versus hypertensive urgency versus hypertension versus AMI versus other Narrative Course Patient is a 60-year-old female that presented to the emergency evaluation of hypertension. On arrival she complained of left shoulder pain secondary to mechanical fall several days ago. She states her son's dog tripped her. Patient was hypertensive on arrival and complained of a brief episode of chest pain earlier this afternoon, labs and imaging ordered and pending. X-ray of the chest which was read by the radiologist shows no acute disease X-ray of the left shoulder shows inferior scapular fracture and several left- sided rib fractures anteriorly. Mechanism of injury seems disproportionate to injuries incurred for that reason a CT of the brain, cervical spine as well as chest has been ordered. CBC with a white count of 11.8 Coag's reviewed and are unremarkable Care of patient will be transferred to my attending physician at the end of my shift. She will determine patient's disposition. (Flora Cruz) Scripts Hydrocodone-Acetaminophen (Lortab) 5-325 Mg Tab 1 TAB PO Q6H Y for PAIN, #10 TAB 0 Refills Prov: Iesha Henriquez DO 05/30/17 Sulfamethoxazole-Trimethoprim (Bactrim DS) 800-160 Mg Tab 1 TAB PO BID for Infection, #14 TAB 0 Refills Prov: Iesha Henriquez DO 05/30/17 Flora Cruz May 29, 2017 21:13 Iesha Henriquez DO May 31, 2017 17:58
[2017-05-29 21:15] VITALS: O2SAT 91
[2017-05-29] MEDS ORDERED: hydrALAZINE HCL 20 MG/ML VIAL IV PUSH ONE (21:15)
[2017-05-29] MEDS ORDERED: SODIUM CHLORIDE 0.9% FLUSH 10 ML FLUSH IVF PRN (21:15)
--- NOTE | 2017-05-29 21:49 | RADRPT ---
EXAM DATE/TIME: 05/29/2017 21:20 [facility] COMPARISON: No previous studies available for comparison. INDICATIONS : Chest pain. MEDICAL HISTORY : Chronic obstructive pulmonary disease. Hypertension SURGICAL HISTORY : Left clavicle surgery. ENCOUNTER: Initial ACUITY: 1 day PAIN SCORE: 6/10 LOCATION: Bilateral chest FINDINGS: Cardiomegaly. Patient rotation to the right. Lungs are clear. Plate and screw fixation of the left cl avicle. CONCLUSION: No acute disease. Diogo Palmer MD on May 29, 2017 at 21:47 Board Certified Radiologist. This report was verified electronically.
--- NOTE | 2017-05-29 21:50 | RADRPT ---
EXAM DATE/TIME: 05/29/2017 21:23 [facility] COMPARISON: No previous studies available for comparison. INDICATIONS : Left shoulder joint pain. Fell tonight. MEDICAL HISTORY : None. SURGICAL HISTORY : left clavicle surgery. ENCOUNTER: Initial ACUITY: 1 day PAIN SCORE: 8/10 LOCATION: Left shoulder joint pain. FINDINGS: Plate and screw fixation of left clavicle. There are multiple left-sided rib fractures noted anterior ly. left rib fractures. Mildly displaced fracture of the scapula inferiorly. CONCLUSION: Left inferior scapular fracture and several left-sided rib fractures. Diogo Palmer MD on May 29, 2017 at 21:47 Board Certified Radiologist. This report was verified electronically.
[2017-05-29 22:00] VITALS: BP 191/103; PULSE 49; RESP 16; O2SAT 94
[2017-05-29] MEDS ORDERED: ONDANSETRON HCL 4 MG/2 ML VIAL IV PUSH ONE (22:15)
[2017-05-29] MEDS ORDERED: MORPHINE SULFATE 4 MG/ML INJ IV PUSH ONE (22:15)
[2017-05-29 22:30] LABS: BASOPHIL # 0.1 TH/MM3 (0-0.2); BASOPHIL % 0.8 % (0.0-2.0); EOSINOPHIL # 0.4 TH/MM3 (0-0.4); EOSINOPHIL % 3.8 % (0.0-4.0); HEMATOCRIT 38.4 % (35.0-46.0); HEMO FLAGS DIFF FINAL; LYMPH % 21.6 % (9.0-44.0); LYMPHOCYTE # 2.6 TH/MM3 (1.0-4.8); MEAN CELL VOLUME 80.3 FL (80.0-100.0); MEAN CORPUSCULAR HEMOGLOBIN 25.6 PG (27.0-34.0); MEAN CORPUSCULAR HGB CONC 31.9 % (32.0-36.0); NEUT % 67.8 % (16.0-70.0); PLATELET COUNT 248 TH/MM3 (150-450); RED BLOOD COUNT 4.78 MIL/MM3 (4.00-5.30); RED CELL DISTRIBUTION WIDTH 18.3 % (11.6-17.2); WHITE BLOOD COUNT 11.8 TH/MM3 (4.0-11.0)
[2017-05-29 22:48] VITALS: BP 114/76; PULSE 58; RESP 16; O2SAT 96
[2017-05-29 22:52] LABS: APTT (PATIENT) 27.3 SEC (24.3-30.1); PROTHROMBIN TIME - PATIENT 11.5 SEC (9.8-11.6)
[2017-05-29 22:56] LABS: ANION GAP 12 MEQ/L (5-15); AST (GOT) 16 U/L (15-37); BICARBONATE 23.8 MEQ/L (21.0-32.0); BLOOD UREA NITROGEN 14 MG/DL (7-18); CHLORIDE 100 MEQ/L (98-107); GLOMERULAR FILTRATION RATE 32 ML/MIN (>89); MAGNESIUM 1.8 MG/DL (1.5-2.5); POTASSIUM 3.6 MEQ/L (3.5-5.1); SODIUM (NA) 136 MEQ/L (136-145)
[2017-05-29 22:57] LABS: ALT (GPT) 25 U/L (10-53)
[2017-05-29 23:01] LABS: ALKALINE PHOSPHATASE 144 U/L (45-117); TOTAL BILIRUBIN ADULT 0.4 MG/DL (0.2-1.0)
[2017-05-29 23:02] LABS: BLOOD, URINE SMALL (NEG); COMMENT (UR) CULTURE INDICATED; CULTURE IF INDICATED CULTURE INDICATED; GLUCOSE,URINE 150 mg/dL (NEG); KETONE, URINE NEG (NEG); MUCUS URINE FEW /lpf (OCC); NITRITE,URINE NEG (NEG); URINE COLOR YELLOW (YELLW/STRAW)
[2017-05-29 23:02] LABS: CREATINE KINASE 81 U/L (26-192)
--- NOTE | 2017-05-30 | RADRPT ---
EXAM DATE/TIME: 05/29/2017 23:18 [facility] COMPARISON: CT BRAIN W/O CONTRAST, February 25, 2016, 4:05. INDICATIONS : Trauma, fall 2 weeks ago. Confusion today. RADIATION DOSE: 56.35 CTDIvol (mGy) MEDICAL HISTORY : Cardiovascular disease. Hypertension. Diabetes mellitus type 2.Renal failure. CVA. SURGICAL HISTORY : Appendectomy. Cholecystectomy.Hysterectomy.Cervical fusion. ENCOUNTER: Initial ACUITY: 2 weeks PAIN SCALE: 0/10 LOCATION: cranial TECHNIQUE: Multiple contiguous axial images were obtained of the head. Using automated exposure control and adj ustment of the mA and/or kV according to patient size, radiation dose was kept as low as reasonably a chievable to obtain optimal diagnostic quality images. DICOM format image data is available electro nically for review and comparison. FINDINGS: CEREBRUM: The ventricles are normal for age. No evidence of midline shift, mass lesion, hemorrhage or acute in farction. No extra-axial fluid collections are seen. Periventricular white matter hypodensity likely representing chronic small vessel ischemic change, somewhat prominent for age. POSTERIOR FOSSA: The cerebellum and brainstem are intact. The 4th ventricle is midline. The cerebellopontine angle i s unremarkable. EXTRACRANIAL: The visualized portion of the orbits is intact. SKULL: The calvaria is intact. No evidence of skull fracture. CONCLUSION: 1. No acute intracranial findings. 2. Periventricular white matter hypodensity likely representing a chronic small vessel ischemic hunt es somewhat prominent for age. Sourav Mondragon MD on May 29, 2017 at 23:57 Board Certified Radiologist. This report was verified electronically.
--- NOTE | 2017-05-30 00:05 | RADRPT ---
EXAM DATE/TIME: 05/29/2017 23:20 [facility] COMPARISON: No previous studies available for comparison. INDICATIONS : Trauma, fall 2 weeks ago. RADIATION DOSE: 39.70 CTDIvol (mGy) MEDICAL HISTORY : Cardiovascular disease. Hypertension. Diabetes mellitus type 2.Renal failure. CVA. SURGICAL HISTORY : Hysterectomy. Appendectomy.Cholecystectomy.Cervical fusion. Left clavicle repair. ENCOUNTER: Initial ACUITY: 2 weeks PAIN SCALE: 2/10 LOCATION: neck TECHNIQUE: Volumetric scanning of the cervical spine was performed. Multiplanar reconstructions in the sagittal, coronal and oblique axial planes were performed. Using automated exposure control and adjustment o f the mA and/or kV according to patient size, radiation dose was kept as low as reasonably achievable to obtain optimal diagnostic quality images. DICOM format image data is available electronically f or review and comparison. FINDINGS: VERTEBRAE: Anterior fusion hardware at C3-4. Hardware intact. There is evidence of bone bridging between the C3 and C4 vertebral bodies. There is also bone bridging across the C3-4 facet joints. Bone bridging acro ss the left C2-3 facet joint also noted. No evidence of fracture. ALIGNMENT: Within normal limits. C2-C3: No evidence of focal disc protrusion. Central canal normal diameter. Neural foraminal diameters withi n normal limits. C3-C4: Severe left-sided facet arthrosis. Mild left neural foraminal narrowing. Central canal diameter withi n normal limits. Postsurgical level. Bone bridging between the vertebral bodies. C4-C5: Severe left-sided facet arthrosis. No evidence of focal disc protrusion. Central canal normal diamete r. Neural foraminal diameters within normal limits. C5-C6: Severe left-sided facet arthrosis. Mild left neural foraminal narrowing. Central canal diameter withi n normal limits. C6-C7: No evidence of focal disc protrusion. Central canal normal diameter. Neural foraminal diameters withi n normal limits. C7-T1: No evidence of focal disc protrusion. Central canal normal diameter. Neural foraminal diameters withi n normal limits. CONCLUSION: No evidence of fracture. Post surgical finding C3-4. Multilevel degenerative findings. Central canal diameter within normal limits at all levels. Sourav Mondragon MD on May 29, 2017 at 23:59 Board Certified Radiologist. This report was verified electronically.
[2017-05-30] MEDS ORDERED: IODIXANOL 320 MG/ML 10 ML VIAL (for Rad CT) IVCONTRAST ONE (00:16)
--- NOTE | 2017-05-30 00:54 | RADRPT ---
EXAM DATE/TIME: 05/30/2017 00:01 [facility] COMPARISON: CHEST SINGLE AP, December 15, 2016, 21:27. CHEST SINGLE AP, May 29, 2017, 21:20. INDICATIONS : Trauma, fall 2 weeks ago. IV CONTRAST: 49 cc Visipaque (iodixanol) IV RADIATION DOSE: 5.1 CTDIvol (mGy) MEDICAL HISTORY : Cardiovascular disease. Hypertension. Diabetes mellitus type 2.Renal failure. CVA. SURGICAL HISTORY : Fusion, cervical. Appendectomy.Cholecystectomy.Hysterectomy. Clavicle repair. ENCOUNTER: Initial ACUITY: 2 weeks PAIN SCALE: 3/10 LOCATION: chest TECHNIQUE: Volumetric scanning of the chest was performed. Using automated exposure control and adjustment of t he mA and/or kV according to patient size, radiation dose was kept as low as reasonably achievable to obtain optimal diagnostic quality images. DICOM format image data is available electronically for review and comparison. Follow-up recommendations for detected pulmonary nodules are based at a minimum on nodule size and pa tient risk factors according to Fleischner Society Guidelines. FINDINGS: LUNGS: There is evidence of chronic volume loss on the right with surgical clips or calcifications in the ri ght hilum. Atelectasis or scarring is seen in the perihilar regions on the right. Mild atelectasis al so noted in the left lower lobe. Lungs are otherwise clear. PLEURA: There is no pleural thickening or pleural effusion. MEDIASTINUM: Coronary artery calcifications. The heart and great vessels demonstrate no acute abnormality. There is no mediastinal or hilar lymphadenopathy. AXILLAE: Within normal limits. No lymphadenopathy. SKELETAL: Within normal limits for patient age. MISCELLANEOUS: Calcified granulomas in the spleen. Elevated left hemidiaphragm. CONCLUSION: 1. Apparent postsurgical findings in the right lung. Review of prior chest radiographs show that the configuration of the right lung is chronic. 2. Patchy atelectasis/scarring in the lungs bilaterally. No other acute findings. 3. Coronary artery calcifications. 4. Old granulomatous disease. Sourav Mondragon MD on May 30, 2017 at 0:47 Board Certified Radiologist. This report was verified electronically.
[2017-05-30] MEDS ORDERED: ASPIRIN 325 MG TAB PO ONE (01:00)
[2017-05-30 01:31] VITALS: BP 161/86; PULSE 58; RESP 16; O2SAT 95
--- NOTE | 2017-05-30 01:38 | RADRPT ---
EXAM DATE/TIME: 05/30/2017 01:59 [facility] COMPARISON: No previous studies available for comparison. INDICATIONS : Pt fell 2 weeks ago MEDICAL HISTORY : Diabetes mellitus type II. Myocardial infarction. Hypercholesterolemia. HTN, CVA, COPD, CAD, Brenda l failure SURGICAL HISTORY : Appendectomy. Cholecystectomy. Hysterectomy. Cardiac Cath ENCOUNTER: Initial ACUITY: 2 weeks PAIN SCORE: 7/10 LOCATION: Left Femur FINDINGS: 4 views of the left femur. Bone alignment within normal limits. No evidence of fracture. Hip joint a lignment and knee joint alignment within normal limits. Exostosis noted at the lateral aspect of the left iliac wing. CONCLUSION: No evidence of fracture. Sourav Mondragon MD on May 30, 2017 at 1:35 Board Certified Radiologist. This report was verified electronically.
--- NOTE | 2017-05-30 01:44 | PD ---
Physical Exam Narrative I, Dr. Henriquez, have reviewed the advance practice practitioner's documentation and am in agreement, met with the patient face to face, made the diagnosis, and the medical decision making was done by me. *My assessment and Findings: Left rib fracture vs. contusion 61yo F with HTN here c/o left rib pain s/p slip and fall during laundry today. Said she fell on her left ribs and it hurts. Said she also fell 12 days ago after her son's dog stepped on her flip flops. Said she always have chest pain but this is more left rib pain today. Denies any sob. Pt also noticed left femur bruising and pain after the fall today. Denies any numbness or weakness. Labs reviewed, WBC 11.8. Troponin negative. Creatinine elevated but at baseline. Glucose elevated at 222. UA showed large leukocyte with many WBC, given ceftriaxone for UTI. CXR showed no acute disease. Xray left shoulder showed left inferior scapula fracture and several left sided rib fractures. Given the significance of this finding, will obtain CT scan to further evaluate for any intrathoracic injuries. CT cspine negative for fracture. CT chest showed patchy atelectasis/scarring lungs bilaterally. No acute findings. CT brain negative. Pt given morphine and lidocaine patch for pain. Pt was initially given hydralazine for elevated blood pressure which has improved. Xray left femur showed no evidence of fracture. Pt only has small bruising there, able to flex and extend left hip without pain. Pt has been reevaluated at bedside and states pain has improved and wants to go home. Arm sling placed for comfort. Pt is to follow up with orthopedic for scapula fracture. Return precautions given. Data Data Last Documented VS Vital Signs Date Time Temp Pulse Resp B/P (MAP) Pulse Ox O2 Delivery O2 Flow Rate FiO2 05/30/17 05:44 05/30/17 03:52 97.9 05/30/17 01:31 58 16 95 Nasal Cannula 2.00 Orders Orders Electrocardiogram (05/29/17 21:05) Ckmb (Isoenzyme) Profile (05/29/17 21:05) Complete Blood Count With Diff (05/29/17 21:05) Comprehensive Metabolic Panel (05/29/17 21:05) Magnesium (Mg) (05/29/17 21:05) Prothrombin Time / Inr (Pt) (05/29/17 21:05) Act Partial Throm Time (Ptt) (05/29/17 21:05) Troponin I (05/29/17 21:05) Chest, Single Ap (05/29/17 21:05) Ecg Monitoring (05/29/17 21:05) Iv Access Insert/Monitor (05/29/17 21:05) Oximetry (05/29/17 21:05) Oxygen Administration (05/29/17 21:05) Sodium Chloride 0.9% Flush (Ns Flush) (05/29/17 21:15) Shoulder, Limited(2vws) (05/29/17 ) Hydralazine Inj (Apresoline Inj) (05/29/17 21:15) Ct Brain W/O Iv Contrast(Rout) (05/29/17 ) Ct Cerv Spine W/O Contrast (05/29/17 ) Ct Thorax/ Chest W Iv Contrast (05/29/17 ) Morphine Inj (Morphine Inj) (05/29/17 22:15) Ondansetron Inj (Zofran Inj) (05/29/17 22:15) Urinalysis - C+S If Indicated (05/29/17 22:28) Urine Culture (05/29/17 21:55) Iodixanol 320 Inj (Rad Ct) (Visipaque 32 (05/30/17 00:16) Aspirin (Aspirin) (05/30/17 01:00) Femur (Ap & Lat/2vws) (05/30/17 ) Lidocaine 5% Patch.12 Hr (Lidoderm 5% Pa (05/30/17 02:00) Ceftriaxone Inj (Rocephin Inj) (05/30/17 02:45) Splint Or Brace Apply/Monitor (05/30/17 04:52) Ed Discharge Order (05/30/17 05:12) Sling Cradle Arm (05/30/17 ) Labs Laboratory Tests Test 05/29/17 21:50 05/29/17 21:55 White Blood Count 11.8 TH/MM3 Red Blood Count 4.78 MIL/MM3 Hemoglobin 12.2 GM/DL Hematocrit 38.4 % Mean Corpuscular Volume 80.3 FL Mean Corpuscular Hemoglobin 25.6 PG Mean Corpuscular Hemoglobin Concent 31.9 % Red Cell Distribution Width 18.3 % Platelet Count 248 TH/MM3 Mean Platelet Volume 8.5 FL Neutrophils (%) (Auto) 67.8 % Lymphocytes (%) (Auto) 21.6 % Monocytes (%) (Auto) 6.0 % Eosinophils (%) (Auto) 3.8 % Basophils (%) (Auto) 0.8 % Neutrophils # (Auto) 8.0 TH/MM3 Lymphocytes # (Auto) 2.6 TH/MM3 Monocytes # (Auto) 0.7 TH/MM3 Eosinophils # (Auto) 0.4 TH/MM3 Basophils # (Auto) 0.1 TH/MM3 CBC Comment DIFF FINAL Differential Comment Prothrombin Time 11.5 SEC Prothromb Time International Ratio 1.0 RATIO Activated Partial Thromboplast Time 27.3 SEC Blood Urea Nitrogen 14 MG/DL Creatinine 1.61 MG/DL Random Glucose 222 MG/DL Total Protein 7.3 GM/DL Albumin 3.4 GM/DL Calcium Level 9.4 MG/DL Magnesium Level 1.8 MG/DL Alkaline Phosphatase 144 U/L Aspartate Amino Transf (AST/SGOT) 16 U/L Alanine Aminotransferase (ALT/SGPT) 25 U/L Total Bilirubin 0.4 MG/DL Sodium Level 136 MEQ/L Potassium Level 3.6 MEQ/L Chloride Level 100 MEQ/L Carbon Dioxide Level 23.8 MEQ/L Anion Gap 12 MEQ/L Estimat Glomerular Filtration Rate 32 ML/MIN Total Creatine Kinase 81 U/L Troponin I LESS THAN 0.02 NG/ML Urine Color YELLOW Urine Turbidity HAZY Urine pH 6.0 Urine Specific [place] 1.016 Urine Protein 100 mg/dL Urine Glucose (UA) 150 mg/dL Urine Ketones NEG mg/dL Urine Occult Blood SMALL Urine Nitrite NEG Urine Bilirubin NEG Urine Urobilinogen LESS THAN 2.0 MG/DL Urine Leukocyte Esterase LARGE Urine RBC 10 /hpf Urine WBC /hpf Urine WBC Clumps MANY Urine Mucus FEW /lpf Microscopic Urinalysis Comment CULTURE INDICATED MDM Supervised Visit with ERNESTO: Yes Diagnosis Primary Impression: Left rib fracture Qualified Codes: S22.42XA - Multiple fractures of ribs, left side, initial encounter for closed fracture Additional Impression: UTI (urinary tract infection) Qualified Codes: N39.0 - Urinary tract infection, site not specified; R31.9 - Hematuria, unspecified Referrals: Jose Combs MD call for appointment Left scapula fracture Patient Instructions: General Instructions Departure Forms: Tests/Procedures Additional Instruction: Please follow up with orthopedic regarding scapula fracture. Return to the ED if symptoms worsen. Med/Other Pt SpecificInfo: Prescription(s) given Scripts Hydrocodone-Acetaminophen (Lortab) 5-325 Mg Tab 1 TAB PO Q6H Y for PAIN, #10 TAB 0 Refills Prov: Iesha Henriquez DO 05/30/17 Sulfamethoxazole-Trimethoprim (Bactrim DS) 800-160 Mg Tab 1 TAB PO BID for Infection, #14 TAB 0 Refills Prov: Iesha Henriquez DO 05/30/17 Disposition: 01 DISCHARGE HOME Condition: Stable Iesha Henriquez DO May 30, 2017 01:44
[2017-05-30] MEDS ORDERED: LIDOCAINE HCL 5% PATCH T-DERMAL ONE (02:00)
[2017-05-30] MEDS ORDERED: cefTRIAXone INJ 1,000 MG in SODIUM CHLORIDE 0.9% INJ 100 ML IV ONE (02:45)
[2017-05-30 03:52] VITALS: TEMP 97.9
[2017-05-30] MEDS ORDERED: HYDR-3533 PO (05:11)
[2017-05-30] MEDS ORDERED: BACT800T5 PO (05:11)
--- NOTE | 2017-05-30 12:08 | EKG ---
Date Performed: 05/29/2017 Time Performed: 21:10:38 PTAGE: 61 years EKG: SINUS BRADYCARDIA LEFT VENTRICULAR HYPERTROPHY AND ST-T CHANGE Consider anterolateral ische john ABNORMAL ECG PREVIOUS TRACING : 12/23/2016 18.14 DOCTOR: Sebastián Parrish Interpretating Date/Time 05/30/2017 12:06:56
== END 2017-05-30 05:57 | disposition home or self-care (01) ==
LOC: NEPE 20:49
DX: S22.42XA Multiple fractures of ribs, left side, initial encounter for closed fracture (principal); N39.0 Urinary tract infection, site not specified; S42.102A Fracture of unspecified part of scapula, left shoulder, initial encounter for closed fracture; J44.9 Chronic obstructive pulmonary disease, unspecified; E11.9 Type 2 diabetes mellitus without complications; B96.20 Unspecified Escherichia coli [E. coli] as the cause of diseases classified elsewhere; R82.90 Unspecified abnormal findings in urine; R94.31 Abnormal electrocardiogram [ECG] [EKG]; W01.0XXA Fall on same level from slipping, tripping and stumbling without subsequent striking against object, initial encounter; Y93.E2 Activity, laundry; Y92.009 Unspecified place in unspecified non-institutional (private) residence as the place of occurrence of the external cause
CPT/HCPCS: 70450; 71010; 71260; 72125; 73030; 73552; 80053; 81001; 82550; 83735; 84484; 85025; 85610; 85730; 87077; 87086; 87186; 93005; 96365; 96375; 99285; J0360; J0696; J2270; J2405; Q9967

== ENCOUNTER 2017-08-27 15:11 | Inpatient (IN) | payer MEDICARE, OTHER ==
[~2017-08-27] VITALS: Ht 167.6 cm; Wt 61.0 kg
[2017-08-27] VITALS (7 sets, daily range): BP systolic 118–164; BP diastolic 72–91; PULSE 53–64; RESP 16–20; TEMP 97.8–99.1; O2SAT 95–98
[~2017-08-27 15:11] MED LIST changes: +BACT800T5 PO; +HYDR-3533 PO
[2017-08-27] MEDS ORDERED: PRIL20TA2 (15:28)
[2017-08-27] MEDS ORDERED: SODIUM CHLORID 0.9% 500 ML INJ 500 ML IV ONE (15:30)
[2017-08-27] MEDS ORDERED: SODIUM CHLORIDE 0.9% FLUSH 10 ML FLUSH IVF PRN (15:30)
[2017-08-27 15:45] LABS: AUTOMATED NEUTROPHIL # 6.7 TH/MM3 (1.8-7.7); BASOPHIL # 0.1 TH/MM3 (0-0.2); BASOPHIL % 0.7 % (0.0-2.0); EOSINOPHIL # 0.1 TH/MM3 (0-0.4); EOSINOPHIL % 0.6 % (0.0-4.0); HEMATOCRIT 36.9 % (35.0-46.0); HEMOGLOBIN 12.1 GM/DL (11.6-15.3); LYMPH % 22.8 % (9.0-44.0); LYMPHOCYTE # 2.1 TH/MM3 (1.0-4.8); MEAN CELL VOLUME 82.7 FL (80.0-100.0); MEAN CORPUSCULAR HEMOGLOBIN 27.1 PG (27.0-34.0); MEAN CORPUSCULAR HGB CONC 32.8 % (32.0-36.0); MEAN PLATELET VOLUME 8.2 FL (7.0-11.0); MONO % 4.3 % (0.0-8.0); MONOCYTE # 0.4 TH/MM3 (0-0.9); NEUT % 71.6 % (16.0-70.0); PLATELET COUNT 236 TH/MM3 (150-450); RED BLOOD COUNT 4.47 MIL/MM3 (4.00-5.30); RED CELL DISTRIBUTION WIDTH 18.9 % (11.6-17.2); WHITE BLOOD COUNT 9.3 TH/MM3 (4.0-11.0)
--- NOTE | 2017-08-27 15:46 | PD ---
HPI Chief Complaint: Fall Time Seen by Provider: 15:21 Travel History International Travel<30 days: No Contact w/Intl Traveler<30days: No Traveled to known affect area: No History of Present Illness HPI 62-year-old woman who presents to the emergency department complaining of left ankle pain and left knee pain after a fall. She she has been sick for the past couple days of nausea vomiting chills and a little bit of cough. She thought she had the flu. She was walking to her house where there is apparently a hole in the floor that she tripped on and fell onto her left side. She had severe pain in her left ankle left knee and could not walk so she called the ambulance. On arrival the ambulance found her to have some vomiting, the left ankle pain, did an EKG that showed some nonspecific ST depressions and she was called as a cardiac alert. Patient does endorse some chest pain. She otherwise has been feeling well before this nausea vomiting episode started a couple days ago. She has a history of chronic pain, takes chronic opiates. History Past Medical History Narrative Medical Chronic neck problems COPD, bronchitis CAD, history of stents Tetanus Vaccination: > 5 Years Influenza Vaccination: Yes PNEUMOCCOCAL Vaccine (Year): 1 Menopausal: Yes : 2 Para: 1 Social History Alcohol Use: No Tobacco Use: No (former smoker QUIT 20 YEARS AGO) Allergies-Medications (Allergen,Severity, Reaction): Coded Allergies: levofloxacin (Verified Allergy, Severe, Anaphylaxis, 08/27/17) amlodipine (Verified Adverse Reaction, Severe, Swelling, 08/27/17) "left leg swelling" metoclopramide (Verified Adverse Reaction, Severe, Edema, 08/27/17) Reported Meds & Prescriptions Reported Meds & Active Scripts Active Catapres (Clonidine) 0.1 Mg Tab 0.1 Mg PO Q6H PRN Metoprolol Tartrate 25 Mg Tab 25 Mg PO Q12HR Hydralazine HCl 50 Mg Tablet 50 Mg PO Q8HR Atorvastatin (Atorvastatin Calcium) 40 Mg Tab 80 Mg PO HS Aspirin 325 Mg Tab 325 Mg PO DAILY Reported Prilosec (Omeprazole Magnesium) 20 Mg Tab 40 Mg DAILY Restoril (Temazepam) 15 Mg Cap 15 Mg PO HS PRN Vitamin B-12 (Cyanocobalamin) 1,000 Mcg Tab 1,000 Mcg PO DAILY Methadone (Methadone HCl) 40 Mg Tab 20 Mg PO TID Review of Systems Except as stated in HPI: all other systems reviewed are Neg Physical Exam Narrative GENERAL: 62-year-old woman, no acute distress. SKIN: Focused skin assessment warm/dry. HEAD: Atraumatic. Normocephalic. EYES: Pupils equal and round. No scleral icterus. No injection or drainage. ENT: No nasal bleeding or discharge. Mucous membranes pink and moist. NECK: Trachea midline. No JVD. CARDIOVASCULAR: Regular rate and rhythm. No murmur appreciated. RESPIRATORY: No accessory muscle use. Clear to auscultation. Breath sounds equal bilaterally. GASTROINTESTINAL: Abdomen soft, non-tender, nondistended. Hepatic and splenic margins not palpable. MUSCULOSKELETAL: No obvious deformities. No clubbing. No cyanosis. No edema. NEUROLOGICAL: Awake and alert. No obvious cranial nerve deficits. Motor grossly within normal limits. Normal speech. PSYCHIATRIC: Appropriate mood and affect; insight and judgment normal. Data Data Last Documented VS Vital Signs Date Time Temp Pulse Resp B/P (MAP) Pulse Ox O2 Delivery O2 Flow Rate FiO2 08/27/17 15:22 95 Room Air 08/27/17 15:22 18 08/27/17 15:16 56 08/27/17 15:16 97.9 164/88 (113) Orders Orders Electrocardiogram (08/27/17 15:21) Complete Blood Count With Diff (08/27/17 15:21) Comprehensive Metabolic Panel (08/27/17 15:21) Troponin I (08/27/17 15:21) Chest, Single Ap (08/27/17 15:21) Ecg Monitoring (08/27/17 15:21) Iv Access Insert/Monitor (08/27/17 15:21) Oximetry (08/27/17 15:21) Oxygen Administration (08/27/17 15:21) Sodium Chloride 0.9% Flush (Ns Flush) (08/27/17 15:30) Sodium Chlorid 0.9% 500 Ml Inj (Ns 500 M (08/27/17 15:30) Ankle, Complete ([id number]) (08/27/17 ) Knee, Complete (4vws) (08/27/17 ) Oxycodone-Acetamin 5-325 Mg (Percocet (08/27/17 16:30) Consult Orthopedic (08/27/17 ) Admit Order (Ed Use Only) (08/27/17 ) Vital Signs (Adult) Q4H (08/27/17 16:27) Diet Heart Healthy (08/27/17 Dinner) Activity Bed Rest (08/27/17 16:27) Notify Dr: Other (08/27/17 16:27) Labs Laboratory Tests Test 08/27/17 15:30 White Blood Count 9.3 TH/MM3 Red Blood Count 4.47 MIL/MM3 Hemoglobin 12.1 GM/DL Hematocrit 36.9 % Mean Corpuscular Volume 82.7 FL Mean Corpuscular Hemoglobin 27.1 PG Mean Corpuscular Hemoglobin Concent 32.8 % Red Cell Distribution Width 18.9 % Platelet Count 236 TH/MM3 Mean Platelet Volume 8.2 FL Neutrophils (%) (Auto) 71.6 % Lymphocytes (%) (Auto) 22.8 % Monocytes (%) (Auto) 4.3 % Eosinophils (%) (Auto) 0.6 % Basophils (%) (Auto) 0.7 % Neutrophils # (Auto) 6.7 TH/MM3 Lymphocytes # (Auto) 2.1 TH/MM3 Monocytes # (Auto) 0.4 TH/MM3 Eosinophils # (Auto) 0.1 TH/MM3 Basophils # (Auto) 0.1 TH/MM3 CBC Comment DIFF FINAL Differential Comment Blood Urea Nitrogen 19 MG/DL Creatinine 1.85 MG/DL Random Glucose 215 MG/DL Total Protein 6.9 GM/DL Albumin 3.2 GM/DL Calcium Level 9.0 MG/DL Alkaline Phosphatase 96 U/L Aspartate Amino Transf (AST/SGOT) 33 U/L Alanine Aminotransferase (ALT/SGPT) 18 U/L Total Bilirubin 1.3 MG/DL Sodium Level 133 MEQ/L Potassium Level 4.9 MEQ/L Chloride Level 101 MEQ/L Carbon Dioxide Level 22.7 MEQ/L Anion Gap 9 MEQ/L Estimat Glomerular Filtration Rate 27 ML/MIN Troponin I LESS THAN 0.02 NG/ML MDM Medical Decision Making Medical Screen Exam Complete: Yes Emergency Medical Condition: Yes Interpretation(s) My review of EKG: Sinus bradycardia at a rate of 54, normal axis, no definite evidence of acute ischemia. QT interval told a long of 504. LABS: CBC unremarkable. CMP remarkable for mildly elevated BUN and creatinine. Glucose 215. Troponin negative. Chest x-ray negative. Ankle x-ray: Nondisplaced distal fibular fracture. Knee x-ray: Osteopenia. Differential Diagnosis Ankle fracture, ankle sprain, knee injury, head injury, chest pain, ACS, arrhythmia, other Narrative Course Medical decision making 62-year-old woman, ill for the past couple days with nausea vomiting and flulike symptoms, now with a trip and fall and left ankle pain. Some concern for chest pain. Seems very unlikely to be ACS. Nausea vomiting and flulike symptoms seem to be infectious in etiology. EKG shows no definite evidence of acute ischemia. Will check labs, troponin, x-rays of the ankle and the knee, suspect sprain. Reassess. FINAL: Distal fibular fracture, nondisplaced, nonsurgical. May benefit from orthotic boot, PT eval, and evaluation. She lives alone, and may not be a candidate for direct discharge. Plan admission for observation. Physician Communication Physician Communication Spoke with Dr. dowd, will admit. Jonathon Huffman MD Aug 27, 2017 15:46
--- NOTE | 2017-08-27 16:06 | RADRPT ---
EXAM DATE/TIME: 08/27/2017 15:34 [facility] COMPARISON: No previous studies available for comparison. INDICATIONS : Fell today. MEDICAL HISTORY : None. SURGICAL HISTORY : None. ENCOUNTER: Initial ACUITY: 1 day PAIN SCORE: 10/10 LOCATION: Left ankle FINDINGS: 3 views of the left ankle reveal an acute fracture involving the distal fibular metaphysis. This is o bliquely oriented relative to the long axis of the bone. No angulation or distraction. The distal tib ia is intact. No significant soft tissue swelling. CONCLUSION: Nondisplaced distal fibular fracture. Noah Rae Jr., MD on August 27, 2017 at 16:01 Board Certified Radiologist. This report was verified electronically.
[2017-08-27 16:07] LABS: ALKALINE PHOSPHATASE 96 U/L (45-117); TOTAL BILIRUBIN ADULT 1.3 MG/DL (0.2-1.0); TOTAL PROTEIN 6.9 GM/DL (6.4-8.2); TROPONIN I LESS THAN 0.02 NG/ML (0.02-0.05)
--- NOTE | 2017-08-27 16:09 | RADRPT ---
EXAM DATE/TIME: 08/27/2017 15:39 [facility] COMPARISON: No previous studies available for comparison. INDICATIONS : Fell today. MEDICAL HISTORY : None. SURGICAL HISTORY : None. ENCOUNTER: Initial ACUITY: 1 day PAIN SCORE: 10/10 LOCATION: Left knee FINDINGS: Four view examination of the left knee demonstrates no evidence of fracture or dislocation. Bony min eralization is reduced. The articular surfaces are intact. The suprapatellar soft tissues have a no rmal configuration. CONCLUSION: 1. Osteopenia. 2. No acute abnormality. Noah Rae Jr., MD on August 27, 2017 at 16:03 Board Certified Radiologist. This report was verified electronically.
--- NOTE | 2017-08-27 16:11 | RADRPT ---
EXAM DATE/TIME: 08/27/2017 15:47 [facility] COMPARISON: CHEST SINGLE AP, May 29, 2017, 21:20. INDICATIONS : Fell today. MEDICAL HISTORY : None. SURGICAL HISTORY : Coronary artery stent. clavicle surgery ENCOUNTER: Initial ACUITY: 1 day PAIN SCORE: 6/10 LOCATION: Bilateral chest FINDINGS: A single portable frontal view the chest shows chronic elevation of the left hemidiaphragm. Lungs are clear without infiltrate, effusion, or pneumothorax. Heart is normal in size. Orthopedic plate is se en involving the left clavicle. A degenerative mildly scoliotic spine. CONCLUSION: No acute cardiopulmonary disease. Noah Rae Jr., MD on August 27, 2017 at 16:07 Board Certified Radiologist. This report was verified electronically.
[2017-08-27 16:17] LABS: ALBUMIN 3.2 GM/DL (3.4-5.0); ALT (GPT) 18 U/L (10-53); AST (GOT) 33 U/L (15-37); BICARBONATE 22.7 MEQ/L (21.0-32.0); BLOOD UREA NITROGEN 19 MG/DL (7-18); CHLORIDE 101 MEQ/L (98-107); CREATININE 1.85 MG/DL (0.50-1.00); GLOMERULAR FILTRATION RATE 27 ML/MIN (>89); GLUCOSE,RANDOM 215 MG/DL (74-106); SODIUM (NA) 133 MEQ/L (136-145)
[2017-08-27] MEDS ORDERED: oxyCODONE/ACETAMINOPHEN 5 MG/325 MG TAB PO ONE (16:30)
--- NOTE | 2017-08-27 16:59 | HHI.HP ---
[facility] Service [facility] Primary Care Physician Willie Ybarra MD Admission Diagnosis Left fibular fracture Diagnoses: (1) Left fibular fracture (2) Diabetes mellitus, type II (3) Atypical chest pain (4) Acute renal failure superimposed on stage 3 chronic kidney disease Chief Complaint: Left ankle pain Travel History International Travel<30 Days: No Contact w/Intl Traveler <30 Da: No Traveled to Known Affected Are: No History of Present Illness 62-year-old female with a history of COPD on chronic dependent oxygen at night, chronic pain syndrome, hypertension, diabetes type 2 was brought to the ED for evaluation of an acute onset of left ankle pain rated 10 in intensity following a mechanical fall which happened at 6:30 AM this morning. Patient states, early this morning as she was walking back into a room she apparently stepped on a hole inside of her bedroom and her carpet gave away as a result of which patient tripped on and fell onto her left side. She immediately complained of left severe ankle pain as well as left knee pain. Patient states she was unable to stand up and walk. Using her cane, she was able to drag her phone and call EMS. She also complained of chest pain and had one episode of emesis. Patient states she has been sick over the past few days and felt she was dealing with the flu. Otherwise she has no other issues Review of Systems Except as stated in HPI: all other systems reviewed are Neg Past Family Social History Past Medical History Hypertension Diabetes type 2 but not currently on any medication Chronic pain syndrome. Hyperlipidemia. CVA. Chronic kidney disease stage III. Gastroesophageal reflux disease (GERD). Cervical fusion. Past Surgical History Coronary stenting Renal stents Hysterectomy Appendectomy Cholecystectomy Cervical spine surgery Left upper extremity surgery Reported Medications Catapres (Clonidine) 0.1 Mg Tab 0.1 Mg PO Q6H PRN Metoprolol Tartrate 25 Mg Tab 25 Mg PO Q12HR Hydralazine HCl 50 Mg Tablet 50 Mg PO Q8HR Atorvastatin (Atorvastatin Calcium) 40 Mg Tab 80 Mg PO HS Aspirin 325 Mg Tab 325 Mg PO DAILY Reported Prilosec (Omeprazole Magnesium) 20 Mg Tab 40 Mg DAILY Restoril (Temazepam) 15 Mg Cap 15 Mg PO HS PRN Vitamin B-12 (Cyanocobalamin) 1,000 Mcg Tab 1,000 Mcg PO DAILY Methadone (Methadone HCl) 40 Mg Tab 20 Mg PO TID Allergies: Coded Allergies: levofloxacin (Verified Allergy, Severe, Anaphylaxis, 08/27/17) amlodipine (Verified Adverse Reaction, Severe, Swelling, 08/27/17) "left leg swelling" metoclopramide (Verified Adverse Reaction, Severe, Edema, 08/27/17) Family History Mother from complication of myocardial infarction, CAD Social History She denies tobacco, alcohol or illicit drug intake Physical Exam Vital Signs Vital Signs Date Time Temp Pulse Resp B/P (MAP) Pulse Ox O2 Delivery O2 Flow Rate FiO2 08/27/17 16:33 97.9 60 18 152/86 (108) 95 Room Air 08/27/17 15:22 95 Room Air 08/27/17 15:22 18 95 Room Air 08/27/17 15:16 56 18 95 Room Air 08/27/17 15:16 97.9 58 17 164/88 (113) 95 Physical Exam GENERAL: This is a well-nourished, well-developed patient, in no apparent distress. SKIN: No rashes, ecchymoses or lesions. Cool and dry. HEAD: Atraumatic. Normocephalic. No temporal or scalp tenderness. EYES: Pupils equal round and reactive. Extraocular motions intact. No scleral icterus. No injection or drainage. ENT: Nose without bleeding, purulent drainage or septal hematoma. Throat without erythema, tonsillar hypertrophy or exudate. Uvula midline. Airway patent. NECK: Trachea midline. No JVD or lymphadenopathy. Supple, nontender, no meningeal signs. CARDIOVASCULAR: Regular rate and rhythm without murmurs, gallops, or rubs. RESPIRATORY: Clear to auscultation. Breath sounds equal bilaterally. No wheezes , rales, or rhonchi. GASTROINTESTINAL: Abdomen soft, non-tender, nondistended. No hepato-splenomegaly , or palpable masses. No guarding. MUSCULOSKELETAL: Extremities without clubbing, cyanosis, or edema. Left ankle TTP with decrease ROM-neurovascular intact NEUROLOGICAL: Awake and alert. Cranial nerves II through XII intact. Motor and sensory grossly within normal limits. Five out of 5 muscle strength in all muscle groups. Normal speech. Laboratory Laboratory Tests Test 08/27/17 15:30 White Blood Count 9.3 Red Blood Count 4.47 Hemoglobin 12.1 Hematocrit 36.9 Mean Corpuscular Volume 82.7 Mean Corpuscular Hemoglobin 27.1 Mean Corpuscular Hemoglobin Concent 32.8 Red Cell Distribution Width 18.9 Platelet Count 236 Mean Platelet Volume 8.2 Neutrophils (%) (Auto) 71.6 Lymphocytes (%) (Auto) 22.8 Monocytes (%) (Auto) 4.3 Eosinophils (%) (Auto) 0.6 Basophils (%) (Auto) 0.7 Neutrophils # (Auto) 6.7 Lymphocytes # (Auto) 2.1 Monocytes # (Auto) 0.4 Eosinophils # (Auto) 0.1 Basophils # (Auto) 0.1 CBC Comment DIFF FINAL Differential Comment Blood Urea Nitrogen 19 Creatinine 1.85 Random Glucose 215 Total Protein 6.9 Albumin 3.2 Calcium Level 9.0 Alkaline Phosphatase 96 Aspartate Amino Transf (AST/SGOT) 33 Alanine Aminotransferase (ALT/SGPT) 18 Total Bilirubin 1.3 Sodium Level 133 Potassium Level 4.9 Chloride Level 101 Carbon Dioxide Level 22.7 Anion Gap 9 Estimat Glomerular Filtration Rate 27 Troponin I LESS THAN 0.02 Result Diagram: 08/27/17 1530 08/27/17 1530 Imaging Last Impressions Chest X-Ray 08/27/17 1521 Signed Impressions: Service Date/Time: Sunday, August 27, 2017 15:47 - CONCLUSION: No acute cardiopulmonary disease. Noah Rae Jr., MD Knee X-Ray 08/27/17 0000 Signed Impressions: Service Date/Time: Sunday, August 27, 2017 15:39 - CONCLUSION: 1. Osteopenia. 2. No acute abnormality. Noah Rae Jr., MD Ankle X-Ray 08/27/17 0000 Signed Impressions: Service Date/Time: Sunday, August 27, 2017 15:34 - CONCLUSION: Nondisplaced distal fibular fracture. Noah Rae Jr., MD Septic Shock Reassessment Septic shock perfusion: reassessment completed Caprini VTE Risk Assessment Caprini VTE Risk Assessment: No/Low Risk (score <= 1) Caprini Risk Assessment Model Point Value = 1 Point Value = 2 Point Value = 3 Point Value = 5 Age 41-60 Minor surgery BMI > 25 kg/m2 Swollen legs Varicose veins or History of unexplained or recurrent spontaneous Oral contraceptives or hormone replacement Sepsis (< 1 month) Serious lung disease, including pneumonia (< 1 month) Abnormal pulmonary function Acute myocardial infarction Congestive heart failure (< 1 month) History of inflammatory bowel disease Medical patient at bed rest Age 61-74 Arthroscopic surgery Major open surgery (> 45 min) Laparoscopic surgery (> 45 min) Malignancy Confined to bed (> 72 hours) Immobilizing plaster cast Central venous access Age >= 75 History of VTE Family history of VTE Factor V Leiden Prothrombin [id number] Lupus anticoagulant Anticardiolipin antibodies Elevated serum homocysteine Heparin-induced thrombocytopenia Other congenital or acquired thrombophilia Stroke (< 1 month) Elective arthroplasty Hip, pelvis, or leg fracture Acute spinal cord injury (< 1 month) Prophylaxis Regimen Total Risk Factor Score Risk Level Prophylaxis Regimen 0-1 Low Early ambulation 2 Moderate Order ONE of the following: *Sequential Compression Device (SCD) *Heparin 5000 units SQ BID 3-4 Higher Order ONE of the following medications: *Heparin 5000 units SQ TID *Enoxaparin/Lovenox 40 mg SQ daily (WT < 150 kg, CrCl > 30 mL/min) *Enoxaparin/Lovenox 30 mg SQ daily (WT < 150 kg, CrCl > 10-29 mL/min) *Enoxaparin/Lovenox 30 mg SQ BID (WT < 150 kg, CrCl > 30 mL/min) AND/OR *Sequential Compression Device (SCD) 5 or more Highest Order ONE of the following medications: *Heparin 5000 units SQ TID (Preferred with Epidurals) *Enoxaparin/Lovenox 40 mg SQ daily (WT < 150 kg, CrCl > 30 mL/min) *Enoxaparin/Lovenox 30 mg SQ daily (WT < 150 kg, CrCl > 10-29 mL/min) *Enoxaparin/Lovenox 30 mg SQ BID (WT < 150 kg, CrCl > 30 mL/min) AND *Sequential Compression Device (SCD) Assessment and Plan Problem List: (1) Left fibular fracture ICD Code: S82.402A - Unspecified fracture of shaft of left fibula, initial encounter for closed fracture Assessment and Plan 62-year-old female with Left distal fibula fracture ankle x-ray noted and reviewed by me with finding of Distal fibular fracture , nondisplaced Although this appeared to be nonsurgical, however will consult orthopedic surgery for evaluation for possible follow-up outpatient Patient may benefit from orthotic boot PT consult to treat and eval History of diabetes type 2 Labile blood glucose and patient not currently on any treatment Start insulin sliding scale and check hemoglobin A1c Atypical chest pain Secondary to chest contusion status post from mechanical fall However, initial cardiac enzyme and EKG is unremarkable Chest x-ray noted and review by me without any cardio pulmonary disease Acute superimposed on chronic stage III-IV kidney disease Gentle IV fluid hydration Monitor BUN and creatinine and avoid all nephrotoxic drugs History of COPD on chronic dependent oxygen at night No exacerbation DuoNeb when necessary Chronic pain syndrome Resume methadone Other chronic medical conditions occluding hypertension, hyperlipidemia Resume outpatient medications DVT prophylaxis: Bilateral SCDs Code Status Full code Discussed Condition With Patient, ED physician Tomas Carnes MD Aug 27, 2017 16:59
[2017-08-27] MEDS ORDERED: ACETAMINOPHEN 325 MG TAB PO PRN ×2 (17:00)
[2017-08-27] MEDS ORDERED: cloNIDine HCL 0.1 MG TAB PO PRN (17:00)
[2017-08-27] MEDS ORDERED: RESP: ALBUTEROL 2.5 MG/IPRATROPIUM 0.5 MG NEB (PRN) NEB (17:00)
[2017-08-27] MEDS ORDERED: NALOXONE HCL 0.4 MG/ML AMP IV PUSH PRN (17:00)
[2017-08-27] MEDS ORDERED: DEXTROSE 50% IN WATER 50 ML VIAL(D50) IV PUSH PRN (17:00)
[2017-08-27] MEDS ORDERED: SODIUM CHLORIDE 0.9% FLUSH 10 ML FLUSH IV FLUSH PRN (17:00)
[2017-08-27] MEDS ORDERED: GLUCAGON 1 MG/ML VIAL OTHER PRN (17:00)
[2017-08-27] MEDS: INSULIN ASPART SUPPLEMENTAL SCALE SQ SCH ×2 (17:00→21:00)
[2017-08-27] MEDS ORDERED: ACETAMINOPHEN/HYDROcodone 325 MG/5 MG TAB PO PRN (17:00)
[2017-08-27] MEDS: SODIUM CHLOR 0.9% 1000 ML INJ 1,000 ML IV SCH (17:17)
[2017-08-27] MEDS: ONDANSETRON HCL 4 MG/2 ML VIAL IVP PRN ×2 (17:52→22:27)
[2017-08-27] MEDS ORDERED: METHADONE HCL 10 MG TAB PO SCH (18:00)
[2017-08-27] MEDS ORDERED: PANTOPRAZOLE SODIUM 40 MG VIAL IV PUSH ONE (20:00)
[2017-08-27] MEDS ORDERED: MORPHINE SULFATE 2 MG/ML INJ IV PUSH ONE (20:00)
[2017-08-27] MEDS ORDERED: WALKER WHEELS/F1 MIS (20:16)
[2017-08-27] MEDS: SODIUM CHLORIDE 0.9% FLUSH 10 ML FLUSH IV FLUSH SCH (20:50)
[2017-08-27] MEDS ORDERED: TEMAZEPAM 7.5 MG CAP PO ONE (22:15)
[2017-08-27] MEDS: hydrALAZINE HCL 50 MG TAB PO SCH (23:47)
[2017-08-27] MEDS: ATORVASTATIN 80 MG TAB PO SCH (23:47)
[2017-08-27] MEDS: METOPROLOL TARTRATE 25 MG TAB PO SCH (23:47)
[2017-08-28] VITALS (12 sets, daily range): BP systolic 157–256; BP diastolic 96–144; PULSE 67–106; RESP 13–20; TEMP 97.2–99.3; O2SAT 94–98
[2017-08-28] MEDS: ACETAMINOPHEN/HYDROcodone 325 MG/7.5 MG TAB PO PRN ×4 (01:03→22:15)
[2017-08-28] MEDS ORDERED: PROMETHAZINE INJ 25 MG/ML VIAL IM ONE (02:30)
[2017-08-28] MEDS ORDERED: MORPHINE SULFATE 2 MG/ML INJ IV PUSH ONE (04:00)
[2017-08-28] MEDS: ONDANSETRON HCL 4 MG/2 ML VIAL IVP PRN (04:09)
[2017-08-28] MEDS ORDERED: HYDROmorphone HCL PF 2 MG/ML VIAL IV PUSH ONE ×2 (04:15→05:45)
[2017-08-28] MEDS: PANTOPRAZOLE SODIUM 40 MG VIAL IV PUSH SCH (05:05)
--- NOTE | 2017-08-28 06:17 | RADRPT ---
EXAM DATE/TIME: 08/28/2017 05:59 [facility] COMPARISON: ANKLE LEFT COMPLETE ([id number]), August 27, 2017, 15:34. INDICATIONS : Left ankle pain post fall yesterday MEDICAL HISTORY : None. SURGICAL HISTORY : None. ENCOUNTER: Subsequent ACUITY: 2 days PAIN SCORE: 8/10 LOCATION: Left Ankle FINDINGS: Slightly displaced fracture through the distal fibula again seen with overlying soft tissue swelling. Cast in place. Bone density normal. CONCLUSION: Distal fibular fracture again seen. Diogo Palmer MD on August 28, 2017 at 6:14 Board Certified Radiologist. This report was verified electronically.
[2017-08-28] MEDS: PROCHLORPERAZINE INJ 10 MG/2 ML VIAL IV PUSH ONE ×2 (06:42→06:47)
[2017-08-28] MEDS: hydrALAZINE HCL 50 MG TAB PO SCH ×2 (06:49→13:08)
[2017-08-28] MEDS ORDERED: LORazepam 2 MG/ML VIAL IV PUSH ONE (07:00)
[2017-08-28 07:31] LABS: ALBUMIN 3.9 GM/DL (3.4-5.0); ALKALINE PHOSPHATASE 112 U/L (45-117); ALT (GPT) 23 U/L (10-53); AST (GOT) 28 U/L (15-37); BLOOD UREA NITROGEN 19 MG/DL (7-18); CALCIUM 9.3 MG/DL (8.5-10.1); CHLORIDE 106 MEQ/L (98-107); CHOLESTEROL 284 MG/DL (120-200); CHOLESTEROL/ HDL RATIO 6.38 RATIO; CREATININE 1.75 MG/DL (0.50-1.00); GLOMERULAR FILTRATION RATE 29 ML/MIN (>89); GLUCOSE,RANDOM 172 MG/DL (74-106); HDL CHOLESTEROL 44.5 MG/DL (40.0-60.0); SODIUM (NA) 138 MEQ/L (136-145); TOTAL BILIRUBIN ADULT 0.6 MG/DL (0.2-1.0); TOTAL PROTEIN 7.4 GM/DL (6.4-8.2); TRIGLYCERIDES 479 MG/DL (42-150)
[2017-08-28] MEDS: METHADONE HCL 10 MG TAB PO SCH ×3 (07:52→17:44)
[2017-08-28] MEDS: SODIUM CHLOR 0.9% 1000 ML INJ 1,000 ML IV SCH (07:55)
[2017-08-28] MEDS ORDERED: cloNIDine HCL 0.1 MG TAB PO ONE (08:30)
[2017-08-28] MEDS: SODIUM CHLORIDE 0.9% FLUSH 10 ML FLUSH IV FLUSH SCH ×2 (09:00→22:02)
--- NOTE | 2017-08-28 09:16 | HHI.PR ---
Subjective Remarks Follow-up visit left ankle fracture, chronic pain, chronic use of methadone, uncontrolled hypertension. Patient seen and examined today lying in bed. States she is in agonizing pain 10 over 10, all over generalized aggravated by movement and relieved by current pain medication. Patient states she's been on methadone for 11 years and has missed a dose yesterday. Discussed with patient elevated BP and possibly effects from rebound trough from methadone. Patient also complains of left shoulder and arm spasm. Complaints of nausea no vomiting. States feeling feverish, no chills. No diarrhea. Complaints of chest pain secondary to fall tenderness to palpate. Objective Vitals Vital Signs Date Time Temp Pulse Resp B/P (MAP) Pulse Ox O2 Delivery O2 Flow Rate FiO2 08/28/17 07:44 80 222/126 (158) 08/28/17 05:29 92 17 240/138 (172) 95 08/28/17 03:54 240/130 (166) 08/28/17 03:48 99.0 98 17 256/144 (181) 94 246/128 (167) 08/28/17 02:15 99.3 81 17 192/112 (138) 96 203/116 (145) 08/28/17 00:58 67 20 175/96 (122) 98 08/27/17 23:24 99.1 60 16 138/85 (102) 98 08/27/17 19:53 98.4 64 20 134/91 (105) 08/27/17 17:56 98.9 53 18 118/72 (87) 95 08/27/17 17:22 97.8 67 17 152/86 (108) 95 08/27/17 17:19 16 08/27/17 16:33 97.9 60 18 152/86 (108) 95 Room Air 08/27/17 15:22 95 Room Air 08/27/17 15:22 18 95 Room Air 08/27/17 15:16 56 18 95 Room Air 08/27/17 15:16 97.9 58 17 164/88 (113) 95 I/O 08/27/17 08/27/17 08/27/17 08/28/17 08/28/17 08/28/17 07:00 15:00 23:00 07:00 15:00 23:00 Intake Total 500 ml Balance 500 ml Intake IV Total 500 ml # Voids 1 Result Diagram: 08/27/17 1530 08/28/17 0614 Imaging Last Impressions Ankle X-Ray 08/28/17 0000 Signed Impressions: Service Date/Time: Monday, August 28, 2017 05:59 - CONCLUSION: Distal fibular fracture again seen. Diogo Palmer MD Chest X-Ray 08/27/17 1521 Signed Impressions: Service Date/Time: Sunday, August 27, 2017 15:47 - CONCLUSION: No acute cardiopulmonary disease. Noah Rae Jr., MD Knee X-Ray 08/27/17 0000 Signed Impressions: Service Date/Time: Sunday, August 27, 2017 15:39 - CONCLUSION: 1. Osteopenia. 2. No acute abnormality. Noah Rae Jr., MD Objective Remarks GENERAL: This is a well-nourished, well-developed patient, in no apparent distress. SKIN: Warm and dry HEENT: Normocephalic. Pupils equal round and reactive. Nose without bleeding. Airway patent. NECK: Trachea midline. No JVD. Supple. CARDIOVASCULAR: Tachycardia without murmurs, gallops, or rubs. RESPIRATORY: Clear to auscultation. Breath sounds equal bilaterally. No wheezes , rales, or rhonchi. GASTROINTESTINAL: Abdomen soft, non-tender, nondistended. Bowel Sounds normoactive x4. MUSCULOSKELETAL: Extremities without clubbing, cyanosis, or edema. Left lower extremity splint cast in place. NEUROLOGICAL: Awake and alert. Oriented to time, place, person. No focal neuro deficit. Moves all extremities. Normal speech. A/P Problem List: (1) Left fibular fracture ICD Code: S82.402A - Unspecified fracture of shaft of left fibula, initial encounter for closed fracture (2) Diabetes mellitus, type II ICD Code: E11.9 - Type 2 diabetes mellitus without complications (3) Atypical chest pain ICD Code: R07.89 - Other chest pain (4) Acute renal failure superimposed on stage 3 chronic kidney disease ICD Code: N17.9 - Acute kidney failure, unspecified; N18.3 - Chronic kidney disease, stage 3 (moderate) Assessment and Plan 62-year-old female with Left distal fibula fracture - ankle x-ray noted and reviewed by me with finding of Distal fibular fracture, nondisplaced - Although this appeared to be nonsurgical, however will consult orthopedic surgery for evaluation for possible follow-up outpatient - Left lower extremity with Ortho splint and placed. We discussed the patient, recommends follow-up in one week - PT consult to treat and eval - Will Need Rehab placement History of diabetes type 2 - Labile blood glucose and patient not currently on any treatment - Start insulin sliding scale and check hemoglobin A1c Atypical chest pain - Secondary to chest contusion status post from mechanical fall - Initial cardiac enzyme and EKG is unremarkable - Chest x-ray noted and review by me without any cardio pulmonary disease Acute superimposed on chronic stage III-IV kidney disease - Gentle IV fluid hydration, decrease to 30ML /hr due to HTN - Monitor BUN and creatinine and avoid all nephrotoxic drugs History of COPD on chronic dependent oxygen at night - No exacerbation - DuoNeb when necessary Chronic pain syndrome - Resume methadone - Patient has missed methadone dose yesterday possible rebound effect. - Complaints of spasm, baclofen 1. HTN uncontrolled- Urgency - Patient missed methadone and reports she has been o methadone x11 yeras, possible rebound and withdrawal effect - Clonidine dose now, clonidine PRN - Continue home medications metoprolol - Hydralazine 50mg Q8hrs - Monitor BP trend will transfer to inpatient. Continued monitoring. Decrease IVF DVT prophylaxis: Bilateral SCDs Discussed with patient, nursing, Dr. Acosta Discharge Planning Transfer to inpatient Problem Qualifiers (1) Left fibular fracture: Qualified Codes: S82.65XA - Nondisplaced fracture of lateral malleolus of left fibula, initial encounter for closed fracture Paxton Galicia Aug 28, 2017 09:16
[2017-08-28] MEDS ORDERED: BACLOFEN 10 MG TAB PO ONE (09:45)
--- NOTE | 2017-08-28 09:48 | PD.ORT.PN ---
Subjective Subjective Remarks c/o nausea and pain at ankle no new numbness of lower leg splint applied, no change in symptoms Objective Vitals Vital Signs Date Time Temp Pulse Resp B/P (MAP) Pulse Ox O2 Delivery O2 Flow Rate FiO2 08/28/17 09:32 106 212/116 (148) 08/28/17 07:44 80 222/126 (158) 08/28/17 05:29 92 17 240/138 (172) 95 08/28/17 03:54 240/130 (166) 08/28/17 03:48 99.0 98 17 256/144 (181) 94 246/128 (167) 08/28/17 02:15 99.3 81 17 192/112 (138) 96 203/116 (145) 08/28/17 00:58 67 20 175/96 (122) 98 08/27/17 23:24 99.1 60 16 138/85 (102) 98 08/27/17 19:53 98.4 64 20 134/91 (105) 08/27/17 17:56 98.9 53 18 118/72 (87) 95 08/27/17 17:22 97.8 67 17 152/86 (108) 95 08/27/17 17:19 16 08/27/17 16:33 97.9 60 18 152/86 (108) 95 Room Air 08/27/17 15:22 95 Room Air 08/27/17 15:22 18 95 Room Air 08/27/17 15:16 56 18 95 Room Air 08/27/17 15:16 97.9 58 17 164/88 (113) 95 I/O 08/27/17 08/27/17 08/27/17 08/28/17 08/28/17 08/28/17 07:00 15:00 23:00 07:00 15:00 23:00 Intake Total 500 ml Balance 500 ml Intake IV Total 500 ml # Voids 1 Result Diagram: 08/27/17 1530 08/28/17 0614 Imaging Last 24 hours Impressions Ankle X-Ray 08/28/17 0000 Signed Impressions: Service Date/Time: Monday, August 28, 2017 05:59 - CONCLUSION: Distal fibular fracture again seen. Diogo Palmer MD Chest X-Ray 08/27/17 1521 Signed Impressions: Service Date/Time: Sunday, August 27, 2017 15:47 - CONCLUSION: No acute cardiopulmonary disease. Noah Rae Jr., MD I reviewed the post splint x-rays, no further displacement Objective Remarks A&O 3 anxious LLE splint applied, clean with no drainage BCR *5 moves toes in splint calf NT Assessment & Plan Assessment and Plan L ankle lat mal fx, min displaced Cont splint Ice, elevation cont PT efforts to mobilize (apparently she is not very mobile) I reviewed post-splint x-rays -> stable position NWB LLE may require SNF due to immobility and no family at home F/u Dr. Combs in one week Jose Combs MD Aug 28, 2017 09:48
[2017-08-28] MEDS: INSULIN ASPART SUPPLEMENTAL SCALE SQ SCH ×4 (09:55→21:00)
[2017-08-28] MEDS: METOPROLOL TARTRATE 25 MG TAB PO SCH ×2 (09:55→22:00)
[2017-08-28 12:35] LABS: HEMOGLOBIN A1C 8.4 % (4.3-6.0)
--- NOTE | 2017-08-28 13:40 | EKG ---
Date Performed: 08/27/2017 Time Performed: 15:17:02 PTAGE: 62 years EKG: SINUS BRADYCARDIA POSSIBLE LEFT ATRIAL ENLARGEMENT MODERATE ST DEPRESSION PROLONGED QT INTE RVAL When compared to previous tracing, QRS voltage is less Prominant. The ST-T changes are slightly improved. The QT interval is more prolonged. ABNORMAL ECG PREVIOUS TRACING : 05/29/2017 21.10.38 DOCTOR: Willie Carlson Interpretating Date/Time 08/28/2017 13:39:49
--- NOTE | 2017-08-28 13:42 | EKG ---
Date Performed: 08/27/2017 Time Performed: 19:58:45 PTAGE: 62 years EKG: SINUS BRADYCARDIA POSSIBLE LEFT ATRIAL ENLARGEMENT NONSPECIFIC ST & T-WAVE ABNORMALITY. Whe n compared to previous tracing, QT interval slightly shorter, Otherwise no significant change. BORDER LINE ECG PREVIOUS TRACING : 08/27/2017 15.17.02 DOCTOR: Willie Carlson Interpretating Date/Time 08/28/2017 13:41:43
[2017-08-28] MEDS: cloNIDine HCL 0.1 MG TAB PO PRN ×2 (14:41→23:48)
[2017-08-28] MEDS: ATORVASTATIN 80 MG TAB PO SCH (22:01)
[2017-08-28] MEDS: hydrALAZINE HCL 25 MG TAB PO SCH (22:03)
[2017-08-29] VITALS (8 sets, daily range): BP systolic 123–210; BP diastolic 80–125; PULSE 61–82; RESP 16–18; TEMP 96.8–98.5; O2SAT 93–97
[2017-08-29] MEDS: PANTOPRAZOLE SODIUM 40 MG VIAL IV PUSH SCH (05:00)
[2017-08-29 05:58] LABS: HEMATOCRIT 33.6 % (35.0-46.0); HEMOGLOBIN 11.3 GM/DL (11.6-15.3); MEAN CELL VOLUME 82.6 FL (80.0-100.0); MEAN CORPUSCULAR HEMOGLOBIN 27.7 PG (27.0-34.0); MEAN CORPUSCULAR HGB CONC 33.5 % (32.0-36.0); MEAN PLATELET VOLUME 8.1 FL (7.0-11.0); PLATELET COUNT 163 TH/MM3 (150-450); RED BLOOD COUNT 4.06 MIL/MM3 (4.00-5.30); RED CELL DISTRIBUTION WIDTH 19.1 % (11.6-17.2); WHITE BLOOD COUNT 8.8 TH/MM3 (4.0-11.0)
[2017-08-29] MEDS: hydrALAZINE HCL 25 MG TAB PO SCH ×3 (06:00→21:35)
[2017-08-29 06:18] LABS: BICARBONATE 23.3 MEQ/L (21.0-32.0); CALCIUM 8.5 MG/DL (8.5-10.1); CREATININE 1.42 MG/DL (0.50-1.00)
[2017-08-29] MEDS: cloNIDine HCL 0.1 MG TAB PO PRN (08:30)
[2017-08-29] MEDS: METOPROLOL TARTRATE 25 MG TAB PO SCH ×2 (08:30→20:28)
[2017-08-29] MEDS: METHADONE HCL 10 MG TAB PO SCH ×3 (08:32→17:51)
[2017-08-29] MEDS: SODIUM CHLORIDE 0.9% FLUSH 10 ML FLUSH IV FLUSH SCH ×2 (09:00→20:28)
[2017-08-29] MEDS: INSULIN ASPART SUPPLEMENTAL SCALE SQ SCH ×4 (09:35→20:29)
--- NOTE | 2017-08-29 12:14 | EKG ---
Date Performed: 08/28/2017 Time Performed: 17:34:31 PTAGE: 62 years EKG: Sinus rhythm POSSIBLE LEFT ATRIAL ENLARGEMENT NONSPECIFIC ST & T-WAVE ABNORMALITY BORDERLINE ECG Since PREVIOUS TRACING , no significant change noted PREVIOUS TRACIN08/27/2017 19.58 DOCTOR: Willie Carlson Interpretating Date/Time 08/29/2017 12:13:15
[2017-08-29] MEDS ORDERED: cloNIDine HCL 0.1 MG TAB PO SCH (12:30)
--- NOTE | 2017-08-29 13:06 | HHI.PR ---
Subjective Remarks Patient laying in bed Awake alert No event overnight Blood pressure mistakenly was taken with a and suitable cough so the reading was high at discussed with the nurse and we corrected that Objective Vitals Vital Signs Date Time Temp Pulse Resp B/P (MAP) Pulse Ox O2 Delivery O2 Flow Rate FiO2 08/29/17 12:57 98.2 62 16 147/89 (108) 95 08/29/17 08:00 98.5 82 18 210/125 (153) 95 08/29/17 04:05 96.8 68 18 153/86 (108) 93 08/29/17 01:30 123/80 (94) 158/90 (112) 08/29/17 00:00 98.3 79 18 181/118 (139) 97 08/28/17 19:45 97.2 80 17 157/105 (122) 96 Manual Cuff/Auscultation Automatic Cuff 08/28/17 17:45 186/112 (136) 08/28/17 14:30 97.8 88 20 210/112 (144) 97 08/28/17 13:09 93 207/121 (149) I/O 08/28/17 08/28/17 08/28/17 08/29/17 08/29/17 08/29/17 07:00 15:00 23:00 07:00 15:00 23:00 Intake Total 240 ml 120 ml Balance 240 ml 120 ml Intake Oral 240 ml 120 ml # Voids 1 3 1 # Bowel Movements 0 0 Result Diagram: 08/29/17 0506 08/29/17 0506 Objective Remarks GENERAL: This is a well-nourished, well-developed patient, in no apparent distress. SKIN: No rashes, warm and dry HEAD: Atraumatic. Normocephalic. EYES: Pupils equal round and reactive. Extraocular motions intact. No scleral icterus. ENT: Nose without bleeding, or drainage, Airway patent. NECK: Trachea midline. Supple CARDIOVASCULAR: Regular rate and rhythm without murmurs, gallops, or rubs. RESPIRATORY: Fair air entry bilaterally. No wheezes, rales, or rhonchi. GASTROINTESTINAL: Abdomen soft, non-tender, nondistended. Positive bowel sounds MUSCULOSKELETAL: Extremities without clubbing, cyanosis, or edema. Pedal pulses appreciated, patient not able to wiggle her left toes NEUROLOGICAL: Awake and alert. Moves all extremity. Normal speech.no focal neurological deficit A/P Problem List: (1) Left fibular fracture ICD Code: S82.402A - Unspecified fracture of shaft of left fibula, initial encounter for closed fracture (2) Diabetes mellitus, type II ICD Code: E11.9 - Type 2 diabetes mellitus without complications (3) Atypical chest pain ICD Code: R07.89 - Other chest pain (4) Acute renal failure superimposed on stage 3 chronic kidney disease ICD Code: N17.9 - Acute kidney failure, unspecified; N18.3 - Chronic kidney disease, stage 3 (moderate) Assessment and Plan 08/29: Monitor blood pressure, creatinine improved from 1.85-1.42 I will add clonidine to further optimize blood pressure, monitor BP reading 62-year-old female with Left distal fibula fracture - ankle x-ray noted and reviewed by me with finding of Distal fibular fracture, nondisplaced - Although this appeared to be nonsurgical, however will consult orthopedic surgery for evaluation for possible follow-up outpatient - Left lower extremity with Ortho splint and placed. We discussed the patient, recommends follow-up in one week - PT consult to treat and eval - Will Need Rehab placement History of diabetes type 2 - Labile blood glucose and patient not currently on any treatment - Start insulin sliding scale and check hemoglobin A1c Atypical chest pain - Secondary to chest contusion status post from mechanical fall - Initial cardiac enzyme and EKG is unremarkable - Chest x-ray noted and review by me without any cardio pulmonary disease Acute superimposed on chronic stage III-IV kidney disease - Gentle IV fluid hydration, decrease to 30ML /hr due to HTN - Monitor BUN and creatinine and avoid all nephrotoxic drugs History of COPD on chronic dependent oxygen at night - No exacerbation - DuoNeb when necessary Chronic pain syndrome - Resume methadone - Patient has missed methadone dose yesterday possible rebound effect. - Complaints of spasm, baclofen 1. HTN uncontrolled- Urgency - Patient missed methadone and reports she has been o methadone x11 yeras, possible rebound and withdrawal effect - Clonidine dose now, clonidine PRN - Continue home medications metoprolol - Hydralazine 50mg Q8hrs - Monitor BP trend will transfer to inpatient. Continued monitoring. Decrease IVF DVT prophylaxis: Bilateral SCDs Problem Qualifiers (1) Left fibular fracture: Qualified Codes: S82.65XA - Nondisplaced fracture of lateral malleolus of left fibula, initial encounter for closed fracture Niall Carreon MD Aug 29, 2017 13:06
[2017-08-29] MEDS: ACETAMINOPHEN/HYDROcodone 325 MG/7.5 MG TAB PO PRN ×2 (13:33→20:37)
[2017-08-29] MEDS: ATORVASTATIN 80 MG TAB PO SCH (20:28)
[2017-08-29] MEDS: cloNIDine HCL 0.1 MG TAB PO SCH (20:28)
[2017-08-29] MEDS ORDERED: TEMAZEPAM 7.5 MG CAP PO ONE (21:00)
[2017-08-30] VITALS (9 sets, daily range): BP systolic 114–198; BP diastolic 74–111; PULSE 57–82; RESP 18–20; TEMP 96.7–99.7; O2SAT 91–98
[2017-08-30] MEDS: hydrALAZINE HCL 25 MG TAB PO SCH ×3 (05:26→21:39)
[2017-08-30] MEDS: PANTOPRAZOLE SODIUM 40 MG VIAL IV PUSH SCH (05:26)
[2017-08-30] MEDS: ACETAMINOPHEN/HYDROcodone 325 MG/7.5 MG TAB PO PRN ×4 (05:28→20:46)
[2017-08-30] MEDS: INSULIN ASPART SUPPLEMENTAL SCALE SQ SCH ×4 (08:00→20:53)
[2017-08-30] MEDS: cloNIDine HCL 0.1 MG TAB PO SCH ×2 (08:13→20:45)
[2017-08-30] MEDS: MAGNESIUM HYDROXIDE SUSP 30 ML CUP PO PRN ×2 (08:14→20:45)
[2017-08-30] MEDS: METOPROLOL TARTRATE 25 MG TAB PO SCH ×2 (08:14→20:46)
[2017-08-30] MEDS: METHADONE HCL 10 MG TAB PO SCH ×3 (08:14→18:07)
[2017-08-30] MEDS: SODIUM CHLORIDE 0.9% FLUSH 10 ML FLUSH IV FLUSH SCH ×2 (08:15→20:45)
--- NOTE | 2017-08-30 08:18 | HHI.FPPN ---
Subjective Remarks pt c/o weakness and pain d/w rn's Objective Vitals Vital Signs Date Time Temp Pulse Resp B/P (MAP) Pulse Ox O2 Delivery O2 Flow Rate FiO2 08/30/17 07:45 97.9 72 18 144/76 (98) 98 08/30/17 04:40 97.3 57 18 149/90 (109) 98 08/30/17 00:35 96.8 58 18 131/81 (98) 98 08/29/17 20:40 98.2 71 18 139/91 (107) 93 08/29/17 16:00 98.0 65 16 161/98 (119) 95 08/29/17 12:57 98.2 62 16 147/89 (108) 95 08/29/17 12:00 98.2 61 16 147/89 (108) 94 I/O 08/29/17 08/29/17 08/29/17 08/30/17 08/30/17 08/30/17 07:00 15:00 23:00 07:00 15:00 23:00 Intake Total 120 ml 840 ml 360 ml Balance 120 ml 840 ml 360 ml Intake Oral 120 ml 840 ml 360 ml # Voids 1 6 1 # Bowel Movements 0 0 0 Result Diagram: 08/29/17 0506 08/29/17 0506 Objective Remarks GENERAL: SKIN: Warm and dry. HEAD: Atraumatic. Normocephalic. EYES: Pupils equal and round. No scleral icterus. No injection or drainage. ENT: No nasal bleeding or discharge. Mucous membranes pink and moist. NECK: Trachea midline. No JVD. CARDIOVASCULAR: Regular rate and rhythm. RESPIRATORY: No accessory muscle use. Clear to auscultation. Breath sounds equal bilaterally. GASTROINTESTINAL: Abdomen soft, non-tender, nondistended. Hepatic and splenic margins not palpable. MUSCULOSKELETAL: Extremities without clubbing, cyanosis, or edema. No obvious deformities. NEUROLOGICAL: Awake and alert. No obvious cranial nerve deficits. Motor grossly within normal limits. Five out of 5 muscle strength in the arms and legs. Normal speech. LE WRAPPED PSYCHIATRIC: Appropriate mood and affect; insight and judgment normal. Medications and IVs Current Medications Medications (Trade) Dose Ordered Sig/Ann Route Start Time Stop Time Status Last Admin (NS Flush) 2 ml UNSCH PRN IV FLUSH 08/27/17 17:00 (NS Flush) 2 ml BID IV FLUSH 08/27/17 21:00 08/30/17 08:15 (Tylenol) 650 mg Q4H PRN PO 08/27/17 17:00 (Zofran Inj) 4 mg Q6H PRN IVP 08/27/17 17:00 08/28/17 04:09 (Tylenol) 650 mg Q6H PRN PO 08/27/17 17:00 ([place] 5-325 Mg) 1 tab Q4H PRN PO 08/27/17 17:00 ([place] 7.5-325 Mg) 1 tab Q4H PRN PO 08/27/17 17:00 08/30/17 05:28 (Narcan Inj) 0.4 mg UNSCH PRN IV PUSH 08/27/17 17:00 (Milk Of Magnesia Liq) 30 ml Q12H PRN PO 08/27/17 17:00 08/30/17 08:14 (Duoneb Neb) 1 ampule Q2HR NEB PRN NEB 08/27/17 17:00 (D50w (Vial) Inj) 50 ml UNSCH PRN IV PUSH 08/27/17 17:00 (Glucagon Inj) 1 mg UNSCH PRN OTHER 08/27/17 17:00 (NovoLOG SUPPLEMENTAL SCALE) 1 ACHS SLIDING SCALE SQ 08/27/17 17:00 08/30/17 08:00 (Lipitor) 80 mg HS PO 08/27/17 21:00 08/29/17 20:28 (Protonix Inj) 40 mg Q24H IV PUSH 08/28/17 05:00 08/30/17 05:26 (Dolophine) 20 mg TID PO 08/28/17 07:30 08/30/17 08:14 (Catapres) 0.1 mg Q6H PRN PO 08/28/17 10:15 08/29/17 08:30 (Apresoline) 75 mg Q8HR PO 08/28/17 22:00 08/30/17 05:26 (Lopressor) 50 mg Q12HR PO 08/28/17 21:00 08/30/17 08:14 (Catapres) 0.1 mg BID PO 08/29/17 21:00 08/30/17 08:13 A/P Assessment and Plan A/P: Left distal fibula fracture - orthopedic surgery for evaluation for possible follow-up outpatient - Left lower extremity with Ortho splint and placed. We discussed the patient, recommends follow-up in one week - PT consult to treat and eval - Will Need Rehab placement- 3008 IN CHART. TRYING TO PLACE PATIENT TODAY OR TOMORROW.... 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 - Gentle IV fluid hydration, - Monitor BUN and creatinine and avoid all nephrotoxic drugs History of COPD on chronic dependent oxygen at night - No exacerbation - DuoNeb when necessary Chronic pain syndrome - Resume methadone HTN uncontrolled- Urgency - Patient missed methadone and reports she has been o methadone x11 yeras, possible rebound and withdrawal effect - Clonidine dose now, clonidine PRN - Continue home medications metoprolol - Hydralazine 50mg Q8hrs - Monitor BP trend DVT prophylaxis: Bilateral SCDs DISPO: ORDERS DONE TO GO TO SNF, PENDING PLACEMENT Willie Ybarra MD Aug 30, 2017 08:18
[2017-08-30] MEDS ORDERED: METH10TA PO (08:33)
[2017-08-30] MEDS ORDERED: CLON.1 PO (08:33)
[2017-08-30] MEDS ORDERED: HYDR-3516 PO (08:33)
[2017-08-30] MEDS ORDERED: REST15CA PO (08:33)
[2017-08-30] MEDS ORDERED: HYDR-3580 PO (08:33)
--- NOTE | 2017-08-30 08:34 | HHI.DCPOC ---
Discharge Care Plan Diagnosis: (1) Left fibular fracture (2) Acute renal failure superimposed on stage 3 chronic kidney disease (3) Atypical chest pain (4) Diabetes mellitus, type II (5) Hypertension (6) Spasmodic torticollis (7) Chest pain, rule out acute myocardial infarction (8) CVA (cerebral vascular accident) Goals to Promote Your Health * To prevent worsening of your condition and complications * To maintain your health at the optimal level Directions to Meet Your Goals Take your medications as prescribed Follow your dietary instruction Follow activity as directed Keep your appointments as scheduled Take your immunizations and boosters as scheduled If your symptoms worsen call your PCP, if no PCP go to Urgent Care Center or Emergency Room Smoking is Dangerous to Your Health. Avoid second hand smoke Call the 24-hour hour crisis hotline for domestic abuse at Willie Ybarra MD Aug 30, 2017 08:34
--- NOTE | 2017-08-30 08:35 | HHI.DS ---
Discharge Summary Admission Date Aug 28, 2017 at 10:56 Discharge Date: Aug 30, 2017 Admitting Diagnosis Left fibular fracture (1) Left fibular fracture ICD Codes: S82.402A - Unspecified fracture of shaft of left fibula, initial encounter for closed fracture (2) Diabetes mellitus, type II ICD Codes: E11.9 - Type 2 diabetes mellitus without complications (3) Atypical chest pain ICD Codes: R07.89 - Other chest pain (4) Acute renal failure superimposed on stage 3 chronic kidney disease ICD Codes: N17.9 - Acute kidney failure, unspecified; N18.3 - Chronic kidney disease, stage 3 (moderate) CBC/BMP: 08/29/17 0506 08/29/17 0506 Significant Findings Laboratory Tests Test 08/27/17 15:30 08/27/17 20:40 08/28/17 06:14 08/29/17 05:06 Red Cell Distribution Width 18.9 % (11.6-17.2) 19.1 % (11.6-17.2) Neutrophils (%) (Auto) 71.6 % (16.0-70.0) Blood Urea Nitrogen 19 MG/DL (7-18) 19 MG/DL (7-18) Creatinine 1.85 MG/DL (0.50-1.00) 1.75 MG/DL (0.50-1.00) 1.42 MG/DL (0.50-1.00) Random Glucose 215 MG/DL (74-106) 172 MG/DL (74-106) 130 MG/DL (74-106) Albumin 3.2 GM/DL (3.4-5.0) Total Bilirubin 1.3 MG/DL (0.2-1.0) Sodium Level 133 MEQ/L (136-145) Estimat Glomerular Filtration Rate 27 ML/MIN (>89) 29 ML/MIN (>89) 37 ML/MIN (>89) Troponin I LESS THAN 0.02 NG/ML LESS THAN 0.02 NG/ML Hemoglobin A1c 8.4 % (4.3-6.0) Triglycerides Level 479 MG/DL (42-150) Cholesterol Level 284 MG/DL (120-200) Hemoglobin 11.3 GM/DL (11.6-15.3) Hematocrit 33.6 % (35.0-46.0) Chloride Level 110 MEQ/L (98-107) Pt Condition on Discharge: Stable Discharge Disposition: Discharge to SNF Discharge Instructions DIET: Follow Instructions for: Heart Healthy Diet Activities you can perform: Non Weight Bearing Additional Information PEDNING PLACEMENT, ORDERS DONE... Willie Ybarra MD Aug 30, 2017 08:35
--- NOTE | 2017-08-30 08:41 | MB ---
cc: JEROD RILEY DATE OF CONSULTATION 08/27/2017 DATE OF 1955 CHIEF COMPLAINT Fall with left knee and left ankle pain. HISTORY OF PRESENT ILLNESS This is a 62-year-old female who has a history of coronary artery disease, COPD, hypertension, cardiac stents x5. The patient states that this morning around 6:30 a.m. she was walking in her trailer when the floor gave way under her and she fell in a hold. The patient states she landed on her left ankle and knee. The patient was unable to walk and had to crawl to the kitchen. The patient states she ended up calling the ambulance and was transported to the emergency department. The patient recently has been sick and has had vomiting. The patient also had some chest pain prior to her arrival. An EKG was done and there were some nonspecific ST depressions seen. Currently the patient states having severe pain to the left ankle and moderate pain to the left knee. The patient states she is unable to walk or weight bear on the left lower extremity. The patient is limited with active range of motion secondary to pain. The patient denies any previous injury to the left ankle or knee and denies any tingling or numbness about the left lower extremity. PAST MEDICAL HISTORY 1. COPD. 2. Coronary artery disease. 3. TIA. 4. Hypertension. 5. High cholesterol. 6. Reflux. PAST SURGICAL HISTORY 1. Total hysterectomy. 2. Gallbladder removal. 3. Appendectomy. 4. Right shoulder arthroscopic surgery. 5. Cervical spine surgery. 6. Left clavicle surgery. 7. Left wrist surgery. SOCIAL HISTORY The patient denies any current tobacco or alcohol use. ALLERGIES 1. LEVOFLOXACIN. 2. AMLODIPINE. 3. METOCLOPRAMIDE. MEDICATIONS 1. Clonidine 0.1 mg q.6h. as needed for hypertension. 2. Metoprolol tartrate 25 mg by mouth twice a day. 3. Hydralazine HCl 50 mg by mouth q.8h. 4. Atorvastatin 40 mg, two tablets by mouth at night. 5. Aspirin 325 mg tablet by mouth daily. REVIEW OF SYSTEMS Negative x12 except for what is stated in the HPI. PHYSICAL EXAMINATION VITAL SIGNS: Temperature 98.4, heart rate 64, respirations 20, blood pressure 134/91, oxygen saturations 95% on room air. GENERAL: A 62-year-old frail white female in mild distress. SKIN: Warm and dry. HEAD: Atraumatic and normocephalic. EYES: ELVIA. EARS, NOSE, AND THROAT: The patient has pink oral mucosa with no nasal bleeding or discharge. NECK: Trachea is midline. Neck is supple. CARDIOVASCULAR: The patient has 2+ radial and pedal pulses bilaterally. PULMONARY: The patient has symmetric chest wall rise and nonlabored breathing. ABDOMEN: The patient's abdomen is soft, nontender and nondistended. EXTREMITIES: The patient has good range of motion and no tenderness about the right ankle, right knee, and bilateral hips. The patient has good range of motion and no tenderness about the bilateral wrists, elbows and shoulders. The patient does have some mild swelling laterally about the left ankle with tenderness to palpation. Skin is intact about the left ankle. The patient has limited with active and passive range of motion of the left ankle. The patient has an area of ecchymosis about the midshaft tibia with some mild tenderness. The patient has some mild tenderness to the left knee. Skin is intact about the left knee. I do not appreciate an effusion to the knee. The patient does have limited active and passive range of motion due to discomfort. NEUROLOGIC: The patient is alert and oriented x3 with no obvious cranial nerve deficits. PSYCHIATRIC: The patient has appropriate mood and affect. LABORATORY Labs taken on 08/27/2017 show a white blood cell 9.3, hemoglobin 12.1, hematocrit 36.9, platelets 236, creatinine 1.85, glucose 215, and troponin less than 0.02. IMAGING X-ray four views of the left knee on 08/27/2017 read as osteopenia with no acute abnormality. I did review these images and agree with the radiologist's interpretation. X-ray three views of the left ankle taken on 08/27/2017 reads as a nondisplaced distal fibular fracture. I did review these images and agree with the radiologist's interpretation; however, there is minimal displacement and overall good alignment of the distal fibular fracture. IMPRESSION 1. Left knee contusion. 2. Left ankle closed, nondisplaced distal fibula fracture. MEDICAL DECISION-MAKING Based on the x-ray findings of the left ankle I do feel that we can remain conservative, at least at this time. I discussed the diagnosis in detail with the patient. I informed the patient that I would like her to be placed in a splint for immobilization of the left ankle. The patient understands she should be non-weightbearing on the left ankle. I have ordered a splint to be placed on in the emergency department. I have also ordered a walker to help assist with non-weightbearing ambulation. Physical therapy should work with the patient to teach appropriate gait training. The patient understands that her current fracture will need to be followed closely over the next week or two to ensure there is no further displacement. The patient understands if there were to be further displacement of the fracture she had would likely require surgical management. I have reviewed the above impression and plan of care with Dr. Riley and he agrees with this documentation. Dictated by: NEO Salazar MD MERRITT Rust/JERAMY /8:17 PM /8:39 AM
[2017-08-30] MEDS ORDERED: BISACODYL 10 MG SUPP RECTAL PRN (17:00)
[2017-08-30] MEDS: ONDANSETRON HCL 4 MG/2 ML VIAL IVP PRN (18:34)
[2017-08-30] MEDS: ATORVASTATIN 80 MG TAB PO SCH (20:46)
[2017-08-30] MEDS ORDERED: TEMAZEPAM 7.5 MG CAP PO ONE (21:00)
[2017-08-31 04:30] VITALS: BP 151/85; PULSE 66; RESP 19; TEMP 96.6; O2SAT 99
[2017-08-31] MEDS: hydrALAZINE HCL 25 MG TAB PO SCH ×2 (06:34→13:16)
[2017-08-31] MEDS: ACETAMINOPHEN/HYDROcodone 325 MG/7.5 MG TAB PO PRN ×2 (06:35→10:40)
[2017-08-31 08:00] VITALS: BP 157/80; PULSE 76; RESP 18; TEMP 98.6; O2SAT 92
[2017-08-31] MEDS: ONDANSETRON HCL 4 MG/2 ML VIAL IVP PRN (08:37)
[2017-08-31] MEDS: METHADONE HCL 10 MG TAB PO SCH ×2 (08:37→13:17)
[2017-08-31] MEDS: METOPROLOL TARTRATE 25 MG TAB PO SCH (08:38)
[2017-08-31] MEDS: cloNIDine HCL 0.1 MG TAB PO SCH (08:38)
[2017-08-31] MEDS: SODIUM CHLORIDE 0.9% FLUSH 10 ML FLUSH IV FLUSH SCH (08:39)
[2017-08-31] MEDS ORDERED: PANTOPRAZOLE SOD 40 MG DELAYED RELEASE TAB PO SCH (09:00)
[2017-08-31] MEDS ORDERED: VIST25CA PO (09:04)
--- NOTE | 2017-08-31 09:07 | HHI.DS ---
Discharge Summary Admission Date Aug 28, 2017 at 10:56 Discharge Date: Aug 31, 2017 Admitting Diagnosis Left fibular fracture (1) Left fibular fracture ICD Codes: S82.402A - Unspecified fracture of shaft of left fibula, initial encounter for closed fracture (2) Diabetes mellitus, type II ICD Codes: E11.9 - Type 2 diabetes mellitus without complications (3) Atypical chest pain ICD Codes: R07.89 - Other chest pain (4) Acute renal failure superimposed on stage 3 chronic kidney disease ICD Codes: N17.9 - Acute kidney failure, unspecified; N18.3 - Chronic kidney disease, stage 3 (moderate) CBC/BMP: 08/29/17 0506 08/29/17 0506 Significant Findings Laboratory Tests Test 08/29/17 05:06 Hemoglobin 11.3 GM/DL (11.6-15.3) Hematocrit 33.6 % (35.0-46.0) Red Cell Distribution Width 19.1 % (11.6-17.2) Creatinine 1.42 MG/DL (0.50-1.00) Random Glucose 130 MG/DL (74-106) Chloride Level 110 MEQ/L (98-107) Estimat Glomerular Filtration Rate 37 ML/MIN (>89) PE at Discharge GENERAL: SKIN: Warm and dry. HEAD: Atraumatic. Normocephalic. EYES: Pupils equal and round. No scleral icterus. No injection or drainage. ENT: No nasal bleeding or discharge. Mucous membranes pink and moist. NECK: Trachea midline. No JVD. CARDIOVASCULAR: Regular rate and rhythm. RESPIRATORY: No accessory muscle use. Clear to auscultation. Breath sounds equal bilaterally. GASTROINTESTINAL: Abdomen soft, non-tender, nondistended. Hepatic and splenic margins not palpable. MUSCULOSKELETAL: Extremities without clubbing, cyanosis, or edema. No obvious deformities. NEUROLOGICAL: Awake and alert. No obvious cranial nerve deficits. Motor grossly within normal limits. Five out of 5 muscle strength in the arms and legs. Normal speech. PSYCHIATRIC: Appropriate mood and affect; insight and judgment normal. Hospital Course HOSPITAL COURSE AND PLAN WAS TO - Left distal fibula fracture - orthopedic surgery for evaluation for possible follow-up outpatient - Left lower extremity with Ortho splint and placed. We discussed the patient, recommends follow-up in one week - PT consult to treat and eval - Will Need Rehab placement- 3008 IN CHART. TRYING TO PLACE PATIENT TODAY OR TOMORROW.... 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 Pt Condition on Discharge: Good Discharge Disposition: Discharge to SNF Discharge Instructions DIET: Follow Instructions for: Heart Healthy Diet Activities you can perform: Non Weight Bearing Follow up Referrals: Orthopedics with Jose Combs MD New Medications: Hydroxyzine Pamoate (Vistaril) 25 Mg Cap 25 MG PO Q6H PRN for ANXIETY AND/OR INSOMNIA, #30 CAP 0 Refills Walker with Front Wheels (Walker with Front Wheels) 1 Mis Mis EA .XX DIRECTED, #1 0 Refills Clonidine (Catapres) 0.1 Mg Tab 0.1 MG PO BID for htn for 30 Days, #60 TAB Hydrocodone/Acetaminophen (Hydrocodone-Acetamin 7.5-325) 7.5 Mg-325 Mg Tablet 1 TAB PO Q4H PRN for PAIN SCALE 6 TO 10, #90 TAB Hydrocodone/Acetaminophen (Hydrocodone-Acetamin 5-325 mg) 5 Mg-325 Mg Tablet 1 TAB PO Q4H PRN for PAIN SCALE 3 TO 5, #90 TAB Methadone (Methadone) 10 Mg Tab 20 MG PO TID for Pain Management, #90 TAB Continued Medications: Aspirin (Aspirin) 325 Mg Tab 325 MG PO DAILY for cad, #30 TAB 0 Refills Atorvastatin (Atorvastatin) 40 Mg Tab 80 MG PO HS for cad, #30 TAB 0 Refills Clonidine (Catapres) 0.1 Mg Tab 0.1 MG PO Q6H PRN for SBP>180, DBP>95, #90 TAB 10 Refills Cyanocobalamin (Vitamin B-12) 1,000 Mcg Tab 1000 MCG PO DAILY for Nutritional Supplement, #1 BOTTLE 0 Refills Hydralazine HCl (Hydralazine HCl) 50 Mg Tablet 50 MG PO Q8HR for hypertension, #90 TAB 0 Refills Metoprolol Tartrate (Metoprolol Tartrate) 25 Mg Tab 25 MG PO Q12HR for CAD, #60 TAB 0 Refills Omeprazole Magnesium (Prilosec) 20 Mg Tab 40 MG DAILY Temazepam (Restoril) 15 Mg Cap 15 MG PO HS PRN for INSOMNIA, #30 CAP 0 Refills (This prescription has been renewed) Discontinued Medications: Methadone (Methadone) 40 Mg Tab 20 MG PO TID, TAB 0 Refills Willie Ybarra MD Aug 31, 2017 09:07
[2017-08-31] MEDS: INSULIN ASPART SUPPLEMENTAL SCALE SQ SCH ×3 (09:22→17:00)
[2017-08-31 10:45] VITALS: BP 179/95
[2017-08-31 11:49] VITALS: BP 164/103
[2017-08-31] MEDS: cloNIDine HCL 0.1 MG TAB PO PRN (11:49)
[2017-08-31 14:14] VITALS: BP 142/79; PULSE 64
[2017-08-31 16:00] VITALS: BP 161/98; PULSE 72; RESP 18; TEMP 97.1; O2SAT 92
== END 2017-08-31 17:10 | DRG 563 ==
LOC: NEPE 15:11 → NEDA 16:29 → NEPHCDU 17:42 → OBSVTOIN 08-28 10:56 → N06B 08-28 14:15
PROVIDERS: ADMIT Family Medicine; ATTEND Family Medicine
DX: S82.62XA Displaced fracture of lateral malleolus of left fibula, initial encounter for closed fracture (principal); E11.22 Type 2 diabetes mellitus with diabetic chronic kidney disease; Z99.81 Dependence on supplemental oxygen; N17.9 Acute kidney failure, unspecified; N18.3 Chronic kidney disease, stage 3 (moderate); S80.02XA Contusion of left knee, initial encounter; G89.4 Chronic pain syndrome; I12.9 Hypertensive chronic kidney disease with stage 1 through stage 4 chronic kidney disease, or unspecified chronic kidney disease; I25.10 Atherosclerotic heart disease of native coronary artery without angina pectoris; R07.89 Other chest pain; S20.219A Contusion of unspecified front wall of thorax, initial encounter; I16.0 Hypertensive urgency; K21.9 Gastro-esophageal reflux disease without esophagitis; K59.00 Constipation, unspecified; W01.0XXA Fall on same level from slipping, tripping and stumbling without subsequent striking against object, initial encounter; Y93.01 Activity, walking, marching and hiking; Y92.003 Bedroom of unspecified non-institutional (private) residence as the place of occurrence of the external cause; Z79.891 Long term (current) use of opiate analgesic; Z87.891 Personal history of nicotine dependence; Z95.5 Presence of coronary angioplasty implant and graft; Z88.1 Allergy status to other antibiotic agents; Z88.8 Allergy status to other drugs, medicaments and biological substances
CPT/HCPCS: 71045; 73564; 73610; 80048; 80053; 80061; 82948; 83036; 84484; 85025; 85027; 93005; 96361; 96372; 96374; 96375; 96376; C9113; G0378; G8987-GP; G8988-GP; J0780; J1170; J1815; J2060; J2270; J2405; J2550; J7030; J7040; L0150

== ENCOUNTER 2017-09-23 21:01 | Inpatient (IN) | payer MEDICARE, OTHER ==
[~2017-09-23] VITALS: Ht 162.6 cm; Wt 72.5 kg
[~2017-09-23 21:01] MED LIST changes: -BACT800T5 PO; +HYDR-3516 PO; -HYDR-3533 PO; +HYDR-3580 PO; +METH10TA PO; -METH40TA PO; -PRIL20CA9 PO; +PRIL20TA2; +VIST25CA PO; +WALKER WHEELS/F1 MIS
[2017-09-23 21:04] VITALS: BP 174/102; PULSE 109; RESP 20; O2SAT 93
[2017-09-23 21:15] VITALS: TEMP 98.8; O2SAT 92
[2017-09-23] MEDS ORDERED: SODIUM CHLORIDE 0.9% FLUSH 10 ML FLUSH IVF PRN (21:15)
[2017-09-23] MEDS ORDERED: ROBA750T PO (21:27)
[2017-09-23] MEDS ORDERED: ZOFR4TAB PO (21:27)
[2017-09-23] MEDS ORDERED: ALPR.5 PO (21:27)
[2017-09-23] MEDS ORDERED: IPRASOL INH (21:27)
[2017-09-23] MEDS ORDERED: GABA100C4 PO (21:27)
[2017-09-23] MEDS ORDERED: TRAZ100T10 PO (21:27)
[2017-09-23] MEDS ORDERED: TIZA4TAB PO (21:27)
[2017-09-23 21:30] LABS: AUTOMATED NEUTROPHIL # 10.5 TH/MM3 (1.8-7.7); BASOPHIL % 0.4 % (0.0-2.0); EOSINOPHIL # 0.2 TH/MM3 (0-0.4); EOSINOPHIL % 1.6 % (0.0-4.0); HEMATOCRIT 27.3 % (35.0-46.0); HEMOGLOBIN 8.7 GM/DL (11.6-15.3); LYMPH % 8.5 % (9.0-44.0); MEAN CELL VOLUME 87.7 FL (80.0-100.0); MEAN CORPUSCULAR HEMOGLOBIN 28.1 PG (27.0-34.0); MEAN PLATELET VOLUME 8.5 FL (7.0-11.0); MONO % 4.4 % (0.0-8.0); MONOCYTE # 0.5 TH/MM3 (0-0.9); NEUT % 85.1 % (16.0-70.0); PLATELET COUNT 160 TH/MM3 (150-450); RED BLOOD COUNT 3.11 MIL/MM3 (4.00-5.30); RED CELL DISTRIBUTION WIDTH 20.1 % (11.6-17.2); WHITE BLOOD COUNT 12.3 TH/MM3 (4.0-11.0)
[2017-09-23 21:31] VITALS: O2SAT 94
--- NOTE | 2017-09-23 21:36 | RADRPT ---
EXAM DATE/TIME: 09/23/2017 21:17 [facility] COMPARISON: CHEST SINGLE AP, August 27, 2017, 15:47. INDICATIONS : Chest pain, short of breath MEDICAL HISTORY : Coronary artery stent. clavicle surgery SURGICAL HISTORY : None. ENCOUNTER: Initial ACUITY: 1 day PAIN SCORE: 8/10 LOCATION: chest FINDINGS: There is persistent elevation of left hemidiaphragm. Right basilar patchiness is noted consistent wit h probable pneumonia. Clinical correlation is recommended. CONCLUSION: Right basilar pneumonia. Jose Luis Slater MD on September 23, 2017 at 21:35 Board Certified Radiologist. This report was verified electronically.
[2017-09-23 21:37] LABS: INTERNATIONAL NORMALIZED RATIO 1.1 RATIO; PROTHROMBIN TIME - PATIENT 11.2 SEC (9.8-11.6)
[2017-09-23] MEDS ORDERED: CEFEPIME INJ 1,000 MG in SODIUM CHLORIDE 0.9% INJ 100 ML IV ONE (21:45)
[2017-09-23] MEDS ORDERED: AZITHROMYCIN INJ 500 MG in SODIUM CHLOR 0.9% 250 ML INJ 250 ML IV ONE (21:45)
[2017-09-23 21:52] LABS: ALBUMIN 3.1 GM/DL (3.4-5.0); ALT (GPT) 34 U/L (10-53); AST (GOT) 30 U/L (15-37); BICARBONATE 25.5 MEQ/L (21.0-32.0); BLOOD UREA NITROGEN 26 MG/DL (7-18); CALCIUM 9.8 MG/DL (8.5-10.1); CHLORIDE 105 MEQ/L (98-107); CREATININE 1.79 MG/DL (0.50-1.00); GLOMERULAR FILTRATION RATE 29 ML/MIN (>89); GLUCOSE,RANDOM 167 MG/DL (74-106); MAGNESIUM 1.6 MG/DL (1.5-2.5); SODIUM (NA) 140 MEQ/L (136-145)
[2017-09-23 21:56] LABS: ALKALINE PHOSPHATASE 128 U/L (45-117); TOTAL BILIRUBIN ADULT 0.2 MG/DL (0.2-1.0); TOTAL PROTEIN 6.8 GM/DL (6.4-8.2); TROPONIN I 0.05 NG/ML (0.02-0.05)
[2017-09-23] MEDS ORDERED: VANCOMYCIN INJ 1,000 MG in SODIUM CHLOR 0.9% 250 ML INJ 250 ML IV ONE (22:00)
--- NOTE | 2017-09-23 22:07 | PD ---
HPI Chief Complaint: Chest Pain Time Seen by Provider: 21:07 Travel History International Travel<30 days: No Contact w/Intl Traveler<30days: No Traveled to known affect area: No History of Present Illness HPI 62-year-old female with history of COPD, recently admitted for a left fibula fracture, and discharged to a alf, brought in from her alf today for evaluation of shortness of breath, chest tightness, possible methadone withdrawal. EMS noted her sats to be in the low 80s and provided to albuterol treatments prior to arrival. Upon arrival to the emergency department , the patient still complains of shortness of breath. She is unsure if she has had a cough. She complains of diffuse chest tightness. She does not know if she has any history of cardiac disease. PFSH Past Medical History Hx Anticoagulant Therapy: Yes (ASA) Anemia: Yes Arthritis: No Asthma: No Blood Disorders: No Anxiety: Yes Depression: Yes Heart Rhythm Problems: No Cancer: No Cardiac Catheterization: Yes Cardiovascular Problems: Yes (HBP) High Cholesterol: Yes Chemotherapy: No Chest Pain: Yes Congestive Heart Failure: No COPD: Yes Cerebrovascular Accident: Yes (2014) Coronary Artery Disease: Yes Diabetes: Yes (PT STATES DOES NOT TAKE MEDS) Patient Takes Glucophage: No Diminished Hearing: No Endocrine: No Gastrointestinal Disorders: Yes (GI BLEED) GERD: Yes Genitourinary: Yes Headaches: Yes Hepatitis: No Hypertension: Yes Immune Disorder: No Implanted Vascular Access Dvce: Yes Kidney Stones: Yes Musculoskeletal: Yes (SCOLIOSIS,TORTICOLIS) Neurologic: Yes Psychiatric: Yes Reproductive: No Respiratory: Yes (COPD BRONCHITIS ) Immunizations Current: Yes Migraines: Yes Pneumonia: Yes Radiation Therapy: No Renal Failure: Yes Seizures: No Sleep Apnea: Yes ("she thinks so"- no cpap) Thyroid Disease: No PNEUMOCCOCAL Vaccine (Year): 1 Menopausal: Yes : 2 Para: 1 Miscarriage: 1 Past Surgical History Abdominal Surgery: Yes AICD: No Appendectomy: Yes Body Medical Devices: WIRE CAGE IN NECK - PLATE IN LEFT WRIST & LEFT CLAVICLE, stents Cardiac Surgery: Yes (STENTS cardiac, renal stents) Cholecystectomy: Yes Coronary Artery Bypass Graft: No Coronary Stent: Yes (x4) Ear Surgery: No Eye Surgery: No Gynecologic Surgery: Yes (HYST) Hysterectomy: Yes Neurologic Surgery: Yes (C3 C4 ) Oral Surgery: No Pacemaker: No Tonsillectomy: Yes Other Surgery: Yes Family History Family Myocardial Infarction: Yes Social History Alcohol Use: No Tobacco Use: No (former smoker QUIT 20 YEARS AGO) Substance Use: No Allergies-Medications (Allergen,Severity, Reaction): Coded Allergies: levofloxacin (Verified Allergy, Severe, Anaphylaxis, 09/23/17) amlodipine (Verified Adverse Reaction, Severe, Swelling, 09/23/17) "left leg swelling" metoclopramide (Verified Adverse Reaction, Severe, Edema, 09/23/17) Reported Meds & Prescriptions Reported Meds & Active Scripts Active Vistaril (Hydroxyzine Pamoate) 25 Mg Cap 25 Mg PO Q6H PRN Hydrocodone-Acetamin 5-325 mg (Hydrocodone/Acetaminophen) 5 Mg-325 Mg Tablet 1 Tab PO Q4H PRN Hydrocodone-Acetamin 7.5-325 (Hydrocodone/Acetaminophen) 7.5 Mg-325 Mg Tablet 1 Tab PO Q4H PRN Methadone (Methadone HCl) 10 Mg Tab 20 Mg PO TID Catapres (Clonidine) 0.1 Mg Tab 0.1 Mg PO BID 30 Days Restoril (Temazepam) 15 Mg Cap 15 Mg PO HS PRN Walker with Front Wheels (Device) 1 Mis Mis Ea .XX DIRECTED Catapres (Clonidine) 0.1 Mg Tab 0.1 Mg PO Q6H PRN Metoprolol Tartrate 25 Mg Tab 25 Mg PO Q12HR Hydralazine HCl 50 Mg Tablet 50 Mg PO Q8HR Atorvastatin (Atorvastatin Calcium) 40 Mg Tab 80 Mg PO HS Aspirin 325 Mg Tab 325 Mg PO DAILY Reported Zofran (Ondansetron HCl) 4 Mg Tab 4 Mg PO Q6HR PRN Xanax (Alprazolam) 0.5 Mg Tab 0.5 Mg PO Q6H PRN Trazodone (Trazodone HCl) 100 Mg Tablet 100 Mg PO HS Tizanidine (Tizanidine HCl) 4 Mg Tab 4 Mg PO Q8HR Robaxin (Methocarbamol) 750 Mg Tab 750 Mg PO Q12HR Gabapentin 100 Mg Cap 100 Mg PO BID Duoneb (Ipratropium-Albuterol Neb) 0.5-2.5 Mg/3 Ml Neb 1 Nebule INH Q8HR NEB Prilosec (Omeprazole Magnesium) 20 Mg Tab 40 Mg DAILY Vitamin B-12 (Cyanocobalamin) 1,000 Mcg Tab 1,000 Mcg PO DAILY Review of Systems Except as stated in HPI: all other systems reviewed are Neg Physical Exam Narrative GENERAL: Well-developed, elderly appearing female, moderate respiratory distress , speaking a few words at a time. SKIN: Focused skin assessment warm/dry. HEAD: Atraumatic. Normocephalic. EYES: Pupils equal and round. No scleral icterus. No injection or drainage. ENT: No nasal bleeding or discharge. Mucous membranes pink and moist. Poor dentition. NECK: Trachea midline. No JVD. CARDIOVASCULAR: Tachycardic, rate 110, regular. RESPIRATORY: No accessory muscle use. Clear to auscultation. Breath sounds equal bilaterally. GASTROINTESTINAL: Abdomen soft, non-tender, nondistended. MUSCULOSKELETAL: No obvious deformities. No clubbing. No cyanosis. No edema. NEUROLOGICAL: Awake and alert. No obvious cranial nerve deficits. Motor grossly within normal limits. Normal speech. PSYCHIATRIC: Appropriate mood and affect; insight and judgment normal. Data Data Last Documented VS Vital Signs Date Time Temp Pulse Resp B/P (MAP) Pulse Ox O2 Delivery O2 Flow Rate FiO2 09/23/17 21:31 94 50 09/23/17 21:15 Nasal Cannula 4.00 09/23/17 21:15 98.8 09/23/17 21:09 20 09/23/17 21:04 109 174/102 (126) Orders Orders Electrocardiogram (09/23/17 21:07) Ckmb (Isoenzyme) Profile (09/23/17 21:07) Complete Blood Count With Diff (09/23/17 21:07) Comprehensive Metabolic Panel (09/23/17 21:07) Magnesium (Mg) (09/23/17 21:07) Prothrombin Time / Inr (Pt) (09/23/17 21:07) Act Partial Throm Time (Ptt) (09/23/17 21:07) Troponin I (09/23/17 21:07) Chest, Single Ap (09/23/17 21:07) Ecg Monitoring (09/23/17 21:07) Iv Access Insert/Monitor (09/23/17 21:07) Oximetry (09/23/17 21:07) Oxygen Administration (09/23/17 21:07) Sodium Chloride 0.9% Flush (Ns Flush) (09/23/17 21:15) B-Type Natriuretic Peptide (09/23/17 21:07) Resp Bipap / Cpap Non Invas Vt (09/23/17 ) Cefepime Inj (Maxipime Inj) (09/23/17 21:45) Azithromycin Inj (Zithromax Inj) (09/23/17 21:45) Blood Culture (09/23/17 21:40) Vancomycin Inj (Vancomycin Inj) (09/23/17 22:00) Labs Laboratory Tests Test 09/23/17 21:17 White Blood Count 12.3 TH/MM3 Red Blood Count 3.11 MIL/MM3 Hemoglobin 8.7 GM/DL Hematocrit 27.3 % Mean Corpuscular Volume 87.7 FL Mean Corpuscular Hemoglobin 28.1 PG Mean Corpuscular Hemoglobin Concent 32.0 % Red Cell Distribution Width 20.1 % Platelet Count 160 TH/MM3 Mean Platelet Volume 8.5 FL Neutrophils (%) (Auto) 85.1 % Lymphocytes (%) (Auto) 8.5 % Monocytes (%) (Auto) 4.4 % Eosinophils (%) (Auto) 1.6 % Basophils (%) (Auto) 0.4 % Neutrophils # (Auto) 10.5 TH/MM3 Lymphocytes # (Auto) 1.0 TH/MM3 Monocytes # (Auto) 0.5 TH/MM3 Eosinophils # (Auto) 0.2 TH/MM3 Basophils # (Auto) 0.0 TH/MM3 CBC Comment DIFF FINAL Differential Comment Prothrombin Time 11.2 SEC Prothromb Time International Ratio 1.1 RATIO Activated Partial Thromboplast Time 21.3 SEC Blood Urea Nitrogen 26 MG/DL Creatinine 1.79 MG/DL Random Glucose 167 MG/DL Total Protein 6.8 GM/DL Albumin 3.1 GM/DL Calcium Level 9.8 MG/DL Magnesium Level 1.6 MG/DL Alkaline Phosphatase 128 U/L Aspartate Amino Transf (AST/SGOT) 30 U/L Alanine Aminotransferase (ALT/SGPT) 34 U/L Total Bilirubin 0.2 MG/DL Sodium Level 140 MEQ/L Potassium Level 5.6 MEQ/L Chloride Level 105 MEQ/L Carbon Dioxide Level 25.5 MEQ/L Anion Gap 10 MEQ/L Estimat Glomerular Filtration Rate 29 ML/MIN Total Creatine Kinase 60 U/L Troponin I 0.05 NG/ML MDM Medical Decision Making Medical Screen Exam Complete: Yes Emergency Medical Condition: Yes Differential Diagnosis COPD exacerbation, pneumonia, pneumothorax, ACS, PE Narrative Course Vital signs reviewed. The patient was started on BiPAP shortly after arriving to the emergency department. CBC: WBC 12.3, hemoglobin 8.7, hematocrit 27.3, platelets 150, neutrophils 85%. CMP is remarkable for BUN 26, creatinine 1.8, GFR 29, random glucose 167. This is her baseline renal function. Potassium is 5.6. Troponin is 0.05 The patient was empirically started on cefepime, azithromycin, and vancomycin for suspected pneumonia. Chest x-ray does show a large right-sided infiltrate. EKG shows diffuse ST depressions which is likely secondary to hypoxia and respiratory distress. Case was discussed with high school principal Dr. Melissa who will admit the patient to his service. Critical Care Narrative Aggregate critical care time was 35 minutes. Time to perform other separately billable procedures was not included in the critical care time. My time did not include minutes spent treating any other patients simultaneously or on activities that did not directly contribute to the patient's treatment. The services I provided to this patient were to treat and/or prevent clinically significant deterioration that could result in: , permanent disability, worsening clinical condition. I provided critical care services requiring my management, as noted below: Chart data review, documentation time, medication orders and management, vital sign assessments/reviewing monitor data, ordering and reviewing lab tests, ordering and interpreting/reviewing x-rays and diagnostic studies, care of the patient and discussion of the patient with the admitting physicians. Diagnosis Primary Impression: Pneumonia Qualified Codes: J18.1 - Lobar pneumonia, unspecified organism Additional Impressions: Hypoxia COPD exacerbation Admitting Information Admitting Physician Requests: Admit Paddy Gonzalez MD Sep 23, 2017 22:07
[2017-09-23 22:51] VITALS: BP 180/96; PULSE 103; RESP 18
--- NOTE | 2017-09-23 23:10 | HHI.HP ---
HPI Service Critical Care Medicine Primary Care Physician Willie Ybarra MD Admission Diagnosis pneumonia, hypoxia, COPD exacerbation Diagnosis: Chief Complaint: shortness of breath Travel History International Travel<30 Days: No Contact w/Intl Traveler <30 Da: No Traveled to Known Affected Are: No History of Present Illness This is a 62-year-old female with a history of oxygen dependent COPD with a recent admission for left fibular fracture and was discharged to her shelter facility. She is brought back from her sniff by EMS for worsening shortness of breath and chest tightness. She is on chronic methadone therapy and they were not giving her methadone she states in her shelter facility, so she thinks she is in methadone withdrawal. In the emergency department she was hypoxic in the low 80s on nasal cannula oxygen was placed on BiPAP. A complete history is difficult to obtain due to the fact that she is a poor historian and she has a BiPAP in place and is very dyspneic and so it is difficult to obtain additional information from the patient. In the emergency department, she had a white count of 12.3, hemoglobin 8.7, potassium of 5.6, creatinine 1.79, BNP of 651. Chest x-ray demonstrates a new right lower lobe pneumonia. Review of Systems ROS Limitations: Clinical Condition, Poor Historian Constitutional: DENIES: Fever, Chills Respiratory: COMPLAINS OF: Shortness of breath, DENIES: Cough Cardiovascular: DENIES: Chest pain, Dyspnea on Exertion Past Family Social History Allergies: Coded Allergies: levofloxacin (Verified Allergy, Severe, Anaphylaxis, 09/23/17) amlodipine (Verified Adverse Reaction, Severe, Swelling, 09/23/17) "left leg swelling" metoclopramide (Verified Adverse Reaction, Severe, Edema, 09/23/17) Past Medical History Anemia Anxiety Depression Coronary artery disease Hypertension High cholesterol CVA in 2015 COPD Diabetes GERD Prior GI bleed Headaches Kidney stones Scoliosis Torticollis Migraines Chronic kidney disease, unknown stage Obstructive sleep apnea Past Surgical History Appendectomy Wire cage and neck, C3-C4 Plate and left wrist Plate and left clavicle Coronary artery stents 4 Renal stents Cholecystectomy Hysterectomy Tonsillectomy Reported Medications Vistaril (Hydroxyzine Pamoate) 25 Mg Cap 25 Mg PO Q6H PRN Hydrocodone-Acetamin 5-325 mg (Hydrocodone/Acetaminophen) 5 Mg-325 Mg Tablet 1 Tab PO Q4H PRN Hydrocodone-Acetamin 7.5-325 (Hydrocodone/Acetaminophen) 7.5 Mg-325 Mg Tablet 1 Tab PO Q4H PRN Methadone (Methadone HCl) 10 Mg Tab 20 Mg PO TID Catapres (Clonidine) 0.1 Mg Tab 0.1 Mg PO BID 30 Days Restoril (Temazepam) 15 Mg Cap 15 Mg PO HS PRN Walker with Front Wheels (Device) 1 Mis Mis Ea .XX DIRECTED Catapres (Clonidine) 0.1 Mg Tab 0.1 Mg PO Q6H PRN Metoprolol Tartrate 25 Mg Tab 25 Mg PO Q12HR Hydralazine HCl 50 Mg Tablet 50 Mg PO Q8HR Atorvastatin (Atorvastatin Calcium) 40 Mg Tab 80 Mg PO HS Aspirin 325 Mg Tab 325 Mg PO DAILY Zofran (Ondansetron HCl) 4 Mg Tab 4 Mg PO Q6HR PRN Xanax (Alprazolam) 0.5 Mg Tab 0.5 Mg PO Q6H PRN Trazodone (Trazodone HCl) 100 Mg Tablet 100 Mg PO HS Tizanidine (Tizanidine HCl) 4 Mg Tab 4 Mg PO Q8HR Robaxin (Methocarbamol) 750 Mg Tab 750 Mg PO Q12HR Gabapentin 100 Mg Cap 100 Mg PO BID Duoneb (Ipratropium-Albuterol Neb) 0.5-2.5 Mg/3 Ml Neb 1 Nebule INH Q8HR NEB Prilosec (Omeprazole Magnesium) 20 Mg Tab 40 Mg DAILY Vitamin B-12 (Cyanocobalamin) 1,000 Mcg Tab 1,000 Mcg PO DAILY Active Ordered Medications See MAR Family History Family history of acute PR Social History Former smoker, quit 20 years ago. Denies EtOH or drugs abuse. Resides in a shelter facility. Physical Exam Vital Signs Vital Signs Date Time Temp Pulse Resp B/P (MAP) Pulse Ox O2 Delivery O2 Flow Rate FiO2 09/23/17 22:51 103 18 180/96 (124) BiPAP 09/23/17 21:31 94 50 09/23/17 21:15 92 Nasal Cannula 4.00 09/23/17 21:15 98.8 09/23/17 21:15 91 Nasal Cannula 6.00 09/23/17 21:09 20 09/23/17 21:04 109 20 174/102 (126) 93 Physical Exam GENERAL: Middle-aged female who appears much older than stated age, lying in bed , in respiratory distress HEENT: Normocephalic. Atraumatic. Pupils equal, round, reactive, conjugate. Mucous membranes are moist NECK: Trachea is midline. There is no JVD. CHEST: Tachypneic. BiPAP in place. SPO2 89%. Right-sided fine rales. CARDIOVASCULAR: Normal rate, regular rhythm. Sinus by telemetry. ABDOMEN: Soft, nontender, nondistended. No guarding. MUSCULOSKELETAL: Pulses 2+. No peripheral edema. NEUROLOGICAL: RASS -2. Follows commands. No focal deficits. Laboratory Laboratory Tests Test 09/23/17 21:17 White Blood Count 12.3 Red Blood Count 3.11 Hemoglobin 8.7 Hematocrit 27.3 Mean Corpuscular Volume 87.7 Mean Corpuscular Hemoglobin 28.1 Mean Corpuscular Hemoglobin Concent 32.0 Red Cell Distribution Width 20.1 Platelet Count 160 Mean Platelet Volume 8.5 Neutrophils (%) (Auto) 85.1 Lymphocytes (%) (Auto) 8.5 Monocytes (%) (Auto) 4.4 Eosinophils (%) (Auto) 1.6 Basophils (%) (Auto) 0.4 Neutrophils # (Auto) 10.5 Lymphocytes # (Auto) 1.0 Monocytes # (Auto) 0.5 Eosinophils # (Auto) 0.2 Basophils # (Auto) 0.0 CBC Comment DIFF FINAL Differential Comment Prothrombin Time 11.2 Prothromb Time International Ratio 1.1 Activated Partial Thromboplast Time 21.3 Blood Urea Nitrogen 26 Creatinine 1.79 Random Glucose 167 Total Protein 6.8 Albumin 3.1 Calcium Level 9.8 Magnesium Level 1.6 Alkaline Phosphatase 128 Aspartate Amino Transf (AST/SGOT) 30 Alanine Aminotransferase (ALT/SGPT) 34 Total Bilirubin 0.2 Sodium Level 140 Potassium Level 5.6 Chloride Level 105 Carbon Dioxide Level 25.5 Anion Gap 10 Estimat Glomerular Filtration Rate 29 Total Creatine Kinase 60 Troponin I 0.05 B-Type Natriuretic Peptide 651 Date/Time Source Procedure Growth Status 09/23/17 21:44 Blood Peripheral Aerobic Blood Culture Pending Received 09/23/17 21:44 Blood Peripheral Anaerobic Blood Culture Pending Received Result Diagram: 09/23/[id number]/[id number]/[id number] Imaging Last Impressions Chest X-Ray 09/23/172106 Signed Impressions: Service Date/Time: September 21:17 - CONCLUSION: Right basilar pneumonia. Jose Luis Slater MD Septic Shock Reassessment Septic shock perfusion: reassessment completed Caprini VTE Risk Assessment Caprini VTE Risk Assessment: Mod/High Risk (score >= 2) Caprini Risk Assessment Model Point Value = 1 Point Value = 2 Point Value = 3 Point Value = 5 Age 41-60 Minor surgery BMI > 25 kg/m2 Swollen legs Varicose veins or History of unexplained or recurrent spontaneous Oral contraceptives or hormone replacement Sepsis (< 1 month) Serious lung disease, including pneumonia (< 1 month) Abnormal pulmonary function Acute myocardial infarction Congestive heart failure (< 1 month) History of inflammatory bowel disease Medical patient at bed rest Age 61-74 Arthroscopic surgery Major open surgery (> 45 min) Laparoscopic surgery (> 45 min) Malignancy Confined to bed (> 72 hours) Immobilizing plaster cast Central venous access Age >= 75 History of VTE Family history of VTE Factor V Leiden Prothrombin [id number] Lupus anticoagulant Anticardiolipin antibodies Elevated serum homocysteine Heparin-induced thrombocytopenia Other congenital or acquired thrombophilia Stroke (< 1 month) Elective arthroplasty Hip, pelvis, or leg fracture Acute spinal cord injury (< 1 month) Prophylaxis Regimen Total Risk Factor Score Risk Level Prophylaxis Regimen 0-1 Low Early ambulation 2 Moderate Order ONE of the following: *Sequential Compression Device (SCD) *Heparin 5000 units SQ BID 3-4 Higher Order ONE of the following medications: *Heparin 5000 units SQ TID *Enoxaparin/Lovenox 40 mg SQ daily (WT < 150 kg, CrCl > 30 mL/min) *Enoxaparin/Lovenox 30 mg SQ daily (WT < 150 kg, CrCl > 10-29 mL/min) *Enoxaparin/Lovenox 30 mg SQ BID (WT < 150 kg, CrCl > 30 mL/min) AND/OR *Sequential Compression Device (SCD) 5 or more Highest Order ONE of the following medications: *Heparin 5000 units SQ TID (Preferred with Epidurals) *Enoxaparin/Lovenox 40 mg SQ daily (WT < 150 kg, CrCl > 30 mL/min) *Enoxaparin/Lovenox 30 mg SQ daily (WT < 150 kg, CrCl > 10-29 mL/min) *Enoxaparin/Lovenox 30 mg SQ BID (WT < 150 kg, CrCl > 30 mL/min) AND *Sequential Compression Device (SCD) Assessment and Plan Assessment and Plan Assessment: 62-year-old female with history of severe COPD who presents with acute hypoxic respiratory failure and new healthcare associated pneumonia. Admit to ICU. High risk of decompensation requiring intubation. Broad- spectrum IV antibiotics. Remains critically ill. Active problems: Metabolic encephalopathy Acute hypoxic respiratory failure requiring noninvasive positive pressure ventilation Acute COPD exacerbation Healthcare associated pneumonia Acute kidney injury superimposed on chronic renal insufficiency, unknown stage Severe acute protein calorie malnutrition Plan: Admit to ICU Continue BiPAP for now Serial ABG Steroids Nebs Wean FiO2 for goal SPO2 greater than 80% Vancomycin, cefepime, azithromycin Follow-up cultures Urine Legionella antigen Urine pneumococcal antigen Influenza swab N.p.o. while on BiPAP Significant gastric distention on chest x-ray: Place NG tube to decompress in the setting of noninvasive positive pressure ventilation Follow urine output closely Daily BMP Gentle IV hydration SCDs, subcu heparin Pepcid This patient remains critically ill with one or more organ systems which are or may become a threat to life. I have spent in excess of 39 minutes discontinuously in the care and management of this patient. This time is exclusive of procedures, and includes, but is not limited to, evaluation of the patient, review of the medical record, discussions with family, consultants, nursing staff, or respiratory therapy, and documentation in the medical record. Daniel Melissa MD Sep 23, 2017 23:10
[2017-09-23] MEDS ORDERED: MAGNESIUM SULFATE INJ 4 GM in SODIUM CHLORIDE 0.9% INJ 92 ML IV PRN (23:15)
[2017-09-23] MEDS ORDERED: ENOXAPARIN SODIUM 40 MG/0.4 ML SYRINGE SQ SCH (23:15)
[2017-09-23] MEDS ORDERED: POTASSIUM CHLOR 40 MEQ PREMIX 100 ML IV PRN ×2 (23:15)
[2017-09-23] MEDS ORDERED: MAGNESIUM OXIDE 400 MG TAB PO PRN (23:15)
[2017-09-23] MEDS ORDERED: LACTULOSE SYRUP 20 GM/30 ML CUP PO PRN (23:15)
[2017-09-23] MEDS ORDERED: SODIUM PHOSPHATE INJ 30 MMOL in SODIUM CHLOR 0.9% 250 ML INJ 240 ML IV PRN (23:15)
[2017-09-23] MEDS ORDERED: POTASSIUM PHOSPHATE INJ 30 MMOL in SODIUM CHLOR 0.9% 250 ML INJ 250 ML IV PRN (23:15)
[2017-09-23] MEDS ORDERED: Vancomycin Consult Pharmacy 1 EA OTHER SCH (23:15)
[2017-09-23] MEDS ORDERED: POTASSIUM PHOSPHATE MONOBASIC 500 MG TAB PO/TUBE PRN (23:15)
[2017-09-23] MEDS ORDERED: ONDANSETRON HCL 4 MG/2 ML VIAL IV PUSH PRN (23:15)
[2017-09-23] MEDS ORDERED: POTASSIUM CHLOR 20 MEQ PREMIX 100 ML IV PRN ×2 (23:15)
[2017-09-23] MEDS ORDERED: SENNOSIDES 8.6 MG TAB PO PRN (23:15)
[2017-09-23] MEDS ORDERED: DEXTROSE 50% IN WATER 50 ML VIAL(D50) IV PUSH PRN (23:15)
[2017-09-23] MEDS ORDERED: MAGNESIUM HYDROXIDE SUSP 30 ML CUP PO PRN (23:15)
[2017-09-23] MEDS ORDERED: POTASSIUM PHOSPHATE MONOBASIC 500 MG TAB PO PRN (23:15)
[2017-09-23] MEDS ORDERED: ACETAMINOPHEN 325 MG TAB PO PRN (23:15)
[2017-09-23] MEDS ORDERED: MISCELLANEOUS NURSING INFORMATION XX SCH (23:15)
[2017-09-23] MEDS ORDERED: MAGNESIUM SULFATE INJ 2 GM in SODIUM CHLORIDE 0.9% INJ 96 ML IV PRN (23:15)
[2017-09-23] MEDS ORDERED: BISACODYL 10 MG SUPP RECTAL PRN (23:15)
[2017-09-23] MEDS ORDERED: CHLORHEXIDINE GLUCONATE 2 % 1 PACK (2 CLOTHS) TOP PRN (23:15)
[2017-09-23] MEDS: SODIUM CHLOR 0.9% 1000 ML INJ 1,000 ML IV SCH (23:37)
[2017-09-23 23:38] VITALS: BP 111/81; PULSE 95; RESP 16; O2SAT 95
[2017-09-23] MEDS: RESP: ALBUTEROL 2.5 MG/IPRATROPIUM 0.5 MG NEB (SCH) INH (23:49)
[2017-09-23 23:50] VITALS: O2SAT 95
[2017-09-24] VITALS (36 sets, daily range): BP systolic 98–201; BP diastolic 62–125; PULSE 73–127; RESP 17–42; TEMP 97.6–98.9; O2SAT 77–100
[2017-09-24] MEDS: RESP: ALBUTEROL 2.5 MG/IPRATROPIUM 0.5 MG NEB (SCH) INH ×5 (03:00→19:58)
[2017-09-24 03:59] LABS: HEMATOCRIT 27.3 % (35.0-46.0); HEMOGLOBIN 8.5 GM/DL (11.6-15.3); MEAN CELL VOLUME 87.8 FL (80.0-100.0); MEAN CORPUSCULAR HEMOGLOBIN 27.5 PG (27.0-34.0); MEAN CORPUSCULAR HGB CONC 31.3 % (32.0-36.0); MEAN PLATELET VOLUME 8.7 FL (7.0-11.0); PLATELET COUNT 154 TH/MM3 (150-450); RED BLOOD COUNT 3.11 MIL/MM3 (4.00-5.30); RED CELL DISTRIBUTION WIDTH 20.1 % (11.6-17.2); WHITE BLOOD COUNT 13.4 TH/MM3 (4.0-11.0)
[2017-09-24] MEDS: CHLORHEXIDINE GLUCONATE 2 % 1 PACK (2 CLOTHS) TOP SCH (04:00)
[2017-09-24 04:06] LABS: BICARBONATE 27.4 MEQ/L (21.0-32.0); CALCIUM 9.6 MG/DL (8.5-10.1); CREATININE 1.75 MG/DL (0.50-1.00)
[2017-09-24] MEDS ORDERED: EPINEPHrine HCL (1:10,000) 1 MG/10 ML SYRINGE IV ONE (05:00)
[2017-09-24] MEDS ORDERED: AMIODARONE HCL 150 MG/3 ML VIAL IV ONE (05:00)
[2017-09-24] MEDS: INSULIN NovoLIN REGULAR SUPPLEMENTAL SCALE SQ SCH ×5 (05:48→21:00)
--- NOTE | 2017-09-24 07:55 | RADRPT ---
EXAM DATE/TIME: 09/24/2017 07:35 [facility] COMPARISON: CT THORAX W CONTRAST, May 30, 2017, 0:01. CHEST SINGLE AP, September 23, 2017, 21:17. INDICATIONS : Shortness of breath. MEDICAL HISTORY : Unobtainable. SURGICAL HISTORY : Coronary artery stent. clavicle surgery ENCOUNTER: Subsequent ACUITY: 2 days PAIN SCORE: 0/10 LOCATION: Bilateral chest FINDINGS: Prominent left diaphragmatic elevation/eventration is again noted. There is rightward cardiomediastin al shift which is grossly unchanged. There is hazy bilateral parenchymal opacity most prominent in th e bases which appears slightly worse than on previous exam. CONCLUSION: Slight interval worsening in aeration Aniket Berger MD on September 24, 2017 at 7:48 Board Certified Radiologist. This report was verified electronically.
[2017-09-24] MEDS: ALPRAZolam 0.5 MG TAB PO PRN (08:28)
[2017-09-24] MEDS: methylPREDNISolone SOD SUCC 125 MG/2 ML VIAL IV PUSH SCH ×2 (08:29→21:37)
[2017-09-24] MEDS: DOCUSATE SODIUM 50 MG/SENNA 8.6 MG TAB PO SCH ×2 (08:29→21:00)
[2017-09-24] MEDS: METHADONE HCL 10 MG TAB PO SCH ×3 (08:29→17:40)
[2017-09-24] MEDS ORDERED: DEXMEDETOMIDINE INJ 200 MCG in SODIUM CHLORIDE 0.9% INJ 50 ML IV PRN (11:15)
[2017-09-24] MEDS ORDERED: DEXMEDETOMIDINE HCL 200 MCG/2 ML VIAL IV PUSH ONE (11:15)
--- NOTE | 2017-09-24 11:16 | HHI.CCPN ---
Subjective Remarks/Hospital Course 09/23: This is a 62-year-old female with a history of oxygen dependent COPD with a recent admission for left fibular fracture and was discharged to her long term facility. She is brought back from her sniff by EMS for worsening shortness of breath and chest tightness. She is on chronic methadone therapy and they were not giving her methadone she states in her long term facility, so she thinks she is in methadone withdrawal. In the emergency department she was hypoxic in the low 80s on nasal cannula oxygen was placed on BiPAP. A complete history is difficult to obtain due to the fact that she is a poor historian and she has a BiPAP in place and is very dyspneic and so it is difficult to obtain additional information from the patient. In the emergency department, she had a white count of 12.3, hemoglobin 8.7, potassium of 5.6, creatinine 1.79, BNP of 651. Chest x-ray demonstrates a new right lower lobe pneumonia. 09/24: On BiPAP with full facemask. Appears anxious. Objective Vital Signs Date Time Temp Pulse Resp B/P (MAP) Pulse Ox O2 Delivery O2 Flow Rate FiO2 09/24/17 07:25 91 50 09/24/17 04:00 98.5 101 18 144/93 (110) 09/24/17 00:35 15.00 09/23/17 23:38 BiPAP Result Diagram: 09/24/17 0316 09/24/176 Imaging Last Impressions Chest X-Ray 09/23/172106 Signed Impressions: Service Date/Time: September 21:17 - CONCLUSION: Right basilar pneumonia. Jose Luis Slater MD Objective Remarks GENERAL: Middle-aged female who appears much older than stated age, lying in bed , in respiratory distress HEENT: Normocephalic. Atraumatic. Pupils equal, round, reactive, conjugate. Mucous membranes are moist NECK: Trachea is midline. There is no JVD. CHEST: Tachypneic. BiPAP in place. SPO2 89%. Right-sided fine rales. CARDIOVASCULAR: Normal rate, regular rhythm. Sinus by telemetry. ABDOMEN: Soft, nontender, nondistended. No guarding. MUSCULOSKELETAL: Pulses 2+. No peripheral edema. NEUROLOGICAL: Awake alert oriented 3, No focal deficits. A/P Assessment and Plan Assessment: 62-year-old female with history of severe COPD who presents with acute hypoxic respiratory failure and new healthcare associated pneumonia. Admit to ICU. High risk of decompensation requiring intubation. Broad- spectrum IV antibiotics. Remains critically ill. Active problems: Metabolic encephalopathy Acute hypoxic respiratory failure requiring noninvasive positive pressure ventilation Acute COPD exacerbation Healthcare associated pneumonia Acute kidney injury superimposed on chronic renal insufficiency, unknown stage Severe acute protein calorie malnutrition Plan: Resumed methadone and Xanax home doses. Starting Precedex gtt. for anxiety while on BiPAP Continue BiPAP for now Serial ABG Steroids Nebs Wean FiO2 for goal SPO2 greater than 80% Vancomycin, cefepime, azithromycin Follow-up cultures Urine Legionella antigen Urine pneumococcal antigen Influenza swab N.p.o. while on BiPAP Follow urine output closely Daily BMP Gentle IV hydration SCDs, subcu heparin Pepcid This patient remains critically ill with one or more organ systems which are or may become a threat to life. I have spent in excess of 35 minutes discontinuously in the care and management of this patient. This time is exclusive of procedures, and includes, but is not limited to, evaluation of the patient, review of the medical record, discussions with family, consultants, nursing staff, or respiratory therapy, and documentation in the medical record. Joshua Figueroa MD Sep 24, 2017 11:16
[2017-09-24] MEDS ORDERED: DEXMEDETOMIDINE INJ 200 MCG in SODIUM CHLORIDE 0.9% INJ 50 ML IV ONE (11:30)
--- NOTE | 2017-09-24 11:41 | EKG ---
Date Performed: 09/23/2017 Time Performed: 21:12:41 PTAGE: 62 years EKG: SINUS TACHYCARDIA MARKED ST DEPRESSION, CONSIDER SUBENDOCARDIAL INJURY ABNORMAL ECG PREVIOUS TRACING : 08/28/2017 17.34 When compared to the prior EKG, the patient now is tachycar frankie and has ST depressions, worrisome for ischemia. Clinical correlation requested. DOCTOR: Usha Man Interpretating Date/Time 09/24/2017 11:39:20
[2017-09-24] MEDS: PROPOFOL 1000 MG/100 ML INJ 100 ML IV PRN ×3 (12:30→22:52)
[2017-09-24] MEDS ORDERED: PROPOFOL 500 MG/50 ML INJ 50 ML ONE (12:34)
--- NOTE | 2017-09-24 12:45 | PD.PROCEDR ---
Procedure Note Procedure DATE: 09/24/2017 PROCEDURE: Orotracheal intubation INDICATION: CODE BLUE/respiratory failure DETAILS OF PROCEDURE The patient was placed in optimal position and preoxygenated with 100% FiO2 via bag valve mask. At the start oxygen saturation was 75% %. The patient was administered no medication. I entered the oropharynx with a size 4 GVL glidescope blade and obtained a grade 2 view of the airway. On single attempt a size 8.0 cuffed endotracheal tube was passed through the vocal cords. Correct tube location was confirmed with end tidal CO2 detector and by auscultating over bilateral lung montoya. The endotracheal tube was secured with adhesive tape at a depth of 24 cm at the lips. The patient was connected to the ventilator. The patient tolerated the procedure well without any apparent complications. Oxygen saturations were maintained greater than 95% all times. STAT chest x-ray pending at time of dictation. Ricardo Hernandez MD Sep 24, 2017 12:45
--- NOTE | 2017-09-24 13:01 | PD.PROCEDR ---
Procedure Note Procedure Procedure CPR Responded to CODE BLUE cardiac arrest code activation. Patient went into asystole. CPR/ACLS protocol initiated. Patient received 1 dose of epinephrine during CPR/ACLS and was initially ventilated with bag mask ventilation. Subsequently patient returned to sinus rhythm with ROSC. Dr. Hernandez proceeded with endotracheal intubation and patient was placed on mechanical ventilation. Please see ACLS code sheet for details. Joshua Figueroa MD Sep 24, 2017 13:01
[2017-09-24] MEDS: FAMOTIDINE 20 MG TAB PO SCH (13:53)
[2017-09-24] MEDS: SODIUM CHLOR 0.9% 1000 ML INJ 1,000 ML IV SCH ×2 (13:53→21:47)
[2017-09-24] MEDS: fentaNYL DRIP 250 ML IV PRN (13:53)
--- NOTE | 2017-09-24 14:07 | RADRPT ---
EXAM DATE/TIME: 09/24/2017 12:48 [facility] COMPARISON: CHEST SINGLE AP, September 24, 2017, 7:35. INDICATIONS : Intubation. MEDICAL HISTORY : Unobtainable. SURGICAL HISTORY : Coronary artery stent. clavicle surgery. ENCOUNTER: Initial ACUITY: 1 day PAIN SCORE: Non-responsive. LOCATION: Bilateral chest FINDINGS: Interval placement of ETT with tip effectively at the merrill. Improved aeration of the lower lung zon es with persistent patchy airspace disease in the perihilar regions bilaterally. Cardiome centimeters are stable. Remainder of the exam is unchanged. CONCLUSION: 1. ETT is at the level of the merrill and should be retracted. 2. Improved aeration in the lower lung zones with persistent patchy perihilar airspace disease. Diego Méndez MD on September 24, 2017 at 14:04 Board Certified Radiologist. This report was verified electronically.
[2017-09-24 16:00] LABS: ALBUMIN 2.9 GM/DL (3.4-5.0); ALKALINE PHOSPHATASE 129 U/L (45-117); ALT (GPT) 94 U/L (10-53); AST (GOT) 179 U/L (15-37); BICARBONATE 19.2 MEQ/L (21.0-32.0); CALCIUM 9.5 MG/DL (8.5-10.1); CHLORIDE 110 MEQ/L (98-107); CREATININE 1.66 MG/DL (0.50-1.00); GLOMERULAR FILTRATION RATE 31 ML/MIN (>89); GLUCOSE,RANDOM 263 MG/DL (74-106); MAGNESIUM 1.8 MG/DL (1.5-2.5); PHOSPHORUS 5.2 MG/DL (2.5-4.9); SODIUM (NA) 142 MEQ/L (136-145); TOTAL BILIRUBIN ADULT 0.4 MG/DL (0.2-1.0); TOTAL PROTEIN 6.3 GM/DL (6.4-8.2)
[2017-09-24 16:01] LABS: BLOOD UREA NITROGEN 29 MG/DL (7-18)
[2017-09-24] MEDS: SODIUM POLYSTYRENE SULFONATE SUSP 15 GM/60 ML CUP OG-TUBE SCH ×2 (16:07→17:40)
[2017-09-24 19:32] LABS: AUTOMATED NEUTROPHIL # 10.6 TH/MM3 (1.8-7.7); BASOPHIL % 0.1 % (0.0-2.0); EOSINOPHIL % 0.2 % (0.0-4.0); LYMPH % 4.9 % (9.0-44.0); LYMPHOCYTE # 0.6 TH/MM3 (1.0-4.8); MEAN CELL VOLUME 88.5 FL (80.0-100.0); MEAN CORPUSCULAR HEMOGLOBIN 27.4 PG (27.0-34.0); MEAN CORPUSCULAR HGB CONC 30.9 % (32.0-36.0); MEAN PLATELET VOLUME 8.7 FL (7.0-11.0); MONO % 8.6 % (0.0-8.0); MONOCYTE # 1.1 TH/MM3 (0-0.9); NEUT % 86.2 % (16.0-70.0); PLATELET COUNT 142 TH/MM3 (150-450); RED BLOOD COUNT 3.28 MIL/MM3 (4.00-5.30); RED CELL DISTRIBUTION WIDTH 20.1 % (11.6-17.2); WHITE BLOOD COUNT 12.3 TH/MM3 (4.0-11.0)
[2017-09-24 20:16] LABS: TROPONIN I 14.4 NG/ML (0.02-0.05)
[2017-09-24] MEDS ORDERED: HEPARIN-D5W 25,000 U/250 ML 250 ML IV PRN (21:00)
[2017-09-24] MEDS: ASPIRIN 81 MG CHEW TAB CHEW SCH (21:00)
[2017-09-24] MEDS: CEFEPIME INJ 1,000 MG in SODIUM CHLORIDE 0.9% INJ 100 ML IV SCH (21:34)
[2017-09-24 21:45] LABS: HEMOGLOBIN 9.3 GM/DL (11.6-15.3); MEAN CELL VOLUME 87.6 FL (80.0-100.0); MEAN CORPUSCULAR HEMOGLOBIN 28.1 PG (27.0-34.0); MEAN CORPUSCULAR HGB CONC 32.1 % (32.0-36.0); MEAN PLATELET VOLUME 8.5 FL (7.0-11.0); PLATELET COUNT 147 TH/MM3 (150-450); RED BLOOD COUNT 3.31 MIL/MM3 (4.00-5.30); RED CELL DISTRIBUTION WIDTH 19.5 % (11.6-17.2); WHITE BLOOD COUNT 10.6 TH/MM3 (4.0-11.0)
[2017-09-24 21:45] LABS: TROPONIN I 15.8 NG/ML (0.02-0.05)
[2017-09-24] MEDS: CHLORHEXIDINE 0.12% (ORAL KIT) 15 ML CUP MT SCH (21:45)
[2017-09-24] MEDS: AZITHROMYCIN INJ 500 MG in SODIUM CHLOR 0.9% 250 ML INJ 250 ML IV SCH (21:46)
[2017-09-24] MEDS ORDERED: ENOXAPARIN SODIUM 30 MG/0.3 ML SYRINGE SQ SCH (23:00)
[2017-09-25] VITALS (50 sets, daily range): BP systolic 106–178; BP diastolic 73–118; PULSE 47–91; RESP 7–27; TEMP 97.8–98.6; O2SAT 61–100
[2017-09-25] MEDS: RESP: ALBUTEROL 2.5 MG/IPRATROPIUM 0.5 MG NEB (SCH) INH ×7 (00:06→23:30)
[2017-09-25 00:33] LABS: INTERNATIONAL NORMALIZED RATIO 1.2 RATIO; PROTHROMBIN TIME - PATIENT 12.2 SEC (9.8-11.6)
[2017-09-25 00:37] LABS: TROPONIN I 15.2 NG/ML (0.02-0.05)
[2017-09-25] MEDS: INSULIN NovoLIN REGULAR SUPPLEMENTAL SCALE SQ SCH ×5 (03:00→20:48)
[2017-09-25] MEDS: PROPOFOL 1000 MG/100 ML INJ 100 ML IV PRN ×5 (03:58→23:04)
[2017-09-25] MEDS: CHLORHEXIDINE GLUCONATE 2 % 1 PACK (2 CLOTHS) TOP SCH (03:59)
[2017-09-25 05:50] LABS: HEMATOCRIT 25.5 % (35.0-46.0); HEMOGLOBIN 8.4 GM/DL (11.6-15.3); MEAN CELL VOLUME 86.3 FL (80.0-100.0); MEAN CORPUSCULAR HEMOGLOBIN 28.3 PG (27.0-34.0); MEAN CORPUSCULAR HGB CONC 32.8 % (32.0-36.0); MEAN PLATELET VOLUME 8.8 FL (7.0-11.0); PLATELET COUNT 156 TH/MM3 (150-450); RED BLOOD COUNT 2.96 MIL/MM3 (4.00-5.30); RED CELL DISTRIBUTION WIDTH 19.8 % (11.6-17.2); WHITE BLOOD COUNT 11.1 TH/MM3 (4.0-11.0)
[2017-09-25 06:14] LABS: BICARBONATE 25.8 MEQ/L (21.0-32.0); CALCIUM 9.7 MG/DL (8.5-10.1); CREATININE 1.38 MG/DL (0.50-1.00); RANDOM VANCOMYCIN 7.9 COMMENT
[2017-09-25 06:16] LABS: TROPONIN I 13.9 NG/ML (0.02-0.05)
[2017-09-25] MEDS: SODIUM CHLOR 0.9% 1000 ML INJ 1,000 ML IV SCH (07:07)
[2017-09-25] MEDS ORDERED: diphenhydrAMINE HCL 25 MG CAP PO PRN (07:15)
[2017-09-25] MEDS ORDERED: FUROSEMIDE 20 MG/2 ML VIAL IV PUSH PRN (07:15)
[2017-09-25] MEDS ORDERED: SODIUM CHLOR 0.9% 250 ML INJ 250 ML IV ONE (07:15)
[2017-09-25] MEDS: CARVEDILOL 6.25 MG TAB OG-TUBE SCH ×3 (08:10→20:50)
[2017-09-25] MEDS: ASPIRIN 81 MG CHEW TAB CHEW SCH (08:10)
[2017-09-25] MEDS: FAMOTIDINE 20 MG TAB PO SCH (08:10)
[2017-09-25] MEDS: DOCUSATE SODIUM 50 MG/SENNA 8.6 MG TAB PO SCH ×2 (08:10→20:49)
[2017-09-25] MEDS: METHADONE HCL 10 MG TAB PO SCH ×3 (08:10→17:55)
[2017-09-25] MEDS: GABAPENTIN 100 MG CAP PO SCH ×2 (08:10→20:48)
[2017-09-25] MEDS: methylPREDNISolone SOD SUCC 125 MG/2 ML VIAL IV PUSH SCH ×2 (08:10→20:50)
[2017-09-25] MEDS: CHLORHEXIDINE 0.12% (ORAL KIT) 15 ML CUP MT SCH ×2 (08:14→20:00)
[2017-09-25] MEDS ORDERED: METOPROLOL TARTRATE 5 MG/5 ML VIAL ONE (08:35)
[2017-09-25] MEDS: METHOCARBAMOL 500 MG TAB PO SCH ×2 (08:43→20:48)
[2017-09-25] MEDS ORDERED: cloNIDine HCL 0.1 MG TAB PO SCH (09:00)
--- NOTE | 2017-09-25 09:02 | EKG ---
Date Performed: 09/24/2017 Time Performed: 21:03:09 PTAGE: 62 years EKG: Sinus rhythm MODERATE INTRAVENTRICULAR CONDUCTION DELAY NONSPECIFIC ST & T-WAVE ABNORMALITY BORDERLINE ECG PREVIOUS TRACING : 09/24/2017 12.55 DOCTOR: Jonathon Etienne Interpretating Date/Time 09/25/2017 09:01:11
[2017-09-25] MEDS ORDERED: LABETALOL HCL 100 MG/20 ML VIAL IV PUSH PRN (09:15)
--- NOTE | 2017-09-25 09:15 | HHI.CCPN ---
Subjective Remarks/Hospital Course 09/23: This is a 62-year-old female with a history of oxygen dependent COPD with a recent admission for left fibular fracture and was [facility]. She is brought back from her sniff by EMS for worsening shortness of breath and chest tightness. She is on chronic methadone therapy and they were not giving her methadone she states in her [facility] facility, so she thinks she is in methadone withdrawal. In the emergency department she was hypoxic in the low 80s on nasal cannula oxygen was placed on BiPAP. A complete history is difficult to obtain due to the fact that she is a poor historian and she has a BiPAP in place and is very dyspneic and so it is difficult to obtain additional information from the patient. In the emergency department, she had a white count of 12.3, hemoglobin 8.7, potassium of 5.6, creatinine 1.79, BNP of 651. Chest x-ray demonstrates a new right lower lobe pneumonia. 09/24: On BiPAP with full facemask. Appears anxious. 09/25: Developed bradycardia and asystole yesterday received transient CPR with return of spontaneous circulation. Was intubated following resuscitation and placed on mechanical ventilation. Noted to have elevated cardiac enzymes last night. Started on aspirin and heparin and cardiology consult requested. Currently sedated, orally intubated on mechanical ventilation. Objective Vital Signs Date Time Temp Pulse Resp B/P (MAP) Pulse Ox O2 Delivery O2 Flow Rate FiO2 09/25/17 08:41 96 50 09/25/17 04:00 97.8 88 24 157/100 (119) 09/24/17 00:35 15.00 09/23/17 23:38 BiPAP Intake and Output 09/25/17 09/25/17 09/26/17 08:00 16:00 00:00 Output Total 350 ml Balance -350 ml Result Diagram: 09/25/17 0454 09/25/17 0454 Other Results Laboratory Tests Test 09/24/17 13:28 09/25/17 02:36 Blood Gas Puncture Site RT RADIAL LT RADIAL Blood Gas Patient Temperature 98.6 98.6 Blood Gas HCO3 18 mmol/L (22-26) 23 mmol/L (22-26) Blood Gas Base Excess -9.9 mmol/L (-2-2) -0.7 mmol/L (-2-2) Blood Gas Oxygen Saturation 95 % (90-100) 95 % (90-100) Arterial Blood pH 7.12 (7.380-7.420) 7.47 (7.380-7.420) Arterial Blood Partial Pressure CO2 58 mmHg (38-42) 32 mmHg (38-42) Arterial Blood Partial Pressure O2 109 mmHg (61-120) 93 mmHg (61-120) Arterial Blood Oxygen Content 11.9 Vol % (12.0-20.0) 11.2 Vol % (12.0-20.0) Arterial Blood Carboxyhemoglobin 0.8 % (0-4) 1.3 % (0-4) Arterial Blood Methemoglobin 1.5 % (0-2) 1.5 % (0-2) Blood Gas Hemoglobin 8.8 G/DL (12.0-16.0) 8.2 G/DL (12.0-16.0) Oxygen Delivery Device VENTILATOR VENTILATOR Blood Gas Ventilator Setting SEE COMMENTS Blood Gas Inspired Oxygen 100 % 60 % Imaging Last Impressions Chest X-Ray 09/23/172106 Signed Impressions: Service Date/Time: September 21:17 - CONCLUSION: Right basilar pneumonia. Jose Luis Slater MD Objective Remarks HEENT/ Neuro: Sedated, orally intubated, Pallor present, no icterus, tongue/ mucosa dry Neck: No JVD Chest/Pulm: on mech vent, good air entry bilaterally, no wheezing or crackles CVS: S1-S2 regular, no murmur GI/abdomen: soft, nontender, bowel sounds sluggish Extremities: warm bilaterally, no edema. Immobilizer for left leg fracture site in place A/P Assessment and Plan Assessment: 62-year-old female with history of severe COPD who presents with acute hypoxic respiratory failure and new healthcare associated pneumonia, status post transient asystole followed by CPR and intubation, non-ST elevation MT Active problems: Metabolic encephalopathy Acute hypoxic respiratory failure requiring mechanical ventilation Acute COPD exacerbation Healthcare associated pneumonia Acute kidney injury superimposed on chronic renal insufficiency, unknown stage Severe acute protein calorie malnutrition Cardiac arrest status post CPR Non-ST elevation MT Uncontrolled hypertension Chronic pain on narcotics Plan: Neuro: Resumed methadone and Xanax home doses. Propofol/fentanyl GTD for sedation with daily sedation vacation. Add Ativan as needed for vent synchrony. Follow neuro status Cardiovascular: Elevated cardiac enzymes following transient asystole on 09/24. Started on aspirin and heparin GTT. Cardiology consult requested. 2D echo pending. Started Coreg, clonidine home dose, statin. Will use labetalol as needed as well as Lopressor 5 mg IV 1 dose now. 1 unit PRBCs ordered to bring hemoglobin closer to 9 in view of acute MT. Awaiting further recommendations by cardiology. Pulmonary: Continue mechanical ventilation, vent bundle, bronchodilators. IV Solu-Medrol. Start daily CPAP trials tomorrow. GI/liver: Start tube feeds and advance to goal as tolerated. Renal/: KVO IV fluids as BNP elevated. Strict intake output, monitor and replete electrolytes, follow BUN and creatinine. ID: Follow-up cultures. Continue empiric antibiotic coverage with IV cefepime/ Zithromax/vancomycin Heme: Follow CBC. 1 unit PRBCs ordered for 03/28. On heparin for full anti- coagulation in view of acute MT. Endocrine: Watch for hypoglycemia, SSI for glycemic control if needed. Prophylaxis: Pepcid/SCDs. On full anticoagulation with heparin. Access: Peripheral IVs. Will obtain consent for central line placement. Condition critical This patient remains critically ill with one or more organ systems which are or may become a threat to life. I have spent 40 minutes discontinuously in the care and management of this patient. This time is exclusive of procedures, and includes, but is not limited to, evaluation of the patient, review of the medical record, discussions with family, consultants, nursing staff, or respiratory therapy, and documentation in the medical record. Time spent on critical care excluding procedures 40 minutes. This patient remains critically ill with one or more organ systems which are or may become a threat to life. I have spent in excess of 35 minutes discontinuously in the care and management of this patient. This time is exclusive of procedures, and includes, but is not limited to, evaluation of the patient, review of the medical record, discussions with family, consultants, nursing staff, or respiratory therapy, and documentation in the medical record. Joshua Figueroa MD Sep 25, 2017 09:15
[2017-09-25] MEDS: METOPROLOL TARTRATE 5 MG/5 ML VIAL IV PUSH SCH ×2 (09:30→14:49)
--- NOTE | 2017-09-25 09:56 | EKG ---
Date Performed: 09/24/2017 Time Performed: 12:55:40 PTAGE: 62 years EKG: SINUS TACHYCARDIA WITH SHORT MO INTERVAL POSSIBLE INFERIOR MYOCARDIAL INFARCTION , PROBABLY OLD MODERATE T-WAVE ABNORMALITY, CONSIDER ANTEROLATERAL ISCHEMIA ABNORMAL ECG PREVIOUS TRACING : 09/23/2017 21.12 DOCTOR: Jonathon Etienne Interpretating Date/Time 09/25/2017 09:56:11
[2017-09-25] MEDS ORDERED: VANCOMYCIN 1,000 MG/NS 250 ML IV ONE ×2 (11:00)
[2017-09-25] MEDS: LORazepam 2 MG/ML VIAL IV PUSH PRN ×2 (11:35→14:29)
[2017-09-25] MEDS: fentaNYL DRIP 250 ML IV PRN ×2 (11:48→23:04)
--- NOTE | 2017-09-25 12:27 | ECHRPT ---
Indication: lv function CONCLUSIONS Normal left ventricular size. The left ventricular systolic function is reduced with an estimated ejection fraction of 37% -anteroapical hypokinesis The left atrial size is upper limits of normal. [id number] mitral valve regurgitation. No aortic valve regurgitation. No aortic valve stenosis. There is mild tricuspid valve regurgitation. The estimated pulmonary arterial pressure is __ mmHg. The pulmonary valve is not well visualized. BP: / HR: Rhythm: MEASUREMENTS (Male / Female) Normal Values Technical Quality:Technically difficult study 2D ECHO LV Diastolic Diameter PLAX 4.4 cm 4.2 - 5.9 / 3.9 - 5.3 cm LV Systolic Diameter PLAX 3.8 cm IVS Diastolic Thickness 1.5 cm 0.6 - 1.0 / 0.6 - 0.9 cm LVPW Diastolic Thickness 1.2 cm 0.6 - 1.0 / 0.6 - 0.9 cm LV Relative Wall Thickness 0.6 RV Internal Dim ED PLAX 2.4 cm M-MODE Aortic Root Diameter MM 2.8 cm LA Systolic Diameter MM 4.0 cm LA Ao Ratio MM 1.4 AV Cusp Separation MM 1.8 cm DOPPLER Mitral E Point Velocity 76.5 cm/s Mitral A Point Velocity 93.3 cm/s Mitral E to A Ratio 0.8 LV E' Lateral Velocity 5.2 cm/s Mitral E to LV E' Lateral Ratio 14.8 LV E' Septal Velocity 5.1 cm/s Mitral E to LV E' Septal Ratio 15.1 FINDINGS LEFT VENTRICLE Normal left ventricular size. The left ventricular systolic function is reduced with an estimated ejection fraction of 37% -anteroapical hypokinesis RIGHT VENTRICLE Normal right ventricular size and systolic function. LEFT ATRIUM The left atrial size is upper limits of normal. RIGHT ATRIUM The right atrial size is normal. ATRIAL SEPTUM Normal atrial septal thickness without atrial level shunting by limited color doppler interrogation. AORTA The aortic root and proximal ascending aorta are normal in size on limited imaging. MITRAL VALVE Structurally normal mitral valve. [id number] mitral valve regurgitation. AORTIC VALVE Trileaflet aortic valve. No aortic valve regurgitation. No aortic valve stenosis. TRICUSPID VALVE Structurally normal tricuspid valve. There is mild tricuspid valve regurgitation. The estimated pulmonary arterial pressure is __ mmHg. PULMONARY VALVE The pulmonary valve is not well visualized. VESSELS The inferior vena cava is normal in size. PERICARDIUM No pericardial effusion. Usha Man MD, FACC (Electronically Signed) Final Date:25 September 2017 12:26
[2017-09-25] MEDS ORDERED: HEPARIN-NS/PF FLUSH BAG 2,000 ML IV FLUSH ONE (12:46)
[2017-09-25] MEDS ORDERED: CLOPIDOGREL 300 MG TAB ONE (13:38)
[2017-09-25] MEDS ORDERED: ASPIRIN 81 MG CHEW TAB ONE (13:38)
--- NOTE | 2017-09-25 13:55 | CATHPROC ---
[employer] HIS Report Study Information Study Number Admission Scheduled Start Study Start [id number] Sep 23 2017 10:18PM 09/25/2017 Sep 25 2017 10:28AM Ethel Service Cardiac Catheterization Admit Source Facility Department Emergency department [facility] - B2B Managed Service Sales Exec Physician and Clinical Staff Initial Sebastián Cantrell Human Intelligence Leonard Vera,RAUL Human Intelligence Milly Thompson,RAUL Recorder Loraine Babcock,RT(R) (BS) Scrub Mimi Wilder,RT(R) Procedures Performed Procedure Location (Site) Vessel Name Coronary Angiograms LCA Left Coronary Coronary Angiograms RCA Right Coronary LV Gram-hand inj. LV LV Ventricle Stent RCA Dist Right Coronary Wire insertion Fem Art (right) Femoral Art Equipment Time Airway Controller Description Size Mfg Part Number Used/Scraped [id number] 13:28 [employer] WIRE, ASAHI PROWATER 180CM 180CM Used *[id number] 13:03 BRADSHAW BRAUN SWAN NEIL CATHETER FR 7 Used *[id number] TRANSDUCER, TRUWAVE [id number] 13:02 BRADSHAW BRAUN * Used W/STOCKCOCK *[id number] *[id number] [id number] *[id number] 538-448 *[id number] 538-420 *[id number] [id number] *[id number] 13:02 MEDLINE IND[employer] PACK, CCL CUSTOM * Used *[id number] 13:02 Perfect Audience PACER PEN, SKIN DUAL W/ RULER * Used *[id number] 13:27 MEDTRONIC STENT, 3.0 15 INTEGRITY 3.0 15 Used *[id number] 13:32 [employer] 30 DAVI INDEFLATOR Used *[id number] 13:27 Indeed MEDICAL SHEATH, FR6.5 PRELUDE 11CM FR 6.5 038ACT Used *[id number] 13:03 [employer] MEDICAL SHEATH, FR7.5 PRELUDE 11CM FR 7.5 11CM Used [id number] 13:02 [employer] WIRE, 3MMJ .035 180CM 180CM Used *[id number] 13:02 NAMIC MANIFOLD, 4 PORT * Used *[id number] 13:02 NYCOMED OMNIPAQUE, 350 MG, 150ML 150ML [id number] Used [id number] 13:02 [email or web address] MEDICAL BLANKET,WARM AIR CCL * Used *[id number] 13:02 TERUMO MEDICAL SHEATH, FR4 TERUMO (10CM) FR 4 Used *[id number] Equipment Model, Serial, Lot Number and Expiration Data Description Model Number Serial Number Lot Number Expiration Date STENT, 3.0 15 INTEGRITY [id number] 10-27-2018 History: Current Medications Medication Dosage/Unit Route Frequency Last Date/Time Taken Statins (any) ASA CLONIDINE History: Allergies Allergy Reaction Levaquin Anaphylaxis Morphine SEVERE VOMITING Norvasc Swelling Reglan Edema History: Risk Factors Family History of Hypertension Dyslipidemia Previous MD Previous Heart Failure Premature CAD Yes Yes Yes No No Prior Valve Prior PCI Prior PCIDate Prior CABG Surgery No Yes 07/26/2009 No Cerebrovascular Peripheral Artery Chronic Lung On Dialysis Diabetes Disease Disease Disease No Yes No Yes No History: Symptoms/Diagnosis Selection Items SOB History: CV Disease Selection Items Known CAD History: Stress Tests Stress or Imaging Studies Performed No History: Other Disease Selection Items CAD COPD HTN History: Other Current Smoker Method Quit Packs a Day Years Used Pack Years No Cigarettes 24 Years Ago 1 15 15 Labs Hgb (g/dl) Hct (%) WBC (l/cumm) Platelets (thousands) 11.60-17.00 35.00-51.00 4.00-11.00 150.00-450.00 8.4 25.5 11.1 156 Glucose (mg/dl) BUN (mg/dl) Creatinine (mg/dl) BUN:Creatinine (1:x) 74.00-106.00 7.00-18.00 0.50-1.30 10.00-20.00 119 28 1.3 21.5 Na (meq/l) K (meq/l) 136.00-145.00 3.50-5.10 142 4.2 INR (PTT:PT) 0.90-1.10 1.2 Troponin I (ng/ml) CPK (u/l) CPK-MB (ng/ML) 0.02-0.05 26.00-308.00 0.50-3.60 13.9 446 Not Drawn Medication Medication Total Dose (Bolus/Oral) Medication Total Dosage/Unit 1% XYLOCAINE 20 mL ASPIRIN 81 mg FENTANYL 250 mcg NTG (IC) 200 mcg PLAVIX 300 mg PROPOFOL 0 mcg Medications (Bolus/Oral) Medication Time Given Dosage/Unit Administered By Reason PROPOFOL 09/25/2017 12:59:02 PM 0 mcg Patient arrived on 0 mcg PROPOFOL in Right Forearm via Peripheral IV. FENTANYL 09/25/2017 12:59:35 PM 250 mcg Patient arrived on 250 mcg FENTANYL in Right Forearm via Peripheral IV. 1% XYLOCAINE 09/25/2017 1:10:57 PM 20 mL Leonard Vera 20 mL 1% XYLOCAINE given in lab by Leonard Vera RN in Right Groin via Subcutaneous. NTG (IC) 09/25/2017 1:33:53 PM 200 mcg Mimi Wilder 200 mcg NTG (IC) given in lab by Mimi Wilder RT(R) in Right Groin via Intra-coronary. ASPIRIN 09/25/2017 1:50:29 PM 81 mg Leonard Vera 81 mg ASPIRIN given in lab by Leonard Vera RN via Oral. PLAVIX 09/25/2017 1:50:53 PM 300 mg Leonard Vera 300 mg PLAVIX given in lab by Leonard Vera RN via Oral. Medication (Drip) Medication Time Given Dosage/Unit Concentration/Unit Diluent (ml) Solution IV Solutions 09/25/2017 12:36:14 PM 0 mL (IV) 500 NaCl .9 IV Solutions given in lab by Milly Thompson RN in Right Hand via Peripheral IV. Pump/Drip Flow = 30 ml/hr using NaCl .9. VANCOMYCIN DRIP 09/25/2017 1:00:01 PM 84 mL/hr mL Patient arrived on 84 mL/hr VANCOMYCIN DRIP in Right Antecubital via Peripheral IV. Pump/Drip Flow = 0 ml/hr using [Solution Name]. Initial Case Assessment Cardiovascular HR Rhythm NIBP 80 reg 155/123 Edema Present Skin color Skin None Normal Warm Dry Circulatory - Right Pulses Dorsalis Pedis Femoral 1 1 Scale (0,1,2,3,4,d) Circulatory - Left Pulses Dorsalis Pedis Femoral 1 1 Scale (0,1,2,3,4,d) Circulatory - Lower Extremities Color Lower Right Color Lower Left Normal Normal Respiration - General SpO2 (%) 100 Respiration - Ventilator Settings TV (ml) IMV (L) FIO2 (%) PEEP (cm/H2O) 500 18 100 5 Chronological Log Time Study Chronological Log 12:35:56 Patient arrived via Bed. 12:35:57 Patient Name, D.O.B, / Armband Verified By R.N. 12:35:57 Consent signed by the physician and the patient and verified by the B2B Managed Service Sales Exec staff. 12:35:58 Pre-op and post- op instructions given; patient acknowledges understanding of instructions. Verbal Stimulation=0 Physical Stimulation=2 Airway=~AIRWAY~ Respiration=2 TOTAL=~TOTAL~. (0=abs ent, 12:36:00 1=limited, 2=present) 12:36:04 Presedation assessment performed by B2B Managed Service Sales Exec RN. 12:36:06 Patient has been NPO for More than 6Hrs. 12:36:10 Patient Warmer Placed on the Table. 12:36:11 Patrick Prominences Protected 12:36:13 A # 20 IV was noted in the Hand (right). Grade = 0 IV Solutions given in lab by Milly Thompson RN in Right Hand via Peripheral IV. Pump/Drip Flow = 30 ml/hr using NaCl 12:36:14 .9. 12:36:18 History and physical on the chart or being dictated. Assessment: Initial Case, HR=80 BPM, Rhythm=reg, HBTG=369/123 mmhg, Edema=None, Color=Normal, S kin = Warm, Dry Right Pulses: Epifanio Ped=1, Femoral=1 12:36:18 Left Pulses: Epifanio Ped=1, Femoral=1 Lower Right Extremities: Color=Normal Lower Left Extremities: Color=Normal Respiration: LjV6=467 %, UM=633 mL, IMV=18 L, HHO1=498 %, PEEP=5 cm/H2O Vitals capture started with the following parameters, Patient=Adult, Interval=5 min, Initial Pr kinrmc=136 mmHg, 12:41:27 Deflation Rate=5 mmHg, Cuff placed on Right Ankle 12:42:07 OFBE=909/123 mmhg, SpO2=96.0 % 12:47:02 HR=81 bpm, RXLV=630/105 mmhg, SpO2=89.0 %, Resp=12 B/min 12:52:05 HR=79 bpm, CXFQ=341/99 mmhg, Resp=10 B/min 12:54:17 Right groin prepped with 2% chlorhexidine, and draped after a 3 min. waiting time. 12:57:02 HR=80 bpm, QYFE=487/102 mmhg, SpO2=99.0 %, Resp=22 B/min 12:57:13 MD paged 12:57:37 Reference ECG taken 12:58:15 Pressure channel 1 zeroed. 12:58:30 MD responded 12:59:02 Patient arrived on 0 mcg PROPOFOL in Right Forearm via Peripheral IV. 12:59:35 Patient arrived on 250 mcg FENTANYL in Right Forearm via Peripheral IV. Patient arrived on 84 mL/hr VANCOMYCIN DRIP in Right Antecubital via Peripheral IV. Pump/Drip F low = 0 ml/hr using 13:00:01 [Solution Name]. 13:01:14 Pt has blood infusing into L AC 13:02:03 HR=79 bpm, IOXO=530/99 mmhg, LiT2=632.0 %, Resp=0 B/min 13:07:04 HR=79 bpm, CYED=059/98 mmhg, BrY5=331.0 %, Resp=0 B/min 13:08:36 MD arrived Time Out. Correct patient, correct procedure, correct physician, power injector not loaded with contrast with surgical 13:10:43 team present. Time Out Concurred by MD and individual staff in procedure. 13:10:54 Case Start 13:10:57 20 mL 1% XYLOCAINE given in lab by Leonard Vera RN in Right Groin via Subcutaneous. 13:12:05 HR=78 bpm, OUSP=509/107 mmhg, YfP1=060.0 %, Resp=2 B/min 13:12:09 Access site was Right Femoral Vein. A SHEATH, FR7.5 PRELUDE 11CM FR 7.5 11CM was advanced into the Fem Vein (right) using the Percu taneous 13:12:15 technique. 13:13:30 A SHEATH, FR4 TERUMO (10CM) FR 4 was advanced into the Fem Art (right) using the Percutaneo us technique. 13:13:48 Access site was Right Femoral Artery. 13:14:07 Activated Clotting Time Drawn 13:14:36 Saturation: Site=FA (Femoral Artery) , O2=98.2 %, Hgb=8.4 gm/dl, Condition=Condition 1. Use d in calculation. 13:15:03 A SWAN NEIL CATHETER FR 7 was inserted via Fem Vein (right) 13:17:06 HR=97 bpm, EPFY=695/104 mmhg, VlZ1=419.0 %, Resp=2 B/min Recorded Pressure: MPA, HR=80, Condition=Condition 1 13:17:14 (Main Pulmonary Artery) MPA 46/29/38 13:17:56 Saturation: Site=PA (Pulmonary Artery) , O2=76.2 %, Hgb=8.4 gm/dl, Condition=Condition 1. U sed in calculation. Recorded Pressure: RV, HR=80, Condition=Condition 1 13:18:09 (Right Ventricle) RV 54/15/17 Recorded Pressure: RA, HR=79, Condition=Condition 1 13:18:24 (Right Atrium) RA 18/16/15 13:18:40 Saturation: Site=RA (Right Atrium) , O2=76.8 %, Hgb=8.4 gm/dl, Condition=Condition 1. Used in calculation. 13:19:09 [place] Neil Catheter Removed A JR 4.0 INFINITI CATHETER FR 4 was advanced over a wire. OMNIPAQUE, 350 MG, 150ML 150ML was us ed for 13:19:11 injections. Recorded Pressure: LV, HR=80, Condition=Condition 1 13:20:06 (Left Ventricle) LV 134/20/25 13:20:11 The LV was manually injected with 8 cc's and visualized. OMNIPAQUE, 350 MG, 150ML 150ML use d. Recorded Pressure: LV, Ao, HR=79, Condition=Condition 1 13:20:24 (Left Ventricle) LV 136/22/26, (Aorta) Ao 141/96/116 13:20:37 ACT (Normal Range 90-180) = 160 13:20:43 Catheter was removed A AR MOD INFINITI CATHETER FR 4 was advanced over a wire. OMNIPAQUE, 350 MG, 150ML 150ML was us ed for 13:20:44 injections. Recorded Pressure: Ao, HR=78, Condition=Condition 1 13:21:25 (Aorta) Ao 141/93/115 13:21:58 The RCA was injected and visualized at various angles. OMNIPAQUE, 350 MG, 150ML 150ML used . 13:22:05 HR=79 bpm, UFCU=509/99 mmhg, SmP3=469.0 %, Resp=0 B/min 13:23:39 Catheter was removed A JL 4.0 INFINITI CATHETER FR 4 was advanced over a wire. OMNIPAQUE, 350 MG, 150ML 150ML was us ed for 13:23:41 injections. 13:24:17 The LCA was injected and visualized at various angles. OMNIPAQUE, 350 MG, 150ML 150ML used . 13:24:36 Catheter was removed A SHEATH, FR6.5 PRELUDE 11CM FR 6.5 was exchanged in the Fem Art (right). This was necessary in order to 13:26:46 accomodate a larger catheter. 13:27:05 A AR 1 GUIDE CATHETER FR 6 was advanced over a wire. OMNIPAQUE, 350 MG, 150ML 150ML was use d for injections. 13:27:06 HR=78 bpm, YDUP=676/105 mmhg, SpO2=98.0 %, Resp=33 B/min 13:28:15 A WIRE, ASAHI PROWATER 180CM 180CM was inserted via Fem Art (right). An STENT, 3.0 15 INTEGRITY 3.0 15 Bare Metal Stent was inserted through a AR 1 GUIDE CATHETER F R 6 over a 13:30:36 WIRE, ASAHI PROWATER 180CM 180CM. A STENT, 3.0 15 INTEGRITY 3.0 15 was deployed using a 30 DAVI INDEFLATOR at 10 atmospheres for 1 5 seconds in 13:31:44 the RCA Dist. 13:32:07 HR=78 bpm, RUEC=963/102 mmhg, ZwG3=012.0 %, Resp=0 B/min 13:32:25 Delivery device removed 13:33:39 Activated Clotting Time Drawn 13:33:53 200 mcg NTG (IC) given in lab by Mimi Wilder RT(R) in Right Groin via Intra-coronary. 13:35:07 Wire removed 13:35:12 Catheter was removed 13:35:27 Case End 13:35:29 Catheter(s) removed without difficulty 13:35:37 No case complications noted. 13:35:59 Bedside Report will be given. 13:36:00 Implantable Device card placed in patient's chart. 13:36:03 A Left and Right Heart Cath was performed. 13:37:06 HR=81 bpm, AJEG=939/88 mmhg, HnQ9=443.0 %, Resp=2 B/min 13:38:51 In the Fem Vein (right) the SHEATH, FR7.5 PRELUDE 11CM FR 7.5 11CM was sutured in place by Mimi Wilder, RT(R). 13:38:58 In the Fem Art (right) the SHEATH, FR6.5 PRELUDE 11CM FR 6.[address] by Mimi Wilder, RT(R). 13:40:58 [facility] called. Spoke to Lina. Advised a-line and gracy bag needed. 13:42:03 HR=80 bpm, NYRW=477/101 mmhg, WxF8=644.0 %, Resp=0 B/min 13:45:08 ACT (Normal Range 90-180) = 290 13:47:08 Vitals capture stopped. 13:47:13 Patient moved to the [facility] 13:50:29 81 mg ASPIRIN given in lab by Leonard Vera, RN via Oral. 13:50:53 300 mg PLAVIX given in lab by Leonard Vear, RN via Oral. End Study - Contrast Media Used In Study Contrast Total Opened (mL) Total Used (mL) Total Wasted (mL) Omnipaque 80 80 0 End Study - Maximum Contrast Load Max Contrast Load (mL) 257.7 End Study - Radiation Exposure Fluoro Time (minutes) 6.4 End Study - Patient Disposition Complications Transferred To Interventional Outcome No Critical Care Bed successful
[2017-09-25] MEDS ORDERED: SODIUM CHLORIDE 0.9% FLUSH 10 ML FLUSH IV FLUSH PRN (14:00)
[2017-09-25] MEDS ORDERED: MISC INFORMATION XX ONE (14:00)
[2017-09-25] MEDS ORDERED: FUROSEMIDE 40 MG/4 ML VIAL IV PUSH ONE (14:00)
[2017-09-25] MEDS ORDERED: LABETALOL HCL 100 MG/20 ML VIAL IV PUSH ONE (15:15)
[2017-09-25] MEDS: LABETALOL INJ 500 MG in SODIUM CHLORIDE 0.9% INJ 150 ML IV PRN ×4 (15:46→18:54)
[2017-09-25] MEDS: FUROSEMIDE 40 MG/4 ML VIAL IV PUSH SCH (17:55)
[2017-09-25] MEDS ORDERED: cloNIDine HCL 0.3 MG/24 HR PATCH T-DERMAL SCH (18:00)
[2017-09-25] MEDS: REMOVE OLD PATCH T-DERMAL SCH (18:00)
[2017-09-25] MEDS ORDERED: FUROSEMIDE 40 MG/4 ML VIAL IV PUSH SCH (18:00)
--- NOTE | 2017-09-25 19:02 | MB ---
cc: Sebastián Parrish MD, Arthur W MD DATE OF CONSULT: 09/25/2017 HISTORY OF PRESENT ILLNESS: Jeanna is a 62-year-old lady currently intubated and sedated. She has history of coronary artery disease. She had a cath by Dr. Thomas in November of 2016 and was found to have a 60% posterolateral artery stenosis and occluded LAD, LVEDP of 23. She had a recent admission for a left fibula fracture. She was in a [facility], was brought to the emergency room due to acute onset dyspnea, chest tightness, possible methadone withdrawal. Further review of systems is unobtainable due to patient being intubated. History is obtained from the chart. Again, it is noted she complained of diffuse chest tightness in the ER. PAST MEDICAL HISTORY: Per history of present illness. She has a history of anemia, anxiety, depression, high blood pressure, hyperlipidemia, CVA in 2014, history of GI bleeding, scoliosis and torticollis, COPD, bronchitis, migraine headaches, pneumonia, sleep apnea, appendectomy, wire cage and neck plate in left wrist and left clavicle, status post PCI, cholecystectomy and status post C3-C4 neurological surgery. SOCIAL HISTORY: She denies tobacco or alcohol use. ALLERGIES: LEVOFLOXACIN, AMLODIPINE, METOCLOPRAMIDE. MEDICATIONS: Prior to admission, Vistaril, hydrocodone, methadone, Catapres 0.1 mg b.i.d., Restoril 15 mg at bedtime, metoprolol 25 mg q 12 hours, hydralazine 50 q 8 hours, atorvastatin 80 mg at bedtime, aspirin 325 daily, Zofran, Xanax, trazodone, tizanidine, Robaxin, gabapentin, DuoNeb, Prilosec, vitamin B12. In the hospital, Zanaflex 4 mg q 8 hours, gabapentin 100 mg b.i.d., clonidine 0.1 mg b.i.d., Robaxin 750 mg q 12 hours, Coreg 6.25 per NG tube, azithromycin, cefepime, IV heparin, IV propofol, IV fentanyl p.r.n., Pepcid 20 mg daily, potassium supplementation. PHYSICAL EXAMINATION: VITAL SIGNS: Blood pressure 155/101, pulse 79, respiratory rate 24, temperature 98.3, sats 50% on 100% oxygen. GENERAL: She is intubated, sedated. NECK: Supple. No JVD, no bruit. CARDIOVASCULAR: S1, S2. No murmurs, rubs or gallops. LUNGS: Clear to auscultation bilaterally. ABDOMEN: Soft, nontender, nondistended with positive bowel sounds. EXTREMITIES: No lower extremity edema. LABORATORY DATA: White count 11.1; hemoglobin 8.4; hematocrit 25.5; platelet count 156, as low as 142 since admission. Blood gas today, pH 7.47, PCO2 32, PO2 of 93 on 60% oxygen. On admission, pH was 7.12, PCO2 58, PO2 109. Sodium 142, potassium initially 5.7, chloride 104, bicarb 27.4, BUN 30, creatinine 1.75, glucose 190. AST 179, ALT 94. Initial CK is 524 with an MB percent of 10.6. Troponin 14.40. BNP 61. Albumin 2.9. BNP from yesterday was 1388. ____ CK was 565. ____ troponin 15.8. IMAGING STUDIES: Chest x-ray on admission: Right basilar pneumonia. CARDIOLOGY STUDIES: EKG shows sinus tachycardia at 110 beats per minute with 2-[address] segment depression lead V2, V3, V4, V5, V6. Echocardiogram read today shows an ejection fraction of 37%, anterior apical hypokinesis, mild to moderate MR. DIAGNOSES: 1. Non-ST elevation myocardial infarction. 2. Hypercapnic respiratory failure. 3. Decompensated congestive heart failure. 4. Pulmonary hypertension. 5. Pneumonia. 6. Mitral valve regurgitation. 7. Coronary artery disease. 8. Diabetes. 9. Anemia. 10. Hyperkalemia. 11. Elevated liver enzymes. 12. Elevated white count. 13. Thrombocytopenia. DISCUSSION: At this point in time, the patient has a very high-risk presentation with a history of an occluded LAD collateralized from a posterolateral artery with a 60% stenosis in November of 2016. I have to think left heart catheterization is urgently indicated for those reasons. Otherwise, I recommend continued supportive care with transfusion to hemoglobin greater than 10, p.r.n. diuresis. We will start Lasix 40 mg IV b.i.d. as well. Follow up daily BMP, BNP, magnesium. The patient has been started on antibiotics already. Further recommendations based on the details of her left and right heart catheterization. MD KENTON Pulliam//tank , 04:18 PM , 06:07 PM
[2017-09-25] MEDS: CEFEPIME INJ 1,000 MG in SODIUM CHLORIDE 0.9% INJ 100 ML IV SCH (20:48)
[2017-09-25] MEDS: SODIUM CHLORIDE 0.9% FLUSH 10 ML FLUSH IV FLUSH SCH (20:49)
[2017-09-25] MEDS: LABETALOL HCL 100 MG/20 ML VIAL IV PUSH SCH (20:50)
[2017-09-25] MEDS: cloNIDine HCL 0.1 MG TAB PO SCH (20:50)
[2017-09-25] MEDS: AZITHROMYCIN INJ 500 MG in SODIUM CHLOR 0.9% 250 ML INJ 250 ML IV SCH (20:50)
[2017-09-25] MEDS: ATORVASTATIN 40 MG TAB PO SCH (21:00)
[2017-09-26] VITALS (65 sets, daily range): BP systolic 84–161; BP diastolic 50–109; PULSE 39–86; RESP 8–27; TEMP 92–98; O2SAT 91–100
[2017-09-26] MEDS: LABETALOL HCL 100 MG/20 ML VIAL IV PUSH SCH ×6 (01:00→21:00)
[2017-09-26] MEDS: FUROSEMIDE 40 MG/4 ML VIAL IV PUSH SCH ×4 (01:20→17:12)
[2017-09-26] MEDS: INSULIN NovoLIN REGULAR SUPPLEMENTAL SCALE SQ SCH ×3 (03:00→11:39)
[2017-09-26] MEDS: CHLORHEXIDINE GLUCONATE 2 % 1 PACK (2 CLOTHS) TOP SCH (04:00)
[2017-09-26] MEDS: RESP: ALBUTEROL 2.5 MG/IPRATROPIUM 0.5 MG NEB (SCH) INH ×6 (04:20→23:45)
[2017-09-26 04:50] LABS: AUTOMATED NEUTROPHIL # 8.7 TH/MM3 (1.8-7.7); BASOPHIL % 0.2 % (0.0-2.0); HEMATOCRIT 32.4 % (35.0-46.0); HEMOGLOBIN 11.2 GM/DL (11.6-15.3); LYMPHOCYTE # 0.7 TH/MM3 (1.0-4.8); MEAN CORPUSCULAR HGB CONC 34.6 % (32.0-36.0); MEAN PLATELET VOLUME 8.7 FL (7.0-11.0); MONO % 2.7 % (0.0-8.0); MONOCYTE # 0.3 TH/MM3 (0-0.9); NEUT % 90.1 % (16.0-70.0); PLATELET COUNT 161 TH/MM3 (150-450); RED BLOOD COUNT 3.85 MIL/MM3 (4.00-5.30); RED CELL DISTRIBUTION WIDTH 18.1 % (11.6-17.2); WHITE BLOOD COUNT 9.7 TH/MM3 (4.0-11.0)
[2017-09-26] MEDS: LORazepam 2 MG/ML VIAL IV PUSH PRN ×3 (04:50→17:35)
[2017-09-26] MEDS: PROPOFOL 1000 MG/100 ML INJ 100 ML IV PRN ×3 (04:53→17:12)
[2017-09-26 05:23] LABS: ALBUMIN 2.4 GM/DL (3.4-5.0); ALKALINE PHOSPHATASE 98 U/L (45-117); ALT (GPT) 69 U/L (10-53); AST (GOT) 63 U/L (15-37); BICARBONATE 19.1 MEQ/L (21.0-32.0); BLOOD UREA NITROGEN 34 MG/DL (7-18); CALCIUM 7.9 MG/DL (8.5-10.1); CHLORIDE 108 MEQ/L (98-107); CREATININE 1.42 MG/DL (0.50-1.00); GLOMERULAR FILTRATION RATE 37 ML/MIN (>89); GLUCOSE,RANDOM 310 MG/DL (74-106); MAGNESIUM 1.3 MG/DL (1.5-2.5); RANDOM VANCOMYCIN 17.8 COMMENT; SODIUM (NA) 139 MEQ/L (136-145); TOTAL BILIRUBIN ADULT 0.5 MG/DL (0.2-1.0); TOTAL PROTEIN 5.3 GM/DL (6.4-8.2)
--- NOTE | 2017-09-26 05:40 | RADRPT ---
EXAM DATE/TIME: 09/26/2017 02:47 [facility] COMPARISON: CHEST SINGLE AP, September 24, 2017, 12:48. INDICATIONS : Shortness of breath, possible pulmonary disease. MEDICAL HISTORY : None. SURGICAL HISTORY : Coronary artery stent. ENCOUNTER: Subsequent ACUITY: 3 days PAIN SCORE: Non-responsive. LOCATION: Bilateral chest FINDINGS: ET tube tip is 3.4 cm above the merrill. Gastric tube tip and side-port project within the stomach. Left clavicular plate. The heart is similar in size to prior. There is consolidation in the inferio r medial lower lungs bilaterally with loss of delineation of both medial hemidiaphragms. CONCLUSION: Bilateral lower lobe consolidation. Noah Beyer MD on September 26, 2017 at 5:38 Board Certified Radiologist. This report was verified electronically.
[2017-09-26] MEDS ORDERED: hydrALAZINE HCL 20 MG/ML VIAL ONE (07:27)
[2017-09-26] MEDS: ASPIRIN 81 MG CHEW TAB PO SCH (07:45)
[2017-09-26] MEDS: METHADONE HCL 10 MG TAB PO SCH ×3 (07:45→17:11)
[2017-09-26] MEDS: CLOPIDOGREL 75 MG TAB PO SCH (07:45)
[2017-09-26] MEDS: METHOCARBAMOL 500 MG TAB PO SCH ×2 (07:45→21:00)
[2017-09-26] MEDS: FAMOTIDINE 20 MG TAB PO SCH (07:45)
[2017-09-26] MEDS: RAMIPRIL 2.5 MG CAP PO SCH (07:46)
[2017-09-26] MEDS: cloNIDine HCL 0.1 MG TAB PO SCH ×2 (07:46→21:00)
[2017-09-26] MEDS: GABAPENTIN 100 MG CAP PO SCH ×2 (07:46→21:00)
[2017-09-26] MEDS: CHLORHEXIDINE 0.12% (ORAL KIT) 15 ML CUP MT SCH ×2 (07:47→20:00)
[2017-09-26] MEDS: POTASSIUM CHLORIDE 25 MEQ EFFERVESCENT TAB PO PRN ×2 (07:47→09:07)
[2017-09-26] MEDS: DOCUSATE SODIUM 50 MG/SENNA 8.6 MG TAB PO SCH (07:47)
[2017-09-26] MEDS: CARVEDILOL 6.25 MG TAB OG-TUBE SCH ×2 (07:48→21:00)
[2017-09-26] MEDS: SODIUM CHLORIDE 0.9% FLUSH 10 ML FLUSH IV FLUSH SCH ×2 (07:48→21:00)
[2017-09-26] MEDS: methylPREDNISolone SOD SUCC 125 MG/2 ML VIAL IV PUSH SCH ×2 (07:48→21:00)
[2017-09-26] MEDS ORDERED: LABETALOL INJ 500 MG in SODIUM CHLORIDE 0.9% INJ 150 ML IV PRN (08:15)
[2017-09-26] MEDS: fentaNYL DRIP 250 ML IV PRN (09:24)
--- NOTE | 2017-09-26 10:21 | HHI.CCPN ---
Subjective Remarks/Hospital Course 09/23: This is a 62-year-old female with a history of oxygen dependent COPD with a recent admission for left fibular fracture and was discharged to her [facility] facility. She is brought back from her sniff by EMS for worsening shortness of breath and chest tightness. She is on chronic methadone therapy and they were not giving her methadone she states in her [facility] facility, so she thinks she is in methadone withdrawal. In the emergency department she was hypoxic in the low 80s on nasal cannula oxygen was placed on BiPAP. A complete history is difficult to obtain due to the fact that she is a poor historian and she has a BiPAP in place and is very dyspneic and so it is difficult to obtain additional information from the patient. In the emergency department, she had a white count of 12.3, hemoglobin 8.7, potassium of 5.6, creatinine 1.79, BNP of 651. Chest x-ray demonstrates a new right lower lobe pneumonia. 09/24: On BiPAP with full facemask. Appears anxious. 09/25: Developed bradycardia and asystole yesterday received transient CPR with return of spontaneous circulation. Was intubated following resuscitation and placed on mechanical ventilation. Noted to have elevated cardiac enzymes last night. Started on aspirin and heparin and cardiology consult requested. Currently sedated, orally intubated on mechanical ventilation. 09/26: Patient underwent cardiac catheterization yesterday and underwent PCI to branch of RCA(posterior lateral artery 60% stenosis) due to chronic mid LAD total occlusion. On labetalol drip since yesterday which is being tapered off now. Remains sedated, orally intubated on mechanical ventilation. Objective Vital Signs Date Time Temp Pulse Resp B/P (MAP) Pulse Ox O2 Delivery O2 Flow Rate FiO2 09/26/17 09:30 47 19 142/96 (111) 98 09/26/17 08:00 97.0 09/26/17 08:00 40 09/24/17 00:35 15.00 09/23/17 23:38 BiPAP Intake and Output 09/26/17 09/26/17 09/27/17 08:00 16:00 00:00 Intake Total 1992 ml Output Total 1450 ml Balance 542 ml Result Diagram: 09/26/17 0334 09/26/17 0334 Imaging Last Impressions Chest X-Ray [id number]/23/172106 Signed Impressions: Service Date/Time: September 21:17 - CONCLUSION: Right basilar pneumonia. Jose Luis Slater MD Objective Remarks HEENT/ Neuro: Sedated, orally intubated, Pallor present, no icterus, tongue/ mucosa dry Neck: No JVD Chest/Pulm: on mech vent, good air entry bilaterally, no wheezing or crackles CVS: S1-S2 regular, no murmur GI/abdomen: soft, nontender, bowel sounds sluggish Extremities: warm bilaterally, no edema. Immobilizer for left leg fracture site in place A/P Assessment and Plan Assessment: 62-year-old female with history of severe COPD who presents with acute hypoxic respiratory failure and new healthcare associated pneumonia, status post transient asystole followed by CPR and intubation, non-ST elevation [place] Active problems: Metabolic encephalopathy Acute hypoxic respiratory failure requiring mechanical ventilation Acute COPD exacerbation Healthcare associated pneumonia Acute kidney injury superimposed on chronic renal insufficiency, unknown stage Severe acute protein calorie malnutrition Cardiac arrest status post CPR Non-ST elevation [place] Uncontrolled hypertension Chronic pain on narcotics Plan: Neuro: Continue methadone and Xanax home doses. Propofol/fentanyl gtt for sedation with daily sedation vacation. Ativan as needed for vent synchrony. Follow neuro status Cardiovascular: Elevated cardiac enzymes following transient asystole on 09/24. Cardiology following. 2D echo with LVEF 37% with anteroapical hypokinesis. Started Coreg, clonidine home dose, statin. Status post cardiac catheterization with PCI to posterolateral artery on 09/25. Transfused 3 units PRBCs on 09/25. Continue aspirin and Plavix. Diurese with Lasix Awaiting further recommendations by cardiology. Pulmonary: Continue mechanical ventilation, vent bundle, bronchodilators. IV Solu-Medrol. Daily C Pap trials as tolerated starting tomorrow GI/liver: Start tube feeds and advance to goal as tolerated. Renal/: KVO IV fluids as BNP elevated. Strict intake output, monitor and replete electrolytes, follow BUN and creatinine. Diurese with Lasix ID: Follow-up cultures. Continue empiric antibiotic coverage with IV cefepime/ Zithromax/vancomycin Heme: Follow CBC. 1 unit PRBCs ordered for 03/28. On heparin for full anti- coagulation in view of acute [place]. Endocrine: Watch for hypoglycemia, SSI for glycemic control if needed. Prophylaxis: Pepcid/SCDs. On full anticoagulation with heparin. Access: Peripheral IVs. Discussed with family at bedside regarding current clinical status and plan of care and they voiced understanding and were agreeable. Time spent on critical care excluding procedures 40 minutes. This patient remains critically ill with one or more organ systems which are or may become a threat to life. I have spent in excess of 35 minutes discontinuously in the care and management of this patient. This time is exclusive of procedures, and includes, but is not limited to, evaluation of the patient, review of the medical record, discussions with family, consultants, nursing staff, or respiratory therapy, and documentation in the medical record. Joshua Figueroa MD Sep 26, 2017 10:21
[2017-09-26] MEDS: MAGNESIUM SULFATE 1 GM PREMIX 100 ML IV SCH ×3 (10:30→14:45)
[2017-09-26] MEDS: SODIUM CHLOR 0.9% 1000 ML INJ 1,000 ML IV SCH (10:43)
[2017-09-26] MEDS ORDERED: VANCOMYCIN 1,000 MG/NS 250 ML IV ONE ×2 (11:00)
[2017-09-26] MEDS: ENOXAPARIN SODIUM 40 MG/0.4 ML SYRINGE SQ SCH (11:19)
--- NOTE | 2017-09-26 12:42 | PD.CARD.PN ---
Subjective Subjective Remarks intubated, sedated Objective Medications Current Medications Medications (Trade) Dose Ordered Sig/Ann Route Start Time Stop Time Status Last Admin (NS Flush) 2 ml UNSCH PRN IVF 09/23/17 21:15 Azithromycin 500 mg/Sodium Chloride 250 ml @ 250 mls/hr Q24H IV 09/24/17 21:00 09/25/17 20:50 Cefepime HCl 1000 mg/Sodium Chloride 100 ml @ 200 mls/hr DAILY@2200 IV 09/24/17 22:00 09/25/17 20:48 Pharmacy Profile Note 0 ml @ 0 mls/hr UNSCH OTHER 09/23/17 23:15 Potassium Chloride 100 ml @ 50 mls/hr Q2H PRN IV 09/23/17 23:15 Potassium Chloride 100 ml @ 50 mls/hr Q2H PRN IV 09/23/17 23:15 09/26/17 05:49 (K-Lyte Cl Eff) 50 meq UNSCH PRN PO 09/23/17 23:15 09/26/17 09:07 Potassium Chloride 100 ml @ 25 mls/hr UNSCH PRN IV 09/23/17 23:15 Potassium Chloride 100 ml @ 50 mls/hr Q2H PRN IV 09/23/17 23:15 Magnesium Sulfate 4 gm/Sodium Chloride 100 ml @ 50 mls/hr UNSCH PRN IV 09/23/17 23:15 (Mag-Ox) 800 mg UNSCH PRN PO 09/23/17 23:15 09/26/17 07:46 Magnesium Sulfate 2 gm/Sodium Chloride 100 ml @ 50 mls/hr UNSCH PRN IV 09/23/17 23:15 (K-Phos) 2,000 mg Q4H PRN PO 09/23/17 23:15 Sodium Phosphate 30 mmol/Sodium Chloride 250 ml @ 42 mls/hr UNSCH PRN IV 09/23/17 23:15 (K-Phos) 2,000 mg UNSCH PRN PO/TUBE 09/23/17 23:15 Potassium Phosphate 30 mmol/ Sodium Chloride 260 ml @ 42 mls/hr UNSCH PRN IV 09/23/17 23:15 (D50w (Vial) Inj) 25 ml UNSCH PRN IV PUSH 09/23/17 23:15 (NovoLIN R SUPPLEMENTAL SCALE) 1 ACHS AND 3AM SQ 09/24/17 03:00 09/26/17 11:39 (SoluMEDROL INJ) 60 mg Q12HR IV PUSH 09/24/17 09:00 09/26/17 07:48 (Duoneb Neb) 1 ampule Q2HR NEB PRN INH 09/23/17 23:15 (Duoneb Neb) 1 ampule Q4HR NEB INH 09/24/17 00:00 09/26/17 11:39 Sodium Chloride 1,000 ml @ 20 mls/hr Q24H IV 09/23/17 23:10 09/25/17 07:07 (Tylenol) 650 mg Q6H PRN PO 09/23/17 23:15 (Pepcid) 20 mg DAILY PO 09/24/17 09:00 09/26/17 07:45 (Zofran Inj) 4 mg Q6H PRN IV PUSH 09/23/17 23:15 Miscellaneous Information 1 Q361D XX 09/23/17 23:15 (Chlorhexidine 2% Cloth) 3 pack Taper DAILY@04 TOP 09/24/17 04:00 09/20/18 03:59 09/26/17 04:00 (Chlorhexidine 2% Cloth) 3 pack UNSCH PRN TOP 09/23/17 23:15 (Karen-Colace) 1 tab BID PO 09/24/17 09:00 09/26/17 07:47 (Milk Of Magnesia Liq) 30 ml Q12H PRN PO 09/23/17 23:15 (Senokot) 17.2 mg Q12H PRN PO 09/23/17 23:15 (Dulcolax Supp) 10 mg DAILY PRN RECTAL 09/23/17 23:15 (Lactulose Liq) 30 ml DAILY PRN PO 09/23/17 23:15 (Xanax) 0.5 mg Q6H PRN PO 09/24/17 08:15 09/24/17 08:28 (Dolophine) 20 mg TID PO 09/24/17 09:00 09/26/17 12:17 Dexmedetomidine HCl 200 mcg/ Sodium Chloride 52 ml @ 3.45 mls/hr TITRATE PRN IV 09/24/17 11:15 (Peridex 0.12% Liq) 15 ml BID@08,20 MT 09/24/17 20:00 09/26/17 07:47 Propofol 100 ml @ 1.995 mls/ hr TITRATE PRN IV 09/24/17 12:45 09/26/17 12:23 Fentanyl Citrate 250 ml @ 5 mls/hr TITRATE PRN IV 09/24/17 12:45 09/26/17 09:24 (Coreg) 6.25 mg Q12HR OG-TUBE 09/25/17 07:00 09/25/17 08:10 (Lipitor) 80 mg HS PO 09/25/17 21:00 (Neurontin) 100 mg BID PO 09/25/17 09:00 09/26/17 07:46 (Zanaflex) 4 mg Q8HR PO 09/25/17 14:00 09/26/17 04:53 (Robaxin) 750 mg Q12HR PO 09/25/17 09:00 09/26/17 07:45 (Benadryl) 25 mg Q4H PRN PO 09/25/17 07:15 (Ativan Inj) 2 mg Q2H PRN IV PUSH 09/25/17 09:15 09/26/17 11:18 (NS Flush) 2 ml UNSCH PRN IV FLUSH 09/25/17 14:00 09/26/17 04:50 (NS Flush) 2 ml BID IV FLUSH 09/25/17 21:00 09/25/17 20:49 (Aspirin Chew) 81 mg DAILY PO 09/26/17 09:00 09/26/17 07:45 (Plavix) 75 mg DAILY PO 09/26/17 09:00 09/26/17 07:45 (Altace) 2.5 mg DAILY PO 09/26/17 09:00 09/26/17 07:46 (Catapres) 0.2 mg BID PO 09/25/17 21:00 09/26/17 07:46 (Lasix Inj) 40 mg Q6HR IV PUSH 09/25/17 18:00 09/26/17 11:18 (Trandate Inj) 20 mg Q4H IV PUSH 09/25/17 21:00 (Catapres-Tts 0.3 Mg Patch.7d) 1 patch Q7D T-DERMAL 09/25/17 18:00 09/25/17 18:53 Miscellaneous Information 1 Q7D T-DERMAL 09/25/17 18:00 (Apresoline Inj) 20 mg Q2H PRN IV 09/26/17 08:15 Labetalol HCl 500 mg/Sodium Chloride 250 ml @ 60 mls/hr TITRATE PRN IV 09/26/17 08:15 (Lovenox Inj) 40 mg Q24H SQ 09/26/17 11:00 09/26/17 11:19 Vital Signs / I&O Vital Signs Date Time Temp Pulse Resp B/P (MAP) Pulse Ox O2 Delivery O2 Flow Rate FiO2 09/26/17 11:28 97 40 09/26/17 10:00 54 09/26/17 09:30 47 19 142/96 (111) 98 09/26/17 09:15 48 18 135/95 (108) 98 09/26/17 09:00 49 18 128/94 (105) 96 09/26/17 08:45 55 25 129/86 (100) 92 09/26/17 08:30 45 24 146/104 (118) 97 09/26/17 08:15 40 24 126/93 (104) 96 09/26/17 08:00 97.0 39 24 129/96 (107) 94 09/26/17 08:00 40 09/26/17 08:00 39 09/26/17 07:45 40 24 127/96 (106) 94 09/26/17 07:30 41 24 129/96 (107) 95 09/26/17 07:17 95 40 09/26/17 07:15 42 24 135/100 (112) 95 09/26/17 07:00 43 24 140/102 (115) 96 09/26/17 06:00 43 09/26/17 05:00 41 24 96 09/26/17 04:20 96 40 09/26/17 04:00 40 09/26/17 04:00 39 24 137/99 (112) 97 09/26/17 04:00 44 09/26/17 03:00 41 24 133/97 (109) 98 09/26/17 02:00 40 24 123/89 (100) 99 09/26/17 02:00 42 09/26/17 01:00 42 24 124/91 (102) 98 09/26/17 00:00 41 3/4/18 00:00 98.0 46 24 129/97 (108) 99 3//18 00:00 45 3/3/18 23:31 99 45 3/3/18 23:00 51 24 123/93 (103) 99 3/3/18 22:30 52 24 127/96 (106) 99 3/3/18 22:00 47 3/3/18 22:00 47 24 137/97 (110) 98 3/3/18 21:30 47 24 129/93 (105) 98 3/3/18 21:00 48 24 124/89 (101) 98 3/3/18 20:45 48 24 120/86 (97) 97 3//18 20:30 48 24 113/82 (92) 98 3//18 20:22 48 24 112/79 (90) 98 3//18 20:15 49 24 98 3//18 20:00 50 3//18 20:00 45 3//18 20:00 50 24 115/79 (91) 96 3//18 19:45 52 24 106/73 (84) 98 3/3/18 19:30 52 24 106/74 (85) 98 3//18 19:27 98 50 3//18 19:15 52 24 107/75 (86) 98 3//18 19:00 52 24 121/86 (98) 98 107/75 (86) 3//18 18:45 54 24 111/78 (89) 98 3/3/18 18:30 55 24 115/81 (92) 98 3//18 18:15 57 24 120/84 (96) 98 3//18 18:00 59 24 137/97 (110) 97 126/88 (101) 318 18:00 57 3/3/18 17:45 60 24 133/91 (105) 97 3//18 17:30 63 24 139/94 (109) 97 3//18 17:15 66 24 147/98 (114) 97 3/3/18 17:00 67 24 159/110 (126) 97 151/99 (116) 09/25/18 16:45 69 24 157/101 (119) 97 3/3/18 16:30 70 24 163/103 (123) 96 3//18 16:15 71 24 166/103 (124) 96 09/25/17 16:00 70 09/25/17 16:00 50 09/25/17 16:00 98.1 69 24 178/118 (138) 98 170/106 (127) 09/25/17 15:49 99 60 09/25/17 15:45 69 24 173/106 (128) 99 09/25/17 15:30 69 24 174/107 (129) 100 09/25/17 15:15 70 24 178/111 (133) 100 09/25/17 15:00 72 24 178/118 (138) 97 174/109 (130) 09/25/17 14:45 75 24 165/109 (127) 100 154/91 (112) 09/25/17 14:40 98.0 76 24 153/90 99 09/25/17 14:30 77 24 159/105 (123) 99 148/87 (107) 09/25/17 14:26 78 24 160/104 (122) 100 148/87 (107) 09/25/17 14:15 86 27 61 09/25/17 14:00 76 09/25/17 14:00 80 7 96 09/25/17 13:00 100 100 I/O 09/25/17 09/25/17 09/25/17 09/26/17 09/26/17 09/26/17 07:00 15:00 23:00 07:00 15:00 23:00 Intake Total 1147 ml 2612 ml 2537 ml Output Total 350 ml 1000.0 ml 1450 ml Balance -350 ml 1147 ml 1612.0 ml 1087 ml Intake IV Total 747 ml 1512 ml 2115 ml Tube Feeding 322 ml Packed Cells 400 ml 1100 ml Other 100 ml Output Urine Total 350 ml 1000 ml 1450 ml Tube Feeding Residual Discard 0 ml # Bowel Movements 0 0 Laboratory GENERAL: SKIN: Warm and dry. HEAD: Normocephalic. EYES: No scleral icterus. No injection or drainage. NECK: Supple, trachea midline. No JVD or lymphadenopathy. CARDIOVASCULAR: Regular rate and rhythm without murmurs, gallops, or rubs. RESPIRATORY: Breath sounds equal bilaterally. No accessory muscle use. GASTROINTESTINAL: Abdomen soft, non-tender, nondistended. MUSCULOSKELETAL: No cyanosis, or edema. BACK: Nontender without obvious deformity. No CVA tenderness. Laboratory Tests Test 09/26/17 03:34 White Blood Count 9.7 TH/MM3 Red Blood Count 3.85 MIL/MM3 Hemoglobin 11.2 GM/DL Hematocrit 32.4 % Mean Corpuscular Volume 84.0 FL Mean Corpuscular Hemoglobin 29.0 PG Mean Corpuscular Hemoglobin Concent 34.6 % Red Cell Distribution Width 18.1 % Platelet Count 161 TH/MM3 Mean Platelet Volume 8.7 FL Neutrophils (%) (Auto) 90.1 % Lymphocytes (%) (Auto) 7.0 % Monocytes (%) (Auto) 2.7 % Eosinophils (%) (Auto) 0.0 % Basophils (%) (Auto) 0.2 % Neutrophils # (Auto) 8.7 TH/MM3 Lymphocytes # (Auto) 0.7 TH/MM3 Monocytes # (Auto) 0.3 TH/MM3 Eosinophils # (Auto) 0.0 TH/MM3 Basophils # (Auto) 0.0 TH/MM3 CBC Comment AUTO DIFF Differential Comment AUTO DIFF CONFIRMED Platelet Estimate NORMAL Platelet Morphology Comment NORMAL Blood Urea Nitrogen 34 MG/DL Creatinine 1.42 MG/DL Random Glucose 310 MG/DL Total Protein 5.3 GM/DL Albumin 2.4 GM/DL Calcium Level 7.9 MG/DL Magnesium Level 1.3 MG/DL Alkaline Phosphatase 98 U/L Aspartate Amino Transf (AST/SGOT) 63 U/L Alanine Aminotransferase (ALT/SGPT) 69 U/L Total Bilirubin 0.5 MG/DL Sodium Level 139 MEQ/L Potassium Level 2.8 MEQ/L Chloride Level 108 MEQ/L Carbon Dioxide Level 19.1 MEQ/L Anion Gap 12 MEQ/L Estimat Glomerular Filtration Rate 37 ML/MIN Total Creatine Kinase 139 U/L B-Type Natriuretic Peptide 675 PG/ML Random Vancomycin Level 17.8 COMMENT Imaging Last 24 hours Impressions Chest X-Ray 09/26/17 0600 Signed Impressions: Service Date/Time: Tuesday, September 26, 2017 02:47 - CONCLUSION: Bilateral lower lobe consolidation. Noah Beyer MD Assessment and Plan Problem List: (1) Cardiomyopathy ICD Codes: I42.9 - Cardiomyopathy, unspecified (2) Respiratory failure ICD Codes: J96.90 - Respiratory failure, unspecified, unspecified whether with hypoxia or hypercapnia Status: Acute (3) Chronic kidney disease (CKD) ICD Codes: N18.9 - Chronic kidney disease, unspecified Status: Acute (4) Acute kidney injury superimposed on chronic kidney disease ICD Codes: N17.9 - Acute kidney failure, unspecified; N18.9 - Chronic kidney disease, unspecified Status: Acute (5) Coronary artery disease ICD Codes: I25.10 - Atherosclerosis of coronary artery Status: Acute (6) Diabetes mellitus, type II ICD Codes: E11.9 - Type 2 diabetes mellitus without complications (7) Hypertension ICD Codes: I10 - Hypertension Status: Acute (8) CVA (cerebral vascular accident) ICD Codes: I63.9 - Cerebral infarction, unspecified Status: Acute (9) COPD exacerbation ICD Codes: J44.1 - Chronic obstructive pulmonary disease with (acute) exacerbation Status: Acute Assessment and Plan 1.) CAD - pod#1 bms - clinically improving, continue aspirin, plavix, lipitor 2.) Cardiomyopathy - chf improving, continue coreg, altace, diurese per Dr Figueroa, f/u bnp, u/o 1liter last shift 3.) HTN - requiring prn labetolol 4.) anemia - improved s/p transfusion Sebastián Parrish MD Sep 26, 2017 12:42
[2017-09-26] MEDS ORDERED: GLUCAGON 1 MG/ML VIAL IM/SQ PRN (17:00)
[2017-09-26] MEDS ORDERED: DEXTROSE 50% IN WATER 50 ML VIAL(D50) IV PRN (17:00)
[2017-09-26] MEDS: INSULIN ASPART SUPPLEMENTAL SCALE SQ SCH (17:10)
[2017-09-26] MEDS: INSULIN DETEMIR 100 UNITS/ML VIAL SQ SCH ×2 (17:11→21:00)
[2017-09-26] MEDS: hydrALAZINE HCL 20 MG/ML VIAL IV PRN (17:25)
[2017-09-26] MEDS ORDERED: VECURONIUM BROMIDE 10 MG VIAL ONE (17:44)
[2017-09-26] MEDS ORDERED: VECURONIUM BROMIDE 10 MG VIAL IV ONE (18:00)
[2017-09-26] MEDS: MIDAZOLAM HCL 2 MG/2 ML VIAL IV PUSH ONE ×2 (18:14→18:15)
[2017-09-26] MEDS ORDERED: MIDAZOLAM 100 MG/100 ML INJ 100 ML IV PRN (18:15)
--- NOTE | 2017-09-26 18:37 | RADRPT ---
EXAM DATE/TIME: 09/26/2017 17:49 [facility] COMPARISON: No previous studies available for comparison. INDICATIONS : Respiratory failure MEDICAL HISTORY : None. SURGICAL HISTORY : Coronary artery stent. ENCOUNTER: Subsequent ACUITY: 3 days PAIN SCORE: Non-responsive. LOCATION: chest FINDINGS: There is cardiomegaly, plate and screw fixation of the left clavicle, endotracheal tube at the superi or margin of the clavicles, enteric tube extends beneath the diaphragm. Cardiomegaly and consolidatio n of both lungs and small right effusion suspected. CONCLUSION: No significant change has occurred. Diogo Palmer MD on September 26, 2017 at 18:35 Board Certified Radiologist. This report was verified electronically.
[2017-09-26] MEDS: AZITHROMYCIN INJ 500 MG in SODIUM CHLOR 0.9% 250 ML INJ 250 ML IV SCH (21:00)
[2017-09-26] MEDS: CEFEPIME INJ 1,000 MG in SODIUM CHLORIDE 0.9% INJ 100 ML IV SCH (22:00)
[2017-09-27] VITALS (18 sets, daily range): BP systolic 84–125; BP diastolic 49–79; PULSE 77–98; RESP 19–21; TEMP 98.6–99.9; O2SAT 92–97
[2017-09-27] MEDS: LABETALOL HCL 100 MG/20 ML VIAL IV PUSH SCH ×2 (01:00→05:00)
[2017-09-27] MEDS: RESP: ALBUTEROL 2.5 MG/IPRATROPIUM 0.5 MG NEB (SCH) INH ×6 (03:42→23:04)
[2017-09-27] MEDS: INSULIN ASPART SUPPLEMENTAL SCALE SQ SCH ×2 (03:49)
[2017-09-27] MEDS: CHLORHEXIDINE GLUCONATE 2 % 1 PACK (2 CLOTHS) TOP SCH (03:49)
[2017-09-27] MEDS: FUROSEMIDE 40 MG/4 ML VIAL IV PUSH SCH ×2 (05:38)
[2017-09-27] MEDS: PROPOFOL 1000 MG/100 ML INJ 100 ML IV PRN ×2 (05:38→21:02)
[2017-09-27] MEDS: CHLORHEXIDINE 0.12% (ORAL KIT) 15 ML CUP MT SCH ×3 (08:00→20:00)
[2017-09-27] MEDS ORDERED: IOHEXOL 350 MG/ML 100 ML BTL (for Cath Lab) OTHER ONE (08:24)
[2017-09-27] MEDS ORDERED: Vancomycin Consult Pharmacy 1 EA OTHER SCH (08:30)
--- NOTE | 2017-09-27 08:33 | HHI.CCPN ---
Subjective Remarks/Hospital Course 09/23: This is a 62-year-old female with a history of oxygen dependent COPD with a recent admission for left fibular fracture and was discharged to her long term facility. She is brought back from her sniff by EMS for worsening shortness of breath and chest tightness. She is on chronic methadone therapy and they were not giving her methadone she states in her long term facility, so she thinks she is in methadone withdrawal. In the emergency department she was hypoxic in the low 80s on nasal cannula oxygen was placed on BiPAP. A complete history is difficult to obtain due to the fact that she is a poor historian and she has a BiPAP in place and is very dyspneic and so it is difficult to obtain additional information from the patient. In the emergency department, she had a white count of 12.3, hemoglobin 8.7, potassium of 5.6, creatinine 1.79, BNP of 651. Chest x-ray demonstrates a new right lower lobe pneumonia. 09/24: On BiPAP with full facemask. Appears anxious. 09/25: Developed bradycardia and asystole yesterday received transient CPR with return of spontaneous circulation. Was intubated following resuscitation and placed on mechanical ventilation. Noted to have elevated cardiac enzymes last night. Started on aspirin and heparin and cardiology consult requested. Currently sedated, orally intubated on mechanical ventilation. 09/26: Patient underwent cardiac catheterization yesterday and underwent PCI to branch of RCA(posterior lateral artery 60% stenosis) due to chronic mid LAD total occlusion. On labetalol drip since yesterday which is being tapered off now. Remains sedated, orally intubated on mechanical ventilation. 09/27 Patient is sedated with Diprivan, Fentanyl and intubated. Objective Vital Signs Date Time Temp Pulse Resp B/P (MAP) Pulse Ox O2 Delivery O2 Flow Rate FiO2 09/27/17 06:00 77 09/27/17 04:00 98.1 19 95/52 (66) 96 09/27/17 04:00 40 09/24/17 00:35 15.00 09/23/17 23:38 BiPAP Intake and Output 09/27/17 09/27/17 09/28/17 08:00 16:00 00:00 Intake Total 100 ml Output Total 850 ml Balance -750 ml Result Diagram: 09/26/17 0334 09/26/17 1240 Other Results Laboratory Tests Test 09/26/17 12:40 09/27/17 03:37 Potassium Level 4.6 MEQ/L B-Type Natriuretic Peptide 763 PG/ML Random Vancomycin Level 28.2 COMMENT Imaging Last Impressions Chest X-Ray 09/26/17 0600 Signed Impressions: Service Date/Time: Tuesday, September 26, 2017 02:47 - CONCLUSION: Bilateral lower lobe consolidation. Noah Beyer MD Objective Remarks GENERAL: Patient is 62 yo intubated and sedated SKIN: Warm and dry. HEAD: Normocephalic. EYES: No scleral icterus. No injection or drainage. NECK: Supple, trachea midline. No JVD or lymphadenopathy. CARDIOVASCULAR: Regular rate and rhythm without murmurs, gallops, or rubs. RESPIRATORY: Breath sounds equal bilaterally. No accessory muscle use. GASTROINTESTINAL: Abdomen soft, non-tender, nondistended. MUSCULOSKELETAL: No cyanosis, or edema. Immobilizer for left leg fracture site in place Neuro: Sedated A/P Assessment and Plan Assessment: 62-year-old female with history of severe COPD who presents with acute hypoxic respiratory failure and new healthcare associated pneumonia, status post transient asystole followed by CPR and intubation, non-ST elevation NC Active problems: Metabolic encephalopathy Acute hypoxic respiratory failure requiring mechanical ventilation Acute COPD exacerbation Healthcare associated pneumonia Acute kidney injury superimposed on chronic renal insufficiency, unknown stage Severe acute protein calorie malnutrition Cardiac arrest status post CPR Non-ST elevation NC Uncontrolled hypertension Chronic pain on narcotics Plan: Neuro: Continue methadone and Xanax home doses. Propofol/fentanyl gtt for sedation with daily sedation vacation. Ativan as needed for vent synchrony. Follow neuro status CV: Elevated cardiac enzymes following transient asystole on 09/24. Cardiology following. 2D echo with LVEF 37% with anteroapical hypokinesis. s/p cardiac catheterization on 09/25: underwent PCI to branch of RCA(posterior lateral artery 60% stenosis) due to chronic mid LAD total occlusion On ASA, Lipitor, Coreg 6.25mg BID, Altace 2.5mg daily, Clonidine 0.2mg BID, Plavix 75mg daily, d/c Labetalol and Clonidine patch [place]- I ( worsening renal function) Pulmonary: Continue vent support keep sats >92% Bronchodilators, ICU vent bundle, decrease Solumederol 30mg Q12 SBT daily as lior GI/liver: On Glucerna 1.5@60ml/hr, Pepcid for GI prophylaxis Monitor LFT's Renal/: Monitor renal function, I/O's, electrolytes replacement per protocol d/c lasix ( worsening renal function) ID: Follow-up cultures. Continue empiric antibiotic coverage with IV cefepime/ Zithromax/vancomycin Heme: Monitor CBC. 1 unit PRBCs ordered on 03/28. Endocrine: SSI for glycemic control( change medium scale),hold Levemir Prophylaxis: Pepcid/SCDs/Lovenox Access: Peripheral IVs. Check labs today Level 3 Acacia De Paz MD Sep 27, 2017 08:33
[2017-09-27] MEDS ORDERED: GLUCAGON 1 MG/ML VIAL OTHER PRN (09:00)
[2017-09-27] MEDS ORDERED: DEXTROSE 50% IN WATER 50 ML VIAL(D50) IV PUSH PRN (09:00)
[2017-09-27] MEDS ORDERED: INSULIN DETEMIR 100 UNITS/ML VIAL SQ SCH (09:00)
[2017-09-27] MEDS ORDERED: FUROSEMIDE 40 MG/4 ML VIAL IV PUSH SCH (09:00)
[2017-09-27] MEDS: INSULIN NovoLIN REGULAR SUPPLEMENTAL SCALE SQ SCH ×4 (09:00→20:51)
[2017-09-27] MEDS: cloNIDine HCL 0.1 MG TAB PO SCH ×2 (09:00→20:52)
[2017-09-27 09:17] LABS: AUTOMATED NEUTROPHIL # 13.2 TH/MM3 (1.8-7.7); BASOPHIL % 0.2 % (0.0-2.0); HEMATOCRIT 34.8 % (35.0-46.0); HEMOGLOBIN 11.4 GM/DL (11.6-15.3); LYMPH % 5.4 % (9.0-44.0); LYMPHOCYTE # 0.8 TH/MM3 (1.0-4.8); MEAN CELL VOLUME 86.5 FL (80.0-100.0); MEAN CORPUSCULAR HEMOGLOBIN 28.4 PG (27.0-34.0); MEAN CORPUSCULAR HGB CONC 32.9 % (32.0-36.0); MEAN PLATELET VOLUME 8.6 FL (7.0-11.0); MONO % 6.9 % (0.0-8.0); NEUT % 87.5 % (16.0-70.0); PLATELET COUNT 159 TH/MM3 (150-450); RED BLOOD COUNT 4.02 MIL/MM3 (4.00-5.30); RED CELL DISTRIBUTION WIDTH 18.8 % (11.6-17.2); WHITE BLOOD COUNT 15.1 TH/MM3 (4.0-11.0)
[2017-09-27] MEDS: ASPIRIN 81 MG CHEW TAB PO SCH (09:30)
[2017-09-27] MEDS: METHOCARBAMOL 500 MG TAB PO SCH ×2 (09:30→20:51)
[2017-09-27] MEDS: CLOPIDOGREL 75 MG TAB PO SCH (09:31)
[2017-09-27] MEDS: GABAPENTIN 100 MG CAP PO SCH ×2 (09:31→20:51)
[2017-09-27] MEDS: FAMOTIDINE 20 MG TAB PO SCH (09:32)
[2017-09-27] MEDS: methylPREDNISolone SOD SUCC 125 MG/2 ML VIAL IV PUSH SCH ×2 (09:35→20:51)
[2017-09-27] MEDS: METHADONE HCL 10 MG TAB PO SCH ×3 (09:39→17:46)
[2017-09-27] MEDS: RAMIPRIL 2.5 MG CAP PO SCH (09:41)
[2017-09-27] MEDS: CARVEDILOL 6.25 MG TAB OG-TUBE SCH ×2 (09:44→20:52)
[2017-09-27] MEDS: SODIUM CHLORIDE 0.9% FLUSH 10 ML FLUSH IV FLUSH SCH ×2 (09:48→20:51)
[2017-09-27 09:49] LABS: ALBUMIN 2.8 GM/DL (3.4-5.0); ALT (GPT) 56 U/L (10-53); AST (GOT) 39 U/L (15-37); CALCIUM 8.1 MG/DL (8.5-10.1); CHLORIDE 108 MEQ/L (98-107); CREATININE 2.17 MG/DL (0.50-1.00); GLOMERULAR FILTRATION RATE 23 ML/MIN (>89); GLUCOSE,RANDOM 113 MG/DL (74-106); SODIUM (NA) 142 MEQ/L (136-145); TOTAL BILIRUBIN ADULT 0.5 MG/DL (0.2-1.0)
[2017-09-27] MEDS: DOCUSATE SODIUM 50 MG/SENNA 8.6 MG TAB PO SCH ×2 (09:49→20:53)
[2017-09-27] MEDS: ENOXAPARIN SODIUM 40 MG/0.4 ML SYRINGE SQ SCH (09:51)
[2017-09-27 09:52] LABS: ALKALINE PHOSPHATASE 144 U/L (45-117); BICARBONATE 23.7 MEQ/L (21.0-32.0); BLOOD UREA NITROGEN 51 MG/DL (7-18); TOTAL PROTEIN 6.2 GM/DL (6.4-8.2)
[2017-09-27 09:56] LABS: TROPONIN I 6.28 NG/ML (0.02-0.05)
[2017-09-27] MEDS ORDERED: SODIUM POLYSTYRENE SULFONATE SUSP 15 GM/60 ML CUP PO ONE (12:00)
--- NOTE | 2017-09-27 14:34 | RADRPT ---
EXAM DATE/TIME: 09/27/2017 11:51 [facility] COMPARISON: US KIDNEY/RENAL/BLADDER, February 26, 2016, 15:28[facility], Renal Ultrasound, February 15, 2014CT Abdomen, 06/23/2011. INDICATIONS : Acute kidney injury. MEDICAL HISTORY : Hypercholesterolemia. Hypertension. CVA. COPD. SURGICAL HISTORY : Tonsillectomy. Cardiac catheterization. Cardiac stents. Renal stents. ENCOUNTER: Subsequent ACUITY: 1 day PAIN SCORE: Nonresponsive. LOCATION: Bilateral flank MEASUREMENTS: RIGHT KIDNEY: 9.4 x 4.5 x 4.5 cm LEFT KIDNEY: 10.0 x 3.9 x 3.3 cm FINDINGS: Ultrasound of the kidneys demonstrates increased echogenicity of the cortex compatible with medical r enal disease. No hydronephrosis or mass lesions are identified. The aorta and inferior cava are unrem arkable. The bladder demonstrates no abnormality. CONCLUSION: Echogenic kidneys bilaterally compatible with medical renal disease. Jay García MD on September 27, 2017 at 14:32 Board Certified Radiologist. This report was verified electronically.
--- NOTE | 2017-09-27 15:07 | MR ---
cc: Sebastián Parrish MD, Arthur W MD 09/25/2017 PROCEDURE: Right heart catheterization, left heart catheterization, left ventriculography, coronary angiography and direct PCI with bare metal stent of the mid right posterolateral artery. INDICATIONS: Non-STEMI, decompensated congestive heart failure, hypoxic respiratory failure, coronary artery disease, cardiomyopathy, CHF, [place] Heart Association Class IV congestive heart failure, anginal equivalent [place] Cardiovascular Society Class IV angina. PROCEDURAL STATEMENT: The patient was brought to the cardiac catheterization laboratory in a fasting state, prepped and draped in usual sterile fashion. Lidocaine 10 mL, 1% was used to locally anesthetize the right common femoral artery. A 4-Beninese sheath placed in the right common femoral artery. A 7-Beninese sheath placed in the right common femoral vein. Right heart catheterization was performed first with the following findings: I was not able to wedge the balloon into the wedge position. We did get a PA pressure which was 46/29-38. RV pressure 54/15-17 and RA pressure 18/16-15. The sats on 100% oxygen while patient intubated, femoral artery sat 98.2%, PA sat 76.2%, RA sat 76.8%. By TIKA the cardiac output is 8.7 liters per minute, cardiac index 5.0 liters per m2 per minutes and SVR 933.7 dynes. Left heart catheterization was then performed with a 4-Beninese JR 4, AR modified and JR 4 catheter with the following findings: The LV pressures 140/20-22. Ejection fraction 40%. The anterior apical wall is severely hypokinetic to akinetic. The right coronary artery is a large dominant vessel with widely patent stents in the proximal to mid segment with mild in-stent stenosis. There is a large posterolateral artery which supplies grade 2 to 3 right to left collaterals to the entire LAD to a point of occlusion of the proximal segment of the LAD. The right posterolateral artery has a long 90% stenosis. The right PDA also supplies right to left collaterals to the LAD and has no significant disease. The left main coronary artery has no significant disease angiographically. The LAD has severe diffuse disease in the proximal segment up to 75% angiographically. It is then occluded after the first diagonal artery. The first diagonal artery is a small 1.0 reference vessel diameter vessel with moderate diffuse disease in the ostial proximal segment up to 50% angiographically. There is a medium sized ramus intermedius vessel which has mild diffuse disease in the proximal segment. Reference vessel diameter 2.5 mm in diameter. Left circ has a proximal 30% to 40% stenosis. It gives off an obtuse marginal vessel which is subtotally occluded at the ostium with JACINTO I to II flow into it. It is a reference vessel diameter of approximately 2 to 2.5 mm. The second obtuse marginal vessel is very tortuous, small. Reference vessel diameter of 1.5 to 2 mm in diameter with no significant disease. The patient came in with respiratory failure, decompensated congestive heart failure, BNP above 2000, non-STEMI with resting ischemic changes in the anterolateral leads. I highly suspect the right GIOVANI vessel which is supplying collaterals to the LAD is the culprit, as this is essentially a multivessel lesion supplying 2 large vascular distributions of the myocardium. Therefore, despite the fact the patient is anemic with unstable hemoglobin, I did think it was medically necessary and the risk/benefit ratio favored revascularization of this lesion. Therefore, I exchanged a 4-Beninese sheath with a 6-Beninese sheath, gave the patient 60 units/kg of heparin, ACT is 290. A 6-Beninese AR modified [employer] guidewire was used to cross the mid right PDA stenosis. I placed a 3.0 x 15 Integrity stent across the lesion. Note: Without the stent deployed, there was near occlusion of the vessel with slow flow of dye beyond the undeployed stent. I deployed the same 1 inflation 10 atmospheres for 20 seconds. Stenosis went from 90% to 0% with JACINTO III flow. CONCLUSION: 1. Non-ST elevation myocardial infarction, decompensated congestive heart failure, culprit large posterolateral artery branch supplying grade III to IV right to left collaterals to an occluded left anterior descending. Thus, 2 large vascular distributions of ischemia. 2. Widely patent stents in the proximal right coronary artery. 3. Occluded left anterior descending as detailed above. 4. Subtotally occluded small obtuse marginal vessel as detailed above. 5. Cardiomyopathy, ejection fraction 40% with severe hypokinesis of the anterior apical wall and inferior apical wall. 6. Successful direct percutaneous coronary intervention with bare metal stent of the proximal mid right posterolateral artery from 90% to 0% with JACINTO III flow. 7. Recommend Plavix 300 mg by mouth load, 75 mg a day for at least 3, preferably 4 weeks, optimally 6 weeks and 12-15 months if tolerated per Food and Drug Administration guidelines. Aspirin 162 mg load then 81 mg daily. Obviously, we will need to follow up her hemoglobin and hematocrit closely given the unstable hemoglobin. The patient will return to the intensive care unit for further event management and diuresis and close monitoring. MD KENTON Pulliam//rh , 01:47 PM , 05:04 PM
--- NOTE | 2017-09-27 20:11 | PD.CARD.PN ---
Subjective Subjective Remarks intubated, sedated Objective Medications Current Medications Medications (Trade) Dose Ordered Sig/Ann Route Start Time Stop Time Status Last Admin Azithromycin 500 mg/Sodium Chloride 250 ml @ 250 mls/hr Q24H IV 09/24/17 21:00 09/26/17 21:00 Cefepime HCl 1000 mg/Sodium Chloride 100 ml @ 200 mls/hr DAILY@2200 IV 09/24/17 22:00 09/26/17 22:00 Pharmacy Profile Note 0 ml @ 0 mls/hr UNSCH OTHER 09/23/17 23:15 (Mag-Ox) 800 mg UNSCH PRN PO 09/23/17 23:15 09/26/17 07:46 Sodium Phosphate 30 mmol/Sodium Chloride 250 ml @ 42 mls/hr UNSCH PRN IV 09/23/17 23:15 (Duoneb Neb) 1 ampule Q2HR NEB PRN INH 09/23/17 23:15 (Duoneb Neb) 1 ampule Q4HR NEB INH 09/24/17 00:00 09/27/17 19:48 (Tylenol) 650 mg Q6H PRN PO 09/23/17 23:15 (Zofran Inj) 4 mg Q6H PRN IV PUSH 09/23/17 23:15 Miscellaneous Information 1 Q361D XX 09/23/17 23:15 (Chlorhexidine 2% Cloth) 3 pack Taper DAILY@04 TOP 09/24/17 04:00 09/20/18 03:59 09/27/17 03:49 (Chlorhexidine 2% Cloth) 3 pack UNSCH PRN TOP 09/23/17 23:15 (Karen-Colace) 1 tab BID PO 09/24/17 09:00 09/27/17 09:49 (Milk Of Magnesia Liq) 30 ml Q12H PRN PO 09/23/17 23:15 (Senokot) 17.2 mg Q12H PRN PO 09/23/17 23:15 (Dulcolax Supp) 10 mg DAILY PRN RECTAL 09/23/17 23:15 (Lactulose Liq) 30 ml DAILY PRN PO 09/23/17 23:15 (Xanax) 0.5 mg Q6H PRN PO 09/24/17 08:15 09/24/17 08:28 (Dolophine) 20 mg TID PO 09/24/17 09:00 09/27/17 17:46 Dexmedetomidine HCl 200 mcg/ Sodium Chloride 52 ml @ 3.45 mls/hr TITRATE PRN IV 09/24/17 11:15 (Peridex 0.12% Liq) 15 ml BID@08,20 MT 09/24/17 20:00 09/27/17 09:52 Propofol 100 ml @ 1.995 mls/ hr TITRATE PRN IV 09/24/17 12:45 09/27/17 05:38 Fentanyl Citrate 250 ml @ 5 mls/hr TITRATE PRN IV 09/24/17 12:45 09/26/17 09:24 (Coreg) 6.25 mg Q12HR OG-TUBE 09/25/17 07:00 09/27/17 09:44 (Lipitor) 80 mg HS PO 09/25/17 21:00 (Neurontin) 100 mg BID PO 09/25/17 09:00 09/27/17 09:31 (Zanaflex) 4 mg Q8HR PO 09/25/17 14:00 09/27/17 14:55 (Robaxin) 750 mg Q12HR PO 09/25/17 09:00 09/27/17 09:30 (Benadryl) 25 mg Q4H PRN PO 09/25/17 07:15 (Ativan Inj) 2 mg Q2H PRN IV PUSH 09/25/17 09:15 09/26/17 17:35 (NS Flush) 2 ml UNSCH PRN IV FLUSH 09/25/17 14:00 09/26/17 04:50 (NS Flush) 2 ml BID IV FLUSH 09/25/17 21:00 09/27/17 09:48 (Aspirin Chew) 81 mg DAILY PO 09/26/17 09:00 09/27/17 09:30 (Plavix) 75 mg DAILY PO 09/26/17 09:00 09/27/17 09:31 (Altace) 2.5 mg DAILY PO 09/26/17 09:00 Future Hold 09/27/17 09:41 (Catapres) 0.2 mg BID PO 09/25/17 21:00 09/26/17 07:46 Miscellaneous Information 1 Q7D T-DERMAL 09/25/17 18:00 (Apresoline Inj) 20 mg Q2H PRN IV 09/26/17 08:15 09/26/17 17:25 (SoluMEDROL INJ) 30 mg Q12HR IV PUSH 09/27/17 09:00 09/27/17 09:35 (D50w (Vial) Inj) 50 ml UNSCH PRN IV PUSH 09/27/17 09:00 (Glucagon Inj) 1 mg UNSCH PRN OTHER 09/27/17 09:00 (NovoLIN R SUPPLEMENTAL SCALE) 1 Q4H SQ 09/27/17 09:00 09/27/17 17:45 (Pepcid) 10 mg Q12HR PO 09/28/17 09:00 (Lovenox Inj) 30 mg Q24H SQ 09/28/17 11:00 Vital Signs / I&O Vital Signs Date Time Temp Pulse Resp B/P (MAP) Pulse Ox O2 Delivery O2 Flow Rate FiO2 09/27/17 19:45 97 45 09/27/17 18:45 20 09/27/17 18:00 80 09/27/17 16:00 98.9 81 19 104/59 (74) 94 09/27/17 16:00 40 09/27/17 16:00 81 09/27/17 15:25 94 45 09/27/17 14:00 98 09/27/17 12:00 40 09/27/17 12:00 98.6 92 21 125/63 (83) 93 09/27/17 12:00 92 09/27/17 11:20 94 45 09/27/17 10:00 95 09/27/17 08:16 92 40 09/27/17 08:16 40 09/27/17 08:10 40 09/27/17 08:00 40 09/27/17 08:00 87 09/27/17 08:00 99.9 87 20 110/79 (89) 95 09/27/17 06:00 77 09/27/17 04:00 98.1 78 19 95/52 (66) 96 09/27/17 04:00 96 40 09/27/17 04:00 78 09/27/17 04:00 40 09/27/17 02:00 82 09/27/17 01:17 97 50 09/27/17 01:00 50 09/27/17 00:00 60 09/27/17 00:00 99.9 84 20 84/49 (61) 96 09/27/17 00:00 84 09/26/17 22:25 95 60 09/26/17 22:00 84 I/O 09/26/17 09/26/17 09/26/17 09/27/17 09/27/17 09/27/17 07:00 15:00 23:00 07:00 15:00 23:00 Intake Total 2537 ml 700 ml 1681 ml 100 ml 891 ml Output Total 1450 ml 1550.0 ml 850 ml 0 ml 2100 ml Balance 1087 ml 700 ml 131.0 ml -750 ml 0 ml -1209 ml Intake IV Total 2115 ml 700 ml 650 ml 100 ml 0 ml Tube Feeding 322 ml 791 ml 651 ml Other 100 ml 240 ml 240 ml Output Urine Total 1450 ml 1400 ml 850 ml 2100 ml Tube Feeding Residual Discard 150.0 ml 0 ml 0 ml # Bowel Movements 0 0 0 2 Physical Exam GENERAL: SKIN: Warm and dry. HEAD: Normocephalic. EYES: No scleral icterus. No injection or drainage. NECK: Supple, trachea midline. No JVD or lymphadenopathy. CARDIOVASCULAR: Regular rate and rhythm without murmurs, gallops, or rubs. RESPIRATORY: Breath sounds equal bilaterally. No accessory muscle use. GASTROINTESTINAL: Abdomen soft, non-tender, nondistended. MUSCULOSKELETAL: No cyanosis, or edema. BACK: Nontender without obvious deformity. No CVA tenderness. Laboratory Laboratory Tests Test 09/27/17 03:37 09/27/17 08:48 B-Type Natriuretic Peptide 763 PG/ML 711 PG/ML Random Vancomycin Level 28.2 COMMENT White Blood Count 15.1 TH/MM3 Red Blood Count 4.02 MIL/MM3 Hemoglobin 11.4 GM/DL Hematocrit 34.8 % Mean Corpuscular Volume 86.5 FL Mean Corpuscular Hemoglobin 28.4 PG Mean Corpuscular Hemoglobin Concent 32.9 % Red Cell Distribution Width 18.8 % Platelet Count 159 TH/MM3 Mean Platelet Volume 8.6 FL Neutrophils (%) (Auto) 87.5 % Lymphocytes (%) (Auto) 5.4 % Monocytes (%) (Auto) 6.9 % Eosinophils (%) (Auto) 0.0 % Basophils (%) (Auto) 0.2 % Neutrophils # (Auto) 13.2 TH/MM3 Lymphocytes # (Auto) 0.8 TH/MM3 Monocytes # (Auto) 1.0 TH/MM3 Eosinophils # (Auto) 0.0 TH/MM3 Basophils # (Auto) 0.0 TH/MM3 CBC Comment DIFF FINAL Differential Comment Blood Urea Nitrogen 51 MG/DL Creatinine 2.17 MG/DL Random Glucose 113 MG/DL Total Protein 6.2 GM/DL Albumin 2.8 GM/DL Calcium Level 8.1 MG/DL Phosphorus Level 3.0 MG/DL Magnesium Level 2.0 MG/DL Alkaline Phosphatase 144 U/L Aspartate Amino Transf (AST/SGOT) 39 U/L Alanine Aminotransferase (ALT/SGPT) 56 U/L Total Bilirubin 0.5 MG/DL Sodium Level 142 MEQ/L Potassium Level 5.2 MEQ/L Chloride Level 108 MEQ/L Carbon Dioxide Level 23.7 MEQ/L Anion Gap 10 MEQ/L Estimat Glomerular Filtration Rate 23 ML/MIN Troponin I 6.28 NG/ML Imaging Last 24 hours Impressions Renal Ultrasound 09/27/17 0000 Signed Impressions: Service Date/Time: Wednesday, September 27, 2017 11:51 - CONCLUSION: Echogenic kidneys bilaterally compatible with medical renal disease. Jay García MD Assessment and Plan Problem List: (1) Cardiomyopathy ICD Codes: I42.9 - Cardiomyopathy, unspecified (2) Respiratory failure ICD Codes: J96.90 - Respiratory failure, unspecified, unspecified whether with hypoxia or hypercapnia Status: Acute (3) Chronic kidney disease (CKD) ICD Codes: N18.9 - Chronic kidney disease, unspecified Status: Acute (4) Acute kidney injury superimposed on chronic kidney disease ICD Codes: N17.9 - Acute kidney failure, unspecified; N18.9 - Chronic kidney disease, unspecified Status: Acute (5) Coronary artery disease ICD Codes: I25.10 - Atherosclerosis of coronary artery Status: Acute (6) Diabetes mellitus, type II ICD Codes: E11.9 - Type 2 diabetes mellitus without complications (7) Hypertension ICD Codes: I10 - Hypertension Status: Acute (8) CVA (cerebral vascular accident) ICD Codes: I63.9 - Cerebral infarction, unspecified Status: Acute (9) COPD exacerbation ICD Codes: J44.1 - Chronic obstructive pulmonary disease with (acute) exacerbation Status: Acute Assessment and Plan 1.) CAD - pod#2 bms - clinically improving, continue aspirin, plavix, lipitor 2.) Cardiomyopathy - chf improving, continue coreg, lasix and altace held due to arf, f/u bmp and bnp 3.) HTN - requiring prn labetolol 4.) anemia - stable, f/u cbc in am Sebastián Parrish MD Sep 27, 2017 20:11
[2017-09-27] MEDS: CEFEPIME INJ 1,000 MG in SODIUM CHLORIDE 0.9% INJ 100 ML IV SCH (20:50)
[2017-09-27] MEDS: AZITHROMYCIN INJ 500 MG in SODIUM CHLOR 0.9% 250 ML INJ 250 ML IV SCH (20:50)
[2017-09-27] MEDS: ATORVASTATIN 40 MG TAB PO SCH ×2 (20:52→21:00)
[2017-09-28] VITALS (20 sets, daily range): BP systolic 116–172; BP diastolic 62–106; PULSE 66–102; RESP 10–20; TEMP 97.7–100; O2SAT 93–98
[2017-09-28] MEDS: CHLORHEXIDINE GLUCONATE 2 % 1 PACK (2 CLOTHS) TOP SCH (04:00)
[2017-09-28] MEDS: PROPOFOL 1000 MG/100 ML INJ 100 ML IV PRN (04:09)
[2017-09-28 04:33] LABS: AUTOMATED NEUTROPHIL # 11.5 TH/MM3 (1.8-7.7); BASOPHIL % 0.2 % (0.0-2.0); EOSINOPHIL # 0.1 TH/MM3 (0-0.4); EOSINOPHIL % 0.7 % (0.0-4.0); HEMATOCRIT 31.6 % (35.0-46.0); HEMOGLOBIN 10.5 GM/DL (11.6-15.3); LYMPH % 10.2 % (9.0-44.0); LYMPHOCYTE # 1.4 TH/MM3 (1.0-4.8); MEAN CELL VOLUME 86.1 FL (80.0-100.0); MEAN CORPUSCULAR HEMOGLOBIN 28.6 PG (27.0-34.0); MEAN CORPUSCULAR HGB CONC 33.2 % (32.0-36.0); MEAN PLATELET VOLUME 8.4 FL (7.0-11.0); MONO % 5.3 % (0.0-8.0); MONOCYTE # 0.7 TH/MM3 (0-0.9); NEUT % 83.6 % (16.0-70.0); PLATELET COUNT 137 TH/MM3 (150-450); RED BLOOD COUNT 3.67 MIL/MM3 (4.00-5.30); RED CELL DISTRIBUTION WIDTH 19.6 % (11.6-17.2); WHITE BLOOD COUNT 13.8 TH/MM3 (4.0-11.0)
[2017-09-28] MEDS: INSULIN NovoLIN REGULAR SUPPLEMENTAL SCALE SQ SCH ×5 (05:00→21:00)
[2017-09-28 05:04] LABS: ALBUMIN 2.3 GM/DL (3.4-5.0); ALKALINE PHOSPHATASE 169 U/L (45-117); ALT (GPT) 57 U/L (10-53); AST (GOT) 52 U/L (15-37); BICARBONATE 25.2 MEQ/L (21.0-32.0); BLOOD UREA NITROGEN 56 MG/DL (7-18); CALCIUM 8.3 MG/DL (8.5-10.1); CHLORIDE 109 MEQ/L (98-107); CREATININE 1.93 MG/DL (0.50-1.00); GLOMERULAR FILTRATION RATE 26 ML/MIN (>89); GLUCOSE,RANDOM 122 MG/DL (74-106); MAGNESIUM 2.1 MG/DL (1.5-2.5); RANDOM VANCOMYCIN 20.5 COMMENT; SODIUM (NA) 143 MEQ/L (136-145); TOTAL BILIRUBIN ADULT 0.4 MG/DL (0.2-1.0); TOTAL PROTEIN 5.5 GM/DL (6.4-8.2)
--- NOTE | 2017-09-28 07:12 | HHI.CCPN ---
Subjective Remarks/Hospital Course 09/23: This is a 62-year-old female with a history of oxygen dependent COPD with a recent admission for left fibular fracture and was discharged to her [facility] facility. She is brought back from her sniff by EMS for worsening shortness of breath and chest tightness. She is on chronic methadone therapy and they were not giving her methadone she states in her [facility] facility, so she thinks she is in methadone withdrawal. In the emergency department she was hypoxic in the low 80s on nasal cannula oxygen was placed on BiPAP. A complete history is difficult to obtain due to the fact that she is a poor historian and she has a BiPAP in place and is very dyspneic and so it is difficult to obtain additional information from the patient. In the emergency department, she had a white count of 12.3, hemoglobin 8.7, potassium of 5.6, creatinine 1.79, BNP of 651. Chest x-ray demonstrates a new right lower lobe pneumonia. 32: On BiPAP with full facemask. Appears anxious. 3: Developed bradycardia and asystole yesterday received transient CPR with return of spontaneous circulation. Was intubated following resuscitation and placed on mechanical ventilation. Noted to have elevated cardiac enzymes last night. Started on aspirin and heparin and cardiology consult requested. Currently sedated, orally intubated on mechanical ventilation. 09/26: Patient underwent cardiac catheterization yesterday and underwent PCI to branch of RCA(posterior lateral artery 60% stenosis) due to chronic mid LAD total occlusion. On labetalol drip since yesterday which is being tapered off now. Remains sedated, orally intubated on mechanical ventilation. 09/27 Patient is sedated with Diprivan, Fentanyl and intubated. 09/28 No events overnight. Remains sedated and intubated Afebrile. Objective Vital Signs Date Time Temp Pulse Resp B/P (MAP) Pulse Ox O2 Delivery O2 Flow Rate FiO2 09/28/17 06:00 89 09/28/17 04:36 97 40 09/28/17 04:00 98.8 18 133/73 (93) Intake and Output 09/28/17 09/28/17 09/29/17 08:00 16:00 00:00 Intake Total 1356 ml Output Total 1150 ml Balance 206 ml Result Diagram: 09/28/17 0345 09/28/17 0345 Other Results Laboratory Tests Test 09/27/17 08:48 09/28/17 03:45 White Blood Count 15.1 TH/MM3 13.8 TH/MM3 Red Blood Count 4.02 MIL/MM3 3.67 MIL/MM3 Hemoglobin 11.4 GM/DL 10.5 GM/DL Hematocrit 34.8 % 31.6 % Mean Corpuscular Volume 86.5 FL 86.1 FL Mean Corpuscular Hemoglobin 28.4 PG 28.6 PG Mean Corpuscular Hemoglobin Concent 32.9 % 33.2 % Red Cell Distribution Width 18.8 % 19.6 % Platelet Count 159 TH/MM3 137 TH/MM3 Mean Platelet Volume 8.6 FL 8.4 FL Neutrophils (%) (Auto) 87.5 % 83.6 % Lymphocytes (%) (Auto) 5.4 % 10.2 % Monocytes (%) (Auto) 6.9 % 5.3 % Eosinophils (%) (Auto) 0.0 % 0.7 % Basophils (%) (Auto) 0.2 % 0.2 % Neutrophils # (Auto) 13.2 TH/MM3 11.5 TH/MM3 Lymphocytes # (Auto) 0.8 TH/MM3 1.4 TH/MM3 Monocytes # (Auto) 1.0 TH/MM3 0.7 TH/MM3 Eosinophils # (Auto) 0.0 TH/MM3 0.1 TH/MM3 Basophils # (Auto) 0.0 TH/MM3 0.0 TH/MM3 CBC Comment DIFF FINAL DIFF FINAL Differential Comment Blood Urea Nitrogen 51 MG/DL 56 MG/DL Creatinine 2.17 MG/DL 1.93 MG/DL Random Glucose 113 MG/DL 122 MG/DL Total Protein 6.2 GM/DL 5.5 GM/DL Albumin 2.8 GM/DL 2.3 GM/DL Calcium Level 8.1 MG/DL 8.3 MG/DL Phosphorus Level 3.0 MG/DL 3.0 MG/DL Magnesium Level 2.0 MG/DL 2.1 MG/DL Alkaline Phosphatase 144 U/L 169 U/L Aspartate Amino Transf (AST/SGOT) 39 U/L 52 U/L Alanine Aminotransferase (ALT/SGPT) 56 U/L 57 U/L Total Bilirubin 0.5 MG/DL 0.4 MG/DL Sodium Level 142 MEQ/L 143 MEQ/L Potassium Level 5.2 MEQ/L 4.2 MEQ/L Chloride Level 108 MEQ/L 109 MEQ/L Carbon Dioxide Level 23.7 MEQ/L 25.2 MEQ/L Anion Gap 10 MEQ/L 9 MEQ/L Estimat Glomerular Filtration Rate 23 ML/MIN 26 ML/MIN Troponin I 6.28 NG/ML B-Type Natriuretic Peptide 711 PG/ML 526 PG/ML Random Vancomycin Level 20.5 COMMENT Imaging Last Impressions Renal Ultrasound 09/27/17 0000 Signed Impressions: Service Date/Time: Wednesday, September 27, 2017 11:51 - CONCLUSION: Echogenic kidneys bilaterally compatible with medical renal disease. Jay García MD Chest X-Ray 09/26/17 0600 Signed Impressions: Service Date/Time: Tuesday, September 26, 2017 02:47 - CONCLUSION: Bilateral lower lobe consolidation. Noah Beyer MD Objective Remarks GENERAL: Patient is 62 yo intubated and sedated SKIN: Warm and dry. HEAD: Normocephalic. EYES: No scleral icterus. No injection or drainage. NECK: Supple, trachea midline. No JVD or lymphadenopathy. CARDIOVASCULAR: Regular rate and rhythm without murmurs, gallops, or rubs. RESPIRATORY: Breath sounds equal bilaterally. No accessory muscle use. GASTROINTESTINAL: Abdomen soft, non-tender, nondistended. MUSCULOSKELETAL: No cyanosis, or edema. Immobilizer for left leg fracture site in place Neuro: Sedated A/P Assessment and Plan Assessment: 62-year-old female with history of severe COPD who presents with acute hypoxic respiratory failure and new healthcare associated pneumonia, status post transient asystole followed by CPR and intubation, non-ST elevation KS Active problems: Metabolic encephalopathy Acute hypoxic respiratory failure requiring mechanical ventilation Acute COPD exacerbation Healthcare associated pneumonia Acute kidney injury superimposed on chronic renal insufficiency, unknown stage Severe acute protein calorie malnutrition Cardiac arrest status post CPR Non-ST elevation KS Uncontrolled hypertension Chronic pain on narcotics Plan: Neuro: Continue methadone and Xanax home doses. Propofol/fentanyl gtt for sedation with daily sedation vacation. Monitor neuro status CV: Elevated cardiac enzymes following transient asystole on 09/24. Cardiology following. 2D echo with LVEF 37% with anteroapical hypokinesis. s/p cardiac catheterization on 09/25: underwent PCI to branch of RCA(posterior lateral artery 60% stenosis) due to chronic mid LAD total occlusion On ASA, Lipitor, Coreg 6.25mg BID, increase Clonidine 0.2mgQ8, Plavix 75mg daily , add Hydralazine 50mg Q8 George- I held for renal dysfunction Pulmonary: Continue vent support keep sats >92% Bronchodilators, ICU vent bundle, Solumederol 30mg Q12 SBT daily as lior. Check CXR GI/liver: On Glucerna 1.5@60ml/hr, Pepcid for GI prophylaxis Monitor LFT's Renal/: Monitor renal function, I/O's, electrolytes replacement as needed, avoid nephrotoxins Cr: 1.93 from 2.17, UOP: 3250ml in 24 hrs ID: Follow-up cultures. Continue empiric antibiotic coverage with IV cefepime/ Zithromax Heme: Monitor CBC. 1 unit PRBCs ordered on 03/28. Endocrine: SSI for glycemic control( medium scale), Prophylaxis: Pepcid/SCDs/Lovenox Access: Peripheral IVs. Level 3 Acacia De Paz MD Sep 28, 2017 07:12
--- NOTE | 2017-09-28 07:58 | RADRPT ---
EXAM DATE/TIME: 09/28/2017 07:36 [facility] COMPARISON: CHEST SINGLE AP, September 26, 2017, 17:49. INDICATIONS : Ventilator-dependant respiratory failure. MEDICAL HISTORY : Hypercholesterolemia. Hypertension CVA. COPD. SURGICAL HISTORY : Tonsillectomy. Cardiac catheterization. Cardiac stents. Renal stents. ENCOUNTER: Subsequent ACUITY: 2 days PAIN SCORE: Non-responsive. LOCATION: Bilateral chest FINDINGS: Improved aeration and decreasing lung opacity is noted. The diaphragms remain poorly delineated indicating bilateral effusions. The heart remains moderately enlarged but stable. Endotracheal and nasogastric tubes are in stable position. CONCLUSION: Improving lung aeration with decreasing overall lung capacity. John Robert MD on September 28, 2017 at 7:54 Board Certified Radiologist. This report was verified electronically.
[2017-09-28] MEDS: CHLORHEXIDINE 0.12% (ORAL KIT) 15 ML CUP MT SCH ×2 (08:49→20:00)
[2017-09-28] MEDS: SODIUM CHLORIDE 0.9% FLUSH 10 ML FLUSH IV FLUSH SCH ×2 (08:49→20:35)
[2017-09-28] MEDS: FAMOTIDINE 20 MG TAB PO SCH ×2 (08:50→20:37)
[2017-09-28] MEDS: CLOPIDOGREL 75 MG TAB PO SCH (08:50)
[2017-09-28] MEDS: GABAPENTIN 100 MG CAP PO SCH ×2 (08:50→20:38)
[2017-09-28] MEDS: CARVEDILOL 6.25 MG TAB OG-TUBE SCH ×2 (08:50→20:37)
[2017-09-28] MEDS: ASPIRIN 81 MG CHEW TAB PO SCH (08:50)
[2017-09-28] MEDS: cloNIDine HCL 0.1 MG TAB PO SCH ×3 (08:51→18:02)
[2017-09-28] MEDS: METHADONE HCL 10 MG TAB PO SCH ×3 (08:51→18:02)
[2017-09-28] MEDS: DOCUSATE SODIUM 50 MG/SENNA 8.6 MG TAB PO SCH ×2 (08:52→20:38)
[2017-09-28] MEDS: METHOCARBAMOL 500 MG TAB PO SCH ×2 (08:52→20:37)
[2017-09-28] MEDS: methylPREDNISolone SOD SUCC 125 MG/2 ML VIAL IV PUSH SCH ×2 (08:52→20:35)
[2017-09-28] MEDS ORDERED: ENOXAPARIN SODIUM 30 MG/0.3 ML SYRINGE SQ SCH (11:00)
[2017-09-28] MEDS ORDERED: RESP: ALBUTEROL 2.5 MG/IPRATROPIUM 0.5 MG NEB (PRN) NEB (13:30)
[2017-09-28] MEDS ORDERED: METOPROLOL TARTRATE 5 MG/5 ML VIAL IV PUSH ONE (14:30)
[2017-09-28] MEDS: RESP: ALBUTEROL 2.5 MG/IPRATROPIUM 0.5 MG NEB (SCH) NEB ×3 (16:28→23:22)
[2017-09-28] MEDS ORDERED: hydrALAZINE HCL 20 MG/ML VIAL IV PUSH PRN (16:30)
[2017-09-28] MEDS: hydrALAZINE HCL 20 MG/ML VIAL IV PRN (16:43)
--- NOTE | 2017-09-28 17:16 | PD.CARD.PN ---
Subjective Subjective Remarks extubated, alert, in nad, denies chest pain Objective Medications Current Medications Medications (Trade) Dose Ordered Sig/Ann Route Start Time Stop Time Status Last Admin Azithromycin 500 mg/Sodium Chloride 250 ml @ 250 mls/hr Q24H IV 09/24/17 21:00 09/27/17 20:50 Cefepime HCl 1000 mg/Sodium Chloride 100 ml @ 200 mls/hr DAILY@2200 IV 09/24/17 22:00 09/27/17 20:50 Pharmacy Profile Note 0 ml @ 0 mls/hr UNSCH OTHER 09/23/17 23:15 (Mag-Ox) 800 mg UNSCH PRN PO 09/23/17 23:15 09/26/17 07:46 Sodium Phosphate 30 mmol/Sodium Chloride 250 ml @ 42 mls/hr UNSCH PRN IV 09/23/17 23:15 (Duoneb Neb) 1 ampule Q2HR NEB PRN INH 09/23/17 23:15 (Tylenol) 650 mg Q6H PRN PO 09/23/17 23:15 (Zofran Inj) 4 mg Q6H PRN IV PUSH 09/23/17 23:15 Miscellaneous Information 1 Q361D XX 09/23/17 23:15 (Chlorhexidine 2% Cloth) 3 pack Taper DAILY@04 TOP 09/24/17 04:00 09/20/18 03:59 09/28/17 04:00 (Chlorhexidine 2% Cloth) 3 pack UNSCH PRN TOP 09/23/17 23:15 (Karen-Colace) 1 tab BID PO 09/24/17 09:00 09/27/17 09:49 (Milk Of Magnesia Liq) 30 ml Q12H PRN PO 09/23/17 23:15 (Senokot) 17.2 mg Q12H PRN PO 09/23/17 23:15 (Dulcolax Supp) 10 mg DAILY PRN RECTAL 09/23/17 23:15 (Lactulose Liq) 30 ml DAILY PRN PO 09/23/17 23:15 (Xanax) 0.5 mg Q6H PRN PO 09/24/17 08:15 09/24/17 08:28 (Dolophine) 20 mg TID PO 09/24/17 09:00 09/28/17 12:57 Dexmedetomidine HCl 200 mcg/ Sodium Chloride 52 ml @ 3.45 mls/hr TITRATE PRN IV 09/24/17 11:15 09/28/17 08:49 (Peridex 0.12% Liq) 15 ml BID@08,20 MT 09/24/17 20:00 09/28/17 08:49 Propofol 100 ml @ 1.995 mls/ hr TITRATE PRN IV 09/24/17 12:45 09/28/17 04:09 Fentanyl Citrate 250 ml @ 5 mls/hr TITRATE PRN IV 09/24/17 12:45 09/26/17 09:24 (Coreg) 6.25 mg Q12HR OG-TUBE 09/25/17 07:00 09/28/17 08:50 (Lipitor) 80 mg HS PO 09/25/17 21:00 09/27/17 21:00 (Neurontin) 100 mg BID PO 09/25/17 09:00 09/28/17 08:50 (Zanaflex) 4 mg Q8HR PO 09/25/17 14:00 09/28/17 12:57 (Robaxin) 750 mg Q12HR PO 09/25/17 09:00 09/28/17 08:52 (Benadryl) 25 mg Q4H PRN PO 09/25/17 07:15 (Ativan Inj) 2 mg Q2H PRN IV PUSH 09/25/17 09:15 09/26/17 17:35 (NS Flush) 2 ml UNSCH PRN IV FLUSH 09/25/17 14:00 09/26/17 04:50 (NS Flush) 2 ml BID IV FLUSH 09/25/17 21:00 09/28/17 08:49 (Aspirin Chew) 81 mg DAILY PO 09/26/17 09:00 09/28/17 08:50 (Plavix) 75 mg DAILY PO 09/26/17 09:00 09/28/17 08:50 (Altace) 2.5 mg DAILY PO 09/26/17 09:00 Future Hold 09/27/17 09:41 Miscellaneous Information 1 Q7D T-DERMAL 09/25/17 18:00 (Apresoline Inj) 20 mg Q2H PRN IV 09/26/17 08:15 09/28/17 16:43 (SoluMEDROL INJ) 30 mg Q12HR IV PUSH 09/27/17 09:00 09/28/17 08:52 (D50w (Vial) Inj) 50 ml UNSCH PRN IV PUSH 09/27/17 09:00 (Glucagon Inj) 1 mg UNSCH PRN OTHER 09/27/17 09:00 (NovoLIN R SUPPLEMENTAL SCALE) 1 Q4H SQ 09/27/17 09:00 09/27/17 20:51 (Pepcid) 10 mg Q12HR PO 09/28/17 09:00 09/28/17 08:50 (Lovenox Inj) 30 mg Q24H SQ 09/28/17 11:00 09/28/17 10:40 (Catapres) 0.2 mg TID PO 09/28/17 09:00 09/28/17 12:57 Vancomycin HCl 1000 mg/Sodium Chloride 250 ml @ 250 mls/hr ONCE ONCE IV 09/29/17 06:00 09/29/17 06:59 (Duoneb Neb) 1 ampule Q4HR NEB NEB 09/28/17 16:00 09/28/17 16:28 (Duoneb Neb) 1 ampule Q2HR NEB PRN NEB 09/28/17 13:30 (Apresoline Inj) 10 mg Q6H PRN IV PUSH 09/28/17 16:30 (Apresoline) 50 mg Q8HR PO 09/28/17 22:00 Vital Signs / I&O Vital Signs Date Time Temp Pulse Resp B/P (MAP) Pulse Ox O2 Delivery O2 Flow Rate FiO2 09/28/17 16:30 97 Nasal Cannula 4.00 09/28/17 16:00 97.8 81 18 172/106 (128) 96 09/28/17 16:00 81 09/28/17 14:00 90 09/28/17 13:30 98 Nasal Cannula 4 09/28/17 12:00 40 09/28/17 12:00 85 09/28/17 12:00 100.0 85 10 144/92 (109) 94 09/28/17 11:44 93 35 09/28/17 10:00 102 09/28/17 09:55 40 09/28/17 09:55 40 09/28/17 09:55 96 40 09/28/17 09:51 22 09/28/17 08:00 100 09/28/17 08:00 40 09/28/17 08:00 98.7 100 20 159/76 (103) 97 09/28/17 07:52 97 40 09/28/17 06:00 89 09/28/17 04:36 97 40 09/28/17 04:00 98.8 101 18 133/73 (93) 97 09/28/17 04:00 45 09/28/17 04:00 101 09/28/17 02:00 88 09/28/17 01:06 96 40 09/28/17 00:00 45 09/28/17 00:00 98.4 90 18 116/62 (80) 98 09/28/17 00:00 90 09/27/17 22:09 97 45 09/27/17 22:00 95 09/27/17 20:00 83 09/27/17 20:00 45 09/27/17 20:00 98.7 83 19 125/74 (91) 97 09/27/17 19:45 97 45 09/27/17 18:00 80 I/O 09/27/17 09/27/17 09/27/17 09/28/17 09/28/17 09/28/17 07:00 15:00 23:00 07:00 15:00 23:00 Intake Total 100 ml 1341 ml 1356 ml Output Total 850 ml 0 ml 2100.0 ml 1150 ml 0 ml Balance -750 ml 0 ml -759.0 ml 206 ml 0 ml Intake IV Total 100 ml 450 ml 100 ml Tube Feeding 651 ml 1256 ml Other 240 ml Output Urine Total 850 ml 2100 ml 1150 ml Tube Feeding Residual Discard 0 ml 0 ml 0 ml 0 ml # Bowel Movements 0 2 1 Physical Exam GENERAL: SKIN: Warm and dry. HEAD: Normocephalic. EYES: No scleral icterus. No injection or drainage. NECK: Supple, trachea midline. No JVD or lymphadenopathy. CARDIOVASCULAR: Regular rate and rhythm without murmurs, gallops, or rubs. RESPIRATORY: Breath sounds equal bilaterally. No accessory muscle use. GASTROINTESTINAL: Abdomen soft, non-tender, nondistended. MUSCULOSKELETAL: No cyanosis, or edema. BACK: Nontender without obvious deformity. No CVA tenderness. Laboratory Laboratory Tests Test 09/28/17 03:45 09/28/17 13:05 White Blood Count 13.8 TH/MM3 Red Blood Count 3.67 MIL/MM3 Hemoglobin 10.5 GM/DL Hematocrit 31.6 % Mean Corpuscular Volume 86.1 FL Mean Corpuscular Hemoglobin 28.6 PG Mean Corpuscular Hemoglobin Concent 33.2 % Red Cell Distribution Width 19.6 % Platelet Count 137 TH/MM3 Mean Platelet Volume 8.4 FL Neutrophils (%) (Auto) 83.6 % Lymphocytes (%) (Auto) 10.2 % Monocytes (%) (Auto) 5.3 % Eosinophils (%) (Auto) 0.7 % Basophils (%) (Auto) 0.2 % Neutrophils # (Auto) 11.5 TH/MM3 Lymphocytes # (Auto) 1.4 TH/MM3 Monocytes # (Auto) 0.7 TH/MM3 Eosinophils # (Auto) 0.1 TH/MM3 Basophils # (Auto) 0.0 TH/MM3 CBC Comment DIFF FINAL Differential Comment Blood Urea Nitrogen 56 MG/DL Creatinine 1.93 MG/DL Random Glucose 122 MG/DL Total Protein 5.5 GM/DL Albumin 2.3 GM/DL Calcium Level 8.3 MG/DL Phosphorus Level 3.0 MG/DL Magnesium Level 2.1 MG/DL Alkaline Phosphatase 169 U/L Aspartate Amino Transf (AST/SGOT) 52 U/L Alanine Aminotransferase (ALT/SGPT) 57 U/L Total Bilirubin 0.4 MG/DL Sodium Level 143 MEQ/L Potassium Level 4.2 MEQ/L Chloride Level 109 MEQ/L Carbon Dioxide Level 25.2 MEQ/L Anion Gap 9 MEQ/L Estimat Glomerular Filtration Rate 26 ML/MIN B-Type Natriuretic Peptide 526 PG/ML Random Vancomycin Level 20.5 COMMENT Blood Gas Puncture Site LT RADIAL Blood Gas Patient Temperature 98.6 Blood Gas HCO3 26 mmol/L Blood Gas Base Excess 2.2 mmol/L Blood Gas Oxygen Saturation 94 % Arterial Blood pH 7.42 Arterial Blood Partial Pressure CO2 41 mmHg Arterial Blood Partial Pressure O2 86 mmHg Arterial Blood Oxygen Content 14.9 Vol % Arterial Blood Carboxyhemoglobin 1.2 % Arterial Blood Methemoglobin 1.4 % Blood Gas Hemoglobin 11.2 G/DL Oxygen Delivery Device VENTILATOR Blood Gas Ventilator Setting [id number] Blood Gas Inspired Oxygen 35 % Imaging Last 24 hours Impressions Chest X-Ray 09/28/17 0000 Signed Impressions: Service Date/Time: Thursday, September 28, 2017 07:36 - CONCLUSION: Improving lung aeration with decreasing overall lung capacity. John Robert MD Assessment and Plan Problem List: (1) Cardiomyopathy ICD Codes: I42.9 - Cardiomyopathy, unspecified (2) Respiratory failure ICD Codes: J96.90 - Respiratory failure, unspecified, unspecified whether with hypoxia or hypercapnia Status: Acute (3) Chronic kidney disease (CKD) ICD Codes: N18.9 - Chronic kidney disease, unspecified Status: Acute (4) Acute kidney injury superimposed on chronic kidney disease ICD Codes: N17.9 - Acute kidney failure, unspecified; N18.9 - Chronic kidney disease, unspecified Status: Acute (5) Coronary artery disease ICD Codes: I25.10 - Atherosclerosis of coronary artery Status: Acute (6) Diabetes mellitus, type II ICD Codes: E11.9 - Type 2 diabetes mellitus without complications (7) Hypertension ICD Codes: I10 - Hypertension Status: Acute (8) CVA (cerebral vascular accident) ICD Codes: I63.9 - Cerebral infarction, unspecified Status: Acute (9) COPD exacerbation ICD Codes: J44.1 - Chronic obstructive pulmonary disease with (acute) exacerbation Status: Acute Assessment and Plan 1.) CAD - pod# 3 bms - assymptomatic, clinically improving, continue aspirin, plavix, lipitor 2.) Cardiomyopathy - chf improving, continue coreg, lasix and altace held due to arf, f/u bmp and bnp 3.) HTN - requiring prn labetolol, consult renal 4.) anemia - stable, f/u cbc in am Sebastián Parrish MD Sep 28, 2017 17:16
[2017-09-28] MEDS: AZITHROMYCIN INJ 500 MG in SODIUM CHLOR 0.9% 250 ML INJ 250 ML IV SCH (20:36)
[2017-09-28] MEDS: CEFEPIME INJ 1,000 MG in SODIUM CHLORIDE 0.9% INJ 100 ML IV SCH (20:37)
[2017-09-28] MEDS: ATORVASTATIN 40 MG TAB PO SCH (20:38)
[2017-09-29] VITALS (14 sets, daily range): BP systolic 116–170; BP diastolic 67–111; PULSE 67–95; RESP 10–27; TEMP 97.6–98.7; O2SAT 92–98
[2017-09-29] MEDS: RESP: ALBUTEROL 2.5 MG/IPRATROPIUM 0.5 MG NEB (SCH) NEB ×5 (03:28→19:21)
[2017-09-29] MEDS: CHLORHEXIDINE GLUCONATE 2 % 1 PACK (2 CLOTHS) TOP SCH (04:00)
[2017-09-29 04:25] LABS: AUTOMATED NEUTROPHIL # 10.3 TH/MM3 (1.8-7.7); BASOPHIL % 0.4 % (0.0-2.0); EOSINOPHIL # 0.2 TH/MM3 (0-0.4); EOSINOPHIL % 1.7 % (0.0-4.0); HEMATOCRIT 32.1 % (35.0-46.0); HEMOGLOBIN 10.6 GM/DL (11.6-15.3); LYMPH % 11.7 % (9.0-44.0); LYMPHOCYTE # 1.5 TH/MM3 (1.0-4.8); MEAN CORPUSCULAR HEMOGLOBIN 28.6 PG (27.0-34.0); MEAN CORPUSCULAR HGB CONC 32.8 % (32.0-36.0); MEAN PLATELET VOLUME 8.7 FL (7.0-11.0); MONO % 7.7 % (0.0-8.0); NEUT % 78.5 % (16.0-70.0); PLATELET COUNT 150 TH/MM3 (150-450); RED BLOOD COUNT 3.69 MIL/MM3 (4.00-5.30); RED CELL DISTRIBUTION WIDTH 19.9 % (11.6-17.2); WHITE BLOOD COUNT 13.2 TH/MM3 (4.0-11.0)
[2017-09-29 04:53] LABS: ALBUMIN 2.4 GM/DL (3.4-5.0); ALKALINE PHOSPHATASE 121 U/L (45-117); ALT (GPT) 72 U/L (10-53); AST (GOT) 47 U/L (15-37); BICARBONATE 28.4 MEQ/L (21.0-32.0); BLOOD UREA NITROGEN 54 MG/DL (7-18); CALCIUM 8.8 MG/DL (8.5-10.1); CHLORIDE 105 MEQ/L (98-107); CREATININE 1.37 MG/DL (0.50-1.00); GLOMERULAR FILTRATION RATE 39 ML/MIN (>89); GLUCOSE,RANDOM 110 MG/DL (74-106); MAGNESIUM 2.3 MG/DL (1.5-2.5); SODIUM (NA) 139 MEQ/L (136-145); TOTAL BILIRUBIN ADULT 0.4 MG/DL (0.2-1.0); TOTAL PROTEIN 6.1 GM/DL (6.4-8.2)
[2017-09-29] MEDS: INSULIN NovoLIN REGULAR SUPPLEMENTAL SCALE SQ SCH ×5 (05:00→21:13)
[2017-09-29] MEDS: hydrALAZINE HCL 50 MG TAB PO SCH ×3 (05:11→21:13)
[2017-09-29 05:12] LABS: BANDS 2 % (0-6); CORRECTED NUCLEATED RBC 1 /100 WBC (0-0); LYMPHOCYTES 16 % (9-44); METAMYELOCYTES 1 % (0-1); MONOCYTES 12 % (0-8); MYELOCYTES 1 % (0-0); NEUTROPHIL # MANUAL DIFF 9.2 TH/MM3 (1.8-7.7); NUCLEATED RED BLOOD CELL 1 (0-0); POLYS (SEG NEUTROPHILS) 65 % (16-70); PROMYELOCYTES 1 % (0-0)
[2017-09-29 05:14] LABS: POLYCHROMASIA 2.2 % (0.0-1.9)
[2017-09-29 05:15] LABS: TOXIC VACUOLATION PRESENT (NONE SEEN)
[2017-09-29] MEDS ORDERED: VANCOMYCIN 1,000 MG/NS 250 ML IV ONE ×2 (06:00)
--- NOTE | 2017-09-29 07:52 | HHI.CCPN ---
Subjective Remarks/Hospital Course 09/23: This is a 62-year-old female with a history of oxygen dependent COPD with a recent admission for left fibular fracture and was [facility] to [facility]. She is brought back from her sniff by EMS for worsening shortness of breath and chest tightness. She is on chronic methadone therapy and they were not giving her methadone she states in her [facility] facility, so she thinks she is in methadone withdrawal. In the emergency department she was hypoxic in the low 80s on nasal cannula oxygen was placed on BiPAP. A complete history is difficult to obtain due to the fact that she is a poor historian and she has a BiPAP in place and is very dyspneic and so it is difficult to obtain additional information from the patient. In the emergency department, she had a white count of 12.3, hemoglobin 8.7, potassium of 5.6, creatinine 1.79, BNP of 651. Chest x-ray demonstrates a new right lower lobe pneumonia. 09/24: On BiPAP with full facemask. Appears anxious. 09/25: Developed bradycardia and asystole yesterday received transient CPR with return of spontaneous circulation. Was intubated following resuscitation and placed on mechanical ventilation. Noted to have elevated cardiac enzymes last night. Started on aspirin and heparin and cardiology consult requested. Currently sedated, orally intubated on mechanical ventilation. 09/26: Patient underwent cardiac catheterization yesterday and underwent PCI to branch of RCA(posterior lateral artery 60% stenosis) due to chronic mid LAD total occlusion. On labetalol drip since yesterday which is being tapered off now. Remains sedated, orally intubated on mechanical ventilation. 09/27 Patient is sedated with Diprivan, Fentanyl and intubated. 09/28 No events overnight. Remains sedated and intubated Afebrile. 09/29 Patient was extubated yesterday on 3L oxygen. Afebrile. Objective Vital Signs Date Time Temp Pulse Resp B/P (MAP) Pulse Ox O2 Delivery O2 Flow Rate FiO2 09/29/17 07:39 96 Nasal Cannula 3.00 09/29/17 06:00 67 09/29/17 04:00 97.8 10 148/89 (108) 09/28/17 12:00 40 Result Diagram: 09/29/17 0325 09/29/17 0325 Other Results Laboratory Tests Test 09/28/17 13:05 09/29/17 03:25 Blood Gas Puncture Site LT RADIAL Blood Gas Patient Temperature 98.6 Blood Gas HCO3 26 mmol/L Blood Gas Base Excess 2.2 mmol/L Blood Gas Oxygen Saturation 94 % Arterial Blood pH 7.42 Arterial Blood Partial Pressure CO2 41 mmHg Arterial Blood Partial Pressure O2 86 mmHg Arterial Blood Oxygen Content 14.9 Vol % Arterial Blood Carboxyhemoglobin 1.2 % Arterial Blood Methemoglobin 1.4 % Blood Gas Hemoglobin 11.2 G/DL Oxygen Delivery Device VENTILATOR Blood Gas Ventilator Setting [id number] Blood Gas Inspired Oxygen 35 % White Blood Count 13.2 TH/MM3 Red Blood Count 3.69 MIL/MM3 Hemoglobin 10.6 GM/DL Hematocrit 32.1 % Mean Corpuscular Volume 87.0 FL Mean Corpuscular Hemoglobin 28.6 PG Mean Corpuscular Hemoglobin Concent 32.8 % Red Cell Distribution Width 19.9 % Platelet Count 150 TH/MM3 Mean Platelet Volume 8.7 FL Neutrophils (%) (Auto) 78.5 % Lymphocytes (%) (Auto) 11.7 % Monocytes (%) (Auto) 7.7 % Eosinophils (%) (Auto) 1.7 % Basophils (%) (Auto) 0.4 % Neutrophils # (Auto) 10.3 TH/MM3 Lymphocytes # (Auto) 1.5 TH/MM3 Monocytes # (Auto) 1.0 TH/MM3 Eosinophils # (Auto) 0.2 TH/MM3 Basophils # (Auto) 0.0 TH/MM3 CBC Comment AUTO DIFF Differential Total Cells Counted 100 Neutrophils % (Manual) 65 % Band Neutrophils % 2 % Lymphocytes % 16 % Monocytes % 12 % Eosinophils % 2 % Neutrophils # (Manual) 9.2 TH/MM3 Metamyelocytes 1 % Myelocytes 1 % Promyelocytes 1 % Nucleated Red Blood Cells 1 /100 WBC Differential Comment FINAL DIFF MANUAL Toxic Vacuolation PRESENT Platelet Estimate NORMAL Platelet Morphology Comment NORMAL Polychromasia 2.2 % Blood Urea Nitrogen 54 MG/DL Creatinine 1.37 MG/DL Random Glucose 110 MG/DL Total Protein 6.1 GM/DL Albumin 2.4 GM/DL Calcium Level 8.8 MG/DL Magnesium Level 2.3 MG/DL Alkaline Phosphatase 121 U/L Aspartate Amino Transf (AST/SGOT) 47 U/L Alanine Aminotransferase (ALT/SGPT) 72 U/L Total Bilirubin 0.4 MG/DL Sodium Level 139 MEQ/L Potassium Level 5.1 MEQ/L Chloride Level 105 MEQ/L Carbon Dioxide Level 28.4 MEQ/L Anion Gap 6 MEQ/L Estimat Glomerular Filtration Rate 39 ML/MIN B-Type Natriuretic Peptide 1211 PG/ML Imaging Last Impressions Chest X-Ray 09/28/17 0000 Signed Impressions: Service Date/Time: Thursday, September 28, 2017 07:36 - CONCLUSION: Improving lung aeration with decreasing overall lung capacity. John Robert MD Renal Ultrasound 09/27/17 0000 Signed Impressions: Service Date/Time: Wednesday, September 27, 2017 11:51 - CONCLUSION: Echogenic kidneys bilaterally compatible with medical renal disease. Jay García MD Objective Remarks GENERAL: Patient is 62 yolying in bed in NAD SKIN: Warm and dry. HEAD: Normocephalic. EYES: No scleral icterus. No injection or drainage. NECK: Supple, trachea midline. No JVD or lymphadenopathy. CARDIOVASCULAR: Regular rate and rhythm without murmurs, gallops, or rubs. RESPIRATORY: Breath sounds equal bilaterally. No accessory muscle use. GASTROINTESTINAL: Abdomen soft, non-tender, nondistended. MUSCULOSKELETAL: No cyanosis, or edema. Immobilizer for left leg fracture site in place Neuro:Awake, alert A/P Assessment and Plan Assessment: 62-year-old female with history of severe COPD who presents with acute hypoxic respiratory failure and new healthcare associated pneumonia, status post transient asystole followed by CPR and intubation, non-ST elevation CA Active problems: Metabolic encephalopathy Acute hypoxic respiratory failure requiring mechanical ventilation Acute COPD exacerbation Healthcare associated pneumonia Acute kidney injury superimposed on chronic renal insufficiency, unknown stage Severe acute protein calorie malnutrition Cardiac arrest status post CPR Non-ST elevation CA Uncontrolled hypertension Chronic pain on narcotics Plan: Neuro: Continue methadone and Xanax home doses. Monitor neuro status CV: Elevated cardiac enzymes following transient asystole on 09/24. Cardiology following. 2D echo with LVEF 37% with anteroapical hypokinesis. s/p cardiac catheterization on 09/25: underwent PCI to branch of RCA(posterior lateral artery 60% stenosis) due to chronic mid LAD total occlusion On ASA, Lipitor, Coreg 6.25mg BID, increase Clonidine 0.2mgQ8, Plavix 75mg daily , Hydralazine 50mg Q8 George- I held for renal dysfunction Pulmonary: Continue with oxygen keep sats >92% Bronchodilators Solumederol 30mg Q12 CXR yesterday: Improving lung aeration with decreasing overall lung capacity GI/liver: Elevated LFT's Pepcid for GI prophylaxis Monitor LFT's, check US liver Speech eval, diet per speech Renal/: Monitor renal function, I/O's, electrolytes replacement as needed, avoid nephrotoxins Renal function is improving with Cr: 1.37 from 1.93 Diurese with Lasix 20mg x1 ID: Follow-up cultures. Continue empiric antibiotic coverage with IV cefepime/ Zithromax Heme: Monitor CBC. 1 unit PRBCs ordered on 03/28. Endocrine: SSI for glycemic control( medium scale), Prophylaxis: Pepcid/SCDs/Lovenox Access: Peripheral IVs. Will sign off and transfer care to [facility] Level 2 Acacia De Paz MD Sep 29, 2017 07:52
[2017-09-29] MEDS ORDERED: FUROSEMIDE 20 MG/2 ML VIAL IV PUSH ONE (08:00)
[2017-09-29] MEDS: CARVEDILOL 6.25 MG TAB OG-TUBE SCH ×2 (09:15→21:12)
[2017-09-29] MEDS: cloNIDine HCL 0.1 MG TAB PO SCH ×3 (09:15→17:31)
[2017-09-29] MEDS: METHADONE HCL 10 MG TAB PO SCH ×3 (09:16→17:31)
[2017-09-29] MEDS: ASPIRIN 81 MG CHEW TAB PO SCH (09:16)
[2017-09-29] MEDS: DOCUSATE SODIUM 50 MG/SENNA 8.6 MG TAB PO SCH ×2 (09:16→21:12)
[2017-09-29] MEDS: GABAPENTIN 100 MG CAP PO SCH ×2 (09:17→21:12)
[2017-09-29] MEDS: METHOCARBAMOL 500 MG TAB PO SCH ×2 (09:17→21:12)
[2017-09-29] MEDS: FAMOTIDINE 20 MG TAB PO SCH ×2 (09:17→21:12)
[2017-09-29] MEDS: CLOPIDOGREL 75 MG TAB PO SCH (09:18)
[2017-09-29] MEDS: SODIUM CHLORIDE 0.9% FLUSH 10 ML FLUSH IV FLUSH SCH ×2 (09:18→21:11)
[2017-09-29] MEDS: methylPREDNISolone SOD SUCC 125 MG/2 ML VIAL IV PUSH SCH ×2 (09:22→21:12)
--- NOTE | 2017-09-29 09:43 | RADRPT ---
EXAM DATE/TIME: 09/29/2017 08:08 [place] COMPARISON: No previous studies available for comparison. EXTERNAL COMPARISON : [facility], February 15 CT Abdomen, 06/23/2011. INDICATIONS : Increased lab values. MEDICAL HISTORY : Hypercholesterolemia. Hypertension. CVA. COPD. SURGICAL HISTORY : Tonsillectomy. Cardiac catheterization. Cardiac stents. Renal stents. ENCOUNTER: Subsequent ACUITY: 1 day PAIN SCORE: 3/10 LOCATION: Bilateral upper quadrant MEASUREMENTS: LIVER: 16.7 cm length COMMON DUCT: 14 mm RIGHT KIDNEY: 10.2 x 5.0 x 4.7 cm SPLEEN: 11.4 cm length FINDINGS: LIVER: No focal defects. Mild intrahepatic biliary duct dilatation. COMMON DUCT: Dilated to 14 mm. No stones are visualized. Gallbladder is not visualized. GALLBLADDER: Contains no stones, demonstrates no wall thickening or pericholecystic fluid. PANCREAS: The visualized portions are within normal limits. RIGHT KIDNEY: No hydronephrosis, stone or mass. SPLEEN: No focal lesion. CONCLUSION: Mild hepatic dilatation with prominent common duct. Gallbladder not visualized. Is there history of cholecystectomy. CT scan from 01/07/17 shows small gallbladder without gallstones. Yovani Orlando MD FACR on September 29, 2017 at 9:38 Board Certified Radiologist. This report was verified electronically.
[2017-09-29] MEDS: ENOXAPARIN SODIUM 40 MG/0.4 ML SYRINGE SQ SCH (10:08)
--- NOTE | 2017-09-29 14:15 | PD.CARD.PN ---
Subjective Subjective Remarks extubated, alert, in nad, denies chest pain Objective Medications Current Medications Medications (Trade) Dose Ordered Sig/Ann Route Start Time Stop Time Status Last Admin Azithromycin 500 mg/Sodium Chloride 250 ml @ 250 mls/hr Q24H IV 09/24/17 21:00 09/28/17 20:36 Cefepime HCl 1000 mg/Sodium Chloride 100 ml @ 200 mls/hr DAILY@2200 IV 09/24/17 22:00 09/28/17 20:37 Pharmacy Profile Note 0 ml @ 0 mls/hr UNSCH OTHER 09/23/17 23:15 (Mag-Ox) 800 mg UNSCH PRN PO 09/23/17 23:15 09/26/17 07:46 Sodium Phosphate 30 mmol/Sodium Chloride 250 ml @ 42 mls/hr UNSCH PRN IV 09/23/17 23:15 (Duoneb Neb) 1 ampule Q2HR NEB PRN INH 09/23/17 23:15 (Tylenol) 650 mg Q6H PRN PO 09/23/17 23:15 (Zofran Inj) 4 mg Q6H PRN IV PUSH 09/23/17 23:15 Miscellaneous Information 1 Q361D XX 09/23/17 23:15 (Chlorhexidine 2% Cloth) Taper DAILY@04 TOP 09/24/17 04:00 09/20/18 03:59 09/28/17 04:00 (Chlorhexidine 2% Cloth) 3 pack UNSCH PRN TOP 09/23/17 23:15 (Karen-Colace) 1 tab BID PO 09/24/17 09:00 09/29/17 09:16 (Milk Of Magnesia Liq) 30 ml Q12H PRN PO 09/23/17 23:15 (Senokot) 17.2 mg Q12H PRN PO 09/23/17 23:15 (Dulcolax Supp) 10 mg DAILY PRN RECTAL 09/23/17 23:15 (Lactulose Liq) 30 ml DAILY PRN PO 09/23/17 23:15 (Xanax) 0.5 mg Q6H PRN PO 09/24/17 08:15 09/24/17 08:28 (Dolophine) 20 mg TID PO 09/24/17 09:00 09/29/17 09:16 (Peridex 0.12% Liq) 15 ml BID@08,20 MT 09/24/17 20:00 09/28/17 08:49 (Coreg) 6.25 mg Q12HR OG-TUBE 09/25/17 07:00 09/29/17 09:15 (Lipitor) 80 mg HS PO 09/25/17 21:00 09/28/17 20:38 (Neurontin) 100 mg BID PO 09/25/17 09:00 09/29/17 09:17 (Zanaflex) 4 mg Q8HR PO 09/25/17 14:00 09/29/17 05:11 (Robaxin) 750 mg Q12HR PO 09/25/17 09:00 09/29/17 09:17 (Benadryl) 25 mg Q4H PRN PO 09/25/17 07:15 (Ativan Inj) 2 mg Q2H PRN IV PUSH 09/25/17 09:15 09/26/17 17:35 (NS Flush) 2 ml UNSCH PRN IV FLUSH 09/25/17 14:00 09/26/17 04:50 (NS Flush) 2 ml BID IV FLUSH 09/25/17 21:00 09/29/17 09:18 (Aspirin Chew) 81 mg DAILY PO 09/26/17 09:00 09/29/17 09:16 (Plavix) 75 mg DAILY PO 09/26/17 09:00 09/29/17 09:18 (Altace) 2.5 mg DAILY PO 09/26/17 09:00 Future Hold 09/27/17 09:41 Miscellaneous Information 1 Q7D T-DERMAL 09/25/17 18:00 (Apresoline Inj) 20 mg Q2H PRN IV 09/26/17 08:15 09/28/17 16:43 (SoluMEDROL INJ) 30 mg Q12HR IV PUSH 09/27/17 09:00 09/29/17 09:22 (D50w (Vial) Inj) 50 ml UNSCH PRN IV PUSH 09/27/17 09:00 (Glucagon Inj) 1 mg UNSCH PRN OTHER 09/27/17 09:00 (NovoLIN R SUPPLEMENTAL SCALE) 1 Q4H SQ 09/27/17 09:00 09/28/17 18:03 (Pepcid) 10 mg Q12HR PO 09/28/17 09:00 09/29/17 09:17 (Catapres) 0.2 mg TID PO 09/28/17 09:00 09/29/17 09:15 (Duoneb Neb) 1 ampule Q4HR NEB NEB 09/28/17 16:00 09/29/17 12:45 (Duoneb Neb) 1 ampule Q2HR NEB PRN NEB 09/28/17 13:30 (Apresoline Inj) 10 mg Q6H PRN IV PUSH 09/28/17 16:30 (Apresoline) 50 mg Q8HR PO 09/28/17 22:00 09/29/17 05:11 (Lovenox Inj) 40 mg Q24H SQ 09/29/17 09:00 09/29/17 10:08 Vital Signs / I&O Vital Signs Date Time Temp Pulse Resp B/P (MAP) Pulse Ox O2 Delivery O2 Flow Rate FiO2 09/29/17 07:39 96 Nasal Cannula 3.00 09/29/17 06:00 67 09/29/17 04:00 73 09/29/17 04:00 97.8 73 10 148/89 (108) 94 09/29/17 02:00 80 09/29/17 00:00 98.1 71 20 122/77 (92) 96 09/29/17 00:00 71 09/28/17 22:00 66 09/28/17 20:02 98 Nasal Cannula 3.00 09/28/17 20:00 84 09/28/17 20:00 97.7 84 20 131/85 (100) 98 09/28/17 18:00 85 09/28/17 16:30 97 Nasal Cannula 4.00 09/28/17 16:00 97.8 81 18 172/106 (128) 96 09/28/17 16:00 81 I/O 09/28/17 09/28/17 09/28/17 09/29/17 09/29/17 09/29/17 07:00 15:00 23:00 07:00 15:00 23:00 Intake Total 1356 ml 820 ml Output Total 1150 ml 0 ml 950 ml Balance 206 ml 0 ml -130 ml Intake Oral 720 ml IV Total 100 ml Tube Feeding 1256 ml Other 100 ml Output Urine Total 1150 ml 950 ml Tube Feeding Residual Discard 0 ml # Bowel Movements 1 1 Physical Exam GENERAL: SKIN: Warm and dry. HEAD: Normocephalic. EYES: No scleral icterus. No injection or drainage. NECK: Supple, trachea midline. No JVD or lymphadenopathy. CARDIOVASCULAR: Regular rate and rhythm without murmurs, gallops, or rubs. RESPIRATORY: Breath sounds equal bilaterally. No accessory muscle use. GASTROINTESTINAL: Abdomen soft, non-tender, nondistended. MUSCULOSKELETAL: No cyanosis, or edema. BACK: Nontender without obvious deformity. No CVA tenderness. Laboratory Laboratory Tests Test 09/29/17 03:25 White Blood Count 13.2 TH/MM3 Red Blood Count 3.69 MIL/MM3 Hemoglobin 10.6 GM/DL Hematocrit 32.1 % Mean Corpuscular Volume 87.0 FL Mean Corpuscular Hemoglobin 28.6 PG Mean Corpuscular Hemoglobin Concent 32.8 % Red Cell Distribution Width 19.9 % Platelet Count 150 TH/MM3 Mean Platelet Volume 8.7 FL Neutrophils (%) (Auto) 78.5 % Lymphocytes (%) (Auto) 11.7 % Monocytes (%) (Auto) 7.7 % Eosinophils (%) (Auto) 1.7 % Basophils (%) (Auto) 0.4 % Neutrophils # (Auto) 10.3 TH/MM3 Lymphocytes # (Auto) 1.5 TH/MM3 Monocytes # (Auto) 1.0 TH/MM3 Eosinophils # (Auto) 0.2 TH/MM3 Basophils # (Auto) 0.0 TH/MM3 CBC Comment AUTO DIFF Differential Total Cells Counted 100 Neutrophils % (Manual) 65 % Band Neutrophils % 2 % Lymphocytes % 16 % Monocytes % 12 % Eosinophils % 2 % Neutrophils # (Manual) 9.2 TH/MM3 Metamyelocytes 1 % Myelocytes 1 % Promyelocytes 1 % Nucleated Red Blood Cells 1 /100 WBC Differential Comment FINAL DIFF MANUAL Toxic Vacuolation PRESENT Platelet Estimate NORMAL Platelet Morphology Comment NORMAL Polychromasia 2.2 % Blood Urea Nitrogen 54 MG/DL Creatinine 1.37 MG/DL Random Glucose 110 MG/DL Total Protein 6.1 GM/DL Albumin 2.4 GM/DL Calcium Level 8.8 MG/DL Magnesium Level 2.3 MG/DL Alkaline Phosphatase 121 U/L Aspartate Amino Transf (AST/SGOT) 47 U/L Alanine Aminotransferase (ALT/SGPT) 72 U/L Total Bilirubin 0.4 MG/DL Sodium Level 139 MEQ/L Potassium Level 5.1 MEQ/L Chloride Level 105 MEQ/L Carbon Dioxide Level 28.4 MEQ/L Anion Gap 6 MEQ/L Estimat Glomerular Filtration Rate 39 ML/MIN B-Type Natriuretic Peptide 1211 PG/ML Imaging Last 24 hours Impressions Liver Ultrasound 09/29/17 0000 Signed Impressions: Service Date/Time: Friday, September 29, 2017 08:08 - CONCLUSION: Mild hepatic dilatation with prominent common duct. Gallbladder not visualized. Is there history of cholecystectomy. CT scan from 01/07/17 shows small gallbladder without gallstones. Yovani Orlando MD FACR Assessment and Plan Problem List: (1) Cardiomyopathy ICD Codes: I42.9 - Cardiomyopathy, unspecified (2) Respiratory failure ICD Codes: J96.90 - Respiratory failure, unspecified, unspecified whether with hypoxia or hypercapnia Status: Acute (3) Chronic kidney disease (CKD) ICD Codes: N18.9 - Chronic kidney disease, unspecified Status: Acute (4) Acute kidney injury superimposed on chronic kidney disease ICD Codes: N17.9 - Acute kidney failure, unspecified; N18.9 - Chronic kidney disease, unspecified Status: Acute (5) Coronary artery disease ICD Codes: I25.10 - Atherosclerosis of coronary artery Status: Acute (6) Diabetes mellitus, type II ICD Codes: E11.9 - Type 2 diabetes mellitus without complications (7) Hypertension ICD Codes: I10 - Hypertension Status: Acute (8) CVA (cerebral vascular accident) ICD Codes: I63.9 - Cerebral infarction, unspecified Status: Acute (9) COPD exacerbation ICD Codes: J44.1 - Chronic obstructive pulmonary disease with (acute) exacerbation Status: Acute Assessment and Plan 1.) CAD - pod# 4 bms - assymptomatic, clinically improving, continue aspirin, plavix, lipitor 2.) Cardiomyopathy - chf improving, continue coreg, lasix and altace held due to arf, f/u bmp and bnp 3.) HTN - requiring prn labetolol, consult renal 4.) anemia - stable 5.) I am on vacation until september, Dr Tierney covering me Sebastián Parrish MD Sep 29, 2017 14:15
[2017-09-29] MEDS: hydrALAZINE HCL 20 MG/ML VIAL IV PRN (14:38)
--- NOTE | 2017-09-29 17:37 | PD.CONS ---
HPI Service Nephrology Consult Requested By Dr. Parrish Reason for Consult CKD, Hypertension Primary Care Physician Willie Ybarra MD History of Present Illness The patient is a 62 yo [place] female who presented to this facility on 09/23 for complaints of CP and SOB. She was noted to be hypoxic and placed on BiPAP. Went into cardiac arrest on 09/25 requiring CPR with spontaneous recirculation. Underwent cardiac cath the same day with PCI to RCA. Echocardiogram noting LVEF of 37%. She has known CKD, but says she does not follow with nephrology. Further investigation of her chart shows hx of bilat TAVO with bilat stenting April 2016. We were consulted for recommendations regarding hypertensive management. Currently on Coreg 6.25mg BID, Clonidine 0.2mg TID, Hydralazine 50mg q8h and at time requiring IV Hydralazine. She is also being diuresed with Lasix. Admitting SCr 1.7 and peaked at 2.1 on 09/27. Improved to 1.37 at consult. Appears baseline SCr around 1.6. (Gracie Guadarrama) Review of Systems ROS Limitations: Poor Historian (Gracie Guadarrama) Past Family Social History Allergies: Coded Allergies: levofloxacin (Verified Allergy, Severe, Anaphylaxis, 09/23/17) amlodipine (Verified Adverse Reaction, Severe, Swelling, 09/23/17) "left leg swelling" metoclopramide (Verified Adverse Reaction, Severe, Edema, 09/23/17) Past Medical History CKD with baseline SCr 1.6 range Hx of bilat TAVO requiring stenting in Apr 2016 CAD s/p PTCA 09/25/17 HTN COPD O2 dependent Anxiety/Depression HLD CVA L fibula fracture Past Surgical History Appendectomy Cervical fusion PTCA x4 in the past with PCI x1 on 09/25/17 Bilat renal artery stenting Apr 2016 Reported Medications Vistaril (Hydroxyzine Pamoate) 25 Mg Cap 25 Mg PO Q6H PRN Hydrocodone-Acetamin 5-325 mg (Hydrocodone/Acetaminophen) 5 Mg-325 Mg Tablet 1 Tab PO Q4H PRN Hydrocodone-Acetamin 7.5-325 (Hydrocodone/Acetaminophen) 7.5 Mg-325 Mg Tablet 1 Tab PO Q4H PRN Methadone (Methadone HCl) 10 Mg Tab 20 Mg PO TID Catapres (Clonidine) 0.1 Mg Tab 0.1 Mg PO BID 30 Days Restoril (Temazepam) 15 Mg Cap 15 Mg PO HS PRN Walker with Front Wheels (Device) 1 Mis Mis Ea .XX DIRECTED Catapres (Clonidine) 0.1 Mg Tab 0.1 Mg PO Q6H PRN Metoprolol Tartrate 25 Mg Tab 25 Mg PO Q12HR Hydralazine HCl 50 Mg Tablet 50 Mg PO Q8HR Atorvastatin (Atorvastatin Calcium) 40 Mg Tab 80 Mg PO HS Aspirin 325 Mg Tab 325 Mg PO DAILY Zofran (Ondansetron HCl) 4 Mg Tab 4 Mg PO Q6HR PRN Xanax (Alprazolam) 0.5 Mg Tab 0.5 Mg PO Q6H PRN Trazodone (Trazodone HCl) 100 Mg Tablet 100 Mg PO HS Tizanidine (Tizanidine HCl) 4 Mg Tab 4 Mg PO Q8HR Robaxin (Methocarbamol) 750 Mg Tab 750 Mg PO Q12HR Gabapentin 100 Mg Cap 100 Mg PO BID Duoneb (Ipratropium-Albuterol Neb) 0.5-2.5 Mg/3 Ml Neb 1 Nebule INH Q8HR NEB Prilosec (Omeprazole Magnesium) 20 Mg Tab 40 Mg DAILY Vitamin B-12 (Cyanocobalamin) 1,000 Mcg Tab 1,000 Mcg PO DAILY Active Ordered Medications Current Medications Medications (Trade) Dose Ordered Sig/Ann Route Start Time Stop Time Status Last Admin Azithromycin 500 mg/Sodium Chloride 250 ml @ 250 mls/hr Q24H IV 09/24/17 21:00 09/28/17 20:36 Cefepime HCl 1000 mg/Sodium Chloride 100 ml @ 200 mls/hr DAILY@2200 IV 09/24/17 22:00 09/28/17 20:37 Pharmacy Profile Note 0 ml @ 0 mls/hr UNSCH OTHER 09/23/17 23:15 (Mag-Ox) 800 mg UNSCH PRN PO 09/23/17 23:15 09/26/17 07:46 Sodium Phosphate 30 mmol/Sodium Chloride 250 ml @ 42 mls/hr UNSCH PRN IV 09/23/17 23:15 (Duoneb Neb) 1 ampule Q2HR NEB PRN INH 09/23/17 23:15 (Tylenol) 650 mg Q6H PRN PO 09/23/17 23:15 (Zofran Inj) 4 mg Q6H PRN IV PUSH 09/23/17 23:15 Miscellaneous Information 1 Q361D XX 09/23/17 23:15 (Chlorhexidine 2% Cloth) Taper DAILY@04 TOP 09/24/17 04:00 09/20/18 03:59 09/28/17 04:00 (Chlorhexidine 2% Cloth) 3 pack UNSCH PRN TOP 09/23/17 23:15 (Karen-Colace) 1 tab BID PO 09/24/17 09:00 09/29/17 09:16 (Milk Of Magnesia Liq) 30 ml Q12H PRN PO 09/23/17 23:15 (Senokot) 17.2 mg Q12H PRN PO 09/23/17 23:15 (Dulcolax Supp) 10 mg DAILY PRN RECTAL 09/23/17 23:15 (Lactulose Liq) 30 ml DAILY PRN PO 09/23/17 23:15 (Xanax) 0.5 mg Q6H PRN PO 09/24/17 08:15 09/24/17 08:28 (Dolophine) 20 mg TID PO 09/24/17 09:00 09/29/17 14:38 (Peridex 0.12% Liq) 15 ml BID@08,20 MT 09/24/17 20:00 09/28/17 08:49 (Coreg) 6.25 mg Q12HR OG-TUBE 09/25/17 07:00 09/29/17 09:15 (Lipitor) 80 mg HS PO 09/25/17 21:00 09/28/17 20:38 (Neurontin) 100 mg BID PO 09/25/17 09:00 09/29/17 09:17 (Zanaflex) 4 mg Q8HR PO 09/25/17 14:00 09/29/17 14:39 (Robaxin) 750 mg Q12HR PO 09/25/17 09:00 09/29/17 09:17 (Benadryl) 25 mg Q4H PRN PO 09/25/17 07:15 (Ativan Inj) 2 mg Q2H PRN IV PUSH 09/25/17 09:15 09/26/17 17:35 (NS Flush) 2 ml UNSCH PRN IV FLUSH 09/25/17 14:00 09/26/17 04:50 (NS Flush) 2 ml BID IV FLUSH 09/25/17 21:00 09/29/17 09:18 (Aspirin Chew) 81 mg DAILY PO 09/26/17 09:00 09/29/17 09:16 (Plavix) 75 mg DAILY PO 09/26/17 09:00 09/29/17 09:18 (Altace) 2.5 mg DAILY PO 09/26/17 09:00 Future Hold 09/27/17 09:41 Miscellaneous Information 1 Q7D T-DERMAL 09/25/17 18:00 (Apresoline Inj) 20 mg Q2H PRN IV 09/26/17 08:15 09/29/17 14:38 (SoluMEDROL INJ) 30 mg Q12HR IV PUSH 09/27/17 09:00 09/29/17 09:22 (D50w (Vial) Inj) 50 ml UNSCH PRN IV PUSH 09/27/17 09:00 (Glucagon Inj) 1 mg UNSCH PRN OTHER 09/27/17 09:00 (NovoLIN R SUPPLEMENTAL SCALE) 1 Q4H SQ 09/27/17 09:00 09/28/17 18:03 (Pepcid) 10 mg Q12HR PO 09/28/17 09:00 09/29/17 09:17 (Catapres) 0.2 mg TID PO 09/28/17 09:00 09/29/17 14:39 (Duoneb Neb) 1 ampule Q4HR NEB NEB 09/28/17 16:00 09/29/17 15:23 (Duoneb Neb) 1 ampule Q2HR NEB PRN NEB 09/28/17 13:30 (Apresoline Inj) 10 mg Q6H PRN IV PUSH 09/28/17 16:30 (Apresoline) 50 mg Q8HR PO 09/28/17 22:00 09/29/17 14:39 (Lovenox Inj) 40 mg Q24H SQ 09/29/17 09:00 09/29/17 10:08 Family History [place] Social History Records state she lives in [facility], but the [place] Denies tobacco, EtOH, illicits (Gracie Guadarrama) Physical Exam Vital Signs Vital Signs Date Time Temp Pulse Resp B/P (MAP) Pulse Ox O2 Delivery O2 Flow Rate FiO2 09/29/17 14:00 95 09/29/17 12:00 93 09/29/17 12:00 98.1 93 27 170/111 (130) 92 09/29/17 10:00 82 09/29/17 08:00 76 09/29/17 08:00 97.8 76 12 133/92 (106) 97 09/29/17 07:39 96 Nasal Cannula 3.00 09/29/17 06:00 67 09/29/17 04:00 73 09/29/17 04:00 97.8 73 10 148/89 (108) 94 09/29/17 02:00 80 09/29/17 00:00 98.1 71 20 122/77 (92) 96 09/29/17 00:00 71 09/28/17 22:00 66 09/28/17 20:02 98 Nasal Cannula 3.00 09/28/17 20:00 84 09/28/17 20:00 97.7 84 20 131/85 (100) 98 09/28/17 18:00 85 Physical Exam GENERAL: Propped up in bed in NAD. On O2 via NC. NAD SKIN: Warm and dry. HEAD: Atraumatic. Normocephalic. EYES: Pupils equal and round. No scleral icterus. No injection or drainage. ENT: No nasal bleeding or discharge. Mucous membranes pink and moist. NECK: Trachea midline. No JVD. CARDIOVASCULAR: Regular rate and rhythm. RESPIRATORY: No accessory muscle use. Clear to auscultation. Breath sounds equal bilaterally. GASTROINTESTINAL: Abdomen soft, non-tender, nondistended. Hepatic and splenic margins not palpable. MUSCULOSKELETAL: Extremities without clubbing, cyanosis. 1+ pitting edema in bilat hips and flanks. Trace in ankles NEUROLOGICAL: Awake and alert. Normal speech. PSYCHIATRIC: Appropriate mood and affect; insight and judgment normal. Laboratory Laboratory Tests Test 09/29/17 03:25 White Blood Count 13.2 Red Blood Count 3.69 Hemoglobin 10.6 Hematocrit 32.1 Mean Corpuscular Volume 87.0 Mean Corpuscular Hemoglobin 28.6 Mean Corpuscular Hemoglobin Concent 32.8 Red Cell Distribution Width 19.9 Platelet Count 150 Mean Platelet Volume 8.7 Neutrophils (%) (Auto) 78.5 Lymphocytes (%) (Auto) 11.7 Monocytes (%) (Auto) 7.7 Eosinophils (%) (Auto) 1.7 Basophils (%) (Auto) 0.4 Neutrophils # (Auto) 10.3 Lymphocytes # (Auto) 1.5 Monocytes # (Auto) 1.0 Eosinophils # (Auto) 0.2 Basophils # (Auto) 0.0 CBC Comment AUTO DIFF Differential Total Cells Counted 100 Neutrophils % (Manual) 65 Band Neutrophils % 2 Lymphocytes % 16 Monocytes % 12 Eosinophils % 2 Neutrophils # (Manual) 9.2 Metamyelocytes 1 Myelocytes 1 Promyelocytes 1 Nucleated Red Blood Cells 1 Differential Comment FINAL DIFF MANUAL Toxic Vacuolation PRESENT Platelet Estimate NORMAL Platelet Morphology Comment NORMAL Polychromasia 2.2 Blood Urea Nitrogen 54 Creatinine 1.37 Random Glucose 110 Total Protein 6.1 Albumin 2.4 Calcium Level 8.8 Magnesium Level 2.3 Alkaline Phosphatase 121 Aspartate Amino Transf (AST/SGOT) 47 Alanine Aminotransferase (ALT/SGPT) 72 Total Bilirubin 0.4 Sodium Level 139 Potassium Level 5.1 Chloride Level 105 Carbon Dioxide Level 28.4 Anion Gap 6 Estimat Glomerular Filtration Rate 39 B-Type Natriuretic Peptide 1211 Date/Time Source Procedure Growth Status 09/23/17 21:44 Blood Peripheral Aerobic Blood Culture - Final NO GROWTH IN 5 DAYS Complete 09/23/17 21:44 Blood Peripheral Anaerobic Blood Culture - Final NO GROWTH IN 5 DAYS Complete 09/24/17 12:40 Sputum Endotracheal Gram Stain - Final Complete 09/24/17 12:40 Sputum Endotracheal Sputum Culture - Final HEAVY GROWTH NORMAL RESPIRATORY JORGE Complete (Gracie Guadarrama) Result Diagram: 09/29/17 0325 09/29/17 0325 Imaging Last Impressions Liver Ultrasound 09/29/17 0000 Signed Impressions: Service Date/Time: Friday, September 29, 2017 08:08 - CONCLUSION: Mild hepatic dilatation with prominent common duct. Gallbladder not visualized. Is there history of cholecystectomy. CT scan from 01/07/17 shows small gallbladder without gallstones. Yovani Orlando MD FACR Chest X-Ray 09/28/17 0000 Signed Impressions: Service Date/Time: Thursday, September 28, 2017 07:36 - CONCLUSION: Improving lung aeration with decreasing overall lung capacity. John Robert MD Renal Ultrasound 09/27/17 0000 Signed Impressions: Service Date/Time: Wednesday, September 27, 2017 11:51 - CONCLUSION: Echogenic kidneys bilaterally compatible with medical renal disease. Jay García MD (Gracie Guadarrama) Assessment and Plan Problem List: (1) Chronic kidney disease (CKD) ICD Codes: N18.9 - Chronic kidney disease, unspecified Status: Acute Plan: Appears she is back to her baseline of ~1.6. Likely sustained some degree of acute renal insufficiency related to contrast exposure from cardiac cath as well as relative hypotension on 09/26. 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 Noted hx of bilat TAVO s/p PCI in Apr 2016. Renal US reviewed and shows stable renal size. We will continue to monitor her renal functions. (2) Hypertension ICD Codes: I10 - Hypertension Status: Acute Plan: s/p renal artery stenting in 2015. Will have her continue on Coreg 6.25mg q12h, Clonidine 0.2mg TID, and Hydralazine 50mg q8h. Noted "allergy" to Amlodipine, but says developed leg swelling. May need to consider low dosage with monitoring if BP and SEs if BP remains elevated. As her renal functions are back to her baseline, we could also consider adding ACEi with close monitoring of renal functions BP relatively low at time of consult, so we will re-eval tomorrow. Consideration to be given to check renal artery doppler studies to assess patency of renal arteries. (3) Cardiomyopathy ICD Codes: I42.9 - Cardiomyopathy, unspecified Plan: Continue on Lasix for diuresis (4) Coronary artery disease ICD Codes: I25.10 - Atherosclerosis of coronary artery Status: Acute (5) Anemia ICD Codes: D64.9 - Anemia, unspecified Plan: Repeat CBC with Fe panel. (Gracie Guadarrama) Assessment and Plan The exam, history, and the medical decision-making described in the above note were completed with the assistance of the PA-C. I reviewed and agree with the findings presented. I attest that I had a [id number] encounter with the patient on the same day, and personally performed and documented my assessment and findings in the medical record. (Randy Lozada MD) Gracie Guadarrama Sep 29, 2017 17:37 Randy Lozada MD Oct 01, 2017 15:05
[2017-09-29] MEDS: CHLORHEXIDINE 0.12% (ORAL KIT) 15 ML CUP MT SCH (20:00)
[2017-09-29 20:59] LABS: IRON (FE) 29 MCG/DL (50-170)
[2017-09-29 21:08] LABS: % SATURATION IRON PROFILE 8.5 % (20-50); FERRITIN 59 NG/ML (8-252); TOTAL IRON BINDING CAPACITY 342 MCG/DL (250-450)
[2017-09-29] MEDS: AZITHROMYCIN INJ 500 MG in SODIUM CHLOR 0.9% 250 ML INJ 250 ML IV SCH (21:11)
[2017-09-29] MEDS: ATORVASTATIN 40 MG TAB PO SCH (21:12)
[2017-09-29] MEDS: CEFEPIME INJ 1,000 MG in SODIUM CHLORIDE 0.9% INJ 100 ML IV SCH (21:13)
[2017-09-30] VITALS (16 sets, daily range): BP systolic 144–168; BP diastolic 92–107; PULSE 65–80; RESP 11–23; TEMP 97.4–98.5; O2SAT 93–98
[2017-09-30] MEDS: INSULIN NovoLIN REGULAR SUPPLEMENTAL SCALE SQ SCH ×6 (00:42→20:27)
[2017-09-30] MEDS: CHLORHEXIDINE GLUCONATE 2 % 1 PACK (2 CLOTHS) TOP SCH (00:44)
[2017-09-30] MEDS: RESP: ALBUTEROL 2.5 MG/IPRATROPIUM 0.5 MG NEB (SCH) NEB ×6 (03:25→20:19)
[2017-09-30 04:27] LABS: AUTOMATED NEUTROPHIL # 10.1 TH/MM3 (1.8-7.7); BASOPHIL % 0.1 % (0.0-2.0); EOSINOPHIL % 0.4 % (0.0-4.0); HEMATOCRIT 33.2 % (35.0-46.0); HEMOGLOBIN 10.9 GM/DL (11.6-15.3); LYMPH % 7.6 % (9.0-44.0); LYMPHOCYTE # 0.9 TH/MM3 (1.0-4.8); MEAN CELL VOLUME 86.6 FL (80.0-100.0); MEAN CORPUSCULAR HEMOGLOBIN 28.4 PG (27.0-34.0); MEAN CORPUSCULAR HGB CONC 32.8 % (32.0-36.0); MEAN PLATELET VOLUME 8.6 FL (7.0-11.0); MONO % 3.1 % (0.0-8.0); MONOCYTE # 0.4 TH/MM3 (0-0.9); NEUT % 88.8 % (16.0-70.0); PLATELET COUNT 166 TH/MM3 (150-450); RED BLOOD COUNT 3.84 MIL/MM3 (4.00-5.30); RED CELL DISTRIBUTION WIDTH 18.7 % (11.6-17.2); WHITE BLOOD COUNT 11.3 TH/MM3 (4.0-11.0)
[2017-09-30 04:52] LABS: ALBUMIN 2.5 GM/DL (3.4-5.0); AST (GOT) 24 U/L (15-37); BICARBONATE 30.2 MEQ/L (21.0-32.0); BLOOD UREA NITROGEN 48 MG/DL (7-18); CALCIUM 9.2 MG/DL (8.5-10.1); CHLORIDE 101 MEQ/L (98-107); CREATININE 1.28 MG/DL (0.50-1.00); GLOMERULAR FILTRATION RATE 42 ML/MIN (>89); GLUCOSE,RANDOM 149 MG/DL (74-106); MAGNESIUM 2.2 MG/DL (1.5-2.5); SODIUM (NA) 137 MEQ/L (136-145)
[2017-09-30 04:57] LABS: ALKALINE PHOSPHATASE 109 U/L (45-117); ALT (GPT) 56 U/L (10-53); RANDOM VANCOMYCIN 8.8 COMMENT; TOTAL BILIRUBIN ADULT 0.5 MG/DL (0.2-1.0); TOTAL PROTEIN 6.2 GM/DL (6.4-8.2)
[2017-09-30] MEDS: hydrALAZINE HCL 50 MG TAB PO SCH ×3 (05:23→13:48)
[2017-09-30 07:36] LABS: LYMPHOCYTES 11 % (9-44); MONOCYTES 4 % (0-8); MYELOCYTES 4 % (0-0); NEUTROPHIL # MANUAL DIFF 9.6 TH/MM3 (1.8-7.7); POLYS (SEG NEUTROPHILS) 81 % (16-70)
[2017-09-30] MEDS: CLOPIDOGREL 75 MG TAB PO SCH (08:51)
[2017-09-30] MEDS: GABAPENTIN 100 MG CAP PO SCH ×2 (08:51→20:26)
[2017-09-30] MEDS: cloNIDine HCL 0.1 MG TAB PO SCH ×3 (08:51→18:50)
[2017-09-30] MEDS: CARVEDILOL 6.25 MG TAB OG-TUBE SCH ×2 (08:51→20:27)
[2017-09-30] MEDS: METHADONE HCL 10 MG TAB PO SCH ×3 (08:51→18:50)
[2017-09-30] MEDS: ENOXAPARIN SODIUM 40 MG/0.4 ML SYRINGE SQ SCH (09:53)
[2017-09-30] MEDS: ASPIRIN 81 MG CHEW TAB PO SCH (09:53)
[2017-09-30] MEDS: FAMOTIDINE 20 MG TAB PO SCH ×2 (09:53→21:07)
[2017-09-30] MEDS: METHOCARBAMOL 500 MG TAB PO SCH ×2 (09:54→20:26)
[2017-09-30] MEDS: methylPREDNISolone SOD SUCC 125 MG/2 ML VIAL IV PUSH SCH (09:54)
[2017-09-30] MEDS: DOCUSATE SODIUM 50 MG/SENNA 8.6 MG TAB PO SCH ×2 (09:54→21:00)
[2017-09-30] MEDS: SODIUM CHLORIDE 0.9% FLUSH 10 ML FLUSH IV FLUSH SCH ×2 (09:54→20:25)
--- NOTE | 2017-09-30 12:27 | HHI.PR ---
Subjective Remarks Follow up for NSTEMI s/p PCI/BMS stent, COPD exacerbation. Patient is currently doing well. No acute chest pain, shortness of breath, fever or chills. She is currently on nasal cannula oxygen 2-3 L. Objective Vitals Vital Signs Date Time Temp Pulse Resp B/P (MAP) Pulse Ox O2 Delivery O2 Flow Rate FiO2 09/30/17 07:31 97 Nasal Cannula 3.00 09/30/17 06:00 66 09/30/17 04:00 65 09/30/17 04:00 98.4 65 15 152/93 (112) 94 09/30/17 03:26 94 Nasal Cannula 2.00 09/30/17 02:00 68 09/30/17 00:00 98.1 65 15 144/96 (112) 97 09/30/17 00:00 65 09/29/17 22:00 68 09/29/17 20:00 70 09/29/17 20:00 97.6 70 11 121/67 (85) 97 09/29/17 19:23 98 Nasal Cannula 2.50 09/29/17 18:00 75 09/29/17 16:00 98.7 80 13 116/68 (84) 94 09/29/17 16:00 80 09/29/17 14:00 95 I/O 09/29/17 09/29/17 09/29/17 09/30/17 09/30/17 09/30/17 07:00 15:00 23:00 07:00 15:00 23:00 Intake Total 480 ml 590 ml Output Total 2700 ml 450 ml Balance -2220 ml 140 ml Intake Oral 480 ml 240 ml IV Total 350 ml Output Urine Total 2700 ml 450 ml # Bowel Movements 1 0 Result Diagram: 09/30/17 0310 09/30/17 0310 Imaging Last Impressions Liver Ultrasound 09/29/17 0000 Signed Impressions: Service Date/Time: Friday, September 29, 2017 08:08 - CONCLUSION: Mild hepatic dilatation with prominent common duct. Gallbladder not visualized. Is there history of cholecystectomy. CT scan from 01/07/17 shows small gallbladder without gallstones. Yovani Orlando MD FACR Chest X-Ray 09/28/17 0000 Signed Impressions: Service Date/Time: Thursday, September 28, 2017 07:36 - CONCLUSION: Improving lung aeration with decreasing overall lung capacity. John Robert MD Renal Ultrasound 09/27/17 0000 Signed Impressions: Service Date/Time: Wednesday, September 27, 2017 11:51 - CONCLUSION: Echogenic kidneys bilaterally compatible with medical renal disease. Jay García MD Objective Remarks GENERAL: Alert, NAD. SKIN: Warm and dry. HEAD: Normocephalic. EYES: No scleral icterus. No injection or drainage. NECK: Supple, trachea midline. No JVD or lymphadenopathy. CARDIOVASCULAR: Regular rate and rhythm without murmurs, gallops, or rubs. RESPIRATORY: Moderate air entry, no appreciable wheezing. No accessory muscle use. GASTROINTESTINAL: Abdomen soft, non-tender, nondistended. MUSCULOSKELETAL: No cyanosis, or edema. BACK: Nontender without obvious deformity. No CVA tenderness. Procedures Orotracheal intubation 09/24/2017 Cardiac catheterization 09/25/2017 1. Non-ST elevation myocardial infarction, decompensated congestive heart failure, culprit large posterolateral artery branch supplying grade III to IV right to left collaterals to an occluded left anterior descending. Thus, 2 large vascular distributions of ischemia. 2. Widely patent stents in the proximal right coronary artery. 3. Occluded left anterior descending as detailed above. 4. Subtotally occluded small obtuse marginal vessel as detailed above. 5. Cardiomyopathy, ejection fraction 40% with severe hypokinesis of the anterior apical wall and inferior apical wall. 6. Successful direct percutaneous coronary intervention with bare metal stent of the proximal mid right posterolateral artery from 90% to 0% with JACINTO III flow. 7. Recommend Plavix 300 mg by mouth load, 75 mg a day for at least 3, preferably 4 weeks, optimally 6 weeks and 12-15 months if tolerated per Food and Drug Administration guidelines. Aspirin 162 mg load then 81 mg daily. Obviously, we will need to follow up her hemoglobin and hematocrit closely given the unstable hemoglobin. The patient will return to the intensive care unit for further event management and diuresis and close monitoring. A/P Problem List: (1) Acute respiratory failure ICD Code: J96.00 - Acute respiratory failure, unspecified whether with hypoxia or hypercapnia (2) COPD exacerbation ICD Code: J44.1 - Chronic obstructive pulmonary disease with (acute) exacerbation Status: Acute (3) NSTEMI (non-ST elevated myocardial infarction) ICD Code: I21.4 - Non-ST elevation (NSTEMI) myocardial infarction (4) CAD (coronary artery disease) ICD Code: I25.10 - Atherosclerotic heart disease of [place] coronary artery without angina pectoris (5) Cardiac arrest ICD Code: I46.9 - Cardiac arrest, cause unspecified Assessment and Plan Ms. Hawkins is a 62-year-old female with a history of oxygen dependent COPD and a recent admission for left fibular fracture who was admitted to the hospital on 09/23/2017 due to shortness of breath and chest tightness. In the ED she was found hypoxic with oxygen saturation in the 80s. She was given BiPAP treatment in the ED.In the emergency department, she had a white count of 12.3, hemoglobin 8.7, potassium of 5.6, creatinine 1.79, BNP of 651. Chest x-ray demonstrates a new right lower lobe pneumonia. On 09/25/2017 patient went into cardiac arrest with bradycardia and asystole. ACLS protocol was initiated. Patient had ROSC. Patient had significant elevation in troponins. Cardiology was consulted and patient was started on aspirin and heparin. Patient underwent cardiac catheterization on 09/25/2017 and received bare-metal stent to the proximal mid right posterolateral artery. Patient was extubated on 09/28/2017. Patient continued to receive cefepime and azithromycin and vancomycin for suspected pneumonia. -Acute respiratory failure hypoxic -COPD exacerbation -Right basilar pneumonia -Extubated on 09/28/2017. Currently patient is on nasal cannula. -Supplemental O2 to keep O2 saturation above 90%. -Patient is currently on azithromycin, cefepime, vancomycin. Will continue one more day. -We will likely discontinue all antibiotics tomorrow to complete a 7 day course. -Continue DuoNeb. Will discontinue Solu-Medrol. -Non-STEMI -Cardiac arrest -status post return of spontaneous circulation after ACLS protocol -Continue aspirin 81 mg, Plavix 75 mg, atorvastatin 80 mg. -Continue carvedilol 6.25 mg every 12 hours -We will start lisinopril 10mg Qday for reduced ejection fraction -Acute kidney injury -Hypokalemia -potassium today is 5.0. -We will get BNP in the morning. -Peaked at 2.17. Currently 1.28. Avoid nephrotoxins. - Hypertension -Continue clonidine 0.2 milligrams 3 times daily. It would be preferable to wean patient off clonidine. -Continue carvedilol 6.25 mg every 12hrs. - Anxiety -continue alprazolam 0.5 mg p.o. every 6 hours as needed. Full code. Grisel. Nasim Parker DO Sep 30, 2017 12:27
[2017-09-30] MEDS: RESP: ALBUTEROL 2.5 MG/IPRATROPIUM 0.5 MG NEB (PRN) INH ×2 (12:31→23:33)
[2017-09-30] MEDS: VANCOMYCIN 1,000 MG/NS 250 ML IV SCH ×2 (13:50)
[2017-09-30] MEDS: hydrALAZINE HCL 20 MG/ML VIAL IV PRN ×3 (14:36→21:24)
--- NOTE | 2017-09-30 17:40 | HHI.NPPN ---
Subjective History of Present Illness The patient is a 62 yo [place] female who presented to this facility on 09/23 for complaints of CP and SOB. She was noted to be hypoxic and placed on BiPAP. Went into cardiac arrest on 09/25 requiring CPR with spontaneous recirculation. Underwent cardiac cath the same day with PCI to RCA. Echocardiogram noting LVEF of 37%. She has known CKD, but says she does not follow with nephrology. Further investigation of her chart shows hx of bilat TAVO with bilat stenting April 2016. We were consulted for recommendations regarding hypertensive management. Currently on Coreg 6.25mg BID, Clonidine 0.2mg TID, Hydralazine 50mg q8h and at time requiring IV Hydralazine. She is also being diuresed with Lasix. Admitting SCr 1.7 and peaked at 2.1 on 09/27. Improved to 1.37 at consult. Appears baseline SCr around 1.6. Objective Data Data Vital Signs Date Time Temp Pulse Resp B/P (MAP) Pulse Ox O2 Delivery O2 Flow Rate FiO2 09/30/17 07:31 97 Nasal Cannula 3.00 09/30/17 06:00 66 09/30/17 04:00 65 09/30/17 04:00 98.4 65 15 152/93 (112) 94 09/30/17 03:26 94 Nasal Cannula 2.00 09/30/17 02:00 68 09/30/17 00:00 98.1 65 15 144/96 (112) 97 09/30/17 00:00 65 09/29/17 22:00 68 09/29/17 20:00 70 09/29/17 20:00 97.6 70 11 121/67 (85) 97 09/29/17 19:23 98 Nasal Cannula 2.50 09/29/17 18:00 75 -: 09/30/17 0310 09/30/17 0310 Physical Exam General Appearance: No Acute Distress, Comfortable, Malnourished Eyes Eye Exam: Sclera White Pulmonary Resp Exam: Clear Bilaterally, Breath Sounds Equal Cardiology CV Exam: Regular, Normal Sinus Rhythm Gastrointestinal/Abdomen GI Exam: Soft, Non-Tender Integumentary Skin Exam: Clear, Warm Extremeties Extremities Exam: No Edema Neurologic Neuro Exam: Alert, Awake Psychiatric Psych Exam: Appropriate Responses Assessment/Plan Discussed Condition With: Patient Problem List: (1) Chronic kidney disease (CKD) ICD Codes: N18.9 - Chronic kidney disease, unspecified Status: Acute Plan: Appears she is back to her baseline of ~1.6. Likely sustained some degree of acute renal insufficiency related to contrast exposure from cardiac cath as well as relative hypotension on 09/26. 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 Noted hx of bilat TAVO s/p PCI in Apr 2016. Renal US reviewed and shows stable renal size. Her renal function continues to improve. (2) Hypertension ICD Codes: I10 - Hypertension Status: Acute Plan: s/p renal artery stenting in 2016. Will have her continue on Coreg 6.25mg q12h, Clonidine 0.2mg TID, Noted "allergy" to Amlodipine, but says developed leg swelling. Noted lisinopril ordered 10 mg daily. Will monitor electrolytes and renal indices with same. I will also increase hydralazine 75 mg 3 times daily. On questioning the patient apparently she did not note a significant improvement in her blood pressure after her previous renal artery angioplasty and stenting. Unfortunately this can be the case in about 50% of cases of renal angioplasty however having the procedure may help to preserve her renal function long-term as discussed with. (3) Cardiomyopathy ICD Codes: I42.9 - Cardiomyopathy, unspecified Plan: Continue on Lasix for diuresis (4) Coronary artery disease ICD Codes: I25.10 - Atherosclerosis of coronary artery Status: Acute (5) Anemia ICD Codes: D64.9 - Anemia, unspecified Plan: Repeat CBC with Fe panel. Randy Lozada MD Sep 30, 2017 17:40
[2017-09-30] MEDS: CHLORHEXIDINE 0.12% (ORAL KIT) 15 ML CUP MT SCH (20:00)
[2017-09-30] MEDS: AZITHROMYCIN INJ 500 MG in SODIUM CHLOR 0.9% 250 ML INJ 250 ML IV SCH (20:25)
[2017-09-30] MEDS: ATORVASTATIN 40 MG TAB PO SCH (21:07)
[2017-09-30] MEDS: hydrALAZINE HCL 25 MG TAB PO SCH (21:07)
[2017-09-30] MEDS: CEFEPIME INJ 1,000 MG in SODIUM CHLORIDE 0.9% INJ 100 ML IV SCH (21:12)
[2017-09-30] MEDS: ALPRAZolam 0.5 MG TAB PO PRN (21:22)
[2017-09-30] MEDS ORDERED: hydrALAZINE HCL 20 MG/ML VIAL IV PRN ×2 (23:00)
[2017-10-01] VITALS (13 sets, daily range): BP systolic 108–162; BP diastolic 62–105; PULSE 60–87; RESP 16–20; TEMP 97.8–98.7; O2SAT 94–98
[2017-10-01] MEDS: INSULIN NovoLIN REGULAR SUPPLEMENTAL SCALE SQ SCH ×6 (01:00→21:00)
[2017-10-01] MEDS: RESP: ALBUTEROL 2.5 MG/IPRATROPIUM 0.5 MG NEB (SCH) NEB ×6 (02:54→21:05)
[2017-10-01] MEDS: CHLORHEXIDINE GLUCONATE 2 % 1 PACK (2 CLOTHS) TOP SCH (04:00)
[2017-10-01] MEDS: hydrALAZINE HCL 25 MG TAB PO SCH ×3 (06:32→21:10)
[2017-10-01 07:58] LABS: BICARBONATE 28.9 MEQ/L (21.0-32.0); CALCIUM 9.2 MG/DL (8.5-10.1); CREATININE 1.23 MG/DL (0.50-1.00)
[2017-10-01] MEDS: CHLORHEXIDINE 0.12% (ORAL KIT) 15 ML CUP MT SCH ×2 (08:00→20:00)
[2017-10-01 08:25] LABS: BILIRUBIN, URINE NEG (NEG); BLOOD, URINE NEG (NEG); GLUCOSE,URINE NEG (NEG); KETONE, URINE NEG (NEG); MUCUS URINE FEW /lpf (OCC); NITRITE,URINE NEG (NEG); PH, URINE 5.5 (5.0-8.5); SQUAMOUS EPITHELIAL CELL URINE 1 /hpf (0-5); URINE COLOR YELLOW (YELLW/STRAW); URINE LEUKOCYTE ESTERASE SMALL (NEG)
[2017-10-01] MEDS: LISINOPRIL 10 MG TAB PO SCH (09:17)
[2017-10-01] MEDS: DOCUSATE SODIUM 50 MG/SENNA 8.6 MG TAB PO SCH ×2 (09:19→21:09)
[2017-10-01] MEDS: ASPIRIN 81 MG CHEW TAB PO SCH (09:19)
[2017-10-01] MEDS: cloNIDine HCL 0.1 MG TAB PO SCH ×3 (09:19→17:26)
[2017-10-01] MEDS: GABAPENTIN 100 MG CAP PO SCH ×2 (09:19→21:09)
[2017-10-01] MEDS: METHADONE HCL 10 MG TAB PO SCH ×3 (09:19→17:27)
[2017-10-01] MEDS: CLOPIDOGREL 75 MG TAB PO SCH (09:20)
[2017-10-01] MEDS: CARVEDILOL 6.25 MG TAB OG-TUBE SCH ×2 (09:20→20:54)
[2017-10-01] MEDS: FAMOTIDINE 20 MG TAB PO SCH ×2 (09:22→21:09)
[2017-10-01] MEDS: SODIUM CHLORIDE 0.9% FLUSH 10 ML FLUSH IV FLUSH SCH ×2 (09:23→21:00)
[2017-10-01] MEDS: ENOXAPARIN SODIUM 40 MG/0.4 ML SYRINGE SQ SCH (09:24)
[2017-10-01] MEDS: METHOCARBAMOL 500 MG TAB PO SCH ×2 (10:00→21:07)
--- NOTE | 2017-10-01 10:33 | HHI.FPPN ---
Subjective Remarks c/o right side ronchi c/o pain in fx site d/w RN Objective Vitals Vital Signs Date Time Temp Pulse Resp B/P (MAP) Pulse Ox O2 Delivery O2 Flow Rate FiO2 10/01/17 08:00 98.3 70 16 162/105 (124) 95 10/01/17 08:00 Nasal Cannula 3.00 10/01/17 07:45 73 10/01/17 04:01 63 10/01/17 04:00 97.9 87 20 149/98 (115) 97 10/01/17 00:00 65 10/01/17 00:00 Nasal Cannula 3.00 10/01/17 00:00 97.8 69 20 144/86 (105) 95 09/30/17 23:09 97.4 65 19 151/92 (111) 93 09/30/17 22:00 66 09/30/17 20:20 95 Nasal Cannula 2.50 09/30/17 20:00 78 09/30/17 18:00 72 09/30/17 16:00 77 09/30/17 16:00 98.5 77 23 153/96 (115) 98 09/30/17 14:00 80 09/30/17 12:00 98.2 77 23 166/98 (120) 98 09/30/17 12:00 77 I/O 09/30/17 09/30/17 09/30/17 10/01/17 10/01/17 10/01/17 07:00 15:00 23:00 07:00 15:00 23:00 Intake Total 590 ml 670 ml Output Total 450 ml 600 ml 400 ml Balance 140 ml -600 ml 270 ml Intake Oral 240 ml 670 ml IV Total 350 ml Output Urine Total 450 ml 600 ml 400 ml # Voids 2 # Bowel Movements 0 0 1 Result Diagram: 09/30/17 0310 10/01/17 0710 Imaging Last 72 hours Impressions Liver Ultrasound 09/29/17 0000 Signed Impressions: Service Date/Time: Friday, September 29, 2017 08:08 - CONCLUSION: Mild hepatic dilatation with prominent common duct. Gallbladder not visualized. Is there history of cholecystectomy. CT scan from 01/07/17 shows small gallbladder without gallstones. Yovani Orlando MD FACR Objective Remarks GENERAL: SKIN: Warm and dry. HEAD: Atraumatic. Normocephalic. EYES: Pupils equal and round. No scleral icterus. No injection or drainage. ENT: No nasal bleeding or discharge. Mucous membranes pink and moist. NECK: Trachea midline. No JVD. CARDIOVASCULAR: Regular rate and rhythm. RESPIRATORY: No accessory muscle use. right side ronchi, poor effort GASTROINTESTINAL: Abdomen soft, non-tender, nondistended. Hepatic and splenic margins not palpable. MUSCULOSKELETAL: Extremities without clubbing, cyanosis, or edema. No obvious deformities. NEUROLOGICAL: Awake and alert. No obvious cranial nerve deficits. Motor grossly within normal limits. 2 out of 5 muscle strength in the arms and legs. Normal speech. PSYCHIATRIC: Appropriate mood and affect; insight and judgment normal. Medications and IVs Current Medications Medications (Trade) Dose Ordered Sig/Ann Route Start Time Stop Time Status Last Admin Azithromycin 500 mg/Sodium Chloride 250 ml @ 250 mls/hr Q24H IV 09/24/17 21:00 09/30/17 20:25 Cefepime HCl 1000 mg/Sodium Chloride 100 ml @ 200 mls/hr DAILY@2200 IV 09/24/17 22:00 09/30/17 21:12 Pharmacy Profile Note 0 ml @ 0 mls/hr UNSCH OTHER 09/23/17 23:15 (Mag-Ox) 800 mg UNSCH PRN PO 09/23/17 23:15 09/26/17 07:46 Sodium Phosphate 30 mmol/Sodium Chloride 250 ml @ 42 mls/hr UNSCH PRN IV 09/23/17 23:15 (Duoneb Neb) 1 ampule Q2HR NEB PRN INH 09/23/17 23:15 09/30/17 23:33 (Tylenol) 650 mg Q6H PRN PO 09/23/17 23:15 (Zofran Inj) 4 mg Q6H PRN IV PUSH 09/23/17 23:15 Miscellaneous Information 1 Q361D XX 09/23/17 23:15 (Chlorhexidine 2% Cloth) Taper DAILY@04 TOP 09/24/17 04:00 09/20/18 03:59 09/28/17 04:00 (Chlorhexidine 2% Cloth) 3 pack UNSCH PRN TOP 09/23/17 23:15 (Karen-Colace) 1 tab BID PO 09/24/17 09:00 10/01/17 09:19 (Milk Of Magnesia Liq) 30 ml Q12H PRN PO 09/23/17 23:15 (Senokot) 17.2 mg Q12H PRN PO 09/23/17 23:15 (Dulcolax Supp) 10 mg DAILY PRN RECTAL 09/23/17 23:15 (Lactulose Liq) 30 ml DAILY PRN PO 09/23/17 23:15 (Xanax) 0.5 mg Q6H PRN PO 09/24/17 08:15 09/30/17 21:22 (Dolophine) 20 mg TID PO 09/24/17 09:00 10/01/17 09:19 (Peridex 0.12% Liq) 15 ml BID@08,20 MT 09/24/17 20:00 09/28/17 08:49 (Coreg) 6.25 mg Q12HR OG-TUBE 09/25/17 07:00 10/01/17 09:20 (Lipitor) 80 mg HS PO 09/25/17 21:00 09/30/17 21:07 (Neurontin) 100 mg BID PO 09/25/17 09:00 10/01/17 09:19 (Zanaflex) 4 mg Q8HR PO 09/25/17 14:00 10/01/17 06:32 (Robaxin) 750 mg Q12HR PO 09/25/17 09:00 10/01/17 10:00 (Benadryl) 25 mg Q4H PRN PO 09/25/17 07:15 (Ativan Inj) 2 mg Q2H PRN IV PUSH 09/25/17 09:15 09/26/17 17:35 (NS Flush) 2 ml UNSCH PRN IV FLUSH 09/25/17 14:00 09/26/17 04:50 (NS Flush) 2 ml BID IV FLUSH 09/25/17 21:00 10/01/17 09:23 (Aspirin Chew) 81 mg DAILY PO 09/26/17 09:00 10/01/17 09:19 (Plavix) 75 mg DAILY PO 09/26/17 09:00 10/01/17 09:20 Miscellaneous Information 1 Q7D T-DERMAL 09/25/17 18:00 (D50w (Vial) Inj) 50 ml UNSCH PRN IV PUSH 09/27/17 09:00 (Glucagon Inj) 1 mg UNSCH PRN OTHER 09/27/17 09:00 (NovoLIN R SUPPLEMENTAL SCALE) 1 Q4H SQ 09/27/17 09:00 09/30/17 20:27 (Pepcid) 10 mg Q12HR PO 09/28/17 09:00 10/01/17 09:22 (Catapres) 0.2 mg TID PO 09/28/17 09:00 10/01/17 09:19 (Duoneb Neb) 1 ampule Q4HR NEB NEB 09/28/17 16:00 10/01/17 09:24 (Duoneb Neb) 1 ampule Q2HR NEB PRN NEB 09/28/17 13:30 (Lovenox Inj) 40 mg Q24H SQ 09/29/17 09:00 10/01/17 09:24 Vancomycin HCl 1000 mg/Sodium Chloride 250 ml @ 250 mls/hr Q24H IV 09/30/17 12:00 09/30/17 13:50 Miscellaneous Information SPECIFIC LAB TO BE DRAWN:VANCO TROUGH DATE TO... ONCE ONCE .XX 10/02/17 11:45 10/02/17 11:46 (Prinivil) 10 mg DAILY PO 10/01/17 09:00 10/01/17 09:17 (Apresoline) 75 mg Q8HR PO 09/30/17 22:00 10/01/17 06:32 (Apresoline Inj) 20 mg Q2H PRN IV 09/30/17 23:00 (Apresoline Inj) 10 mg Q6H PRN IV 09/30/17 23:00 A/P Assessment and Plan 62-year-old female with history of severe COPD who presents with acute hypoxic respiratory failure and new healthcare associated pneumonia, status post transient asystole followed by CPR and intubation, extubated, non-ST elevation MT Active problems: Metabolic encephalopathy Acute hypoxic respiratory failure requiring mechanical ventilation Acute COPD exacerbation Healthcare associated pneumonia Acute kidney injury superimposed on chronic renal insufficiency, unknown stage Severe acute protein calorie malnutrition Cardiac arrest status post CPR Non-ST elevation MT Uncontrolled hypertension Chronic pain on narcotics Plan: Neuro: Continue methadone and Xanax home doses. Monitor neuro status CV: Elevated cardiac enzymes following transient asystole on 09/24. Cardiology following. 2D echo with LVEF 37% with anteroapical hypokinesis. s/p cardiac catheterization on 09/25: underwent PCI to branch of RCA(posterior lateral artery 60% stenosis) due to chronic mid LAD total occlusion On ASA, Lipitor, Coreg 6.25mg BID, increase Clonidine 0.2mgQ8, Plavix 75mg daily , Hydralazine 50mg Q8 George- I held for renal dysfunction Pulmonary: Continue with oxygen keep sats >92% Bronchodilators Solumederol 30mg Q12 CXR: Improving lung aeration with decreasing overall lung capacity GI/liver: Elevated LFT's Pepcid for GI prophylaxis Monitor LFT's, check US liver Speech eval, diet per speech Renal/: Monitor renal function, I/O's, electrolytes replacement as needed, avoid nephrotoxins Renal function is improving with Cr: 1.37 from 1.93 lasix prn Dilated CBD on US, follow clinically ID: Follow-up cultures. Continue empiric antibiotic coverage with IV cefepime/ Zithromax Heme: Monitor CBC. 1 unit PRBCs ordered on 02/25. Endocrine: SSI for glycemic control( medium scale), Prophylaxis: Pepcid/SCDs/Lovenox Access: Peripheral IVs. Disposition: pt req transfer to [facility] when discharged to be near her Sons when medically stable. Will continue to see pt in my office. Willie Ybarra MD Oct 01, 2017 10:33
[2017-10-01] MEDS: VANCOMYCIN 1,000 MG/NS 250 ML IV SCH ×2 (12:30)
[2017-10-01] MEDS: ALPRAZolam 0.5 MG TAB PO PRN ×2 (13:23→21:12)
[2017-10-01] MEDS ORDERED: FUROSEMIDE 20 MG/2 ML VIAL IV PUSH ONE (15:00)
--- NOTE | 2017-10-01 15:03 | HHI.NPPN ---
Subjective History of Present Illness The patient is a 62 yo [place] female who presented to this facility on 09/23 for complaints of CP and SOB. She was noted to be hypoxic and placed on BiPAP. Went into cardiac arrest on 09/25 requiring CPR with spontaneous recirculation. Underwent cardiac cath the same day with PCI to RCA. Echocardiogram noting LVEF of 37%. She has known CKD, but says she does not follow with nephrology. Further investigation of her chart shows hx of bilat TAVO with bilat stenting April 2016. We were consulted for recommendations regarding hypertensive management. Currently on Coreg 6.25mg BID, Clonidine 0.2mg TID, Hydralazine 50mg q8h and at time requiring IV Hydralazine. She is also being diuresed with Lasix. Admitting SCr 1.7 and peaked at 2.1 on 09/27. Improved to 1.37 at consult. Appears baseline SCr around 1.6. Interval History Patient complaining of some edema and still having some dyspnea. Objective Data Data Vital Signs Date Time Temp Pulse Resp B/P (MAP) Pulse Ox O2 Delivery O2 Flow Rate FiO2 10/01/17 12:00 98.4 64 18 131/83 (99) 94 10/01/17 08:00 98.3 70 16 162/105 (124) 95 10/01/17 08:00 Nasal Cannula 3.00 10/01/17 07:45 73 10/01/17 04:01 63 10/01/17 04:00 97.9 87 20 149/98 (115) 97 10/01/17 00:00 65 10/01/17 00:00 Nasal Cannula 3.00 10/01/17 00:00 97.8 69 20 144/86 (105) 95 09/30/17 23:09 97.4 65 19 151/92 (111) 93 09/30/17 22:00 66 09/30/17 20:20 95 Nasal Cannula 2.50 09/30/17 20:00 78 09/30/17 18:00 72 09/30/17 16:00 77 09/30/17 16:00 98.5 77 23 153/96 (115) 98 -: 09/30/17 0310 10/01/17 0710 Physical Exam General Appearance: No Acute Distress, Comfortable, Malnourished Eyes Eye Exam: Sclera White Pulmonary Resp Exam: Clear Bilaterally, Breath Sounds Equal Cardiology CV Exam: Regular, Normal Sinus Rhythm Gastrointestinal/Abdomen GI Exam: Soft, Non-Tender Integumentary Skin Exam: Clear, Warm Extremeties Extremities Exam: Trace Edema, Pitting Edema (of the legs bilaterally. No erythema.) Neurologic Neuro Exam: Alert, Awake Psychiatric Psych Exam: Appropriate Responses Assessment/Plan Discussed Condition With: Patient Problem List: (1) Chronic kidney disease (CKD) ICD Codes: N18.9 - Chronic kidney disease, unspecified Status: Acute Plan: Appears she is back to her baseline of ~1.6. Likely sustained some degree of acute renal insufficiency related to contrast exposure from cardiac cath as well as relative hypotension on 09/26. 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 Noted hx of bilat TAVO s/p PCI in Apr 2016. Renal US reviewed and shows stable renal size. Her renal function continues to improve. (2) Hypertension ICD Codes: I10 - Hypertension Status: Acute Plan: s/p renal artery stenting in 2016. Will have her continue on Coreg 6.25mg q12h, Clonidine 0.2mg TID, Noted "allergy" to Amlodipine, but says developed leg swelling. Noted lisinopril ordered 10 mg daily. Will monitor electrolytes and renal indices with same. hydralazine 75 mg 3 times daily. Addition of furosemide may also aid in blood pressure management. On questioning the patient apparently she did not note a significant improvement in her blood pressure after her previous renal artery angioplasty and stenting. Unfortunately this can be the case in about 50% of cases of renal angioplasty however having the procedure may help to preserve her renal function long-term as discussed with. (3) Cardiomyopathy ICD Codes: I42.9 - Cardiomyopathy, unspecified Plan: Ejection fraction said to be 40%. IV furosemide today 1 and subsequent by mouth furosemide. (4) Coronary artery disease ICD Codes: I25.10 - Atherosclerosis of coronary artery Status: Acute (5) Anemia ICD Codes: D64.9 - Anemia, unspecified Randy Lozada MD Oct 01, 2017 15:03
[2017-10-01] MEDS: AZITHROMYCIN INJ 500 MG in SODIUM CHLOR 0.9% 250 ML INJ 250 ML IV SCH (21:07)
[2017-10-01] MEDS: ATORVASTATIN 40 MG TAB PO SCH (21:10)
[2017-10-01] MEDS: CEFEPIME INJ 1,000 MG in SODIUM CHLORIDE 0.9% INJ 100 ML IV SCH (23:20)
[2017-10-02] VITALS (10 sets, daily range): BP systolic 116–146; BP diastolic 67–86; PULSE 60–84; RESP 17–20; TEMP 97.8–99; O2SAT 92–96
[2017-10-02] MEDS: RESP: ALBUTEROL 2.5 MG/IPRATROPIUM 0.5 MG NEB (SCH) NEB ×4 (00:01→11:44)
[2017-10-02] MEDS: INSULIN NovoLIN REGULAR SUPPLEMENTAL SCALE SQ SCH ×6 (01:00→20:38)
[2017-10-02] MEDS: CHLORHEXIDINE GLUCONATE 2 % 1 PACK (2 CLOTHS) TOP SCH (04:00)
[2017-10-02] MEDS: hydrALAZINE HCL 25 MG TAB PO SCH ×3 (06:21→21:47)
[2017-10-02] MEDS: ALPRAZolam 0.5 MG TAB PO PRN ×2 (06:23→17:50)
[2017-10-02 08:24] LABS: ALBUMIN 2.5 GM/DL (3.4-5.0); AST (GOT) 17 U/L (15-37); BICARBONATE 28.7 MEQ/L (21.0-32.0); BLOOD UREA NITROGEN 35 MG/DL (7-18); CALCIUM 8.9 MG/DL (8.5-10.1); CHLORIDE 101 MEQ/L (98-107); CREATININE 1.16 MG/DL (0.50-1.00); GLOMERULAR FILTRATION RATE 47 ML/MIN (>89); GLUCOSE,RANDOM 132 MG/DL (74-106); HEMATOCRIT 33.4 % (35.0-46.0); MEAN CELL VOLUME 87.4 FL (80.0-100.0); MEAN CORPUSCULAR HEMOGLOBIN 28.9 PG (27.0-34.0); MEAN PLATELET VOLUME 8.2 FL (7.0-11.0); PLATELET COUNT 178 TH/MM3 (150-450); RED BLOOD COUNT 3.82 MIL/MM3 (4.00-5.30); RED CELL DISTRIBUTION WIDTH 18.3 % (11.6-17.2); SODIUM (NA) 138 MEQ/L (136-145); WHITE BLOOD COUNT 9.8 TH/MM3 (4.0-11.0)
[2017-10-02 08:25] LABS: ALT (GPT) 34 U/L (10-53)
[2017-10-02 08:27] LABS: ALKALINE PHOSPHATASE 97 U/L (45-117); TOTAL BILIRUBIN ADULT 0.3 MG/DL (0.2-1.0); TOTAL PROTEIN 5.7 GM/DL (6.4-8.2)
[2017-10-02] MEDS ORDERED: HYDROCHLOROTHIAZIDE 25 MG TAB PO SCH (09:00)
[2017-10-02] MEDS: FUROSEMIDE 20 MG TAB PO SCH (09:03)
[2017-10-02] MEDS: ASPIRIN 81 MG CHEW TAB PO SCH (09:03)
[2017-10-02] MEDS: ENOXAPARIN SODIUM 40 MG/0.4 ML SYRINGE SQ SCH (09:03)
[2017-10-02] MEDS: DOCUSATE SODIUM 50 MG/SENNA 8.6 MG TAB PO SCH ×2 (09:03→20:38)
[2017-10-02] MEDS: METHOCARBAMOL 500 MG TAB PO SCH ×2 (09:04→20:37)
[2017-10-02] MEDS: CLOPIDOGREL 75 MG TAB PO SCH (09:05)
[2017-10-02] MEDS: METHADONE HCL 10 MG TAB PO SCH ×3 (09:06→17:42)
[2017-10-02] MEDS: FAMOTIDINE 20 MG TAB PO SCH ×2 (09:06→20:38)
[2017-10-02] MEDS: GABAPENTIN 100 MG CAP PO SCH ×2 (09:06→20:37)
[2017-10-02] MEDS: LISINOPRIL 10 MG TAB PO SCH (09:07)
[2017-10-02] MEDS: cloNIDine HCL 0.1 MG TAB PO SCH ×3 (09:07→17:45)
[2017-10-02] MEDS: CARVEDILOL 6.25 MG TAB OG-TUBE SCH ×2 (09:08→20:38)
[2017-10-02] MEDS: CHLORHEXIDINE 0.12% (ORAL KIT) 15 ML CUP MT SCH ×2 (09:08→20:00)
[2017-10-02] MEDS: SODIUM CHLORIDE 0.9% FLUSH 10 ML FLUSH IV FLUSH SCH ×2 (09:08→20:37)
--- NOTE | 2017-10-02 09:45 | HHI.PR ---
Subjective Remarks Follow up pneumonia, renal insufficiency, respiratory failure. Patient states that she feels a lot better. Reports soreness in her chest from CPR. Mild dyspnea today. No nausea/vomiting. Objective Vitals Vital Signs Date Time Temp Pulse Resp B/P (MAP) Pulse Ox O2 Delivery O2 Flow Rate FiO2 10/02/17 08:07 95 Nasal Cannula 2.00 10/02/17 08:00 98.2 67 20 137/86 (103) 95 10/02/17 04:07 95 Nasal Cannula 2.00 10/02/17 04:00 97.8 80 17 146/76 (99) 92 10/02/17 04:00 60 10/02/17 00:02 95 Nasal Cannula 2.00 10/02/17 00:00 98.0 63 18 135/81 (99) 94 10/02/17 00:00 64 10/01/17 22:00 Nasal Cannula 2.00 10/01/17 21:05 98 Nasal Cannula 2.00 10/01/17 20:53 97.9 60 20 108/62 (77) 94 10/01/17 19:57 66 10/01/17 16:21 65 10/01/17 16:00 98.7 65 17 138/83 (101) 94 10/01/17 15:10 66 137/90 (106) 10/01/17 12:28 66 10/01/17 12:00 98.4 64 18 131/83 (99) 94 I/O 10/01/17 10/01/17 10/01/17 10/02/17 10/02/17 10/02/17 07:00 15:00 23:00 07:00 15:00 23:00 Intake Total 670 ml 250 ml 240 ml 2150 ml Output Total 400 ml Balance 270 ml 250 ml 240 ml 2150 ml Intake Oral 670 ml 240 ml 1800 ml IV Total 250 ml 350 ml Output Urine Total 400 ml # Voids 2 4 2 # Bowel Movements 1 1 Result Diagram: 10/02/1737 10/02/1737 Imaging Last Impressions Liver Ultrasound 09/29/17 0000 Signed Impressions: Service Date/Time: Friday, September 29, 2017 08:08 - CONCLUSION: Mild hepatic dilatation with prominent common duct. Gallbladder not visualized. Is there history of cholecystectomy. CT scan from 01/07/17 shows small gallbladder without gallstones. Yovani Orlando MD FACR Chest X-Ray 09/28/17 0000 Signed Impressions: Service Date/Time: Thursday, September 28, 2017 07:36 - CONCLUSION: Improving lung aeration with decreasing overall lung capacity. John Robert MD Renal Ultrasound 09/27/17 0000 Signed Impressions: Service Date/Time: Wednesday, September 27, 2017 11:51 - CONCLUSION: Echogenic kidneys bilaterally compatible with medical renal disease. Jay García MD Objective Remarks General: No acute distress. Heart: Regular rate and rhythm. No murmur. Lungs: Rhonchi noted on the right. Breathing is nonlabored. Abdomen: Soft, nontender, nondistended. Extremities: No lower extremity edema. Left foot in fracture boot. Psych: Alert and oriented. Neuro: Speech is normal. No focal motor deficits noted. Procedures Orotracheal intubation 09/24/2017 Cardiac catheterization 09/25/2017 1. Non-ST elevation myocardial infarction, decompensated congestive heart failure, culprit large posterolateral artery branch supplying grade III to IV right to left collaterals to an occluded left anterior descending. Thus, 2 large vascular distributions of ischemia. 2. Widely patent stents in the proximal right coronary artery. 3. Occluded left anterior descending as detailed above. 4. Subtotally occluded small obtuse marginal vessel as detailed above. 5. Cardiomyopathy, ejection fraction 40% with severe hypokinesis of the anterior apical wall and inferior apical wall. 6. Successful direct percutaneous coronary intervention with bare metal stent of the proximal mid right posterolateral artery from 90% to 0% with JACINTO III flow. 7. Recommend Plavix 300 mg by mouth load, 75 mg a day for at least 3, preferably 4 weeks, optimally 6 weeks and 12-15 months if tolerated per Food and Drug Administration guidelines. Aspirin 162 mg load then 81 mg daily. Obviously, we will need to follow up her hemoglobin and hematocrit closely given the unstable hemoglobin. The patient will return to the intensive care unit for further event management and diuresis and close monitoring. Urinary Catheter: No Vascular Central Line Catheter: No A/P Problem List: (1) Acute respiratory failure ICD Code: J96.00 - Acute respiratory failure, unspecified whether with hypoxia or hypercapnia (2) COPD exacerbation ICD Code: J44.1 - Chronic obstructive pulmonary disease with (acute) exacerbation Status: Acute (3) NSTEMI (non-ST elevated myocardial infarction) ICD Code: I21.4 - Non-ST elevation (NSTEMI) myocardial infarction (4) CAD (coronary artery disease) ICD Code: I25.10 - Atherosclerotic heart disease of circle coronary artery without angina pectoris (5) Cardiac arrest ICD Code: I46.9 - Cardiac arrest, cause unspecified Assessment and Plan 1. Acute hypoxic respiratory failure requiring mechanical ventilation: Resolved. Patient now stable on 2 L nasal cannula. 2. COPD exacerbation: Continue bronchodilators, steroids, supplemental oxygen. 3. Healthcare associated pneumonia: On empiric antibiotic coverage with cefepime, Zithromax, vancomycin. 4. Acute kidney injury superimposed on chronic kidney disease along appreciate nephrology recommendations. Creatinine improving. 5. Cardiac arrest status post CPR, non-ST elevation VT: Appreciate cardiology recommendations. Status post cardiac catheterization with placement of bare- metal stent. Continue aspirin, Plavix, statin, beta-tano. 6. Hypertension: Blood pressure control is improving. Continue current antihypertensive regimen. 7. Chronic pain: Continue methadone. 8. DVT prophylaxis: Lovenox. Discharge Planning Plan for discharge to SNF when arrangements can be made. Patient is requesting placement at SNF near her family. Case management assisting with discharge planning. Dash Souza MD Oct 02, 2017 09:45
[2017-10-02 10:27] LABS: BANDS 3 % (0-6); LYMPHOCYTES 32 % (9-44); METAMYELOCYTES 1 % (0-1); MONOCYTES 9 % (0-8); POLYS (SEG NEUTROPHILS) 47 % (16-70)
[2017-10-02 10:28] LABS: OVALOCYTES 1+ (NORMAL)
[2017-10-02] MEDS ORDERED: PHARMACY ORDERED LAB ONE (11:45)
[2017-10-02] MEDS: VANCOMYCIN 1,000 MG/NS 250 ML IV SCH ×2 (13:14)
--- NOTE | 2017-10-02 14:18 | HHI.NPPN ---
Subjective History of Present Illness The patient is a 62 yo [place] female who presented to this facility on 09/23 for complaints of CP and SOB. She was noted to be hypoxic and placed on BiPAP. Went into cardiac arrest on 09/25 requiring CPR with spontaneous recirculation. Underwent cardiac cath the same day with PCI to RCA. Echocardiogram noting LVEF of 37%. She has known CKD, but says she does not follow with nephrology. Further investigation of her chart shows hx of bilat TAVO with bilat stenting April 2016. We were consulted for recommendations regarding hypertensive management. Currently on Coreg 6.25mg BID, Clonidine 0.2mg TID, Hydralazine 50mg q8h and at time requiring IV Hydralazine. She is also being diuresed with Lasix. Admitting SCr 1.7 and peaked at 2.1 on 09/27. Improved to 1.37 at consult. Appears baseline SCr around 1.6. Interval History Patient resting comfortably. No verbal complaints. Objective Data Data Vital Signs Date Time Temp Pulse Resp B/P (MAP) Pulse Ox O2 Delivery O2 Flow Rate FiO2 10/02/17 12:00 99.0 83 20 144/67 (92) 94 10/02/17 08:07 95 Nasal Cannula 2.00 10/02/17 08:00 98.2 67 20 137/86 (103) 95 10/02/17 04:07 95 Nasal Cannula 2.00 10/02/17 04:00 97.8 80 17 146/76 (99) 92 10/02/17 04:00 60 10/02/17 00:02 95 Nasal Cannula 2.00 10/02/17 00:00 98.0 63 18 135/81 (99) 94 10/02/17 00:00 64 10/01/17 22:00 Nasal Cannula 2.00 10/01/17 21:05 98 Nasal Cannula 2.00 10/01/17 20:53 97.9 60 20 108/62 (77) 94 10/01/17 19:57 66 10/01/17 16:21 65 10/01/17 16:00 98.7 65 17 138/83 (101) 94 10/01/17 15:10 66 137/90 (106) -: 10/02/17 0737 10/02/17 0737 Physical Exam General Appearance: No Acute Distress, Comfortable, Malnourished Eyes Eye Exam: Sclera White Pulmonary Resp Exam: Clear Bilaterally, Breath Sounds Equal Cardiology CV Exam: Regular, Normal Sinus Rhythm Gastrointestinal/Abdomen GI Exam: Soft, Non-Tender Integumentary Skin Exam: Clear, Warm Extremeties Extremities Exam: Trace Edema, Pitting Edema (of the legs bilaterally. No erythema.) Neurologic Neuro Exam: Alert, Awake Psychiatric Psych Exam: Appropriate Responses Assessment/Plan Discussed Condition With: Patient Problem List: (1) Chronic kidney disease (CKD) ICD Codes: N18.9 - Chronic kidney disease, unspecified Status: Acute Plan: As below. Noted hx of bilat TAVO s/p PCI in Apr 2016. Renal US reviewed and shows stable renal size. (2) Hypertension ICD Codes: I10 - Hypertension Status: Acute Plan: s/p renal artery stenting in 2016. Blood pressure well controlled on current regimen. Renal indices are actually improved significantly and better than suspected baseline. On questioning the patient apparently she did not note a significant improvement in her blood pressure after her previous renal artery angioplasty and stenting. Unfortunately this can be the case in about 50% of cases of renal angioplasty however having the procedure may help to preserve her renal function long-term as discussed with. At this point in time we'll sign off. She was advised to find a another local field education coordinator post discharge and she is relocating from this area. Recommend that she advised that physician to obtain records from this admission. (3) Cardiomyopathy ICD Codes: I42.9 - Cardiomyopathy, unspecified Plan: Ejection fraction said to be 40%. IV furosemide today 1 and subsequent by mouth furosemide. (4) Coronary artery disease ICD Codes: I25.10 - Atherosclerosis of coronary artery Status: Acute (5) Anemia ICD Codes: D64.9 - Anemia, unspecified Randy Lozada MD Oct 02, 2017 14:17
[2017-10-02] MEDS: RESP: ALBUTEROL 2.5 MG/IPRATROPIUM 0.5 MG NEB (PRN) INH ×2 (17:23→20:13)
[2017-10-02] MEDS: REMOVE OLD PATCH T-DERMAL SCH (17:42)
[2017-10-02] MEDS: AZITHROMYCIN INJ 500 MG in SODIUM CHLOR 0.9% 250 ML INJ 250 ML IV SCH (20:37)
[2017-10-02] MEDS: ATORVASTATIN 40 MG TAB PO SCH (20:37)
[2017-10-02] MEDS: CEFEPIME INJ 1,000 MG in SODIUM CHLORIDE 0.9% INJ 100 ML IV SCH (21:50)
[2017-10-03] VITALS (9 sets, daily range): BP systolic 117–140; BP diastolic 51–85; PULSE 58–69; RESP 18–22; TEMP 98–98.6; O2SAT 92–98
[2017-10-03] MEDS: INSULIN NovoLIN REGULAR SUPPLEMENTAL SCALE SQ SCH ×6 (01:00→22:39)
[2017-10-03] MEDS: CHLORHEXIDINE GLUCONATE 2 % 1 PACK (2 CLOTHS) TOP SCH (03:39)
[2017-10-03] MEDS: hydrALAZINE HCL 25 MG TAB PO SCH ×3 (05:30→21:05)
[2017-10-03] MEDS: LISINOPRIL 10 MG TAB PO SCH (08:23)
[2017-10-03] MEDS: ASPIRIN 81 MG CHEW TAB PO SCH (08:23)
[2017-10-03] MEDS: CARVEDILOL 6.25 MG TAB OG-TUBE SCH ×2 (08:23→21:06)
[2017-10-03] MEDS: METHADONE HCL 10 MG TAB PO SCH ×3 (08:23→17:49)
[2017-10-03] MEDS: GABAPENTIN 100 MG CAP PO SCH ×2 (08:24→21:06)
[2017-10-03] MEDS: CLOPIDOGREL 75 MG TAB PO SCH (08:24)
[2017-10-03] MEDS: DOCUSATE SODIUM 50 MG/SENNA 8.6 MG TAB PO SCH ×2 (08:24→21:00)
[2017-10-03] MEDS: cloNIDine HCL 0.1 MG TAB PO SCH ×3 (08:24→17:49)
[2017-10-03] MEDS: FAMOTIDINE 20 MG TAB PO SCH ×2 (08:24→21:06)
[2017-10-03] MEDS: METHOCARBAMOL 500 MG TAB PO SCH ×2 (08:24→21:06)
[2017-10-03] MEDS: FUROSEMIDE 20 MG TAB PO SCH (08:24)
[2017-10-03] MEDS: CHLORHEXIDINE 0.12% (ORAL KIT) 15 ML CUP MT SCH ×2 (08:28→19:47)
[2017-10-03 08:45] LABS: AUTOMATED NEUTROPHIL # 5.9 TH/MM3 (1.8-7.7); BASOPHIL % 0.1 % (0.0-2.0); EOSINOPHIL # 0.8 TH/MM3 (0-0.4); EOSINOPHIL % 8.3 % (0.0-4.0); HEMATOCRIT 32.1 % (35.0-46.0); HEMOGLOBIN 10.6 GM/DL (11.6-15.3); LYMPH % 18.7 % (9.0-44.0); LYMPHOCYTE # 1.7 TH/MM3 (1.0-4.8); MEAN CELL VOLUME 87.3 FL (80.0-100.0); MEAN CORPUSCULAR HEMOGLOBIN 28.9 PG (27.0-34.0); MEAN CORPUSCULAR HGB CONC 33.1 % (32.0-36.0); MEAN PLATELET VOLUME 8.1 FL (7.0-11.0); MONO % 9.5 % (0.0-8.0); MONOCYTE # 0.9 TH/MM3 (0-0.9); NEUT % 63.4 % (16.0-70.0); PLATELET COUNT 180 TH/MM3 (150-450); RED BLOOD COUNT 3.68 MIL/MM3 (4.00-5.30); RED CELL DISTRIBUTION WIDTH 17.9 % (11.6-17.2); WHITE BLOOD COUNT 9.3 TH/MM3 (4.0-11.0)
[2017-10-03] MEDS: SODIUM CHLORIDE 0.9% FLUSH 10 ML FLUSH IV FLUSH SCH ×2 (09:08→21:05)
[2017-10-03 09:11] LABS: BICARBONATE 30.7 MEQ/L (21.0-32.0); CREATININE 1.22 MG/DL (0.50-1.00)
--- NOTE | 2017-10-03 11:03 | HHI.PR ---
Subjective Remarks Follow up pneumonia, rectal bleeding. Patient has not had a bowel movement today. She had "a good amount" of red blood with one bowel movement yesterday and a small amount with a second BM later in the day. Overall she states that she feels better today. She feels ready to go to SNF. Objective Vitals Vital Signs Date Time Temp Pulse Resp B/P (MAP) Pulse Ox O2 Delivery O2 Flow Rate FiO2 10/03/17 08:00 98.4 65 20 140/81 (100) 96 10/03/17 07:19 Nasal Cannula 3.00 40 10/03/17 04:00 58 10/03/17 04:00 Nasal Cannula 3.00 40 10/03/17 04:00 98.4 61 18 119/77 (91) 92 10/03/17 00:00 98.4 61 18 119/77 (91) 92 10/03/17 00:00 62 10/03/17 00:00 Nasal Cannula 3.00 40 10/02/17 20:15 96 Nasal Cannula 2.00 10/02/17 20:00 98.5 84 18 116/76 (89) 94 10/02/17 20:00 Nasal Cannula 2.00 40 10/02/17 20:00 69 10/02/17 16:00 98.1 65 20 133/69 (90) 95 10/02/17 12:00 61 10/02/17 12:00 99.0 83 20 144/67 (92) 94 I/O 10/02/17 10/02/17 10/02/17 10/03/17 10/03/17 10/03/17 07:00 15:00 23:00 07:00 15:00 23:00 Intake Total 2150 ml 250 ml 1070 ml Balance 2150 ml 250 ml 1070 ml Intake Oral 1800 ml 720 ml IV Total 350 ml 250 ml 350 ml # Voids 2 6 3 # Bowel Movements 3 Result Diagram: 10/03/17 0755 10/03/17 0755 Imaging Last Impressions Liver Ultrasound 09/29/17 0000 Signed Impressions: Service Date/Time: Friday, September 29, 2017 08:08 - CONCLUSION: Mild hepatic dilatation with prominent common duct. Gallbladder not visualized. Is there history of cholecystectomy. CT scan from 01/07/17 shows small gallbladder without gallstones. Yovani Orlando MD FACR Chest X-Ray 09/28/17 0000 Signed Impressions: Service Date/Time: Thursday, September 28, 2017 07:36 - CONCLUSION: Improving lung aeration with decreasing overall lung capacity. John Robert MD Renal Ultrasound 09/27/17 0000 Signed Impressions: Service Date/Time: Wednesday, September 27, 2017 11:51 - CONCLUSION: Echogenic kidneys bilaterally compatible with medical renal disease. Jay García MD Objective Remarks General: No acute distress. Heart: Regular rate and rhythm. No murmur. Lungs: Rhonchi noted on the right. Breathing is nonlabored. Abdomen: Soft, nontender, nondistended. Extremities: No lower extremity edema. Left foot in fracture boot. Psych: Alert and oriented. Neuro: Speech is normal. No focal motor deficits noted. Procedures Orotracheal intubation 09/24/2017 Cardiac catheterization 09/25/2017 1. Non-ST elevation myocardial infarction, decompensated congestive heart failure, culprit large posterolateral artery branch supplying grade III to IV right to left collaterals to an occluded left anterior descending. Thus, 2 large vascular distributions of ischemia. 2. Widely patent stents in the proximal right coronary artery. 3. Occluded left anterior descending as detailed above. 4. Subtotally occluded small obtuse marginal vessel as detailed above. 5. Cardiomyopathy, ejection fraction 40% with severe hypokinesis of the anterior apical wall and inferior apical wall. 6. Successful direct percutaneous coronary intervention with bare metal stent of the proximal mid right posterolateral artery from 90% to 0% with JACINTO III flow. 7. Recommend Plavix 300 mg by mouth load, 75 mg a day for at least 3, preferably 4 weeks, optimally 6 weeks and 12-15 months if tolerated per Food and Drug Administration guidelines. Aspirin 162 mg load then 81 mg daily. Obviously, we will need to follow up her hemoglobin and hematocrit closely given the unstable hemoglobin. The patient will return to the intensive care unit for further event management and diuresis and close monitoring. Urinary Catheter: No Vascular Central Line Catheter: No A/P Problem List: (1) Acute respiratory failure ICD Code: J96.00 - Acute respiratory failure, unspecified whether with hypoxia or hypercapnia (2) COPD exacerbation ICD Code: J44.1 - Chronic obstructive pulmonary disease with (acute) exacerbation Status: Acute (3) NSTEMI (non-ST elevated myocardial infarction) ICD Code: I21.4 - Non-ST elevation (NSTEMI) myocardial infarction (4) CAD (coronary artery disease) ICD Code: I25.10 - Atherosclerotic heart disease of [place] coronary artery without angina pectoris (5) Cardiac arrest ICD Code: I46.9 - Cardiac arrest, cause unspecified Assessment and Plan 1. Acute hypoxic respiratory failure requiring mechanical ventilation: Resolved. Patient now stable on 2-3 L per nasal cannula. 2. COPD exacerbation: Continue bronchodilators, steroids, supplemental oxygen. 3. Healthcare associated pneumonia: On empiric antibiotic coverage with cefepime, Zithromax, vancomycin. Transition to oral antibiotics at discharge. 4. Acute kidney injury superimposed on chronic kidney disease along appreciate nephrology recommendations. Creatinine improving. 5. Cardiac arrest status post CPR, non-ST elevation PA: Appreciate cardiology recommendations. Status post cardiac catheterization with placement of bare- metal stent. Continue aspirin, Plavix, statin, beta-tano. 6. Hypertension: Blood pressure control is improved. Continue current antihypertensive regimen. 7. Chronic pain: Continue methadone. 8. DVT prophylaxis: Lovenox. Discharge Planning Plan for discharge to SNF when cleared by Dash Bolanos MD Oct 03, 2017 11:03
--- NOTE | 2017-10-03 11:12 | PD.CONS ---
HPI History of Present Illness This is a 62 year old female with history of oxygen dependent, COPD, DM, CKD, chronic anemia, HTN who presented here from sniff by EMS for worsening shortness of breath and chest tightness. She developed Cardiac arrest status post CPR, non-ST elevation SD, Status post cardiac catheterization with placement of bare-metal stent. Currently being treated for Healthcare associated pneumonia with empiric antibiotic, and COPD exacerbation. GI have been consulted for lower GI bleed. Pt is poor historian. Reports significant amount of rectal bleed yesterday, but when checked with the nurse who witnessed the bleeding episode, states this was a couple of smears on the wipe and was orange tinted color. Hgb have been steady. Pt denies any other associated symptoms. Denies nausea, vomiting or abd pain. (Marycruz Sandoval) PFSH Past Medical History Anemia Anxiety Depression Coronary artery disease Hypertension High cholesterol CVA in 2014 COPD Diabetes GERD Prior GI bleed Headaches Kidney stones Scoliosis Torticollis Migraines Chronic kidney disease, unknown stage Obstructive sleep apnea SD Past Surgical History Appendectomy Wire cage and neck, C3-C4 Plate and left wrist Plate and left clavicle Coronary artery stents 4 Renal stents Cholecystectomy Hysterectomy Tonsillectomy cardiac stents (Marycruz Sandoval) Coded Allergies: levofloxacin (Verified Allergy, Severe, Anaphylaxis, 09/23/17) amlodipine (Verified Adverse Reaction, Severe, Swelling, 09/23/17) "left leg swelling" metoclopramide (Verified Adverse Reaction, Severe, Edema, 09/23/17) Medications Current Medications Medications (Trade) Dose Ordered Sig/Ann Route Start Time Stop Time Status Last Admin Azithromycin 500 mg/Sodium Chloride 250 ml @ 250 mls/hr Q24H IV 09/24/17 21:00 10/02/17 20:37 Cefepime HCl 1000 mg/Sodium Chloride 100 ml @ 200 mls/hr DAILY@2200 IV 09/24/17 22:00 10/02/17 21:50 Pharmacy Profile Note 0 ml @ 0 mls/hr UNSCH OTHER 09/23/17 23:15 (Mag-Ox) 800 mg UNSCH PRN PO 09/23/17 23:15 09/26/17 07:46 Sodium Phosphate 30 mmol/Sodium Chloride 250 ml @ 42 mls/hr UNSCH PRN IV 09/23/17 23:15 (Duoneb Neb) 1 ampule Q2HR NEB PRN INH 09/23/17 23:15 10/02/17 20:13 (Tylenol) 650 mg Q6H PRN PO 09/23/17 23:15 (Zofran Inj) 4 mg Q6H PRN IV PUSH 09/23/17 23:15 Miscellaneous Information 1 Q361D XX 09/23/17 23:15 (Chlorhexidine 2% Cloth) Taper DAILY@04 TOP 09/24/17 04:00 09/20/18 03:59 09/28/17 04:00 (Chlorhexidine 2% Cloth) 3 pack UNSCH PRN TOP 09/23/17 23:15 (Karen-Colace) 1 tab BID PO 09/24/17 09:00 10/03/17 08:24 (Milk Of Magnesia Liq) 30 ml Q12H PRN PO 09/23/17 23:15 (Senokot) 17.2 mg Q12H PRN PO 09/23/17 23:15 (Dulcolax Supp) 10 mg DAILY PRN RECTAL 09/23/17 23:15 (Lactulose Liq) 30 ml DAILY PRN PO 09/23/17 23:15 (Xanax) 0.5 mg Q6H PRN PO 09/24/17 08:15 10/02/17 17:50 (Dolophine) 20 mg TID PO 09/24/17 09:00 10/03/17 08:23 (Peridex 0.12% Liq) 15 ml BID@08,20 MT 09/24/17 20:00 10/03/17 08:28 (Coreg) 6.25 mg Q12HR OG-TUBE 09/25/17 07:00 10/03/17 08:23 (Lipitor) 80 mg HS PO 09/25/17 21:00 10/02/17 20:37 (Neurontin) 100 mg BID PO 09/25/17 09:00 10/03/17 08:24 (Zanaflex) 4 mg Q8HR PO 09/25/17 14:00 10/03/17 05:30 (Robaxin) 750 mg Q12HR PO 09/25/17 09:00 10/03/17 08:24 (Benadryl) 25 mg Q4H PRN PO 09/25/17 07:15 (Ativan Inj) 2 mg Q2H PRN IV PUSH 09/25/17 09:15 09/26/17 17:35 (NS Flush) 2 ml UNSCH PRN IV FLUSH 09/25/17 14:00 09/26/17 04:50 (NS Flush) 2 ml BID IV FLUSH 09/25/17 21:00 10/03/17 09:08 (Aspirin Chew) 81 mg DAILY PO 09/26/17 09:00 10/03/17 08:23 (Plavix) 75 mg DAILY PO 09/26/17 09:00 10/03/17 08:24 Miscellaneous Information 1 Q7D T-DERMAL 09/25/17 18:00 (D50w (Vial) Inj) 50 ml UNSCH PRN IV PUSH 09/27/17 09:00 (Glucagon Inj) 1 mg UNSCH PRN OTHER 09/27/17 09:00 (NovoLIN R SUPPLEMENTAL SCALE) 1 Q4H SQ 09/27/17 09:00 10/03/17 08:26 (Pepcid) 10 mg Q12HR PO 09/28/17 09:00 10/03/17 08:24 (Catapres) 0.2 mg TID PO 09/28/17 09:00 10/03/17 08:24 (Duoneb Neb) 1 ampule Q2HR NEB PRN NEB 09/28/17 13:30 (Lovenox Inj) 40 mg Q24H SQ 09/29/17 09:00 Future Hold 10/02/17 09:03 Vancomycin HCl 1000 mg/Sodium Chloride 250 ml @ 250 mls/hr Q24H IV 09/30/17 12:00 10/02/17 13:14 (Prinivil) 10 mg DAILY PO 10/01/17 09:00 10/03/17 08:23 (Apresoline) 75 mg Q8HR PO 09/30/17 22:00 10/03/17 05:30 (Apresoline Inj) 20 mg Q2H PRN IV 09/30/17 23:00 (Apresoline Inj) 10 mg Q6H PRN IV 09/30/17 23:00 (Lasix) 20 mg DAILY PO 10/02/17 09:00 10/03/17 08:24 Miscellaneous Information SPECIFIC LAB TO BE DRAWN:VANCO TROUGH DATE TO... ONCE ONCE .XX 10/05/17 11:45 10/05/17 11:46 Family History No family hx of colon cancer Social History No alcohol No smoking (Marycruz Sandoval) Review of Systems Constitutional: DENIES: Weight loss Endocrine: DENIES: Polyuria Eyes: DENIES: Double Vision Ears, nose, mouth, throat: DENIES: Hoarseness Respiratory: COMPLAINS OF: Shortness of breath Cardiovascular: DENIES: Lower Extremity Edema Gastrointestinal: COMPLAINS OF: Bloody stools, DENIES: Abdominal pain, Black stools, Constipation, Diarrhea, Nausea, Vomiting, Difficulty Swallowing, Anorexia, Odynophagia, Swelling of Abdomen, Heartburn, Hematemesis Genitourinary: DENIES: Hematuria Musculoskeletal: DENIES: Neck pain Integumentary: DENIES: Jaundice Hematologic/lymphatic: COMPLAINS OF: Bruising Immunologic/allergic: DENIES: Eczema Neurologic: DENIES: Abnormal gait Psychiatric: DENIES: Anxiety (Marycruz Sandoval) GI Exam Vitals I&O Vital Signs Date Time Temp Pulse Resp B/P (MAP) Pulse Ox O2 Delivery O2 Flow Rate FiO2 10/03/17 08:00 98.4 65 20 140/81 (100) 96 10/03/17 07:19 Nasal Cannula 3.00 40 10/03/17 04:00 58 10/03/17 04:00 Nasal Cannula 3.00 40 10/03/17 04:00 98.4 61 18 119/77 (91) 92 10/03/17 00:00 98.4 61 18 119/77 (91) 92 10/03/17 00:00 62 10/03/17 00:00 Nasal Cannula 3.00 40 10/02/17 20:15 96 Nasal Cannula 2.00 10/02/17 20:00 98.5 84 18 116/76 (89) 94 10/02/17 20:00 Nasal Cannula 2.00 40 10/02/17 20:00 69 10/02/17 16:00 98.1 65 20 133/69 (90) 95 10/02/17 12:00 61 10/02/17 12:00 99.0 83 20 144/67 (92) 94 I/O 10/02/17 10/02/17 10/02/17 10/03/1710/03/18 3/11/18 07:00 15:00 23:00 07:00 15:00 23:00 Intake Total 2150 ml 250 ml 1070 ml Balance 2150 ml 250 ml 1070 ml Intake Oral 1800 ml 720 ml IV Total 350 ml 250 ml 350 ml # Voids 2 6 3 # Bowel Movements 3 Imaging Last Impressions Liver Ultrasound 09/29/17 0000 Signed Impressions: Service Date/Time: Friday, September 29, 2017 08:08 - CONCLUSION: Mild hepatic dilatation with prominent common duct. Gallbladder not visualized. Is there history of cholecystectomy. CT scan from 01/07/17 shows small gallbladder without gallstones. Yovani Orlando MD FACR Chest X-Ray 09/28/17 0000 Signed Impressions: Service Date/Time: Thursday, September 28, 2017 07:36 - CONCLUSION: Improving lung aeration with decreasing overall lung capacity. John Robert MD Renal Ultrasound 09/27/17 0000 Signed Impressions: Service Date/Time: Wednesday, September 27, 2017 11:51 - CONCLUSION: Echogenic kidneys bilaterally compatible with medical renal disease. Jay García MD Laboratory Test 10/02/17 13:11 10/03/17 07:55 Vancomycin Level Trough 14.6 MCG/ML White Blood Count 9.3 TH/MM3 Red Blood Count 3.68 MIL/MM3 Hemoglobin 10.6 GM/DL Hematocrit 32.1 % Mean Corpuscular Volume 87.3 FL Mean Corpuscular Hemoglobin 28.9 PG Mean Corpuscular Hemoglobin Concent 33.1 % Red Cell Distribution Width 17.9 % Platelet Count 180 TH/MM3 Mean Platelet Volume 8.1 FL Neutrophils (%) (Auto) 63.4 % Lymphocytes (%) (Auto) 18.7 % Monocytes (%) (Auto) 9.5 % Eosinophils (%) (Auto) 8.3 % Basophils (%) (Auto) 0.1 % Neutrophils # (Auto) 5.9 TH/MM3 Lymphocytes # (Auto) 1.7 TH/MM3 Monocytes # (Auto) 0.9 TH/MM3 Eosinophils # (Auto) 0.8 TH/MM3 Basophils # (Auto) 0.0 TH/MM3 CBC Comment DIFF FINAL Differential Comment Blood Urea Nitrogen 25 MG/DL Creatinine 1.22 MG/DL Random Glucose 171 MG/DL Calcium Level 9.0 MG/DL Sodium Level 139 MEQ/L Potassium Level 4.2 MEQ/L Chloride Level 102 MEQ/L Carbon Dioxide Level 30.7 MEQ/L Anion Gap 6 MEQ/L Estimat Glomerular Filtration Rate 44 ML/MIN Date/Time Source Procedure Growth Status 09/23/17 21:44 Blood Peripheral Aerobic Blood Culture - Final NO GROWTH IN 5 DAYS Complete 09/23/17 21:44 Blood Peripheral Anaerobic Blood Culture - Final NO GROWTH IN 5 DAYS Complete 09/24/17 12:40 Sputum Endotracheal Gram Stain - Final Complete 09/24/17 12:40 Sputum Endotracheal Sputum Culture - Final HEAVY GROWTH NORMAL RESPIRATORY JORGE Complete Physical Examination HEENT: normocephalic; atraumatic; no jaundice. CHEST: Rhonchi noted on the right. Breathing is nonlabored. CARDIAC: Regular rate and rhythm with no murmur gallop or rubs. ABDOMEN: Soft, nondistended, nontender; bowel sounds are present in all four quadrants. EXTREMITIES: No clubbing, cyanosis, or edema. SKIN: Normal; no rash; no jaundice. [employer]: No focal deficits; alert and oriented . (Marycruz Sandoval) Assessment and Plan Plan - GI bleed- Pt is poor historian. Reports significant amount of rectal bleed yesterday, but when checked with the nurse who witnessed the bleeding episode, states this was a couple of smears on the wipe and was orange tinted color. Hgb have been steady. Pt denies any other associated symptoms. Denies nausea, vomiting or abd pain. Stools for Hemoccult ordered but not collected yet - Chronic anemia- likely anemia of chronic dz could be GI bleed - Cardiac arrest status post CPR, non-ST elevation SD, Status post cardiac catheterization with placement of bare-metal stent. On aspirin, Plavix, - Healthcare associated pneumonia with empiric antibiotic - COPD exacerbation per attending - history of oxygen dependent, COPD, DM, CKD per attending Plan: - healthy diet - Pt with recent cardiac stent for Non-STemi SD, on Plavix, no signs of active bleeding will consider colonoscopy for active bleeding and emergent basis only - Await stools for Hemoccult - Monitor hh - Transfuse as needed - Notify GI for active bleeding - Supportive care - Patient seen and examined by Dr. Haque and myself and this note is written on his behalf. (Marycruz Sandoval) Physician Comments Agree with above assessment and plan. Thank you for the consult. (Andria Haque MD) Marycruz Sandoval Oct 03, 2017 11:12 Andria Haque MD Oct 03, 2017 23:11
[2017-10-03] MEDS: VANCOMYCIN 1,000 MG/NS 250 ML IV SCH ×2 (11:16)
[2017-10-03] MEDS ORDERED: ASPI81 PO (13:41)
[2017-10-03] MEDS ORDERED: CLON.1 PO (13:41)
[2017-10-03] MEDS ORDERED: METH10TA PO (13:41)
[2017-10-03] MEDS ORDERED: LISI10TA3 PO (13:41)
[2017-10-03] MEDS ORDERED: ALPR.5 PO (13:41)
[2017-10-03] MEDS ORDERED: PLAV75TA29 PO (13:41)
[2017-10-03] MEDS ORDERED: HYDR-3799 PO (13:41)
[2017-10-03] MEDS ORDERED: FAMO20TA2 PO (13:41)
[2017-10-03] MEDS ORDERED: FURO20TA PO (13:41)
[2017-10-03] MEDS ORDERED: CARV6.25 PO (13:41)
--- NOTE | 2017-10-03 13:42 | HHI.DS ---
Discharge Summary Admission Date Sep 23, 2017 at 22:18 Discharge Date: Oct 03, 2017 Admitting Diagnosis pneumonia, hypoxia, COPD exacerbation (1) Acute respiratory failure ICD Code: J96.00 - Acute respiratory failure, unspecified whether with hypoxia or hypercapnia (2) COPD exacerbation ICD Code: J44.1 - Chronic obstructive pulmonary disease with (acute) exacerbation Status: Acute (3) NSTEMI (non-ST elevated myocardial infarction) ICD Code: I21.4 - Non-ST elevation (NSTEMI) myocardial infarction (4) CAD (coronary artery disease) ICD Code: I25.10 - Atherosclerotic heart disease of [place] coronary artery without angina pectoris (5) Cardiac arrest ICD Code: I46.9 - Cardiac arrest, cause unspecified Procedures Orotracheal intubation 09/24/2017 Cardiac catheterization 09/25/2017 1. Non-ST elevation myocardial infarction, decompensated congestive heart failure, culprit large posterolateral artery branch supplying grade III to IV right to left collaterals to an occluded left anterior descending. Thus, 2 large vascular distributions of ischemia. 2. Widely patent stents in the proximal right coronary artery. 3. Occluded left anterior descending as detailed above. 4. Subtotally occluded small obtuse marginal vessel as detailed above. 5. Cardiomyopathy, ejection fraction 40% with severe hypokinesis of the anterior apical wall and inferior apical wall. 6. Successful direct percutaneous coronary intervention with bare metal stent of the proximal mid right posterolateral artery from 90% to 0% with JACINTO III flow. 7. Recommend Plavix 300 mg by mouth load, 75 mg a day for at least 3, preferably 4 weeks, optimally 6 weeks and 12-15 months if tolerated per Food and Drug Administration guidelines. Aspirin 162 mg load then 81 mg daily. Obviously, we will need to follow up her hemoglobin and hematocrit closely given the unstable hemoglobin. The patient will return to the intensive care unit for further event management and diuresis and close monitoring. Brief History - From Admission This is a 62-year-old female with a history of oxygen dependent COPD with a recent admission for left fibular fracture and was discharged to her fdc facility. She is brought back from her sniff by EMS for worsening shortness of breath and chest tightness. She is on chronic methadone therapy and they were not giving her methadone she states in her fdc facility, so she thinks she is in methadone withdrawal. In the emergency department she was hypoxic in the low 80s on nasal cannula oxygen was placed on BiPAP. A complete history is difficult to obtain due to the fact that she is a poor historian and she has a BiPAP in place and is very dyspneic and so it is difficult to obtain additional information from the patient. In the emergency department, she had a white count of 12.3, hemoglobin 8.7, potassium of 5.6, creatinine 1.79, BNP of 651. Chest x-ray demonstrates a new right lower lobe pneumonia. CBC/BMP: 10/03/17 0755 10/03/17 0755 Significant Findings Laboratory Tests Test 10/01/17 07:10 10/01/17 07:35 10/02/17 07:37 10/02/17 13:11 Blood Urea Nitrogen 42 MG/DL (7-18) 35 MG/DL (7-18) Creatinine 1.23 MG/DL (0.50-1.00) 1.16 MG/DL (0.50-1.00) Random Glucose 134 MG/DL (74-106) 132 MG/DL (74-106) Estimat Glomerular Filtration Rate 44 ML/MIN (>89) 47 ML/MIN (>89) Urine Protein 30 mg/dL (NEG-TRACE) Urine Leukocyte Esterase SMALL (NEG) Urine Mucus FEW /lpf (OCC) Urine Random Total Protein 52 MG/DL (0-11.8) Urine Protein/Creatinine Ratio 0.76 (0.00-0.14) Red Blood Count 3.82 MIL/MM3 (4.00-5.30) Hemoglobin 11.0 GM/DL (11.6-15.3) Hematocrit 33.4 % (35.0-46.0) Red Cell Distribution Width 18.3 % (11.6-17.2) Monocytes % 9 % (0-8) Eosinophils % 8 % (0-4) Ovalocytes 1+ (NORMAL) Total Protein 5.7 GM/DL (6.4-8.2) Albumin 2.5 GM/DL (3.4-5.0) Vancomycin Level Trough 14.6 MCG/ML (5.0-10.0) Test 10/03/17 07:55 Red Blood Count 3.68 MIL/MM3 (4.00-5.30) Hemoglobin 10.6 GM/DL (11.6-15.3) Hematocrit 32.1 % (35.0-46.0) Red Cell Distribution Width 17.9 % (11.6-17.2) Monocytes (%) (Auto) 9.5 % (0.0-8.0) Eosinophils (%) (Auto) 8.3 % (0.0-4.0) Eosinophils # (Auto) 0.8 TH/MM3 (0-0.4) Blood Urea Nitrogen 25 MG/DL (7-18) Creatinine 1.22 MG/DL (0.50-1.00) Random Glucose 171 MG/DL (74-106) Estimat Glomerular Filtration Rate 44 ML/MIN (>89) Imaging Last Impressions Liver Ultrasound 09/29/17 0000 Signed Impressions: Service Date/Time: Friday, September 29, 2017 08:08 - CONCLUSION: Mild hepatic dilatation with prominent common duct. Gallbladder not visualized. Is there history of cholecystectomy. CT scan from 01/07/17 shows small gallbladder without gallstones. Yovani Orlando MD FACR Chest X-Ray 09/28/17 0000 Signed Impressions: Service Date/Time: Thursday, September 28, 2017 07:36 - CONCLUSION: Improving lung aeration with decreasing overall lung capacity. John Robert MD Renal Ultrasound 09/27/17 0000 Signed Impressions: Service Date/Time: Wednesday, September 27, 2017 11:51 - CONCLUSION: Echogenic kidneys bilaterally compatible with medical renal disease. Jay García MD PE at Discharge General: No acute distress. Heart: Regular rate and rhythm. No murmur. Lungs: Rhonchi noted on the right. Breathing is nonlabored. Abdomen: Soft, nontender, nondistended. Extremities: No lower extremity edema. Left foot in fracture boot. Psych: Alert and oriented. Neuro: Speech is normal. No focal motor deficits noted. Hospital Course The patient was admitted to the critical care service for management of encephalopathy and respiratory failure. She was placed on BiPAP. She was continued on empiric antibiotics. She developed bradycardia and asystole. CPR was performed. She was intubated and placed on mechanical ventilation. Cardiology was consulted. Cardiac catheterization was done and bare metal stent was placed. She was extubated on 09/28/17. She was continued on oxygen per nasal cannula. She was transferred out of the intensive care unit. Nephrology was consulted. She was felt to be at her baseline renal function. She had an episode of bright red blood with a bowel movement, and then another bowel movement with only a very small amount of blood. Gastroenterology was consulted and recommended no further workup unless acute bleeding occurred. She was cleared for discharge by gastroenterology. She was felt to be stable for discharge to fdc facility. Arrangements were made for fdc facility placement near the patient's family. Pt Condition on Discharge: Stable Discharge Disposition: Discharge to SNF Discharge Time: > 30 minutes Discharge Instructions DIET: Follow Instructions for: Heart Healthy Diet Activities you can perform: Regular-No Restrictions Follow up Referrals: Cardiology - 2 Weeks with Sebastián Parrish MD Gastroenterology - 2 Weeks with Andria Haque MD Nephrology - 1 Week PCP Follow-up - 2 Weeks New Medications: Aspirin (Tgt Aspirin) 81 Mg Chw 81 MG PO DAILY for Blood Clot Prevention, #30 EA Carvedilol (Coreg) 6.25 Mg Tab 6.25 MG PO Q12HR for Blood Pressure Management, #60 TAB Clonidine (Catapres) 0.1 Mg Tab 0.2 MG PO TID for Blood Pressure Management, #90 TAB Clopidogrel (Plavix) 75 Mg Tab 75 MG PO DAILY for Blood Clot Prevention, #30 TAB 0 Refills Famotidine (Famotidine) 20 Mg Tab 10 MG PO Q12HR for Reflux, #60 TAB Furosemide (Furosemide) 20 Mg Tab 20 MG PO DAILY for Diuretic, #30 TAB 0 Refills Hydralazine HCl (Hydralazine HCl) 25 Mg Tablet 75 MG PO Q8HR for Blood Pressure Management, #90 TAB Lisinopril (Lisinopril) 10 Mg Tab 10 MG PO DAILY for Blood Pressure Management, #30 TAB Continued Medications: Alprazolam (Xanax) 0.5 Mg Tab 0.5 MG PO Q6H PRN for ANXIETY, #10 TAB 0 Refills (This prescription has been renewed) Atorvastatin (Atorvastatin) 40 Mg Tab 80 MG PO HS for cad, #30 TAB 0 Refills Clonidine (Catapres) 0.1 Mg Tab 0.1 MG PO Q6H PRN for SBP>180, DBP>95, #90 TAB 10 Refills Cyanocobalamin (Vitamin B-12) 1,000 Mcg Tab 1000 MCG PO DAILY for Nutritional Supplement, #1 BOTTLE 0 Refills Gabapentin (Gabapentin) 100 Mg Cap 100 MG PO BID, #60 CAP 0 Refills Ipratropium-Albuterol Neb (Duoneb) 0.5-2.5 Mg/3 Ml Neb 1 NEBULE INH Q8HR NEB for Breathing Treatment, #90 NEBULE 0 Refills Methadone (Methadone) 10 Mg Tab 20 MG PO TID for Pain Management, #9 TAB 0 Refills (This prescription has been renewed) Methocarbamol (Robaxin) 750 Mg Tab 750 MG PO Q12HR for Muscle Spasm, TAB 0 Refills Ondansetron (Zofran) 4 Mg Tab 4 MG PO Q6HR PRN for NAUSEA OR VOMITING, TAB 0 Refills Tizanidine (Tizanidine) 4 Mg Tab 4 MG PO Q8HR for Muscle Spasm, TAB 0 Refills Trazodone (Trazodone) 100 Mg Tablet 100 MG PO HS for Control Depression, #30 TAB 0 Refills Walker with Front Wheels (Walker with Front Wheels) 1 Mis Mis EA .XX DIRECTED, #1 0 Refills Discontinued Medications: Aspirin (Aspirin) 325 Mg Tab 325 MG PO DAILY for cad, #30 TAB 0 Refills Clonidine (Catapres) 0.1 Mg Tab 0.1 MG PO BID for htn for 30 Days, #60 TAB Hydralazine HCl (Hydralazine HCl) 50 Mg Tablet 50 MG PO Q8HR for hypertension, #90 TAB 0 Refills Hydrocodone/Acetaminophen (Hydrocodone-Acetamin 7.5-325) 7.5 Mg-325 Mg Tablet 1 TAB PO Q4H PRN for PAIN SCALE 6 TO 10, #90 TAB Hydrocodone/Acetaminophen (Hydrocodone-Acetamin 5-325 mg) 5 Mg-325 Mg Tablet 1 TAB PO Q4H PRN for PAIN SCALE 3 TO 5, #90 TAB Hydroxyzine Pamoate (Vistaril) 25 Mg Cap 25 MG PO Q6H PRN for ANXIETY AND/OR INSOMNIA, #30 CAP 0 Refills Metoprolol Tartrate (Metoprolol Tartrate) 25 Mg Tab 25 MG PO Q12HR for CAD, #60 TAB 0 Refills Omeprazole Magnesium (Prilosec) 20 Mg Tab 40 MG DAILY Temazepam (Restoril) 15 Mg Cap 15 MG PO HS PRN for INSOMNIA, #30 CAP 0 Refills Dash Souza MD Oct 03, 2017 13:42
--- NOTE | 2017-10-03 13:43 | HHI.DCPOC ---
Discharge Care Plan Diagnosis: (1) Healthcare-associated pneumonia (2) Acute kidney injury superimposed on chronic kidney disease (3) Cardiac arrest (4) Acute respiratory failure (5) NSTEMI (non-ST elevated myocardial infarction) (6) CAD (coronary artery disease) (7) Anemia (8) Hypertension Goals to Promote Your Health * To prevent worsening of your condition and complications * To maintain your health at the optimal level Directions to Meet Your Goals Take your medications as prescribed Follow your dietary instruction Follow activity as directed Keep your appointments as scheduled Take your immunizations and boosters as scheduled If your symptoms worsen call your PCP, if no PCP go to Urgent Care Center or Emergency Room Smoking is Dangerous to Your Health. Avoid second hand smoke Call the 24-hour hour crisis hotline for domestic abuse at Dash Souza MD Oct 03, 2017 13:43
[2017-10-03] MEDS: ALPRAZolam 0.5 MG TAB PO PRN ×2 (16:03→22:30)
[2017-10-03] MEDS: AZITHROMYCIN INJ 500 MG in SODIUM CHLOR 0.9% 250 ML INJ 250 ML IV SCH (21:04)
[2017-10-03] MEDS: ATORVASTATIN 40 MG TAB PO SCH (21:06)
[2017-10-03] MEDS: CEFEPIME INJ 1,000 MG in SODIUM CHLORIDE 0.9% INJ 100 ML IV SCH (22:29)
[2017-10-03] MEDS: RESP: ALBUTEROL 2.5 MG/IPRATROPIUM 0.5 MG NEB (PRN) INH (22:46)
[2017-10-04] VITALS (7 sets, daily range): BP systolic 119–131; BP diastolic 66–76; PULSE 53–73; RESP 18–20; TEMP 97.6–98.1; O2SAT 94–96
[2017-10-04] MEDS: INSULIN NovoLIN REGULAR SUPPLEMENTAL SCALE SQ SCH ×4 (01:00→12:16)
[2017-10-04] MEDS: CHLORHEXIDINE GLUCONATE 2 % 1 PACK (2 CLOTHS) TOP SCH (04:00)
[2017-10-04] MEDS: hydrALAZINE HCL 25 MG TAB PO SCH ×2 (04:50→14:20)
[2017-10-04] MEDS: ALPRAZolam 0.5 MG TAB PO PRN (04:50)
[2017-10-04] MEDS: METHADONE HCL 10 MG TAB PO SCH ×2 (08:04→12:15)
[2017-10-04] MEDS: GABAPENTIN 100 MG CAP PO SCH (08:04)
[2017-10-04] MEDS: DOCUSATE SODIUM 50 MG/SENNA 8.6 MG TAB PO SCH (08:06)
[2017-10-04] MEDS: ASPIRIN 81 MG CHEW TAB PO SCH (08:07)
[2017-10-04] MEDS: CLOPIDOGREL 75 MG TAB PO SCH (08:07)
[2017-10-04] MEDS: cloNIDine HCL 0.1 MG TAB PO SCH ×2 (08:07→12:14)
[2017-10-04] MEDS: METHOCARBAMOL 500 MG TAB PO SCH (08:08)
[2017-10-04] MEDS: CHLORHEXIDINE 0.12% (ORAL KIT) 15 ML CUP MT SCH (08:08)
[2017-10-04] MEDS: FAMOTIDINE 20 MG TAB PO SCH (08:08)
[2017-10-04] MEDS: FUROSEMIDE 20 MG TAB PO SCH (08:08)
[2017-10-04] MEDS: CARVEDILOL 6.25 MG TAB OG-TUBE SCH (08:09)
[2017-10-04] MEDS: LISINOPRIL 10 MG TAB PO SCH (08:09)
[2017-10-04] MEDS: SODIUM CHLORIDE 0.9% FLUSH 10 ML FLUSH IV FLUSH SCH (08:10)
--- NOTE | 2017-10-04 09:57 | HHI.DS ---
Discharge Summary Admission Date Sep 23, 2017 at 22:18 Discharge Date: Oct 04, 2017 Admitting Diagnosis pneumonia, hypoxia, COPD exacerbation (1) Acute respiratory failure ICD Codes: J96.00 - Acute respiratory failure, unspecified whether with hypoxia or hypercapnia (2) COPD exacerbation ICD Codes: J44.1 - Chronic obstructive pulmonary disease with (acute) exacerbation Status: Acute (3) NSTEMI (non-ST elevated myocardial infarction) ICD Codes: I21.4 - Non-ST elevation (NSTEMI) myocardial infarction (4) CAD (coronary artery disease) ICD Codes: I25.10 - Atherosclerotic heart disease of [place] coronary artery without angina pectoris (5) Cardiac arrest ICD Codes: I46.9 - Cardiac arrest, cause unspecified Brief History Procedures Orotracheal intubation 09/24/2017 Cardiac catheterization 09/25/2017 1. Non-ST elevation myocardial infarction, decompensated congestive heart failure, culprit large posterolateral artery branch supplying grade III to IV right to left collaterals to an occluded left anterior descending. Thus, 2 large vascular distributions of ischemia. 2. Widely patent stents in the proximal right coronary artery. 3. Occluded left anterior descending as detailed above. 4. Subtotally occluded small obtuse marginal vessel as detailed above. 5. Cardiomyopathy, ejection fraction 40% with severe hypokinesis of the anterior apical wall and inferior apical wall. 6. Successful direct percutaneous coronary intervention with bare metal stent of the proximal mid right posterolateral artery from 90% to 0% with JACINTO III flow. 7. Recommend Plavix 300 mg by mouth load, 75 mg a day for at least 3, preferably 4 weeks, optimally 6 weeks and 12-15 months if tolerated per Food and Drug Administration guidelines. Aspirin 162 mg load then 81 mg daily. Obviously, we will need to follow up her hemoglobin and hematocrit closely given the unstable hemoglobin. The patient will return to the intensive care unit for further event management and diuresis and close monitoring. Brief History - From Admission This is a 62-year-old female with a history of oxygen dependent COPD with a recent admission for left fibular fracture and was discharged to her long-term facility. She is brought back from her sniff by EMS for worsening shortness of breath and chest tightness. She is on chronic methadone therapy and they were not giving her methadone she states in her long-term facility, so she thinks she is in methadone withdrawal. In the emergency department she was hypoxic in the low 80s on nasal cannula oxygen was placed on BiPAP. A complete history is difficult to obtain due to the fact that she is a poor historian and she has a BiPAP in place and is very dyspneic and so it is difficult to obtain additional information from the patient. In the emergency department, she had a white count of 12.3, hemoglobin 8.7, potassium of 5.6, creatinine 1.79, BNP of 651. Chest x-ray demonstrates a new right lower lobe pneumonia. CBC/BMP: 10/03/17 0755 10/04/17 0512 Significant Findings Laboratory Tests Test 10/02/17 07:37 10/02/17 13:11 10/03/17 07:55 10/04/17 05:12 Red Blood Count 3.82 MIL/MM3 (4.00-5.30) 3.68 MIL/MM3 (4.00-5.30) Hemoglobin 11.0 GM/DL (11.6-15.3) 10.6 GM/DL (11.6-15.3) Hematocrit 33.4 % (35.0-46.0) 32.1 % (35.0-46.0) Red Cell Distribution Width 18.3 % (11.6-17.2) 17.9 % (11.6-17.2) Monocytes % 9 % (0-8) Eosinophils % 8 % (0-4) Ovalocytes 1+ (NORMAL) Blood Urea Nitrogen 35 MG/DL (7-18) 25 MG/DL (7-18) Creatinine 1.16 MG/DL (0.50-1.00) 1.22 MG/DL (0.50-1.00) Random Glucose 132 MG/DL (74-106) 171 MG/DL (74-106) Total Protein 5.7 GM/DL (6.4-8.2) Albumin 2.5 GM/DL (3.4-5.0) Estimat Glomerular Filtration Rate 47 ML/MIN (>89) 44 ML/MIN (>89) Vancomycin Level Trough 14.6 MCG/ML (5.0-10.0) Monocytes (%) (Auto) 9.5 % (0.0-8.0) Eosinophils (%) (Auto) 8.3 % (0.0-4.0) Eosinophils # (Auto) 0.8 TH/MM3 (0-0.4) Hospital Course The patient was admitted to the critical care service for management of encephalopathy and respiratory failure. She was placed on BiPAP. She was continued on empiric antibiotics. She developed bradycardia and asystole. CPR was performed. She was intubated and placed on mechanical ventilation. Cardiology was consulted. Cardiac catheterization was done and bare metal stent was placed. She was extubated on 09/28/17. She was continued on oxygen per nasal cannula. She was transferred out of the intensive care unit. Nephrology was consulted. She was felt to be at her baseline renal function. She had an episode of bright red blood with a bowel movement, and then another bowel movement with only a very small amount of blood. Gastroenterology was consulted and recommended no further workup unless acute bleeding occurred. She was cleared for discharge by gastroenterology. She was felt to be stable for discharge to long-term facility. Arrangements were made for long-term facility placement near the patient's family. Patient was held overnight due to transportation issues and apparently will go today... Pt Condition on Discharge: Stable Pt Condition on Discharge: Stable Discharge Disposition: Discharge to SNF Discharge Instructions DIET: Follow Instructions for: Heart Healthy Diet Activities you can perform: Regular-No Restrictions Follow up Referrals: Cardiology - 2 Weeks with Sebastián Parrish MD Gastroenterology - 2 Weeks with Andria Haque MD Nephrology - 1 Week PCP Follow-up - 2 Weeks New Medications: Aspirin (Tgt Aspirin) 81 Mg Chw 81 MG PO DAILY for Blood Clot Prevention, #30 EA Carvedilol (Coreg) 6.25 Mg Tab 6.25 MG PO Q12HR for Blood Pressure Management, #60 TAB Clonidine (Catapres) 0.1 Mg Tab 0.2 MG PO TID for Blood Pressure Management, #90 TAB Clopidogrel (Plavix) 75 Mg Tab 75 MG PO DAILY for Blood Clot Prevention, #30 TAB 0 Refills Famotidine (Famotidine) 20 Mg Tab 10 MG PO Q12HR for Reflux, #60 TAB Furosemide (Furosemide) 20 Mg Tab 20 MG PO DAILY for Diuretic, #30 TAB 0 Refills Hydralazine HCl (Hydralazine HCl) 25 Mg Tablet 75 MG PO Q8HR for Blood Pressure Management, #90 TAB Lisinopril (Lisinopril) 10 Mg Tab 10 MG PO DAILY for Blood Pressure Management, #30 TAB Continued Medications: Alprazolam (Xanax) 0.5 Mg Tab 0.5 MG PO Q6H PRN for ANXIETY, #10 TAB 0 Refills (This prescription has been renewed) Atorvastatin (Atorvastatin) 40 Mg Tab 80 MG PO HS for cad, #30 TAB 0 Refills Clonidine (Catapres) 0.1 Mg Tab 0.1 MG PO Q6H PRN for SBP>180, DBP>95, #90 TAB 10 Refills Cyanocobalamin (Vitamin B-12) 1,000 Mcg Tab 1000 MCG PO DAILY for Nutritional Supplement, #1 BOTTLE 0 Refills Gabapentin (Gabapentin) 100 Mg Cap 100 MG PO BID, #60 CAP 0 Refills Ipratropium-Albuterol Neb (Duoneb) 0.5-2.5 Mg/3 Ml Neb 1 NEBULE INH Q8HR NEB for Breathing Treatment, #90 NEBULE 0 Refills Methadone (Methadone) 10 Mg Tab 20 MG PO TID for Pain Management, #9 TAB 0 Refills (This prescription has been renewed) Methocarbamol (Robaxin) 750 Mg Tab 750 MG PO Q12HR for Muscle Spasm, TAB 0 Refills Ondansetron (Zofran) 4 Mg Tab 4 MG PO Q6HR PRN for NAUSEA OR VOMITING, TAB 0 Refills Tizanidine (Tizanidine) 4 Mg Tab 4 MG PO Q8HR for Muscle Spasm, TAB 0 Refills Trazodone (Trazodone) 100 Mg Tablet 100 MG PO HS for Control Depression, #30 TAB 0 Refills Walker with Front Wheels (Walker with Front Wheels) 1 Mis Mis EA .XX DIRECTED, #1 0 Refills Discontinued Medications: Aspirin (Aspirin) 325 Mg Tab 325 MG PO DAILY for cad, #30 TAB 0 Refills Clonidine (Catapres) 0.1 Mg Tab 0.1 MG PO BID for htn for 30 Days, #60 TAB Hydralazine HCl (Hydralazine HCl) 50 Mg Tablet 50 MG PO Q8HR for hypertension, #90 TAB 0 Refills Hydrocodone/Acetaminophen (Hydrocodone-Acetamin 7.5-325) 7.5 Mg-325 Mg Tablet 1 TAB PO Q4H PRN for PAIN SCALE 6 TO 10, #90 TAB Hydrocodone/Acetaminophen (Hydrocodone-Acetamin 5-325 mg) 5 Mg-325 Mg Tablet 1 TAB PO Q4H PRN for PAIN SCALE 3 TO 5, #90 TAB Hydroxyzine Pamoate (Vistaril) 25 Mg Cap 25 MG PO Q6H PRN for ANXIETY AND/OR INSOMNIA, #30 CAP 0 Refills Metoprolol Tartrate (Metoprolol Tartrate) 25 Mg Tab 25 MG PO Q12HR for CAD, #60 TAB 0 Refills Omeprazole Magnesium (Prilosec) 20 Mg Tab 40 MG DAILY Temazepam (Restoril) 15 Mg Cap 15 MG PO HS PRN for INSOMNIA, #30 CAP 0 Refills Willie Ybarra MD Oct 04, 2017 09:57
[2017-10-04] MEDS: RESP: ALBUTEROL 2.5 MG/IPRATROPIUM 0.5 MG NEB (PRN) INH (10:55)
[2017-10-04] MEDS: VANCOMYCIN 1,000 MG/NS 250 ML IV SCH ×2 (12:14)
--- NOTE | 2017-10-04 14:47 | HHI.GIFU ---
Subjective Remarks Sitting up on side of bed States she is planning to go to rehabilitation soon Red Rectal bleeding noted yesterday at the end of her bowel movements, No history of hemorrhoids to her knowledge Hemoglobin 10.6 (Corine Garcia) Objective Vitals I&O Vital Signs Date Time Temp Pulse Resp B/P (MAP) Pulse Ox O2 Delivery O2 Flow Rate FiO2 10/04/17 12:39 98.0 68 20 119/75 (90) 94 10/04/17 10:56 96 Nasal Cannula 3.00 10/04/17 09:03 97.6 73 18 125/76 (92) 95 10/04/17 08:00 Nasal Cannula 3.00 40 10/04/17 08:00 66 10/04/17 04:15 98.1 58 20 131/66 (87) 96 10/04/17 04:15 Nasal Cannula 3.00 10/04/17 04:07 53 10/04/17 00:06 55 10/03/17 23:55 98.2 69 20 117/51 (73) 96 10/03/17 23:55 Nasal Cannula 3.00 10/03/17 22:48 96 Nasal Cannula 3.00 10/03/17 20:00 Nasal Cannula 3.00 10/03/17 20:00 98.0 68 22 125/80 (95) 97 10/03/17 19:47 65 10/03/17 16:00 98.3 67 20 132/85 (101) 98 10/03/17 16:00 65 I/O 10/03/17 10/03/17 10/03/17 10/04/17 10/04/17 10/04/17 07:00 15:00 23:00 07:00 15:00 23:00 Intake Total 250 ml 480 ml 870 ml Balance 250 ml 480 ml 870 ml Intake Oral 480 ml 870 ml IV Total 250 ml # Voids 3 6 4 1 # Bowel Movements 3 1 Laboratory Laboratory Tests Test 10/04/17 05:12 Random Glucose 80 Date/Time Source Procedure Growth Status 09/23/17 21:44 Blood Peripheral Aerobic Blood Culture - Final NO GROWTH IN 5 DAYS Complete 09/23/17 21:44 Blood Peripheral Anaerobic Blood Culture - Final NO GROWTH IN 5 DAYS Complete 09/24/17 12:40 Sputum Endotracheal Gram Stain - Final Complete 09/24/17 12:40 Sputum Endotracheal Sputum Culture - Final HEAVY GROWTH NORMAL RESPIRATORY JORGE Complete Imaging Last Impressions Liver Ultrasound 09/29/17 0000 Signed Impressions: Service Date/Time: Friday, September 29, 2017 08:08 - CONCLUSION: Mild hepatic dilatation with prominent common duct. Gallbladder not visualized. Is there history of cholecystectomy. CT scan from 01/07/17 shows small gallbladder without gallstones. Yovani Orlando MD FACR Chest X-Ray 09/28/17 0000 Signed Impressions: Service Date/Time: Thursday, September 28, 2017 07:36 - CONCLUSION: Improving lung aeration with decreasing overall lung capacity. John Robert MD Renal Ultrasound 09/27/17 0000 Signed Impressions: Service Date/Time: Wednesday, September 27, 2017 11:51 - CONCLUSION: Echogenic kidneys bilaterally compatible with medical renal disease. Jay García MD Physical Exam HEENT: Pupils round and reactive to light; normocephalic; atraumatic; no jaundice. NECK: Neck is supple, thin CHEST: Chest is clear without audible rhonchi or wheezing CARDIAC: Regular rate and rhythm ABDOMEN: Soft, nondistended, nontender; no hepatosplenomegaly; bowel sounds are present in all four quadrants. EXTREMITIES: No clubbing, cyanosis, or edema. SKIN: Thin turgor, dry; no rash; no jaundice. 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 Reports significant amount of rectal bleed yesterday, but when checked with the nurse who witnessed the bleeding episode, states this was a couple of smears on the wipe and was orange tinted color. Hgb have been steady. Pt denies any other associated symptoms. Denies nausea, vomiting or abd pain. Stools for Hemoccult ordered but not collected yet - Chronic anemia- likely anemia of chronic dz could be GI bleed - Cardiac arrest status post CPR, non-ST elevation [place], Status post cardiac catheterization with placement of bare-metal stent. On aspirin, Plavix, - Healthcare associated pneumonia with empiric antibiotic - COPD exacerbation per attending - history of oxygen dependent, COPD, DM, CKD per attending 10/04/17, patient states red blood noted at the end of her stools yesterday, current hemoglobin 10.6, denies any tarry stools or obvious rectal bleeding today, patient is a poor historian but thinks that she had a colonoscopy 4 or 5 years ago. LFTs normal on 10/02/17. Liver ultrasound on 09/29/17, mild hepatic dilatation with prominent common duct. Gallbladder not visualized CT scan from 01/07/17 shows small gallbladder without gallstones. Patient is currently on ASA 81 mg daily and Plavix . She has history of recent [place] and stent, post cardiac arrest. , And significant history of cardiomyopathy. Plan for patient now is to go to rehabilitation. Monitor for any acute episodes of rectal bleeding or dark tarry stools. Plan: - healthy diet - Reordered Hemoccult for stool, still pending - Pepcid PPI - consider colonoscopy for active bleeding and emergent basis only , can follow- up as outpatient for outpatient colonoscopy when stable from cardiac standpoint - Monitor for any further acute rectal bleeding or dark tarry stools, or hematemesis. - Monitor hh and other labs - Transfuse as needed - Notify GI for active bleeding - Supportive care - Patient seen and examined by Dr. Haque and myself and this note is written on his behalf. (Corine Garcia) Physician Comments Agree with above assessment and plan. (Andria Haque MD) Corine Garcia Oct 04, 2017 14:47 Andria Haque MD Oct 04, 2017 15:03
[2017-10-05] MEDS ORDERED: PHARMACY ORDERED LAB ONE (11:45)
== END 2017-10-04 15:43 | DRG 981 ==
LOC: NEPE 21:01 → NEDA 22:18 → HIMW 09-24 00:45 → N04B 09-30 23:03
PROVIDERS: ADMIT Family Medicine; ATTEND Family Medicine
PROC: 5A09357 Assistance with Respiratory Ventilation, Less than 24 Consecutive Hours, Continuous Positive Airway Pressure (ICD-10-PCS; 2017-09-23)
PROC: 5A12012 Performance of Cardiac Output, Single, Manual (ICD-10-PCS; 2017-09-24)
PROC: 5A1945Z Respiratory Ventilation, 24-96 Consecutive Hours (ICD-10-PCS; 2017-09-24)
PROC: 0D9670Z Drainage of Stomach with Drainage Device, Via Natural or Artificial Opening (ICD-10-PCS; 2017-09-24)
PROC: 0BH17EZ Insertion of Endotracheal Airway into Trachea, Via Natural or Artificial Opening (ICD-10-PCS; 2017-09-24)
PROC: 02703DZ Dilation of Coronary Artery, One Artery with Intraluminal Device, Percutaneous Approach (ICD-10-PCS; principal; 2017-09-25)
PROC: 4A023N8 Measurement of Cardiac Sampling and Pressure, Bilateral, Percutaneous Approach (ICD-10-PCS; 2017-09-25)
PROC: B2151ZZ Fluoroscopy of Left Heart using Low Osmolar Contrast (ICD-10-PCS; 2017-09-25)
PROC: B2111ZZ Fluoroscopy of Multiple Coronary Arteries using Low Osmolar Contrast (ICD-10-PCS; 2017-09-25)
PROC: 30233N1 Transfusion of Nonautologous Red Blood Cells into Peripheral Vein, Percutaneous Approach (ICD-10-PCS; 2017-09-25)
DX: J44.1 Chronic obstructive pulmonary disease with (acute) exacerbation (principal); J96.01 Acute respiratory failure with hypoxia; I21.4 Non-ST elevation (NSTEMI) myocardial infarction; I46.9 Cardiac arrest, cause unspecified; G93.41 Metabolic encephalopathy; E43 Unspecified severe protein-calorie malnutrition; J18.1 Lobar pneumonia, unspecified organism; J96.02 Acute respiratory failure with hypercapnia; I13.0 Hypertensive heart and chronic kidney disease with heart failure and stage 1 through stage 4 chronic kidney disease, or unspecified chronic kidney disease; N17.9 Acute kidney failure, unspecified; I42.9 Cardiomyopathy, unspecified; T82.855A Stenosis of coronary artery stent, initial encounter; K92.2 Gastrointestinal hemorrhage, unspecified; N18.3 Chronic kidney disease, stage 3 (moderate); I50.9 Heart failure, unspecified; J44.0 Chronic obstructive pulmonary disease with (acute) lower respiratory infection; E11.22 Type 2 diabetes mellitus with diabetic chronic kidney disease; D69.6 Thrombocytopenia, unspecified; I27.20 Pulmonary hypertension, unspecified; I25.118 Atherosclerotic heart disease of native coronary artery with other forms of angina pectoris; Z95.5 Presence of coronary angioplasty implant and graft; K21.9 Gastro-esophageal reflux disease without esophagitis; Z86.73 Personal history of transient ischemic attack (TIA), and cerebral infarction without residual deficits; E78.5 Hyperlipidemia, unspecified; F32.9 Major depressive disorder, single episode, unspecified; F41.9 Anxiety disorder, unspecified; I34.0 Nonrheumatic mitral (valve) insufficiency; E87.5 Hyperkalemia; E87.6 Hypokalemia; G47.33 Obstructive sleep apnea (adult) (pediatric); M41.9 Scoliosis, unspecified; Z99.81 Dependence on supplemental oxygen; Y95 Nosocomial condition; Z87.442 Personal history of urinary calculi; Z87.891 Personal history of nicotine dependence; Z82.49 Family history of ischemic heart disease and other diseases of the circulatory system; Z79.01 Long term (current) use of anticoagulants; Y83.1 Surgical operation with implant of artificial internal device as the cause of abnormal reaction of the patient, or of later complication, without mention of misadventure at the time of the procedure; D64.9 Anemia, unspecified; D63.8 Anemia in other chronic diseases classified elsewhere; I25.82 Chronic total occlusion of coronary artery; G89.29 Other chronic pain; Z79.891 Long term (current) use of opiate analgesic; K83.8 Other specified diseases of biliary tract; Z90.710 Acquired absence of both cervix and uterus
CPT/HCPCS: 31500; 36430; 36600; 71045; 76705; 76775; 76937; 80048; 80053; 80202; 81001; 82306; 82550; 82552; 82570; 82728; 82805; 82810; 82947; 82948; 83540; 83550; 83735; 83880; 84100; 84132; 84156; 84484; 85002; 85007; 85025; 85027; 85610; 85730; 86850; 86900; 86901; 86920; 87040; 87070; 87205; 87641; 92928; 93005; 93306; 93460; 94002; 94003; 94640; 94664; 94667; 96365; 96375; C1769; C1876; C1887; C1893; J0171; J0282; J0360; J0456; J0692; J1644; J1650; J1815; J1940; J2060; J2250; J2930; J3010; J3370; J3475; J3480; J7030; J7050; P9016; Q9967